=== PATIENT | female | born 1970 | race Caucasian/White ===

== ENCOUNTER → 2017-01-24 | Outpatient (CLI) | payer MEDICAID | LOC: WI 12:18 | PROVIDERS: ATTEND Nurse Practitioner Family | DX: N63 Unspecified lump in breast (principal) | CPT/HCPCS: 76641; G0204; 77066 ==

== ENCOUNTER 2017-02-14 11:25 | Emergency (ER) | payer MEDICAID ==
[2017-02-14 11:29] VITALS: BP 168/75
--- NOTE | 2017-02-14 11:32 | ER Document Report ---
ED Medical Screen (RME) - General Stated Complaint: WITHDRAWL Time seen by provider: 11:30 Mode of Arrival: Ambulatory Information source: Patient Notes: 46-year-old female presents to ED for possible withdrawal from Klonopin she states the last Klonopin she took was 4 days ago. She states she was taken 1 mg in the morning and 2 mg at night. Her doctor prescribed an them and she started to see a new doctor on Saturday. She starting on Saturday with [facility]. She states she has a history of anxiety and panic attacks. I have greeted and performed a rapid initial assessment of this patient. A comprehensive ED assessment and evaluation of the patient, analysis of test results and completion of medical decision making process will be conducted by an additional ED providers. TRAVEL OUTSIDE OF THE [place] IN LAST 30 DAYS: No - Related Data Allergies/Adverse Reactions: ketorolac tromethamine [From Toradol] Allergy (Verified 01/03/16 21:14) tramadol [Tramadol] Allergy (Verified 01/03/16 21:14) Past Medical History Pulmonary Medical History: Reports: Hx Asthma Endocrine Medical History: Reports: Hx Diabetes Mellitus Type 2 - Immunizations Immunizations up to date: No Hx Diphtheria, Pertussis, Tetanus Vaccination: Yes Physical Exam - Vital signs Vitals: Temp Pulse Resp BP Pulse Ox 98.4 F 97 18 168/75 H 98 02/14/17 11:28 02/14/17 11:28 02/14/17 11:28 02/14/17 11:28 02/14/17 11:28 Course - Vital Signs Vital signs: Temp Pulse Resp BP Pulse Ox 98.4 F 97 18 168/75 H 98 02/14/17 11:28 02/14/17 11:28 02/14/17 11:28 02/14/17 11:28 02/14/17 11:28
--- NOTE | 2017-02-14 12:29 | ER Document Report ---
ED General - General Mode of Arrival: Ambulatory Information source: Patient TRAVEL OUTSIDE OF THE [place] IN LAST 30 DAYS: No - HPI Onset: Other - see HPI note - General Chief Complaint: Medication Refill Stated Complaint: WITHDRAWL Notes: Patient is a 46-year-old female patient was department for medication refill. Patient states that she is supposedly having "withdrawal" from Klonopin. Patient states that her last dose of Klonopin was 4 days ago. Patient states that she takes 1 mg in the morning and 2 mg at night. Patient states that her doctor at [facility] prescribes them however, patient states she is changing to [facility]. Patient states he has an appointment with them on Saturday. Patient is concerned that she may have a possible seizure in the meantime. Patient states she takes this medicine for anxiety. Patient has a history of anxiety and panic attacks. (RANDA ABBOTT) - Related Data Allergies/Adverse Reactions: ketorolac tromethamine [From Toradol] Allergy (Verified 02/14/17 11:30) tramadol [Tramadol] Allergy (Verified 02/14/17 11:30) Past Medical History - General Information source: Patient - Social History Smoking Status: Current Every Day Smoker Chew tobacco use (# tins/day): No Frequency of alcohol use: None Drug Abuse: None Family History: None Patient has suicidal ideation: No Patient has homicidal ideation: No Pulmonary Medical History: Reports: Hx Asthma Endocrine Medical History: Reports: Hx Diabetes Mellitus Type 2 Psychiatric Medical History: Reports: Hx Anxiety - Immunizations Immunizations up to date: No Hx Diphtheria, Pertussis, Tetanus Vaccination: Yes Review of Systems - Review of Systems Constitutional: No symptoms reported EENT: No symptoms reported Cardiovascular: No symptoms reported Respiratory: No symptoms reported Gastrointestinal: No symptoms reported Genitourinary: No symptoms reported Female Genitourinary: No symptoms reported Musculoskeletal: No symptoms reported Skin: No symptoms reported Hematologic/Lymphatic: No symptoms reported Neurological/Psychological: No symptoms reported -: Yes All other systems reviewed and negative Physical Exam - Vital signs Interpretation: Normal - General General appearance: Appears well, Alert In distress: Mild - HEENT Head: Normocephalic, Atraumatic Eyes: Normal Pupils: PERRL Mucous membranes: Moist - Respiratory Respiratory status: No respiratory distress - Cardiovascular Rhythm: Regular - Abdominal Inspection: Normal - Back Back: Normal, Nontender - Extremities General upper extremity: Normal inspection, Normal ROM, Normal strength General lower extremity: Normal inspection, Normal ROM, Normal strength - Neurological Neuro grossly intact: Yes Cognition: Normal Orientation: AAOx4 Christian Coma Scale Eye Opening: Spontaneous Christian Coma Scale Verbal: Oriented Christian Coma Scale Motor: Obeys Commands [place] Coma Scale Total: 15 Speech: Normal - Psychological Associated symptoms: Normal affect, Normal mood - Skin Skin Temperature: Warm Skin Moisture: Dry Course - Re-evaluation Re-evalutation: 02/14/17 14:56 I personally performed the services described in the documentation, reviewed and edited the documentation which was dictated to my scribe in my presence, and it accurately records my words and actions. Patient is in the amounts per with her stating that she wants a refill on her Klonopin that she is withdrawing from that she ran out of. She said she was seeing cc and see but they wondered do therapy to stop prescribing her medications that she ran out of. She has an appointment on Saturday to get it refilled. She is not actively which are reports no history of seizures discussed with her E on chronic refill on medication she states she's got to go home and have a seizure so she can come back and get the medication. Explained to her that I have spoken with behavioral health and they do not feel it needs it treatment in the emergency department and given me paperwork to give to his outpatient resources. One of these outpatient resources appointment that she has on Saturday. Explain the policy and address any concerns as I'm not comfortable refilling her chronic addicting medication at this point also has a primary care physician*she spoke to them she said she thinks her out of town. Recommended she also talked with the primary care physician. (ESE SILVER) - Vital Signs Vital signs: Temp Pulse Resp BP Pulse Ox 98.4 F 97 18 168/75 H 98 02/14/17 11:28 02/14/17 11:28 02/14/17 11:28 02/14/17 11:28 02/14/17 11:28 Discharge - Discharge Clinical Impression: request for medication refill Condition: Stable Disposition: HOME, SELF-CARE Additional Instructions: You have requested a refill for Klonopin that you have run out of. You have an appointment for follow-up to get this medication refilled on Saturday. I spoke with by behavioral health team states that they are not going to manage in the emergency department emergently but that they gave you paperwork which I have given to you of outpatient resources. You state that you have a follow-up appointment on Saturday. The same people N outpatient referral. Right now your vital signs are stable there has been no seizure activity. You have mentioned uses for seizures. I would recommend that you also see the neurologist and consider additional seizure medication other than the Klonopin if you feel like your withdrawing from it. Chronic management of medication refills must be by primary care provider outpatient Resource. Return to the emergency department for increasing worsening or new symptoms Referrals: ABRAHAM STARR FNP [Primary Care Provider] - Follow up tomorrow Scribe Documentation - Scribe Written by Antonette:: Randa Abbott 02/14/17 15:55 acting as scribe for :: Skip
== END 2017-02-14 15:06 | disposition home or self-care (01) ==
LOC: ER 11:25
DX: Z76.0 Encounter for issue of repeat prescription (principal); F41.9 Anxiety disorder, unspecified; F17.200 Nicotine dependence, unspecified, uncomplicated; J45.909 Unspecified asthma, uncomplicated; E11.9 Type 2 diabetes mellitus without complications
CPT/HCPCS: 99281

== ENCOUNTER 2017-03-06 22:20 | Emergency (ER) | payer MEDICAID ==
[2017-03-07 01:00] LABS: ABSOLUTE BASOPHILS # (AUTO) 0.1 10^3/uL (0.0-0.2); ABSOLUTE EOSINOPHILS # (AUTO) 0.2 10^3/uL (0.0-0.6); ABSOLUTE LYMPHOCYTES (AUTO) 4.4 10^3/uL (0.5-4.7); ABSOLUTE MONOCYTES (AUTO) 1.2 10^3/uL (0.1-1.4); ABSOLUTE NEUT (AUTO) 9.9 10^3/uL (1.7-8.2); BASOPHILS % (AUTO) 0.8 % (0-2); EOSINOPHILS % (AUTO) 1.3 % (0-6); HEMATOCRIT 40.4 % (36.0-47.0); HEMOGLOBIN 13.8 g/dL (12.0-15.5); LYMPHOCYTES % (AUTO) 27.9 % (13-45); MEAN CORPUSCULAR HEMOGLOBIN 30.8 pg (27.0-33.4); MEAN CORPUSCULAR HGB CONC 34.2 g/dL (32.0-36.0); MEAN CORPUSCULAR VOLUME 90 fl (80-97); MONOCYTES % (AUTO) 7.4 % (3-13); RED BLOOD COUNT 4.49 10^6/uL (3.72-5.28); RED CELL DISTRIBUTION WIDTH 13.7 % (11.5-14.0); SEGMENTED NEUTROPHILS % (AUTO) 62.6 % (42-78); WHITE BLOOD COUNT 15.9 10^3/uL (4.0-10.5)
[2017-03-07 01:07] LABS: APPEARANCE,URINE SLIGHTLY-CLOUDY; BILIRUBIN,URINE NEGATIVE (NEGATIVE); GLUCOSE, URINE >=500 mg/dL (NEGATIVE); KETONES,URINE TRACE mg/dL (NEGATIVE); LEUKOCYTE ESTERASE,URINE TRACE (NEGATIVE); NITRITE,URINE NEGATIVE (NEGATIVE); PROTEIN,URINE NEGATIVE (NEGATIVE); URINE SPECIFIC GRAVITY 1.029; UROBILINOGEN,URINE NEGATIVE mg/dL (<2.0)
[2017-03-07 01:32] LABS: ALANINE AMINOTRANSFERASE 20 U/L (9-52); ALBUMIN 3.9 g/dL (3.5-5.0); ALKALINE PHOSPHATASE 101 U/L (38-126); ANION GAP 12 (5-19); ASPARTATE AMINO TRANSFERASE 11 U/L (14-36); BILIRUBIN,DIRECT 0.1 mg/dL (0.0-0.4); BILIRUBIN,TOTAL 0.4 mg/dL (0.2-1.3); BLOOD UREA NITROGEN 15 mg/dL (7-20); CALCIUM 9.7 mg/dL (8.4-10.2); CARBON DIOXIDE 24 mmol/L (22-30); CHLORIDE 96 mmol/L (98-107); CREATININE RESULT 0.44 mg/dL (0.52-1.25); GLUCOSE 282 mg/dL (75-110); LIPASE 48.7 U/L (23-300); POTASSIUM 4.3 mmol/L (3.6-5.0); SODIUM 132.1 mmol/L (137-145); TOTAL PROTEIN 6.6 g/dL (6.3-8.2)
[2017-03-07] MEDS ORDERED: HYDROMORPHONE HCL INJ/PF 2 MG/ML AMPULE IV ONE ×2 (05:05→06:39)
[2017-03-07] MEDS ORDERED: ONDANSETRON HCL INJ/PF 4 MG/2 ML SDV IV ONE (05:05)
[2017-03-07] MEDS ORDERED: NORMAL SALINE 1000 ML 1,000 ML IV ONE ×2 (05:05→06:47)
--- NOTE | 2017-03-07 06:51 | ER Document Report ---
ED General - General Chief Complaint: Abdominal Pain Stated Complaint: ABDOMINAL PAIN Time seen by provider: 04:45 Mode of Arrival: Ambulatory Information source: Patient TRAVEL OUTSIDE OF THE [place] IN LAST 30 DAYS: No - HPI Notes: Patient presents with report of abdominal pain progressing over the course of the last 3 days, largely consistent but occasional crampy worsening. The patient states pain is more so lower abdominal region left greater than right but also reports some upper abdominal pain. She denies any constipation or diarrhea. She has a history of diverticulitis, colitis. Last menstrual cycle was 2 months ago, but she states it she's undergoing menopause. No vaginal discharge. No significant back pain. She reports associated nausea but denies any vomiting. Patient denies any vaginal discharge or concern for STD. - Related Data Allergies/Adverse Reactions: ketorolac tromethamine [From Toradol] Allergy (Verified 03/06/17 23:19) tramadol [Tramadol] Allergy (Verified 03/06/17 23:19) Past Medical History - Social History Smoking Status: Current Every Day Smoker Frequency of alcohol use: None Drug Abuse: None Lives with: Family Family History: None Patient has suicidal ideation: No Patient has homicidal ideation: No - Past Medical History Cardiac Medical History: Reports: Hx Hypercholesterolemia, Hx Hypertension Pulmonary Medical History: Reports: Hx Asthma, Hx COPD Endocrine Medical History: Reports: Hx Diabetes Mellitus Type 2 Renal/ Medical History: Denies: Hx Peritoneal Dialysis Psychiatric Medical History: Reports: Hx Anxiety, Hx Depression Past Surgical History: Reports: Hx Appendectomy, Hx Cholecystectomy, Hx Gynecologic Surgery - x14 D&C - Immunizations Immunizations up to date: No Hx Diphtheria, Pertussis, Tetanus Vaccination: Yes Review of Systems - Review of Systems Notes: REVIEW OF SYSTEMS: CONSTITUTIONAL : Denies fever, chills, or sweats. Denies recent illness. EENT: Denies eye, ear, throat, or mouth pain or symptoms. Denies nasal or sinus congestion or discharge. Denies throat, tongue, or mouth swelling or difficulty swallowing. CARDIOVASCULAR: Denies chest pain. Denies palpitations or racing or irregular heart beat. Denies ankle edema. RESPIRATORY: Denies cough, cold, or chest congestion. Denies shortness of breath, difficulty breathing, or wheezing. GASTROINTESTINAL: Denies vomiting, or diarrhea. Denies blood in vomitus, stools, or per rectum. Denies black, tarry stools. Denies constipation. GENITOURINARY: Denies difficulty urinating, painful urination, burning, frequency, blood in urine, or discharge. FEMALE GENITOURINARY: Denies vaginal bleeding, heavy or abnormal periods, irregular periods. Denies vaginal discharge or odor. MUSCULOSKELETAL: Denies back or neck pain or stiffness. Denies joint pain or swelling. SKIN: Denies rash, lesions or sores. HEMATOLOGIC : Denies easy bruising or bleeding. LYMPHATIC: Denies swollen, enlarged glands. NEUROLOGICAL: Denies confusion or altered mental status. Denies passing out or loss of consciousness. Denies dizziness or lightheadedness. Denies headache. Denies weakness or paralysis or loss of use of either side. Denies problems with gait or speech. Denies sensory loss, numbness, or tingling. Denies seizures. PSYCHIATRIC: Denies anxiety or stress. Denies depression, suicidal ideation, or homicidal ideation. ALL OTHER SYSTEMS REVIEWED AND NEGATIVE. Dictation was performed using [employer] voice recognition software Physical Exam - Vital signs Vitals: Temp Pulse Resp BP Pulse Ox 98.3 F 93 14 133/68 H 98 03/06/17 23:20 03/06/17 23:20 03/06/17 23:20 03/06/17 23:20 03/06/17 23:20 - Notes Notes: PHYSICAL EXAMINATION: GENERAL: Well-appearing, well-nourished and in no acute distress. HEAD: Atraumatic, normocephalic. EYES: Pupils equal round and reactive to light, extraocular movements intact, conjunctiva are normal. ENT: Nares patent, oropharynx clear without exudates. Moist mucous membranes. NECK: Normal range of motion, supple without lymphadenopathy LUNGS: Breath sounds clear to auscultation bilaterally and equal. No wheezes rales or rhonchi. HEART: Regular rate and rhythm without murmurs ABDOMEN: Soft abdomen. No guarding, no rebound. No masses appreciated. Patient has pain through the lower greater than upper abdomen and left somewhat greater than right. Patient is obese. No obvious hepatosplenomegaly. Female : deferred Musculoskeletal: Normal range of motion, no pitting or edema. No cyanosis. NEUROLOGICAL: Cranial nerves grossly intact. Normal speech, normal gait. Normal sensory, motor exams PSYCH: Normal mood, normal affect. SKIN: Warm, Dry, normal turgor, no rashes or lesions noted. Course - Re-evaluation Re-evalutation: 03/07/17 06:51 After Zofran and Dilaudid, the patient had continued pain. CT scan showed a 5.1 cm complex mass. Possible ovarian cyst but ultrasound suggested. Patient with continued pain. Ultrasound ordered. Patient given additional medication for pain. Must rule out ovarian cancer, also must consider torsion given the size of the ovarian mass. No suggestion for diverticulitis or abdominal aortic aneurysm or kidney stone or urinary tract infection. There is mild hyperglycemia and mild dehydration without any acidosis or vomiting. Patient is given 2 L normal saline bolus. 03/07/17 06:54 03/07/17 06:54 - Vital Signs Vital signs: Temp Pulse Resp BP Pulse Ox 98.3 F 93 14 133/68 H 98 03/06/17 23:20 03/06/17 23:20 03/06/17 23:20 03/06/17 23:20 03/06/17 23:20 - Laboratory Result Diagrams: 03/07/17 00:35 03/07/17 00:35 Laboratory results interpreted by me: 03/07/17 03/07/17 03/07/17 00:35 00:35 00:35 WBC 15.9 H Absolute Neutrophils 9.9 H Sodium 132.1 L Chloride 96 L Creatinine 0.44 L Glucose 282 H AST 11 L Urine Glucose (UA) >=500 H Urine Ketones TRACE H Ur Leukocyte Esterase TRACE H Discharge - Discharge Clinical Impression: Hyperglycemia, Dehydration
[2017-03-07 09:47] VITALS: BP 117/69
== END 2017-03-07 09:15 | disposition home or self-care (01) ==
LOC: ER 22:20
DX: E86.0 Dehydration (principal); N83.202 Unspecified ovarian cyst, left side; E11.65 Type 2 diabetes mellitus with hyperglycemia; R10.9 Unspecified abdominal pain; F17.200 Nicotine dependence, unspecified, uncomplicated; E78.00 Pure hypercholesterolemia, unspecified; I10 Essential (primary) hypertension; J44.9 Chronic obstructive pulmonary disease, unspecified; Z88.6 Allergy status to analgesic agent; Z90.49 Acquired absence of other specified parts of digestive tract
CPT/HCPCS: 99284; 36415; 83690; 85025; 81025; 80053; 81001; 76830; 93976; 74177; J1170; J2405; J7030

== ENCOUNTER 2017-03-08 14:42 | Emergency (ER) | payer MEDICAID ==
--- NOTE | 2017-03-08 16:29 | ER Document Report ---
ED Medical Screen (RME) - General Chief Complaint: Abdominal Pain Stated Complaint: ABDOMINAL PAIN Notes: Patient is complaining of persistent, continuing pain in her abdomen. She says that this is been going on for about 4 days. She was here at this hospital 2 days ago and had a workup including a CT scan and ultrasound and she was found to have a 5 cm left ovarian cyst. She returned saying the hydrocodone that she was prescribed is not helping her pain. She says that she is unable to get in to see an AUTOMOTIVE TECHNICIAN until she is referred by her primary care provider, so she has nowhere else to go. No vomiting or diarrhea. No UTI symptoms. No fevers. PMH: Appendectomy, cholecystectomy, several laparoscopic examinations. History of hypertension, diabetes on both oral agent and insulin, anxiety and depression. Just recently stopped smoking. TRAVEL OUTSIDE OF THE [place] IN LAST 30 DAYS: No - Related Data Allergies/Adverse Reactions: ketorolac tromethamine [From Toradol] Allergy (Verified 03/08/17 14:45) tramadol [Tramadol] Allergy (Verified 03/08/17 14:45) Past Medical History - Past Medical History Cardiac Medical History: Reports: Hx Hypercholesterolemia, Hx Hypertension Pulmonary Medical History: Reports: Hx Asthma, Hx COPD Endocrine Medical History: Reports: Hx Diabetes Mellitus Type 2 Renal/ Medical History: Denies: Hx Peritoneal Dialysis Psychiatric Medical History: Reports: Hx Anxiety, Hx Depression Past Surgical History: Reports: Hx Appendectomy, Hx Cholecystectomy, Hx Gynecologic Surgery - x14 D&C - Immunizations Immunizations up to date: No Hx Diphtheria, Pertussis, Tetanus Vaccination: Yes Physical Exam - Vital signs Vitals: Temp Pulse Resp BP Pulse Ox 97.6 F 86 18 144/65 H 97 03/08/17 14:47 03/08/17 14:47 03/08/17 14:47 03/08/17 14:47 03/08/17 14:47 Course - Vital Signs Vital signs: Temp Pulse Resp BP Pulse Ox 97.6 F 86 18 144/65 H 97 03/08/17 14:47 03/08/17 14:47 03/08/17 14:47 03/08/17 14:47 03/08/17 14:47
[2017-03-08] MEDS ORDERED: HYDROMORPHONE HCL 2 MG TABLET PO ONE (16:32)
[2017-03-08] MEDS ORDERED: PROMETHAZINE HCL 25 MG TABLET PO ONE (16:33)
[2017-03-08 16:56] LABS: ABSOLUTE BASOPHILS # (AUTO) 0.1 10^3/uL (0.0-0.2); ABSOLUTE EOSINOPHILS # (AUTO) 0.2 10^3/uL (0.0-0.6); ABSOLUTE LYMPHOCYTES (AUTO) 3.7 10^3/uL (0.5-4.7); ABSOLUTE NEUT (AUTO) 8.7 10^3/uL (1.7-8.2); BASOPHILS % (AUTO) 1.1 % (0-2); EOSINOPHILS % (AUTO) 1.4 % (0-6); HEMATOCRIT 42.4 % (36.0-47.0); HEMOGLOBIN 13.9 g/dL (12.0-15.5); HGB HCT DIFFERENCE -0.7; LYMPHOCYTES % (AUTO) 26.9 % (13-45); MEAN CORPUSCULAR HEMOGLOBIN 30.4 pg (27.0-33.4); MEAN CORPUSCULAR HGB CONC 32.8 g/dL (32.0-36.0); MEAN CORPUSCULAR VOLUME 93 fl (80-97); RED BLOOD COUNT 4.57 10^6/uL (3.72-5.28); RED CELL DISTRIBUTION WIDTH 13.8 % (11.5-14.0); SEGMENTED NEUTROPHILS % (AUTO) 63.6 % (42-78); WHITE BLOOD COUNT 13.7 10^3/uL (4.0-10.5)
[2017-03-08 17:09] LABS: ALANINE AMINOTRANSFERASE 19 U/L (9-52); ALKALINE PHOSPHATASE 108 U/L (38-126); ANION GAP 12 (5-19); ASPARTATE AMINO TRANSFERASE 13 U/L (14-36); BILIRUBIN,DIRECT 0.2 mg/dL (0.0-0.4); BILIRUBIN,TOTAL 0.4 mg/dL (0.2-1.3); BLOOD UREA NITROGEN 9 mg/dL (7-20); CALCIUM 9.6 mg/dL (8.4-10.2); CARBON DIOXIDE 26 mmol/L (22-30); CHLORIDE 100 mmol/L (98-107); CREATININE RESULT 0.55 mg/dL (0.52-1.25); GLUCOSE 372 mg/dL (75-110); LIPASE 55.7 U/L (23-300); POTASSIUM 4.8 mmol/L (3.6-5.0); SODIUM 138.4 mmol/L (137-145); TOTAL PROTEIN 6.6 g/dL (6.3-8.2)
--- NOTE | 2017-03-08 17:35 | ER Document Report ---
ED GI/ - General Chief Complaint: Abdominal Pain Stated Complaint: ABDOMINAL PAIN Time seen by provider: 17:35 Mode of Arrival: Ambulatory Information source: Patient Notes: 46-year-old Type @ insulin-dependent diabetic female complaining of worsening left pelvic pain. She was diagnosed with a 5 x 3 left ovarian cyst that is septated yesterday by ultrasound. She also had a abdominal CT done there is no diverticulitis. The pain has doubled since she was evaluated in the emergency department and the hydrocodone did not help. There is no diarrhea or constipation. Her test was negative yesterday. No fever or chills. TRAVEL OUTSIDE OF THE [place] IN LAST 30 DAYS: No - Related Data Allergies/Adverse Reactions: ketorolac tromethamine [From Toradol] Allergy (Verified 03/08/17 14:45) tramadol [Tramadol] Allergy (Verified 03/08/17 14:45) Past Medical History - General Information source: Patient - Social History Smoking Status: Current Every Day Smoker Frequency of alcohol use: None Drug Abuse: None Lives with: Spouse/Significant other Family History: None Patient has suicidal ideation: No Patient has homicidal ideation: No - Past Medical History Cardiac Medical History: Reports: Hx Hypercholesterolemia, Hx Hypertension Pulmonary Medical History: Reports: Hx Asthma, Hx COPD Endocrine Medical History: Reports: Hx Diabetes Mellitus Type 2 Renal/ Medical History: Denies: Hx Peritoneal Dialysis Psychiatric Medical History: Reports: Hx Anxiety, Hx Depression Past Surgical History: Reports: Hx Appendectomy, Hx Cholecystectomy, Hx Gynecologic Surgery - x14 D&C - Immunizations Immunizations up to date: No Hx Diphtheria, Pertussis, Tetanus Vaccination: Yes Review of Systems - Review of Systems Constitutional: No symptoms reported EENT: No symptoms reported Cardiovascular: No symptoms reported Respiratory: No symptoms reported Gastrointestinal: No symptoms reported Genitourinary: No symptoms reported Female Genitourinary: See HPI Musculoskeletal: No symptoms reported Skin: No symptoms reported Hematologic/Lymphatic: No symptoms reported Neurological/Psychological: No symptoms reported Physical Exam - Vital signs Vitals: Temp Pulse Resp BP Pulse Ox 97.6 F 86 18 144/65 H 97 03/08/17 14:47 03/08/17 14:47 03/08/17 14:47 03/08/17 14:47 03/08/17 14:47 Interpretation: Normal - General General appearance: Appears well, Alert - HEENT Head: Normocephalic, Atraumatic Eyes: Normal Conjunctiva: Normal Pupils: PERRL Mucous membranes: Normal Pharynx: Normal Neck: Supple. No: Lymphadenopathy - Respiratory Respiratory status: No respiratory distress Chest status: Nontender Breath sounds: Normal Chest palpation: Normal - Cardiovascular Rhythm: Regular Heart sounds: Normal auscultation Murmur: No - Abdominal Inspection: Normal Distension: No distension Bowel sounds: Normal Tenderness: Tender - Left pelvic Organomegaly: No organomegaly - Back Back: Normal, Nontender. No: CVA tenderness - Extremities General upper extremity: Normal inspection, Nontender, Normal color, Normal ROM , Normal temperature General lower extremity: Normal inspection, Nontender, Normal color, Normal ROM , Normal temperature, Normal weight bearing. No: Luiz's sign - Neurological Neuro grossly intact: Yes Cognition: Normal Orientation: AAOx4 Christian Coma Scale Eye Opening: Spontaneous Christian Coma Scale Verbal: Oriented Roland Coma Scale Motor: Obeys Commands Christian Coma Scale Total: 15 Speech: Normal Motor strength normal: LUE, RUE, LLE, RLE Sensory: Normal - Psychological Associated symptoms: Normal affect, Normal mood - Skin Skin Temperature: Warm Skin Moisture: Dry Skin Color: Normal Skin irregularity: negative: Rash Course - Re-evaluation Re-evalutation: 03/08/17 19:14 No change in ovarian cyst, no torsion 03/08/17 19:25 urine 1.031, accucheck 309. dr panchal who approved the US says to give regular 6 units subcutaneously now, pt to f/u with her dr. next week 03/09/17 09:38 Called patient this morning to see how she was doing. Her glucose is down to 150 this morning and her boyfriend went to get her pain medication filled. She states she is doing better today. - Vital Signs Vital signs: Temp Pulse Resp BP Pulse Ox 97.6 F 70 18 138/62 H 98 03/08/17 14:47 03/08/17 19:55 03/08/17 19:55 03/08/17 19:55 03/08/17 19:55 - Laboratory Result Diagrams: 03/08/17 16:30 03/08/17 16:30 Laboratory results interpreted by me: 03/08/17 03/08/17 03/08/17 16:30 16:30 16:30 WBC 13.7 H Absolute Neutrophils 8.7 H Glucose 372 H POC Glucose AST 13 L Urine Glucose (UA) >=500 H 03/08/17 19:28 WBC Absolute Neutrophils Glucose POC Glucose 309 H AST Urine Glucose (UA) Discharge - Discharge Clinical Impression: Ovarian cyst, left, left pelvic pain Uncontrolled diabetes mellitus Qualifiers: Diabetes mellitus type: type 1 Diabetes mellitus complication status: without complication Qualified Code(s): E10.9 - Type 1 diabetes mellitus without complications Condition: Good Disposition: HOME, SELF-CARE Instructions: Ovarian Cyst ([facility]), Diabetes ([facility]) Additional Instructions: see your doctor on saturday for better glucose control to er if worse copy of labs, imaging given to you today call the obgyn for appt next week Please complete the patient satisfaction survey if you get one, and return it.. If you do not receive a survey, then you can go to the [facility] website, [email or web address] and place your comments about your very good care. Thank you very much. It was a pleasure being your medical provider today. Prescriptions: Oxycodone HCl/Acetaminophen [Percocet 10-325 Mg Tablet] 1 each PO Q4HP PRN #20 tablet PRN Reason: Referrals: ABRAHAM STARR FNP [Primary Care Provider] - 03/11/17
[2017-03-08] MEDS ORDERED: OXYCODONE-ACETAMINOPHEN 5-325 MG TABLET PO ONE (17:59)
[2017-03-08 19:21] LABS: APPEARANCE,URINE CLEAR; BILIRUBIN,URINE NEGATIVE (NEGATIVE); GLUCOSE, URINE >=500 mg/dL (NEGATIVE); KETONES,URINE NEGATIVE (NEGATIVE); LEUKOCYTE ESTERASE,URINE NEGATIVE (NEGATIVE); NITRITE,URINE NEGATIVE (NEGATIVE); PROTEIN,URINE NEGATIVE (NEGATIVE); URINE SPECIFIC GRAVITY 1.031; UROBILINOGEN,URINE NEGATIVE mg/dL (<2.0)
[2017-03-08] MEDS ORDERED: INSULIN REG, HUMAN 100 UNIT/ML 3 ML VIAL (PYX) SUBCUT ONE (19:29)
[2017-03-08 20:12] VITALS: BP 138/62
== END 2017-03-08 19:59 | disposition home or self-care (01) ==
LOC: ER 14:42
DX: N83.202 Unspecified ovarian cyst, left side (principal); R10.2 Pelvic and perineal pain; E10.9 Type 1 diabetes mellitus without complications; F17.200 Nicotine dependence, unspecified, uncomplicated; E78.00 Pure hypercholesterolemia, unspecified; I10 Essential (primary) hypertension; J44.9 Chronic obstructive pulmonary disease, unspecified; Z88.6 Allergy status to analgesic agent
CPT/HCPCS: 99284; 36415; 82962; 83690; 85025; 80053; 81001; 76830; 93976; J3490 ×2; J1815

== ENCOUNTER 2017-03-12 13:05 | Emergency (ER) | payer MEDICAID ==
[2017-03-12 13:12] VITALS: BP 127/60
[2017-03-12] MEDS ORDERED: ONDANSETRON 4 MG TAB.RAPDIS PO ONE (13:36)
[2017-03-12] MEDS ORDERED: OXYCODONE-ACETAMINOPHEN 5-325 MG TABLET PO ONE (13:36)
--- NOTE | 2017-03-12 13:36 | ER Document Report ---
ED Medical Screen (RME) - General Chief Complaint: Abdominal Pain Stated Complaint: ABDOMINAL PAIN Notes: This 46-year-old female patient comes emergency room complaining of severe pain in the lower abdomen. She was seen on 03/06/2017 and 03/08/2017 and diagnosed with a large complex left ovarian cyst. She was referred back to her primary care provider, who referred her to Dr. King. Apparently a referral was not working correctly, and he is not available to see her for at least 2 weeks. On the first visit, the case was actually discussed with Dr. Mims who recommended that she be followed up in the office. Patient reports that the pain is getting much worse and she came here at the direction of Dr. King's office since they could not see her. I have greeted and performed a rapid initial assessment of this patient. A comprehensive ED assessment and evaluation of the patient, analysis of test results and completion of the medical decision making process will be conducted by additional ED providers. TRAVEL OUTSIDE OF THE [place] IN LAST 30 DAYS: No - Related Data Allergies/Adverse Reactions: ketorolac tromethamine [From Toradol] Allergy (Verified 03/12/17 13:10) tramadol [Tramadol] Allergy (Verified 03/12/17 13:10) Past Medical History - Past Medical History Cardiac Medical History: Reports: Hx Hypercholesterolemia, Hx Hypertension Pulmonary Medical History: Reports: Hx Asthma, Hx COPD Endocrine Medical History: Reports: Hx Diabetes Mellitus Type 2 Renal/ Medical History: Denies: Hx Peritoneal Dialysis Psychiatric Medical History: Reports: Hx Anxiety, Hx Depression Past Surgical History: Reports: Hx Appendectomy, Hx Cholecystectomy, Hx Gynecologic Surgery - x14 D&C - Immunizations Immunizations up to date: No Hx Diphtheria, Pertussis, Tetanus Vaccination: Yes Physical Exam - Vital signs Vitals: Temp Pulse Resp BP Pulse Ox 98.4 F 110 H 16 127/60 H 97 03/12/17 13:11 03/12/17 13:11 03/12/17 13:11 03/12/17 13:11 03/12/17 13:11 Course - Vital Signs Vital signs: Temp Pulse Resp BP Pulse Ox 98.4 F 110 H 16 127/60 H 97 03/12/17 13:11 03/12/17 13:11 03/12/17 13:11 03/12/17 13:11 03/12/17 13:11
[2017-03-12] MEDS ORDERED: HYDROCODONE/ACETAMINOPHEN 5-325 MG TABLET PO ONE (14:08)
== END 2017-03-12 16:16 | disposition left against medical advice (07) ==
LOC: ER 13:05
DX: R10.9 Unspecified abdominal pain (principal); E78.00 Pure hypercholesterolemia, unspecified; I10 Essential (primary) hypertension; J44.9 Chronic obstructive pulmonary disease, unspecified; E11.9 Type 2 diabetes mellitus without complications; Z88.6 Allergy status to analgesic agent; Z90.49 Acquired absence of other specified parts of digestive tract
CPT/HCPCS: 99281; S0119

== ENCOUNTER 2017-06-13 10:52 | Emergency (ER) | payer MEDICAID ==
[2017-06-13] MEDS ORDERED: ONDANSETRON 4 MG TAB.RAPDIS PO ONE (11:02)
--- NOTE | 2017-06-13 11:05 | ER Document Report ---
ED Medical Screen (RME) - General Chief Complaint: Flank Pain Stated Complaint: STOMACH PAIN Time Seen by Provider: 06/13/17 11:02 Mode of Arrival: Ambulatory Information source: Patient Notes: 36-year-old female presents to ED for right flank pain for several days. She also complains of nausea vomiting and diarrhea with low-grade temp of 99.6. She does not have a history of kidney stones. She smokes a pack per day but does not drink or do drugs. She has a history of a high blood pressure cholesterol, diabetes, cholecystectomy, and an appendectomy. Lungs are clear respirations even and nonlabored. I have greeted and performed a rapid initial assessment of this patient. A comprehensive ED assessment and evaluation of the patient, analysis of test results and completion of medical decision making process will be conducted by an additional ED providers. TRAVEL OUTSIDE OF THE [place] IN LAST 30 DAYS: No - Related Data Allergies/Adverse Reactions: ketorolac tromethamine [From Toradol] Allergy (Verified 06/13/17 11:00) tramadol [Tramadol] Allergy (Verified 06/13/17 11:00) Past Medical History - Past Medical History Cardiac Medical History: Reports: Hx Hypercholesterolemia, Hx Hypertension Pulmonary Medical History: Reports: Hx Asthma, Hx COPD Endocrine Medical History: Reports: Hx Diabetes Mellitus Type 2 Renal/ Medical History: Denies: Hx Peritoneal Dialysis Psychiatric Medical History: Reports: Hx Anxiety, Hx Depression Past Surgical History: Reports: Hx Appendectomy, Hx Cholecystectomy, Hx Gynecologic Surgery - x14 D&C - Immunizations Immunizations up to date: No Hx Diphtheria, Pertussis, Tetanus Vaccination: Yes Physical Exam - Vital signs Vitals: Temp Pulse Resp BP Pulse Ox 98.1 F 100 16 135/69 H 96 06/13/17 11:00 06/13/17 11:00 06/13/17 11:00 06/13/17 11:00 06/13/17 11:00 Course - Vital Signs Vital signs: Temp Pulse Resp BP Pulse Ox 98.1 F 100 16 135/69 H 96 06/13/17 11:00 06/13/17 11:00 06/13/17 11:00 06/13/17 11:00 06/13/17 11:00
--- NOTE | 2017-06-13 11:21 | ER Document Report ---
ED General - General Chief Complaint: Flank Pain Stated Complaint: STOMACH PAIN Time Seen by Provider: 06/13/17 11:02 Mode of Arrival: Ambulatory Information source: Patient Notes: Patient presents to the emergency department with complaints of severe lower right-sided back pain and right lower abdominal pain. Patient reports symptoms for the past week. She reports the last couple days the pain from the back radiated to her RLQ and periumbilical pain. She has a history of Joanna and appendectomy. She also complains of a low-grade temperature of 99.6 with some nausea. Patient reports history of ovarian cyst and chronic back pain with nerve damage and right leg numbness. She reports last bowel movement this a.m. no pain with void. TRAVEL OUTSIDE OF THE [place] IN LAST 30 DAYS: No - HPI Onset: Last week Onset/Duration: Persistent Quality of pain: Achy Severity: Severe Pain Level: 5 Associated symptoms: Fever, Nausea Exacerbated by: Denies Relieved by: Denies Similar symptoms previously: No Recently seen / treated by doctor: No - Related Data Allergies/Adverse Reactions: ketorolac tromethamine [From Toradol] Allergy (Verified 06/13/17 11:00) tramadol [Tramadol] Allergy (Verified 06/13/17 11:00) Past Medical History - General Information source: Patient Last Menstrual Period: 2 months ago - Social History Smoking Status: Current Every Day Smoker Cigarette use (# per day): Yes Frequency of alcohol use: None Drug Abuse: None Lives with: Family Family History: None Patient has suicidal ideation: No Patient has homicidal ideation: No - Past Medical History Cardiac Medical History: Reports: Hx Hypercholesterolemia, Hx Hypertension Pulmonary Medical History: Reports: Hx Asthma, Hx COPD Endocrine Medical History: Reports: Hx Diabetes Mellitus Type 2 Renal/ Medical History: Denies: Hx Peritoneal Dialysis Psychiatric Medical History: Reports: Hx Anxiety, Hx Depression Past Surgical History: Reports: Hx Appendectomy, Hx Cholecystectomy, Hx Gynecologic Surgery - x14 D&C - Immunizations Immunizations up to date: No Hx Diphtheria, Pertussis, Tetanus Vaccination: Yes Review of Systems - Review of Systems Notes: Review HPI for review of systems., All other systems negative Physical Exam - Vital signs Vitals: Temp Pulse Resp BP Pulse Ox 98.1 F 100 16 135/69 H 96 06/13/17 11:00 06/13/17 11:00 06/13/17 11:00 06/13/17 11:00 06/13/17 11:00 - Notes Notes: PHYSICAL EXAMINATION: GENERAL: non toxic looking HEAD: Atraumatic, normocephalic. EYES: Pupils equal round and reactive to light, extraocular movements intact, sclera anicteric, conjunctiva are normal. ENT: nares patent, oropharynx clear without exudates. Moist mucous membranes. NECK: Normal range of motion, supple without lymphadenopathy LUNGS: CTAB and equal. No wheezes rales or rhonchi. HEART: Regular rate and rhythm without murmurs ABDOMEN: Soft, reports right side abdominal pain, worse periumbilical, No guarding, no rebound EXTREMITIES: Normal range of motion, no pitting edema. No cyanosis. NEUROLOGICAL: Cranial nerves grossly intact. Normal sensory/motor exams. PSYCH: Normal mood, normal affect. SKIN: Warm, Dry, normal turgor, no rashes or lesions noted Course - Re-evaluation Re-evalutation: 06/13/17 13:02 White count 19.5 no shift. Patient continues to complain of abdominal pain even after 1 mg of Dilaudid. Patient does not look in any distress. Review of previous records notes history of left ovarian cyst. [place] controlled substance reporting system reviewed. Will do a CT of the abdomen to further evaluate. 06/13/17 14:[address] Gilbert regarding patient. CT with fatty liver, pt reports she knows this, it is not knew. Patient will be discharged home medication with prescription for pain medications to fu with frederick marshall - Vital Signs Vital signs: Temp Pulse Resp BP Pulse Ox 97.8 F 73 16 108/58 L 93 06/13/17 14:19 06/13/17 14:19 06/13/17 11:00 06/13/17 14:19 06/13/17 14:19 - Laboratory Result Diagrams: 06/13/17 11:45 06/13/17 11:45 Laboratory results interpreted by me: 06/13/17 06/13/17 06/13/17 11:45 11:45 11:45 WBC 19.2 H RDW 14.4 H Absolute Neutrophils 13.2 H Glucose 170 H Urine Glucose (UA) 50 H - Diagnostic Test Radiology reviewed: Image reviewed, Reports reviewed - Diagnostic report text EXAM DESCRIPTION: CT ABD/PELVIS WITH IV ONLY COMPLETED DATE/ TIME: 06/13/2017 1:17 pm REASON FOR STUDY: abd pain COMPARISON: 03/07/2017 TECHNIQUE: CT scan of the abdomen and pelvis performed using helical scanning technique with dynamic intravenous contrast injection. No oral contrast. Images reviewed with lung, soft tissue, and bone windows. Reconstructed coronal and sagittal MPR images reviewed. Delayed images for evaluation of the urinary system also acquired. All images stored on PACS. All CT scanners at this facility use dose modulation, iterative reconstruction, and/or weight based dosing when appropriate to reduce radiation dose to as low as reasonably achievable (ALARA). [facility]: Dose Right [facility]: CareDose [facility]: Dose Right [facility]: Teradose 4D [facility]: WeMontage CONTRAST TYPE AND DOSE: contrast/ concentration: Isovue 370.00 mg/ml; Total Contrast Delivered: 88.0 ml; Total Saline Delivered: 69.0 ml RENAL FUNCTION: Creatinine 0.5 BUN 9 RADIATION DOSE: Up-to-date CT equipment and radiation dose reduction techniques were employed. CTDIvol: 9.5 - 13.4 mGy. DLP: 1267 mGy-cm.. LIMITATIONS: None. FINDINGS: LOWER CHEST: No significant findings. No nodules or infiltrates. LIVER: There is a 15 mm low-density lesion in the liver on image 29 series 3. This is not significantly enhance and is fairly well defined. The liver is mildly hypo attenuating generally. SPLEEN: Numerous granulomatous calcifications are present. PANCREAS: No masses. No significant calcifications. No adjacent inflammation or peripancreatic fluid collections. Pancreatic duct not dilated. GALLBLADDER: Surgically absent. ADRENAL GLANDS: No significant masses or asymmetry. RIGHT KIDNEY AND URETER: No solid masses. No significant calcifications. No hydronephrosis or hydroureter. LEFT KIDNEY AND URETER: No solid masses. No significant calcifications. No hydronephrosis or hydroureter. AORTA AND VESSELS: No aneurysm. No dissection. Renal arteries , SMA, celiac without stenosis. RETROPERITONEUM: No retroperitoneal adenopathy , hemorrhage or masses. BOWEL AND PERITONEAL CAVITY: No masses or inflammatory changes. No free fluid or peritoneal masses. APPENDIX: Not identified. PELVIS : The urinary bladder and uterus are normal. There is no adnexal mass or fluid collection. ABDOMINAL WALL: No masses. No hernias. BONES: No significant or acute findings. OTHER: No other significant finding. IMPRESSION: 1. Fatty infiltration of the liver. 2. There is a low-density lesion in the liver that does not enhance significantly and is well- defined. Etiology unknown. This is present on the earlier study. 3. No other significant abnormality is present. Discharge - Discharge Clinical Impression: low back pain Abdominal pain Qualifiers: Abdominal location: generalized Qualified Code(s): R10.84 - Generalized abdominal pain Condition: Stable Disposition: HOME, SELF-CARE Instructions: Abdominal Pain ([facility]), Pain Medication Injection ([facility]), Oral Narcotic Medication ([facility]) Additional Instructions: *You have been evaluated for abdominal pain, fatty liver elevated blood pressure reading *Take medication as prescribed *Follow up with a primary care provider within 3 days *Return to ED for worsening condition, changes, needs, increased abdominal pain , fever *Return to ED if not better in 24 hours Monitor your blood pressure. Your blood pressure was elevated today. This may be because you were anxious, in pain or because you need medication. It is important to follow up with your primary care provider for full evaluation. Prescriptions: Oxycodone HCl/Acetaminophen [Percocet 5-325 mg Tablet] 1 - 2 tab PO ASDIR PRN # 15 tablet PRN Reason: Forms: Smoking Cessation Education, Elevated Blood Pressure Referrals: FREDERICK STARR FNP [Primary Care Provider] - Follow up in 3-5 days
[2017-06-13] MEDS ORDERED: HYDROMORPHONE HCL INJ/PF 2 MG/ML AMPULE IV ONE (11:56)
[2017-06-13 11:58] LABS: ABSOLUTE BASOPHILS # (AUTO) 0.2 10^3/uL (0.0-0.2); ABSOLUTE EOSINOPHILS # (AUTO) 0.1 10^3/uL (0.0-0.6); ABSOLUTE LYMPHOCYTES (AUTO) 4.6 10^3/uL (0.5-4.7); ABSOLUTE MONOCYTES (AUTO) 1.1 10^3/uL (0.1-1.4); ABSOLUTE NEUT (AUTO) 13.2 10^3/uL (1.7-8.2); BASOPHILS % (AUTO) 0.8 % (0-2); EOSINOPHILS % (AUTO) 0.5 % (0-6); HEMATOCRIT 46.2 % (36.0-47.0); HEMOGLOBIN 15.4 g/dL (12.0-15.5); LYMPHOCYTES % (AUTO) 24.2 % (13-45); MEAN CORPUSCULAR HEMOGLOBIN 31.4 pg (27.0-33.4); MEAN CORPUSCULAR HGB CONC 33.3 g/dL (32.0-36.0); MEAN CORPUSCULAR VOLUME 94 fl (80-97); MONOCYTES % (AUTO) 5.9 % (3-13); RED BLOOD COUNT 4.91 10^6/uL (3.72-5.28); RED CELL DISTRIBUTION WIDTH 14.4 % (11.5-14.0); SEGMENTED NEUTROPHILS % (AUTO) 68.6 % (42-78); WHITE BLOOD COUNT 19.2 10^3/uL (4.0-10.5)
[2017-06-13 12:04] LABS: APPEARANCE,URINE SLIGHTLY-CLOUDY; BILIRUBIN,URINE NEGATIVE (NEGATIVE); GLUCOSE, URINE 50 mg/dL (NEGATIVE); KETONES,URINE NEGATIVE (NEGATIVE); LEUKOCYTE ESTERASE,URINE NEGATIVE (NEGATIVE); NITRITE,URINE NEGATIVE (NEGATIVE); PROTEIN,URINE NEGATIVE (NEGATIVE); URINE SPECIFIC GRAVITY 1.008; UROBILINOGEN,URINE NEGATIVE mg/dL (<2.0)
[2017-06-13 12:11] LABS: ALANINE AMINOTRANSFERASE 26 U/L (9-52); ALBUMIN 4.7 g/dL (3.5-5.0); ALKALINE PHOSPHATASE 84 U/L (38-126); ANION GAP 15 (5-19); ASPARTATE AMINO TRANSFERASE 14 U/L (14-36); BILIRUBIN,DIRECT 0.3 mg/dL (0.0-0.4); BILIRUBIN,TOTAL 0.7 mg/dL (0.2-1.3); BLOOD UREA NITROGEN 9 mg/dL (7-20); CALCIUM 9.8 mg/dL (8.4-10.2); CARBON DIOXIDE 24 mmol/L (22-30); CHLORIDE 98 mmol/L (98-107); CREATININE RESULT 0.52 mg/dL (0.52-1.25); GLUCOSE 170 mg/dL (75-110); LIPASE 57.1 U/L (23-300); POTASSIUM 4.4 mmol/L (3.6-5.0); TOTAL PROTEIN 7.9 g/dL (6.3-8.2)
--- NOTE | 2017-06-13 13:46 | RADIOLOGY REPORT (SQ) ---
EXAM DESCRIPTION: CT ABD/PELVIS WITH IV ONLY COMPLETED DATE/TIME: 06/13/2017 1:17 pm REASON FOR STUDY: abd pain COMPARISON: 03/07/2017 TECHNIQUE: CT scan of the abdomen and pelvis performed using helical scanning technique with dynamic intravenous contrast injection. No oral contrast. Images reviewed with lung, soft tissue, and bone windows. Reconstructed coronal and sagittal MPR images reviewed. Delayed images for evaluation of the urinary system also acquired. All images stored on PACS. All CT scanners at this facility use dose modulation, iterative reconstruction, and/or weight based d osing when appropriate to reduce radiation dose to as low as reasonably achievable (ALARA). [facility]: Dose Right [facility]: CareDose [facility]: Dose Right [facility]: Teradose 4D [facility]: CereScan CONTRAST TYPE AND DOSE: contrast/concentration: Isovue 370.00 mg/ml; Total Contrast Delivered: 88.0 ml; Total Saline Delivered: 69.0 ml RENAL FUNCTION: Creatinine 0.5 BUN 9 RADIATION DOSE: Up-to-date CT equipment and radiation dose reduction techniques were employed. CTDIv ol: 9.5 - 13.4 mGy. DLP: 1267 mGy-cm.. LIMITATIONS: None. FINDINGS: LOWER CHEST: No significant findings. No nodules or infiltrates. LIVER: There is a 15 mm low-density lesion in the liver on image 29 series 3. This is not significan tly enhance and is fairly well defined. The liver is mildly hypo attenuating generally. SPLEEN: Numerous granulomatous calcifications are present. PANCREAS: No masses. No significant calcifications. No adjacent inflammation or peripancreatic fluid collections. Pancreatic duct not dilated. GALLBLADDER: Surgically absent. ADRENAL GLANDS: No significant masses or asymmetry. RIGHT KIDNEY AND URETER: No solid masses. No significant calcifications. No hydronephrosis or hyd roureter. LEFT KIDNEY AND URETER: No solid masses. No significant calcifications. No hydronephrosis or hydr oureter. AORTA AND VESSELS: No aneurysm. No dissection. Renal arteries, SMA, celiac without stenosis. RETROPERITONEUM: No retroperitoneal adenopathy, hemorrhage or masses. BOWEL AND PERITONEAL CAVITY: No masses or inflammatory changes. No free fluid or peritoneal masses. APPENDIX: Not identified. PELVIS: The urinary bladder and uterus are normal. There is no adnexal mass or fluid collection. ABDOMINAL WALL: No masses. No hernias. BONES: No significant or acute findings. OTHER: No other significant finding. IMPRESSION: 1. Fatty infiltration of the liver. 2. There is a low-density lesion in the liver that does not enhance significantly and is well-define d. Etiology unknown. This is present on the earlier study. 3. No other significant abnormality is present. TECHNICAL DOCUMENTATION: JOB ID: [id number] Quality ID # [id number]: Final reports with documentation of one or more dose reduction techniques (e.g., Au tomated exposure control, adjustment of the mA and/or kV according to patient size, use of iterative reconstruction technique) 2010 [employer]- All Rights Reserved
[2017-06-13] MEDS ORDERED: OXYCODONE-ACETAMINOPHEN 5-325 MG TABLET PO ONE (14:04)
[2017-06-13 14:21] VITALS: BP 108/58
== END 2017-06-13 14:21 | disposition home or self-care (01) ==
LOC: ER 10:52
DX: M54.5 Low back pain (principal); R10.84 Generalized abdominal pain; M54.9 Dorsalgia, unspecified; R10.31 Right lower quadrant pain; R50.9 Fever, unspecified; F17.210 Nicotine dependence, cigarettes, uncomplicated
CPT/HCPCS: 99284; 96374; 36415; 83690; 84703; 85025; 80053; 81001; 74177; S0119; J1170

== ENCOUNTER 2017-07-25 12:48 | Emergency (ER) | payer MEDICAID ==
[2017-07-25] MEDS ORDERED: MORPHINE SULFATE 10 MG/ML INJ IV ONE ×2 (13:13→14:41)
[2017-07-25] MEDS ORDERED: ONDANSETRON HCL INJ/PF 4 MG/2 ML SDV IV ONE (13:13)
[2017-07-25] MEDS ORDERED: NORMAL SALINE 1000 ML 1,000 ML IV ONE (13:13)
--- NOTE | 2017-07-25 13:13 | ER Document Report ---
ED Medical Screen (RME) - General Chief Complaint: Abdominal Pain Stated Complaint: ABDOMINAL PAIN Time Seen by Provider: 07/25/17 13:05 Mode of Arrival: Ambulatory Information source: Patient Notes: 46-year-old female presents complaints of one-week duration of upper abdominal pain. Patient was seen by primary care physician noted to have a white count 19 sent in for evaluation patient has a history of cholecystectomy I have greeted and performed a rapid initial assessment of this patient. A comprehensive ED assessment and evaluation of the patient, analysis of test results and completion of the medical decision making process will be conducted by additional ED providers. PHYSICAL EXAMINATION: GENERAL: Well-appearing, well-nourished and in no acute distress. HEAD: Atraumatic, normocephalic. EYES: Pupils equal round extraocular movements intact, conjunctiva are normal. ENT: Nares patent NECK: Normal range of motion LUNGS: No respiratory distress Musculoskeletal: Normal range of motion NEUROLOGICAL: Normal speech, normal gait. PSYCH: Normal mood, normal affect. SKIN: Warm, Dry, normal turgor, no rashes or lesions noted. TRAVEL OUTSIDE OF THE [place] IN LAST 30 DAYS: No - Related Data Allergies/Adverse Reactions: ketorolac tromethamine [From Toradol] Allergy (Verified 07/25/17 12:56) tramadol [Tramadol] Allergy (Verified 07/25/17 12:56) Past Medical History - Social History Chew tobacco use (# tins/day): No Frequency of alcohol use: None Drug Abuse: None - Past Medical History Cardiac Medical History: Reports: Hx Hypercholesterolemia, Hx Hypertension Pulmonary Medical History: Reports: Hx Asthma, Hx COPD Endocrine Medical History: Reports: Hx Diabetes Mellitus Type 2 Renal/ Medical History: Denies: Hx Peritoneal Dialysis Psychiatric Medical History: Reports: Hx Anxiety, Hx Depression Past Surgical History: Reports: Hx Appendectomy, Hx Cholecystectomy, Hx Gynecologic Surgery - x14 D&C - Immunizations Immunizations up to date: No Hx Diphtheria, Pertussis, Tetanus Vaccination: Yes Physical Exam - Vital signs Vitals: Temp Pulse Resp BP Pulse Ox 98.5 F 100 16 152/61 H 97 07/25/17 12:53 07/25/17 12:53 07/25/17 12:53 07/25/17 12:53 07/25/17 12:53 Course - Vital Signs Vital signs: Temp Pulse Resp BP Pulse Ox 98.5 F 100 16 152/61 H 97 07/25/17 12:53 07/25/17 12:53 07/25/17 12:53 07/25/17 12:53 07/25/17 12:53
[2017-07-25 13:53] LABS: ABSOLUTE BASOPHILS # (AUTO) 0.1 10^3/uL (0.0-0.2); ABSOLUTE EOSINOPHILS # (AUTO) 0.1 10^3/uL (0.0-0.6); ABSOLUTE LYMPHOCYTES (AUTO) 4.5 10^3/uL (0.5-4.7); ABSOLUTE MONOCYTES (AUTO) 1.1 10^3/uL (0.1-1.4); ABSOLUTE NEUT (AUTO) 10.4 10^3/uL (1.7-8.2); BASOPHILS % (AUTO) 0.8 % (0-2); EOSINOPHILS % (AUTO) 0.8 % (0-6); HEMATOCRIT 42.5 % (36.0-47.0); HEMOGLOBIN 14.8 g/dL (12.0-15.5); HGB HCT DIFFERENCE 1.9; LYMPHOCYTES % (AUTO) 27.8 % (13-45); MEAN CORPUSCULAR HEMOGLOBIN 33.5 pg (27.0-33.4); MEAN CORPUSCULAR HGB CONC 34.7 g/dL (32.0-36.0); MEAN CORPUSCULAR VOLUME 97 fl (80-97); MONOCYTES % (AUTO) 6.7 % (3-13); RED BLOOD COUNT 4.41 10^6/uL (3.72-5.28); RED CELL DISTRIBUTION WIDTH 14.1 % (11.5-14.0); SEGMENTED NEUTROPHILS % (AUTO) 63.9 % (42-78); WHITE BLOOD COUNT 16.3 10^3/uL (4.0-10.5)
[2017-07-25 14:03] LABS: APPEARANCE,URINE CLEAR; BILIRUBIN,URINE NEGATIVE (NEGATIVE); GLUCOSE, URINE NEGATIVE (NEGATIVE); KETONES,URINE NEGATIVE (NEGATIVE); LEUKOCYTE ESTERASE,URINE NEGATIVE (NEGATIVE); NITRITE,URINE NEGATIVE (NEGATIVE); PROTEIN,URINE NEGATIVE (NEGATIVE); URINE SPECIFIC GRAVITY 1.003; UROBILINOGEN,URINE NEGATIVE mg/dL (<2.0)
[2017-07-25 14:08] LABS: ALANINE AMINOTRANSFERASE 24 U/L (9-52); ALBUMIN 4.4 g/dL (3.5-5.0); ALKALINE PHOSPHATASE 82 U/L (38-126); ANION GAP 12 (5-19); ASPARTATE AMINO TRANSFERASE 14 U/L (14-36); BILIRUBIN,DIRECT 0.3 mg/dL (0.0-0.4); BILIRUBIN,TOTAL 0.6 mg/dL (0.2-1.3); BLOOD UREA NITROGEN 5 mg/dL (7-20); CALCIUM 9.7 mg/dL (8.4-10.2); CARBON DIOXIDE 23 mmol/L (22-30); CHLORIDE 102 mmol/L (98-107); CREATININE RESULT 0.53 mg/dL (0.52-1.25); GLUCOSE 88 mg/dL (75-110); LIPASE 76.5 U/L (23-300); POTASSIUM 4.1 mmol/L (3.6-5.0); SODIUM 136.9 mmol/L (137-145); TOTAL PROTEIN 7.1 g/dL (6.3-8.2)
--- NOTE | 2017-07-25 14:25 | ER Document Report ---
ED General - General Chief Complaint: Abdominal Pain Stated Complaint: ABDOMINAL PAIN Time Seen by Provider: 07/25/17 13:05 Mode of Arrival: Ambulatory Information source: Patient Notes: This is a 46-year-old female with a history of diabetes, hypertension, COPD who presents to the emergency room with a 1-1/2 weeks of abdominal pain, diarrhea. Patient was recently seen by the primary care doctor noted to have an elevated white count. The patient does have a history of a white count elevation and reports that when she was in [place] (several years ago) she had seen a change control specialist who wanted to do a bone marrow biopsy at that time because of the elevated white count. Ultimately, that test was never done and the patient subsequently moved down here. The patient has been seen by her primary care physician for times (Lashonda Gaffney) but states that she had the first set of blood work just a few days ago. Patient surgical history includes an appendectomy, cholecystectomy, multiple D&Cs. TRAVEL OUTSIDE OF THE [place] IN LAST 30 DAYS: No - HPI Onset: Last week Onset/Duration: Gradual Quality of pain: Dull Severity: Moderate Pain Level: 3 Associated symptoms: Diarrhea, Nausea, Vomiting. denies: Chills, Fever Exacerbated by: Denies Relieved by: Denies Similar symptoms previously: Yes Recently seen / treated by doctor: Yes - Related Data Allergies/Adverse Reactions: ketorolac tromethamine [From Toradol] Allergy (Verified 07/25/17 12:56) tramadol [Tramadol] Allergy (Verified 07/25/17 12:56) Past Medical History - General Information source: Patient - Social History Smoking Status: Current Every Day Smoker Cigarette use (# per day): Yes - 1 pack per day Chew tobacco use (# tins/day): No Frequency of alcohol use: None Drug Abuse: None Lives with: Family Family History: None Patient has suicidal ideation: No Patient has homicidal ideation: No - Past Medical History Cardiac Medical History: Reports: Hx Hypercholesterolemia, Hx Hypertension Pulmonary Medical History: Reports: Hx Asthma, Hx COPD Endocrine Medical History: Reports: Hx Diabetes Mellitus Type 2 Renal/ Medical History: Denies: Hx Peritoneal Dialysis Psychiatric Medical History: Reports: Hx Anxiety, Hx Depression Past Surgical History: Reports: Hx Appendectomy, Hx Cholecystectomy, Hx Gynecologic Surgery - x14 D&C - Immunizations Immunizations up to date: No Hx Diphtheria, Pertussis, Tetanus Vaccination: Yes Review of Systems - Review of Systems Constitutional: denies: Chills, Fever EENT: No symptoms reported Cardiovascular: No symptoms reported Respiratory: No symptoms reported Gastrointestinal: See HPI Genitourinary: No symptoms reported Female Genitourinary: No symptoms reported Musculoskeletal: No symptoms reported Skin: No symptoms reported Hematologic/Lymphatic: No symptoms reported Neurological/Psychological: No symptoms reported Physical Exam - Vital signs Vitals: Temp Pulse Resp BP Pulse Ox 98.5 F 100 16 152/61 H 97 07/25/17 12:52 07/25/17 12:52 07/25/17 12:52 07/25/17 12:52 07/25/17 12:52 Notes: Physical exam: GENERAL: This is a 46-year-old female, alert and oriented 3, appears in mild distress. HEAD: Atraumatic, normocephalic. EYES: Pupils equal round and reactive to light, extraocular movements intact, sclera anicteric, conjunctiva are normal. ENT: TMs normal, nares patent, oropharynx clear without exudates. Moist mucous membranes. NECK: Normal range of motion, supple without lymphadenopathy or JVD. LUNGS: Breath sounds clear to auscultation bilaterally and equal. No wheezes rales or rhonchi. HEART: Regular rate and rhythm without murmurs, rubs or gallops. ABDOMEN: Soft, normoactive bowel sounds. The patient does have diffuse tenderness without rebound or guarding. No guarding, no rebound. There are no masses appreciated. Rectal: Brown stool, sent for study EXTREMITIES: Normal range of motion, no pitting or edema. No clubbing or cyanosis. NEUROLOGICAL: Cranial nerves II through XII grossly intact. Normal speech, moving all extremities. PSYCH: Normal mood, normal affect. SKIN: Warm, Dry, normal turgor, no rashes or lesions noted. Course - Re-evaluation Re-evalutation: 07/25/17 18:28 Is alert and oriented 3. She appears much better after the IV fluids and IV antibiotics. Repeat abdomen exam is soft with no significant tenderness. There is no evidence of peritoneal findings. - Vital Signs Vital signs: Temp Pulse Resp BP Pulse Ox 98.5 F 100 16 152/61 H 97 07/25/17 12:53 07/25/17 12:53 07/25/17 12:53 07/25/17 12:53 07/25/17 12:53 - Laboratory Result Diagrams: 07/25/17 13:35 07/25/17 13:35 Laboratory results interpreted by me: 07/25/17 07/25/17 13:35 13:35 WBC 16.3 H [facility] 33.5 H RDW 14.1 H Absolute Neutrophils 10.4 H Sodium 136.9 L BUN 5 L - Diagnostic Test Radiology reviewed: Image reviewed, Reports reviewed - CT of the abdomen shows no acute intra-abdominal process Discharge - Discharge Clinical Impression: Abdominal pain, Vomiting with nausea Condition: Stable Disposition: HOME, SELF-CARE Instructions: Abdominal Pain ([facility]), Nausea or Vomiting, Nonspecific ([facility]) Additional Instructions: Recommendations: Rest, drink plenty of fluids take the nausea medicine as prescribed. Take the pain medicine as needed. Follow-up with your primary care doctor: Bring a copy of today's CT report with you as well as lab results. Return to the emergency room for worsening pain, concerns or getting worse, fever, not tolerating fluid. The pain medicine you're taking prescribed as a narcotic. There are several important things you should know about this medicine: 1. Taking narcotics for too long can lead to physical and mental dependence. Take this medicine only if really needed and in the lowest quantity to achieve pain relief. 2. Do not drink alcohol while on this medicine. Alcohol interacts with narcotics and the combination can be dangerous. 3. Do not drive or operate machinery while on this medicine. 4. Narcotics do cause constipation, so drink plenty of fluids and daily stool softeners. Prescriptions: Oxycodone HCl 5 mg PO Q6HP PRN #14 tablet PRN Reason: Metoclopramide HCl [Reglan 10 mg Tablet] 1 - 2 tab PO ASDIR PRN #25 tablet PRN Reason: Referrals: LASHONDA STARR FNP [Primary Care Provider] - Follow up in 3-5 days
[2017-07-25] MEDS ORDERED: METOCLOPRAMIDE HCL INJ/PF 10 MG/2 ML SDV IV ONE (14:40)
[2017-07-25] MEDS ORDERED: DIPHENHYDRAMINE HCL 50 MG/ML VIAL IV ONE (14:41)
--- NOTE | 2017-07-25 17:53 | RADIOLOGY REPORT (SQ) ---
EXAM DESCRIPTION: CT ABD/PELVIS WITH IV ORAL COMPLETED DATE/TIME: 07/25/2017 5:23 pm REASON FOR STUDY: abdominal pain COMPARISON: 06/13/2017 TECHNIQUE: CT scan of the abdomen and pelvis performed using helical scanning technique with dynamic intravenous contrast injection. No oral contrast. Images reviewed with lung, soft tissue, and bone windows. Reconstructed coronal and sagittal MPR images reviewed. Delayed images for evaluation of the urinary system also acquired. All images stored on PACS. All CT scanners at this facility use dose modulation, iterative reconstruction, and/or weight based d osing when appropriate to reduce radiation dose to as low as reasonably achievable (ALARA). [facility]: Dose Right [facility]: CareDose [facility]: Dose Right [facility]: Teradose 4D [facility]: Miiix CONTRAST TYPE AND DOSE: contrast/concentration: Isovue 370.00 mg/ml; Total Contrast Delivered: 91.0 ml; Total Saline Delivered: 70.0 ml RENAL FUNCTION: Creatinine 0.53 RADIATION DOSE: Up-to-date CT equipment and radiation dose reduction techniques were employed. CTDIv ol: 13.2 - 17.4 mGy. DLP: 1633 mGy-cm.. LIMITATIONS: None. FINDINGS: LOWER CHEST: No significant findings. No nodules or infiltrates. LIVER: Single calcification in the liver likely related to previous granulomatous disease given the m ultiple calcifications in the spleen. Stable 1.9 cm low density lesion in the mid aspect of the live r. No new abnormalities. SPLEEN: Multiple calcifications in the spleen consistent with previous granulomatous disease. PANCREAS: No masses. No significant calcifications. No adjacent inflammation or peripancreatic fluid collections. Pancreatic duct not dilated. GALLBLADDER: Surgically absent. ADRENAL GLANDS: No significant masses or asymmetry. RIGHT KIDNEY AND URETER: No solid masses. No significant calcifications. No hydronephrosis or hyd roureter. LEFT KIDNEY AND URETER: No solid masses. No significant calcifications. No hydronephrosis or hydr oureter. AORTA AND VESSELS: No aneurysm. No dissection. Renal arteries, SMA, celiac without stenosis. RETROPERITONEUM: No retroperitoneal adenopathy, hemorrhage or masses. BOWEL AND PERITONEAL CAVITY: No masses or inflammatory changes. No free fluid or peritoneal masses. APPENDIX: Not visualized. PELVIS: No mass. No free fluid. Normal bladder. ABDOMINAL WALL: No masses. No hernias. BONES: No significant or acute findings. OTHER: No other significant finding. IMPRESSION: 1. No acute abnormality in the abdomen or pelvis. 2. Status post cholecystectomy. 3. Multiple calcifications in the spleen consistent with previous granulomatous disease. 4. Stable 1.9 cm low density lesion in the mid aspect of the liver. TECHNICAL DOCUMENTATION: JOB ID: [id number] Quality ID # [id number]: Final reports with documentation of one or more dose reduction techniques (e.g., Au tomated exposure control, adjustment of the mA and/or kV according to patient size, use of iterative reconstruction technique) 2010 [employer]- All Rights Reserved
[2017-07-25 18:50] VITALS: BP 121/57
== END 2017-07-25 19:00 | disposition home or self-care (01) ==
LOC: ER 12:48
DX: R10.9 Unspecified abdominal pain (principal); R11.2 Nausea with vomiting, unspecified; E11.9 Type 2 diabetes mellitus without complications; I10 Essential (primary) hypertension; J44.9 Chronic obstructive pulmonary disease, unspecified; R19.7 Diarrhea, unspecified; F17.210 Nicotine dependence, cigarettes, uncomplicated
CPT/HCPCS: 96376; 99284; 96374; 96375; 36415; 83690; 85025; 82272; 81025; 80053; 81001; 74177; J1200; J2765; J2270; J2405; J7030

== ENCOUNTER 2018-12-13 11:46 | Inpatient (IN) | payer MEDICAID ==
[2018-12-13] MEDS ORDERED: MAG HYDROX/AL HYDROX/SIMETH SUSP 30 ML UDCUP PO ONE (12:17)
[2018-12-13] MEDS ORDERED: LIDOCAINE 2% VISCOUS SOLN 20 ML UDCUP PO ONE (12:17)
--- NOTE | 2018-12-13 12:18 | ER Document Report ---
ED Medical Screen (RME) - General Chief Complaint: Abdominal Pain Stated Complaint: ABDOMINAL PAIN, NAUSEA Time Seen by Provider: 12/13/18 12:12 Notes: 48-year-old female patient complains of supraumbilical abdominal pain with nausea for the past 3 days. Made worse with eating or drinking. She does have a past history of ovarian cyst, cholecystectomy, appendectomy, diverticulitis. She is tender to palpate in the epigastric region. She will be given a GI cocktail in triage, and laboratory evaluation initiated. I have greeted and performed a rapid initial assessment of this patient. A comprehensive ED assessment and evaluation of the patient, analysis of test results and completion of the medical decision making process will be conducted by additional ED providers. TRAVEL OUTSIDE OF THE [place] IN LAST 30 DAYS: No - Related Data Allergies/Adverse Reactions: ketorolac tromethamine [From Toradol] Allergy (Verified 12/13/18 12:17) tramadol [Tramadol] Allergy (Verified 12/13/18 12:17) Past Medical History - Social History Chew tobacco use (# tins/day): No Frequency of alcohol use: None Drug Abuse: None - Past Medical History Cardiac Medical History: Reports: Hx Hypercholesterolemia, Hx Hypertension Pulmonary Medical History: Reports: Hx COPD Comment Only: Hx Asthma - pt denies Endocrine Medical History: Reports: Hx Diabetes Mellitus Type 2 Renal/ Medical History: Denies: Hx Peritoneal Dialysis Psychiatric Medical History: Reports: Hx Anxiety, Hx Depression Past Surgical History: Reports: Hx Appendectomy, Hx Cholecystectomy, Hx Gynecologic Surgery - x14 D&C - Immunizations Immunizations up to date: No Hx Diphtheria, Pertussis, Tetanus Vaccination: Yes Physical Exam - Vital signs Vitals: Temp Pulse Resp BP Pulse Ox 98.1 F 87 18 109/75 98 12/13/18 11:54 12/13/18 11:54 12/13/18 11:54 12/13/18 11:54 12/13/18 11:54 Course - Vital Signs Vital signs: Temp Pulse Resp BP Pulse Ox 98.1 F 87 18 109/75 98 12/13/18 11:54 12/13/18 11:54 12/13/18 11:54 12/13/18 11:54 12/13/18 11:54 Doctor's Discharge - Discharge Referrals: BRI STILES MD [Primary Care Provider] - Follow up as needed
[2018-12-13 12:54] LABS: ABSOLUTE BASOPHILS # (AUTO) 0.1 10^3/uL (0.0-0.2); ABSOLUTE EOSINOPHILS # (AUTO) 0.1 10^3/uL (0.0-0.6); ABSOLUTE MONOCYTES (AUTO) 1.2 10^3/uL (0.1-1.4); ABSOLUTE NEUT (AUTO) 7.8 10^3/uL (1.7-8.2); BASOPHILS % (AUTO) 0.9 % (0-2); EOSINOPHILS % (AUTO) 0.9 % (0-6); HEMATOCRIT 48.5 % (36.0-47.0); HEMOGLOBIN 15.9 g/dL (12.0-15.5); LYMPHOCYTES % (AUTO) 30.4 % (13-45); MEAN CORPUSCULAR HGB CONC 32.9 g/dL (32.0-36.0); MEAN CORPUSCULAR VOLUME 91 fl (80-97); MONOCYTES % (AUTO) 8.7 % (3-13); PLATELET COUNT 259 10^3/uL (150-450); RED BLOOD COUNT 5.31 10^6/uL (3.72-5.28); RED CELL DISTRIBUTION WIDTH 14.7 % (11.5-14.0); SEGMENTED NEUTROPHILS % (AUTO) 59.1 % (42-78); TOTAL CELLS COUNTED % (AUTO) 100 %; WHITE BLOOD COUNT 13.2 10^3/uL (4.0-10.5)
[2018-12-13 12:58] LABS: APPEARANCE,URINE CLOUDY; BILIRUBIN,URINE NEGATIVE (NEGATIVE); COLOR,URINE YELLOW; GLUCOSE, URINE >=500 mg/dL (NEGATIVE); KETONES,URINE NEGATIVE (NEGATIVE); LEUKOCYTE ESTERASE,URINE NEGATIVE (NEGATIVE); NITRITE,URINE NEGATIVE (NEGATIVE); PROTEIN,URINE NEGATIVE (NEGATIVE); URINE SPECIFIC GRAVITY 1.037
[2018-12-13 13:10] LABS: ALANINE AMINOTRANSFERASE 17 U/L (9-52); ALBUMIN 4.9 g/dL (3.5-5.0); ALKALINE PHOSPHATASE 102 U/L (38-126); ANION GAP 14 (5-19); ASPARTATE AMINO TRANSFERASE 14 U/L (14-36); BILIRUBIN,DIRECT 0.2 mg/dL (0.0-0.4); BILIRUBIN,TOTAL 0.4 mg/dL (0.2-1.3); BLOOD UREA NITROGEN 11 mg/dL (7-20); CARBON DIOXIDE 26 mmol/L (22-30); CHLORIDE 101 mmol/L (98-107); GLUCOSE 119 mg/dL (75-110); LIPASE 77.9 U/L (23-300); POTASSIUM 4.5 mmol/L (3.6-5.0); SODIUM 140.8 mmol/L (137-145); TOTAL PROTEIN 7.9 g/dL (6.3-8.2)
[2018-12-13] MEDS ORDERED: ONDANSETRON HCL INJ/PF 4 MG/2 ML SDV IV ONE (13:54)
[2018-12-13] MEDS ORDERED: FENTANYL CITRATE INJ/PF 100 MCG/2 ML AMPUL IV ONE (13:54)
--- NOTE | 2018-12-13 17:14 | RADIOLOGY REPORT (SQ) ---
EXAM DESCRIPTION: CT ABD/PELVIS WITH IV ORAL COMPLETED DATE/TIME: 12/13/2018 4:47 pm REASON FOR STUDY: Abdominal pain rule out diverticulitis COMPARISON: 07/25/2017 and earlier TECHNIQUE: CT scan of the abdomen and pelvis performed using helical scanning technique with dynamic intravenous contrast injection. Enteric contrast was administered. Images reviewed with lung, soft tissue, and bone windows. Reconstructed coronal and sagittal MPR images reviewed. Delayed images for evaluation of the urinary system also acquired. All images stored on PACS. All CT scanners at this facility use dose modulation, iterative reconstruction, and/or weight based d osing when appropriate to reduce radiation dose to as low as reasonably achievable (ALARA). [facility]: Dose Right [facility]: CareDose [facility]: Dose Right [facility]: Teradose 4D [facility]: SmartestK12 CONTRAST TYPE AND DOSE: contrast/concentration: Isovue 350.00 mg/ml; Total Contrast Delivered: 90.0 ml; Total Saline Delivered: 70.0 ml 90 mL IV of Omnipaque 350- low osmolar. RENAL FUNCTION: BUN 11 creatinine 0.55 RADIATION DOSE: CT Rad equipment meets quality standard of care and radiation dose reduction techniq ues were employed. CTDIvol: 9.4 - 13.0 mGy. DLP: 1300 mGy-cm.. LIMITATIONS: None. FINDINGS: LOWER CHEST: No significant findings. No nodules or infiltrates. LIVER: Normal size. No dilated ducts. Unchanged indeterminate mass bordering the right and left hep atic lobes measuring 2.0 x 1.9 cm. No additional solid or cystic hepatic mass. SPLEEN: Normal size. Multiple calcified granulomas. No solid or cystic splenic mass. PANCREAS: No masses. No significant calcifications. No adjacent inflammation or peripancreatic fluid collections. Pancreatic duct not dilated. GALLBLADDER: Surgically absent. ADRENAL GLANDS: No significant masses or asymmetry. RIGHT KIDNEY AND URETER: No solid masses. No significant calcifications. No hydronephrosis or hyd roureter. LEFT KIDNEY AND URETER: No solid masses. No significant calcifications. No hydronephrosis or hydr oureter. AORTA AND VESSELS: No aneurysm. No dissection. Moderate calcified and noncalcified plaque. RETROPERITONEUM: Larger retroperitoneal lymph node/mass at the level of the renal veins measuring 3.7 x 4.1 x 4.9 cm (AP by TR by CC ; series 3, image 35 ; series 601, image 38). This causes mass effec t on the adjacent left renal vein and IVC. Internal hypodensity of the left renal vein at the level of the mass which may be secondary to mixing of contrast, left likely invasion. No additional pathol ogically enlarged retroperitoneal lymph nodes. BOWEL AND PERITONEAL CAVITY: No dilated loops of bowel. No inflammatory changes. No intraperitoneal free fluid or free air. APPENDIX: Not visualized. PELVIS: No mass. No free fluid. Urinary bladder is collapsed. ABDOMINAL WALL: No masses. No hernias. BONES: No significant or acute findings. No sinister bone lesions. OTHER: No other significant finding. IMPRESSION: 1. No acute findings within the abdomen or pelvis. 2. New retroperitoneal mass/lymphadenopathy, as above, consistent with malignancy versus lymphoma. T his causes mass effect on the adjacent IVC and left renal vein vein. Internal hypodensity of the lef t renal vein, as above, which may be secondary to mixing of contrast, less likely invasion. 3. Unchanged indeterminate right hepatic lesion. TECHNICAL DOCUMENTATION: JOB ID: [id number] Quality ID # [id number]: Final reports with documentation of one or more dose reduction techniques (e.g., Au tomated exposure control, adjustment of the mA and/or kV according to patient size, use of iterative reconstruction technique) 2010 [employer]- All Rights Reserved Reading location - IP/workstation name: [email or web address]
--- NOTE | 2018-12-13 17:35 | ER Document Report ---
ED GI/ - General Chief Complaint: Abdominal Pain Stated Complaint: ABDOMINAL PAIN, NAUSEA Time Seen by Provider: 12/13/18 12:12 Mode of Arrival: Ambulatory Information source: Patient Notes: Chief complaint: abdominal pain: History of complain:( obtained from----patient) 48 years old female presents today with left-sided abdominal pain associated with nausea no vomiting no diarrhea. No fever chills or other constitutional symptoms. Denies any dysuria frequency urgency. Going on for the last few days Onset: Gradual Duration: Last few days Severity: Moderate Quality: Sharp Context: As above Exacerbating factor and relieving factors: None REVIEW OF SYSTEMS: CONSTITUTIONAL : Denies fever, chills, or sweats. Denies recent illness. EENT: Denies eye, ear, throat, or mouth pain or symptoms. Denies nasal or sinus congestion or discharge. Denies throat, tongue, or mouth swelling or difficulty swallowing. CARDIOVASCULAR: Denies chest pain. Denies palpitations or racing or irregular heart beat. Denies ankle edema. RESPIRATORY: Denies cough, cold, or chest congestion. Denies shortness of breath, difficulty breathing, or wheezing. GASTROINTESTINAL: Denies distention. Denies nausea, vomiting, or diarrhea. Denies blood in vomitus, stools, or per rectum. Denies black, tarry stools. Denies constipation. GENITOURINARY: Denies difficulty urinating, painful urination, burning, frequency, blood in urine, or discharge. FEMALE GENITOURINARY: Denies vaginal bleeding, heavy or abnormal periods, irregular periods. Denies vaginal discharge or odor. MUSCULOSKELETAL: Denies back or neck pain or stiffness. Denies joint pain or swelling. SKIN: Denies rash, lesions or sores. HEMATOLOGIC : Denies easy bruising or bleeding. LYMPHATIC: Denies swollen, enlarged glands. NEUROLOGICAL: Denies confusion or altered mental status. Denies passing out or loss of consciousness. Denies dizziness or lightheadedness. Denies headache. Denies weakness or paralysis or loss of use of either side. Denies problems with gait or speech. Denies sensory loss, numbness, or tingling. Denies seizures. PSYCHIATRIC: Denies anxiety or stress. Denies depression, suicidal ideation, or homicidal ideation. ALL OTHER SYSTEMS REVIEWED AND NEGATIVE. PHYSICAL EXAMINATION: GENERAL: Well-appearing, well-nourished and in no acute distress. HEAD: Atraumatic, normocephalic. EYES: Pupils equal round and reactive to light, extraocular movements intact, conjunctiva are normal. ENT: Nares patent, oropharynx clear without exudates. Moist mucous membranes. NECK: Normal range of motion, supple without lymphadenopathy LUNGS: Breath sounds clear to auscultation bilaterally and equal. No wheezes rales or rhonchi. HEART: Regular rate and rhythm without murmurs ABDOMEN: Soft, left-sided abdominal tenderness, nondistended abdomen. No guarding, no rebound. No masses appreciated. Female : deferred Musculoskeletal: Normal range of motion, no pitting or edema. No cyanosis. NEUROLOGICAL: Cranial nerves grossly intact. Normal speech, normal gait. Normal sensory, motor exams PSYCH: Normal mood, normal affect. SKIN: Warm, Dry, normal turgor, no rashes or lesions noted. Dictation was performed using [employer] voice recognition software TRAVEL OUTSIDE OF THE [place] IN LAST 30 DAYS: No - HPI Notes: 12/13/18 17:35 Dictated - Related Data Allergies/Adverse Reactions: ketorolac tromethamine [From Toradol] Allergy (Verified 12/13/18 12:17) tramadol [Tramadol] Allergy (Verified 12/13/18 12:17) Past Medical History - General Information source: Patient - Social History Smoking Status: Current Every Day Smoker Chew tobacco use (# tins/day): No Frequency of alcohol use: None Drug Abuse: None Family History: None, Reviewed & Not Pertinent Patient has suicidal ideation: No Patient has homicidal ideation: No - Past Medical History Cardiac Medical History: Reports: Hx Hypercholesterolemia, Hx Hypertension Pulmonary Medical History: Reports: Hx COPD Comment Only: Hx Asthma - pt denies Endocrine Medical History: Reports: Hx Diabetes Mellitus Type 2 Renal/ Medical History: Denies: Hx Peritoneal Dialysis Psychiatric Medical History: Reports: Hx Anxiety, Hx Depression Past Surgical History: Reports: Hx Appendectomy, Hx Cholecystectomy, Hx Gynecologic Surgery - x14 D&C - Immunizations Immunizations up to date: No Hx Diphtheria, Pertussis, Tetanus Vaccination: Yes Review of Systems - Review of Systems Notes: Dictated Physical Exam - Vital signs Vitals: Temp Pulse Resp BP Pulse Ox 98.1 F 87 18 109/75 98 12/13/18 11:54 12/13/18 11:54 12/13/18 11:54 12/13/18 11:54 12/13/18 11:54 - Notes Notes: Dictated Course - Re-evaluation Re-evalutation: 12/13/18 17:36 Case was discussed with Dr. Richter and currently being admitted - Vital Signs Vital signs: Temp Pulse Resp BP Pulse Ox 98.1 F 87 18 109/75 98 12/13/18 11:54 12/13/18 11:54 12/13/18 11:54 12/13/18 11:54 12/13/18 11:54 - Laboratory Result Diagrams: 12/13/18 12:24 12/13/18 12:24 Laboratory results interpreted by me: 12/13/18 12/13/18 12/13/18 12:24 12:24 12:24 WBC 13.2 H RBC 5.31 H Hgb 15.9 H Hct 48.5 H RDW 14.7 H Glucose 119 H Urine Glucose (UA) >=500 H Urine Blood SMALL H Urine Urobilinogen 2.0 H - Diagnostic Test Radiology reviewed: Reports reviewed - Retroperitoneal mass, compromising inferior vena cava and left renal vein Discharge - Discharge Clinical Impression: Retroperitoneal mass, Mass Compromising inferior vena cava, Abdominal mass compromising renal vein Condition: Fair Disposition: ADMITTED INPATIENT Admitting Provider: Rober Referrals: BRI STILES MD [Primary Care Provider] - Follow up as needed
[2018-12-13] MEDS: HYDROMORPHONE HCL INJ/PF 2 MG/ML AMPULE IV PRN (19:14)
[2018-12-13 19:21] LABS: PARTIAL THROMBOPLASTIN TIME 29.2 SEC (23.5-35.8); PROTHROMBIN TIME 12.6 SEC (11.4-15.4)
[2018-12-13 19:28] LABS: FREE T4 (FREE THYROXINE) 0.96 ng/dL (0.78-2.19)
[2018-12-13 19:42] LABS: THYROID STIMULATING HORMONE 2.5 uIU/mL (0.47-4.68)
[2018-12-14] MEDS: HYDROMORPHONE HCL INJ/PF 2 MG/ML AMPULE IV PRN ×5 (00:04→21:07)
[2018-12-14] MEDS ORDERED: HYDROMORPHONE HCL INJ/PF 2 MG/ML AMPULE IV PRN (09:25)
[2018-12-14] MEDS ORDERED: HYDROMORPHONE HCL INJ/PF 2 MG/ML AMPULE IV ONE (09:27)
[2018-12-14] MEDS ORDERED: ALBUTEROL SULFATE HFA (90 MCG/PUFF) 200 PUFF/8.5 GM MDI IH PRN (13:17)
[2018-12-14] MEDS ORDERED: INSULIN LISPRO 100 UNIT/ML 3 ML VIAL SUBCUT PRN (13:19)
[2018-12-14] MEDS ORDERED: DEXTROSE 40% GEL 15 GM TUBE PO PRN ×2 (13:19)
[2018-12-14] MEDS ORDERED: GLUCAGON,HUMAN RECOMB 1 MG INJ IM PRN (13:19)
[2018-12-14] MEDS ORDERED: DEXTROSE 50%-WATER 25 GM/50 ML DISP.SYRIN IV PRN ×2 (13:19)
--- NOTE | 2018-12-14 13:29 | PDOC H&P ---
History of Present Illness Admission Date/PCP: 12/13/18 17:51 BRI STILES History of Present Illness: ROBERT BROWNLEE is a 48 year old female she has a history of type 2 diabetes mellitus, tobacco use disorder, she came to the emergency room for evaluation of abdominal pain for the last few days, the pain is in the upper abdomen, in the emergency room a CT scan of the pelvis and abdomen was obtained, it demonstrated a large retroperitoneal mass at the level of the renal veins measuring 3.7 x 4.1 x 4.9 cm this mass causes mass-effect on the adjacent left renal vein and IVC. She said the pain intensity is severe, there is associated vomiting. This mass is suspicious for lymphoma, she would need a CT-guided needle biopsy of the mass most likely on Saturday morning to be done by interventional radiologist. Past Medical History Cardiac Medical History: Reports: Hyperlipidema, Hypertension Pulmonary Medical History: Reports: Chronic Obstructive Pulmonary Disease (COPD) Comment Only: Asthma - pt denies Endocrine Medical History: Reports: Diabetes Mellitus Type 2 Psychiatric Medical History: Reports: Depression Past Surgical History Past Surgical History: Reports: Appendectomy, Cholecystectomy Social History Smoking Status: Current Every Day Smoker Frequency of Alcohol Use: Occasional Drugs: Cocaine Hx Prescription Drug Abuse: No - Advance Directive Resuscitation Status: Full Code Family History Family History: None, Reviewed & Not Pertinent Parental Family History Reviewed: Yes Children Family History Reviewed: Yes Sibling(s) Family History Reviewed.: Yes Medication/Allergy Home Medications: Albuterol Sulfate [Proair HFA Inhalation Aerosol 8.5 gm MDI] 2 puff IH Q4HP PRN 12/14/18 Budesonide/Formoterol Fumarate [Symbicort HFA 160-4.5 mcg Inhaler 6 gm] 2 puff IH Q12 12/14/18 Clonazepam [Klonopin] 1 mg PO Q12 12/14/18 Gabapentin [Neurontin 300 mg Capsule] 300 mg PO Q12 12/14/18 Glipizide [Glucotrol] 10 mg PO QAM 12/14/18 Insulin Glargine,Hum.rec.anlog [Lantus Insulin 100 Unit/mL] 55 units SQ QHS 12/14/18 Lisinopril [Zestril] 10 mg PO QAM 12/14/18 Lurasidone HCl [Latuda] 20 mg PO PCSUPPER 12/14/18 Metformin HCl [Glucophage] 1,000 mg PO BID 12/14/18 Omeprazole 20 mg PO ACBRKFST 12/14/18 Paroxetine HCl [Paxil] 40 mg PO QAM 12/14/18 Simvastatin [Zocor 40 mg Tablet] 40 mg PO QPM 12/14/18 Trazodone HCl [Desyrel] 150 mg PO QHS 12/14/18 Allergies/Adverse Reactions: ketorolac tromethamine [From Toradol] Allergy (Verified 12/13/18 12:17) tramadol [Tramadol] Allergy (Verified 12/13/18 12:17) Review of Systems Constitutional: ABSENT: chills, fever(s), headache(s), weight gain, weight loss Eyes: ABSENT: visual disturbances Ears: ABSENT: hearing changes Cardiovascular: ABSENT: chest pain, dyspnea on exertion, edema, orthropnea, palpitations Respiratory: ABSENT: cough, hemoptysis Gastrointestinal: PRESENT: abdominal pain, vomiting. ABSENT: constipation, diarrhea, hematemesis, hematochezia, nausea Genitourinary: ABSENT: dysuria, hematuria Musculoskeletal: ABSENT: joint swelling Integumentary: ABSENT: rash, wounds Neurological: ABSENT: abnormal gait, abnormal speech, confusion, dizziness, focal weakness, syncope Psychiatric: ABSENT: anxiety, depression, homidical ideation, suicidal ideation Endocrine: ABSENT: cold intolerance, heat intolerance, menstrual abnormalities, polydipsia, polyuria Hematologic/Lymphatic: ABSENT: easy bleeding, easy bruising, lymphadenopathy Physical Exam Vital Signs: Temp Pulse Resp BP Pulse Ox 98.0 F 61 18 123/51 L 95 12/14/18 12:34 12/14/18 12:34 12/14/18 12:34 12/14/18 12:34 12/14/18 12:34 Intake & Output 12/13/18 12/14/18 12/15/18 06:59 06:59 06:59 Intake Total 120 236 Balance 120 236 Weight 79.7 kg 80.7 kg General appearance: PRESENT: no acute distress, well-developed, well-nourished Head exam: PRESENT: atraumatic, normocephalic Eye exam: PRESENT: conjunctiva pink, EOMI, PERRLA Ear exam: PRESENT: normal external ear exam Mouth exam: PRESENT: moist, tongue midline Neck exam: PRESENT: full ROM Respiratory exam: PRESENT: clear to auscultation james Cardiovascular exam: PRESENT: RRR, +S1, +S2 Vascular exam: PRESENT: normal capillary refill GI/Abdominal exam: PRESENT: normal bowel sounds, soft, tenderness Rectal exam: PRESENT: deferred Neurological exam: PRESENT: alert, awake, oriented to person, oriented to place, oriented to time, oriented to situation, CN II-XII grossly intact Psychiatric exam: PRESENT: appropriate affect, normal mood Skin exam: PRESENT: dry, intact, warm Results Laboratory Results: 12/13/18 12:24 12/13/18 12:24 12/13/18 12/13/18 12:24 12:24 Magnesium 2.1 TSH 2.50 Free T4 0.96 Impressions: Abdomen/Pelvis CT 12/13/18 00:00 IMPRESSION: 1. No acute findings within the abdomen or pelvis. 2. New retroperitoneal mass/lymphadenopathy, as above, consistent with malignancy versus lymphoma. This causes mass effect on the adjacent IVC and left renal vein vein. Internal hypodensity of the left renal vein, as above, which may be secondary to mixing of contrast, less likely invasion. 3. Unchanged indeterminate right hepatic lesion. Assessment & Plan - Diagnosis (1) Retroperitoneal mass Is this a current diagnosis for this admission?: Yes Plan: She has a retroperitoneal mass, she will need a tissue diagnosis, suspicious for lymphoma, CT-guided needle biopsy will be scheduled for Saturday to be done by interventional radiology. (2) Abdominal pain Qualifiers: Abdominal location: epigastric Qualified Code(s): R10.13 - Epigastric pain Is this a current diagnosis for this admission?: Yes Plan: She has a lot of pain, pain control to be achieved with Dilaudid (3) Diabetes mellitus type 2 in nonobese Is this a current diagnosis for this admission?: Yes
--- NOTE | 2018-12-14 13:32 | PDOC PROGRESS REPORT ---
Subjective Progress Note for:: 12/14/18 Subjective:: She was seen by the bedside, she complained of pain, presently on Dilaudid every 4 hours as needed. She was admitted yesterday when she presented with abdominal pain CT scan demonstrated a retroperitoneal mass Reason For Visit: RETROPERITONEAL MASS ? LYMPHOMA Physical Exam Vital Signs: Temp Pulse Resp BP Pulse Ox 98.0 F 61 18 123/51 L 95 12/14/18 12:34 12/14/18 12:34 12/14/18 12:34 12/14/18 12:34 12/14/18 12:34 Intake & Output 12/13/18 12/14/18 12/15/18 06:59 06:59 06:59 Intake Total 120 236 Balance 120 236 Weight 79.7 kg 80.7 kg General appearance: PRESENT: no acute distress, well-developed, well-nourished Head exam: PRESENT: atraumatic, normocephalic Eye exam: PRESENT: conjunctiva pink, EOMI, PERRLA Ear exam: PRESENT: normal external ear exam Mouth exam: PRESENT: moist, tongue midline Neck exam: PRESENT: full ROM Respiratory exam: PRESENT: clear to auscultation james Cardiovascular exam: PRESENT: RRR, +S1, +S2 Pulses: PRESENT: normal dorsalis pedis pul, +2 pedal pulses bilateral Vascular exam: PRESENT: normal capillary refill GI/Abdominal exam: PRESENT: normal bowel sounds, soft, tenderness Rectal exam: PRESENT: deferred Neurological exam: PRESENT: alert, awake, oriented to person, oriented to place, oriented to time, oriented to situation, CN II-XII grossly intact Psychiatric exam: PRESENT: appropriate affect, normal mood Skin exam: PRESENT: dry, intact, warm Results Laboratory Results: 12/13/18 12:24 12/13/18 12:24 12/13/18 12/13/18 12:24 12:24 Magnesium 2.1 TSH 2.50 Free T4 0.96 Impressions: Abdomen/Pelvis CT 12/13/18 00:00 IMPRESSION: 1. No acute findings within the abdomen or pelvis. 2. New retroperitoneal mass/lymphadenopathy, as above, consistent with malignancy versus lymphoma. This causes mass effect on the adjacent IVC and left renal vein vein. Internal hypodensity of the left renal vein, as above, w hich may be secondary to mixing of contrast, less likely invasion. 3. Unchanged indeterminate right hepatic lesion. Assessment & Plan - Diagnosis (1) Retroperitoneal mass Is this a current diagnosis for this admission?: Yes Plan: She has a retroperitoneal mass, she will need a tissue diagnosis, suspicious for lymphoma, CT-guided needle biopsy will be scheduled for Saturday to be done by interventional radiology. (2) Abdominal pain Qualifiers: Abdominal location: epigastric Qualified Code(s): R10.13 - Epigastric pain Is this a current diagnosis for this admission?: Yes Plan: Increase Dilaudid to every 3 hours as needed (3) Diabetes mellitus type 2 in nonobese Is this a current diagnosis for this admission?: Yes
[2018-12-14] MEDS: ONDANSETRON HCL INJ/PF 4 MG/2 ML SDV IV PRN (14:45)
[2018-12-14] MEDS: LISINOPRIL 10 MG TABLET PO SCH (14:45)
[2018-12-14] MEDS: GABAPENTIN 300 MG CAPSULE PO SCH ×2 (14:45→21:51)
[2018-12-14] MEDS: CLONAZEPAM 1 MG TABLET PO SCH ×2 (14:45→21:51)
[2018-12-14] MEDS: GLIPIZIDE 10 MG TABLET PO SCH (14:45)
[2018-12-14] MEDS: BUDESONIDE/FORMOTEROL 160-4.5 MCG 60 PUFF/6 GM MDI IH SCH ×2 (15:55→21:51)
[2018-12-14] MEDS ORDERED: LANSOPRAZOLE 15 MG TAB.RAP.DR PO ONE (16:00)
[2018-12-14] MEDS ORDERED: PAROXETINE HCL 20 MG TABLET PO ONE (16:00)
[2018-12-14] MEDS: METFORMIN HCL 500 MG TABLET PO SCH (17:25)
[2018-12-14] MEDS: LURASIDONE HCL 40 MG TABLET PO SCH (17:25)
[2018-12-14] MEDS: SIMVASTATIN 40 MG TABLET PO SCH (17:25)
[2018-12-14] MEDS ORDERED: (PENDING PHARMACY ID) (Lurasidone Hcl [Latuda] 20 MG) PO SCH (18:00)
[2018-12-14] MEDS: TRAZODONE HCL 50 MG TABLET PO SCH (21:51)
[2018-12-14] MEDS: INSULIN GLARGINE,HUM.REC.ANLOG 300 UNIT/3 ML INSULN.PEN SUBCUT SCH (21:51)
[2018-12-14] MEDS ORDERED: (PENDING PHARMACY ID) (Trazodone Hcl [Desyrel] 150 MG) PO SCH (22:00)
[2018-12-15] MEDS: HYDROMORPHONE HCL INJ/PF 2 MG/ML AMPULE IV PRN ×7 (00:15→23:57)
[2018-12-15 04:54] LABS: ABSOLUTE BASOPHILS # (AUTO) 0.1 10^3/uL (0.0-0.2); ABSOLUTE EOSINOPHILS # (AUTO) 0.1 10^3/uL (0.0-0.6); ABSOLUTE LYMPHOCYTES (AUTO) 3.1 10^3/uL (0.5-4.7); ABSOLUTE MONOCYTES (AUTO) 0.8 10^3/uL (0.1-1.4); ABSOLUTE NEUT (AUTO) 4.6 10^3/uL (1.7-8.2); BASOPHILS % (AUTO) 0.9 % (0-2); EOSINOPHILS % (AUTO) 1.4 % (0-6); HEMATOCRIT 41.2 % (36.0-47.0); LYMPHOCYTES % (AUTO) 35.8 % (13-45); MEAN CORPUSCULAR HEMOGLOBIN 30.6 pg (27.0-33.4); MEAN CORPUSCULAR HGB CONC 33.6 g/dL (32.0-36.0); MEAN CORPUSCULAR VOLUME 91 fl (80-97); MONOCYTES % (AUTO) 9.6 % (3-13); PLATELET COUNT 184 10^3/uL (150-450); RED BLOOD COUNT 4.52 10^6/uL (3.72-5.28); RED CELL DISTRIBUTION WIDTH 14.5 % (11.5-14.0); SEGMENTED NEUTROPHILS % (AUTO) 52.3 % (42-78); TOTAL CELLS COUNTED % (AUTO) 100 %; WHITE BLOOD COUNT 8.8 10^3/uL (4.0-10.5)
[2018-12-15 05:06] LABS: HEMOGLOBIN 13.8 g/dL (12.0-15.5)
[2018-12-15 05:32] LABS: ANION GAP 11 (5-19); BLOOD UREA NITROGEN 15 mg/dL (7-20); CALCIUM 9.1 mg/dL (8.4-10.2); CARBON DIOXIDE 24 mmol/L (22-30); CHLORIDE 102 mmol/L (98-107); GLUCOSE 179 mg/dL (75-110); POTASSIUM 4.4 mmol/L (3.6-5.0); SODIUM 137.1 mmol/L (137-145)
[2018-12-15] MEDS: LANSOPRAZOLE 15 MG TAB.RAP.DR PO SCH (06:29)
[2018-12-15] MEDS: GLIPIZIDE 10 MG TABLET PO SCH ×2 (07:47→08:20)
[2018-12-15] MEDS: PAROXETINE HCL 20 MG TABLET PO SCH (08:20)
[2018-12-15] MEDS: LISINOPRIL 10 MG TABLET PO SCH (08:21)
--- NOTE | 2018-12-15 09:47 | RADIOLOGY REPORT (SQ) ---
EXAM DESCRIPTION: CHEST 2 VIEWS COMPLETED DATE/TIME: 12/15/2018 9:33 am REASON FOR STUDY: possible mets? COMPARISON: None. EXAM PARAMETERS: NUMBER OF VIEWS: two views TECHNIQUE: Digital Frontal and Lateral radiographic views of the chest acquired. RADIATION DOSE: NA LIMITATIONS: none FINDINGS: LUNGS AND PLEURA: No opacities, masses or pneumothorax. No pleural effusion. MEDIASTINUM AND HILAR STRUCTURES: No masses or contour abnormalities. HEART AND VASCULAR STRUCTURES: Heart normal size. No evidence for failure. BONES: No acute findings. HARDWARE: Clips right upper quadrant post cholecystectomy OTHER: No other significant finding. IMPRESSION: NO ACUTE RADIOGRAPHIC FINDING IN THE CHEST. TECHNICAL DOCUMENTATION: JOB ID: [id number] [employer]- All Rights Reserved Reading location - IP/workstation name: [email or web address]
[2018-12-15] MEDS: BUDESONIDE/FORMOTEROL 160-4.5 MCG 60 PUFF/6 GM MDI IH SCH ×2 (10:43→23:56)
[2018-12-15] MEDS: METFORMIN HCL 500 MG TABLET PO SCH ×2 (10:43→17:28)
[2018-12-15] MEDS: CLONAZEPAM 1 MG TABLET PO SCH ×2 (10:43→23:56)
[2018-12-15] MEDS: GABAPENTIN 300 MG CAPSULE PO SCH ×2 (10:43→23:56)
[2018-12-15] MEDS ORDERED: MIDAZOLAM 2 MG/2 ML INJ ONE (11:36)
[2018-12-15] MEDS ORDERED: FENTANYL CITRATE INJ/PF 100 MCG/2 ML AMPUL ONE (11:36)
[2018-12-15] MEDS ORDERED: LIDOCAINE 1% INJ-PF (10 MG/ML) 30 ML SDV ONE (11:37)
--- NOTE | 2018-12-15 12:33 | RADIOLOGY REPORT (SQ) ---
EXAM DESCRIPTION: CT BIOPSY ABD/RETROPERIT MASS; CT NEEDLE PLACEMENT COMPLETED DATE/TIME: 12/15/2018 12:14 pm REASON FOR STUDY: retroperitoneal mass ; RETROPERITONEAL MASS for biopsy, remote prior history of ce rvical cancer COMPARISON: CT abdomen pelvis 07/25/2017, 12/13/2018 TECHNIQUE: CT guided biopsy of the right-sided retroperitoneal adenopathy performed with conscious s edation. CT Fluoroscopy Time: 10.[address] scanners at this facility use dose modulation, iterative reconstruction, and/or weight based d osing when appropriate to reduce radiation dose to as low as reasonably achievable (ALARA). [facility]: Dose Right [facility]: CareDose [facility]: Dose Right [facility]: Teradose 4D [facility]: Smart [employer] RADIATION DOSE: mGy. FINDINGS: After obtaining informed consent and explaining the risks and benefits of conscious sedati on,the patient agreed to the procedure. Prior to the procedure, a time out was performed to verify th e patient's identity and planned procedure. IV sedation was administered and physician direction by the registered nurse using 1 milligrams of Ve rsed and 50 micrograms of fentanyl, for conscious sedation. Physiologic monitoring was provided befor e, during, and after sedation. The total sedation time was 30 minutes. Documentation face to face time, the performing proceduralist, spent monitoring the patient: [address] scanning was performed to localize the percutaneous site for the biopsy approach. After sterile skin prep and local lidocaine for skin and deep tissue anesthesia, a coaxial biopsy nee dle was used to obtain multiple cores of tissue. 1 of the cores was submitted to the lab for flow suha lysis, clinical question of lymphoma versus metastatic cervical cancer. The biopsy tissue was submitt ed to the lab in formalin. There were no immediate complications. Pathology is pending at the time of dictation. IMPRESSION: CT GUIDED BIOPSY OF THE RIGHT RETROPERITONEAL ADENOPATHY PERFORMED WITHOUT IMMEDIATE COM PLICATION. PATHOLOGY PENDING. IV CONSCIOUS SEDATION COMMENT: Quality ID 145: Final reports for procedures using fluoroscopy that document radiation exp osure indices, or exposure time and number of fluorographic images (if radiation exposure indices are not available) Patient medication list reviewed: Yes- Quality ID# [id number]:Eligible professional attests to documenting i n the medical record they obtained, updated, or reviewed the patient's current medications.. TECHNICAL DOCUMENTATION: JOB ID: [id number] Quality ID# [id number]: Final reports with documentation of one or more dose reduction techniques (e.g., Aut omated exposure control, adjustment of the mA and/or kV according to patient size, use of iterative r econstruction technique) 2010 [employer]- All Rights Reserved Reading location - IP/workstation name: [facility]-[email or web address]
--- NOTE | 2018-12-15 12:33 | RADIOLOGY REPORT (SQ) ---
EXAM DESCRIPTION: CT BIOPSY ABD/RETROPERIT MASS; CT NEEDLE PLACEMENT COMPLETED DATE/TIME: 12/15/2018 12:14 pm REASON FOR STUDY: retroperitoneal mass ; RETROPERITONEAL MASS for biopsy, remote prior history of ce rvical cancer COMPARISON: CT abdomen pelvis 07/25/2017, 12/13/2018 TECHNIQUE: CT guided biopsy of the right-sided retroperitoneal adenopathy performed with conscious s edation. CT Fluoroscopy Time: 10.[address] scanners at this facility use dose modulation, iterative reconstruction, and/or weight based d osing when appropriate to reduce radiation dose to as low as reasonably achievable (ALARA). [facility]: Dose Right [facility]: CareDose [facility]: Dose Right [facility]: Teradose 4D [facility]: Smart [employer] RADIATION DOSE: mGy. FINDINGS: After obtaining informed consent and explaining the risks and benefits of conscious sedati on,the patient agreed to the procedure. Prior to the procedure, a time out was performed to verify th e patient's identity and planned procedure. IV sedation was administered and physician direction by the registered nurse using 1 milligrams of Ve rsed and 50 micrograms of fentanyl, for conscious sedation. Physiologic monitoring was provided befor e, during, and after sedation. The total sedation time was 30 minutes. Documentation face to face time, the performing proceduralist, spent monitoring the patient: [address] scanning was performed to localize the percutaneous site for the biopsy approach. After sterile skin prep and local lidocaine for skin and deep tissue anesthesia, a coaxial biopsy nee dle was used to obtain multiple cores of tissue. 1 of the cores was submitted to the lab for flow suha lysis, clinical question of lymphoma versus metastatic cervical cancer. The biopsy tissue was submitt ed to the lab in formalin. There were no immediate complications. Pathology is pending at the time of dictation. IMPRESSION: CT GUIDED BIOPSY OF THE RIGHT RETROPERITONEAL ADENOPATHY PERFORMED WITHOUT IMMEDIATE COM PLICATION. PATHOLOGY PENDING. IV CONSCIOUS SEDATION COMMENT: Quality ID 145: Final reports for procedures using fluoroscopy that document radiation exp osure indices, or exposure time and number of fluorographic images (if radiation exposure indices are not available) Patient medication list reviewed: Yes- Quality ID# [id number]:Eligible professional attests to documenting i n the medical record they obtained, updated, or reviewed the patient's current medications.. TECHNICAL DOCUMENTATION: JOB ID: [id number] Quality ID# 436: Final reports with documentation of one or more dose reduction techniques (e.g., Aut omated exposure control, adjustment of the mA and/or kV according to patient size, use of iterative r econstruction technique) 2010 [employer]- All Rights Reserved Reading location - IP/workstation name: [facility]-[email or web address]
[2018-12-15] MEDS: ONDANSETRON HCL INJ/PF 4 MG/2 ML SDV IV PRN (15:29)
[2018-12-15] MEDS: SIMVASTATIN 40 MG TABLET PO SCH (17:28)
[2018-12-15] MEDS: LURASIDONE HCL 40 MG TABLET PO SCH (17:28)
--- NOTE | 2018-12-15 20:02 | PDOC PROGRESS REPORT ---
Subjective Progress Note for:: 12/15/18 Subjective:: Patient admitted to recent weight loss and night sweats as well as episodes of nausea and vomiting prior to her presentation. She claimed that her right sided abdominal pain started suddenly a day prior to her presentation. She had CT guided biopsy of her retroperitoneal mass today. Awaiting pathology report. No chest pain or difficulty with breathing. Reason For Visit: RETROPERITONEAL MASS ? LYMPHOMA Physical Exam Vital Signs: Temp Pulse Resp BP Pulse Ox 98.5 F 63 14 117/61 95 12/15/18 16:16 12/15/18 16:16 12/15/18 16:16 12/15/18 16:16 12/15/18 16:16 Intake & Output 12/14/18 12/15/18 12/16/18 06:59 06:59 06:59 Intake Total 120 1430 100 Balance 120 1430 100 Weight 79.7 kg 80.6 kg General appearance: PRESENT: no acute distress, well-developed, well-nourished Head exam: PRESENT: atraumatic, normocephalic Eye exam: PRESENT: conjunctiva pink, EOMI, PERRLA. ABSENT: scleral icterus Ear exam: PRESENT: normal external ear exam Mouth exam: PRESENT: moist Respiratory exam: PRESENT: clear to auscultation james Cardiovascular exam: PRESENT: RRR. ABSENT: diastolic murmur, rubs, systolic murmur Vascular exam: PRESENT: normal capillary refill. ABSENT: pallor GI/Abdominal exam: PRESENT: normal bowel sounds, soft, tenderness - RUQ and RLQ tenderness to deep palpation.. ABSENT: distended, guarding, mass, organolmegaly, rebound Rectal exam: PRESENT: deferred Extremities exam: ABSENT: pedal edema Musculoskeletal exam: PRESENT: normal inspection Neurological exam: PRESENT: alert, awake, oriented to person, oriented to place, oriented to time, oriented to situation, CN II-XII grossly intact. ABSENT: motor sensory deficit Skin exam: PRESENT: dry, warm, other - biopsy jessica dressiong okay. Results Laboratory Results: 12/15/18 04:44 12/15/18 04:44 12/15/18 12/15/18 04:44 04:44 WBC 8.8 RBC 4.52 Hgb 13.8 D Hct 41.2 MCV 91 MCH 30.6 MCHC 33.6 RDW 14.5 H Plt Count 184 Seg Neutrophils % 52.3 Lymphocytes % 35.8 Monocytes % 9.6 Eosinophils % 1.4 Basophils % 0.9 Absolute Neutrophils 4.6 Absolute Lymphocytes 3.1 Absolute Monocytes 0.8 Absolute Eosinophils 0.1 Absolute Basophils 0.1 Sodium 137.1 Potassium 4.4 Chloride 102 Carbon Dioxide 24 Anion Gap 11 BUN 15 Creatinine 0.57 Est GFR ( Amer) > 60 Est GFR (Non-Af Amer) > 60 Glucose 179 H Calcium 9.1 Impressions: Abdomen/Pelvis CT 12/13/18 00:00 IMPRESSION: 1. No acute findings within the abdomen or pelvis. 2. New retroperitoneal mass/lymphadenopathy, as above, consistent with malignancy versus lymphoma. This causes mass effect on the adjacent IVC and left renal vein vein. Internal hypodensity of the left renal vein, as above, which may be secondary to mixing of contrast, less likely invasion. 3. Unchanged indeterminate right hepatic lesion. Chest X-Ray 12/15/18 00:00 IMPRESSION: NO ACUTE RADIOGRAPHIC FINDING IN THE CHEST. Guidance Needle Placement CT 12/15/18 00:00 IMPRESSION: CT GUIDED BIOPSY OF THE RIGHT RETROPERITONEAL ADENOPATHY PERFORMED WITHOUT IMMEDIATE COMPLICATION. PATHOLOGY PENDING. IV CONSCIOUS SEDATION Abdomen Biopsy CT 12/15/18 08:00 IMPRESSION: CT GUIDED BIOPSY OF THE RIGHT RETROPERITONEAL ADENOPATHY PERFORMED WITHOUT IMMEDIATE COMPLICATION. PATHOLOGY PENDING. IV CONSCIOUS SEDATION Assessment & Plan - Diagnosis (1) Abdominal pain Qualifiers: Abdominal location: right lower quadrant Qualified Code(s): R10.31 - Right lower quadrant pain Is this a current diagnosis for this admission?: Yes Plan: Continue pain management with Dilaudid. Follow up on retroperitoneal mass biopsy pathology report. (2) Retroperitoneal mass Is this a current diagnosis for this admission?: Yes Plan: Continue pain management with Dilaudid. Follow up on retroperitoneal mass biopsy pathology report. (3) Diabetes mellitus type 2 in nonobese Is this a current diagnosis for this admission?: Yes Plan: Continue current medication management. (4) HTN (hypertension) Qualifiers: Hypertension type: essential hypertension Qualified Code(s): I10 - Essential (primary) hypertension Is this a current diagnosis for this admission?: Yes Plan: Continue current medication management. (5) HLD (hyperlipidemia) Qualifiers: Hyperlipidemia type: unspecified Qualified Code(s): E78.5 - Hyperlipidemia, unspecified Is this a current diagnosis for this admission?: Yes Plan: Continue current medication management. (6) COPD (chronic obstructive pulmonary disease) Qualifiers: Emphysema type: unspecified Is this a current diagnosis for this admission?: Yes Plan: Continue current medication management. - Time Time Spent with patient: 25-34 minutes Medications reviewed and adjusted accordingly: Yes Anticipated discharge: Home with Homehealth Within: Other - Inpatient Certification Based on my medical assessment, after consideration of the patient's comorbidities, presenting symptoms, or acuity I expect that the services needed warrant INPATIENT care.: Yes I certify that my determination is in accordance with my understanding of Medicare's requirements for reasonable and necessary INPATIENT services [42 CFR 412.3e].: Yes Medical Necessity: Need Close Monitoring Due to Risk of Patient Decompensation, Need For Continuous Telemetry Monitoring, Need for Nebulizer Therapy and Monitoring of Response, Risk of Complication if Not Cared For in Hospital Post Hospital Care: D/C Facility Maintenance Manager Documentation - Plan Summary Plan Summary: Follow up on biopsy report. Obtain HgbA1c and fasting lipid panel in am.
[2018-12-15] MEDS: TRAZODONE HCL 50 MG TABLET PO SCH (23:56)
[2018-12-15] MEDS: INSULIN GLARGINE,HUM.REC.ANLOG 300 UNIT/3 ML INSULN.PEN SUBCUT SCH (23:57)
[2018-12-16] MEDS: LANSOPRAZOLE 15 MG TAB.RAP.DR PO SCH (05:33)
[2018-12-16] MEDS: HYDROMORPHONE HCL INJ/PF 2 MG/ML AMPULE IV PRN ×4 (05:37→15:11)
[2018-12-16 06:39] LABS: ABSOLUTE BASOPHILS # (AUTO) 0.1 10^3/uL (0.0-0.2); ABSOLUTE EOSINOPHILS # (AUTO) 0.1 10^3/uL (0.0-0.6); ABSOLUTE LYMPHOCYTES (AUTO) 2.9 10^3/uL (0.5-4.7); ABSOLUTE MONOCYTES (AUTO) 0.8 10^3/uL (0.1-1.4); ABSOLUTE NEUT (AUTO) 4.7 10^3/uL (1.7-8.2); EOSINOPHILS % (AUTO) 1.2 % (0-6); HEMATOCRIT 41.2 % (36.0-47.0); HEMOGLOBIN 13.7 g/dL (12.0-15.5); LYMPHOCYTES % (AUTO) 33.7 % (13-45); MEAN CORPUSCULAR HEMOGLOBIN 30.6 pg (27.0-33.4); MEAN CORPUSCULAR HGB CONC 33.3 g/dL (32.0-36.0); MEAN CORPUSCULAR VOLUME 92 fl (80-97); MONOCYTES % (AUTO) 9.1 % (3-13); PLATELET COUNT 191 10^3/uL (150-450); RED BLOOD COUNT 4.49 10^6/uL (3.72-5.28); RED CELL DISTRIBUTION WIDTH 14.6 % (11.5-14.0); TOTAL CELLS COUNTED % (AUTO) 100 %; WHITE BLOOD COUNT 8.6 10^3/uL (4.0-10.5)
[2018-12-16 06:55] LABS: ANION GAP 6 (5-19); BLOOD UREA NITROGEN 14 mg/dL (7-20); CALCIUM 9.2 mg/dL (8.4-10.2); CARBON DIOXIDE 28 mmol/L (22-30); CHLORIDE 104 mmol/L (98-107); CHOLESTEROL 174.51 mg/dL (0-200); GLUCOSE 117 mg/dL (75-110); POTASSIUM 4.6 mmol/L (3.6-5.0); SODIUM 137.5 mmol/L (137-145); TRIGLYCERIDES 164 mg/dL (<150)
[2018-12-16 07:06] LABS: DIRECT LDL 121 mg/dL (<100)
[2018-12-16 07:14] LABS: VLDL CHOLESTEROL 32.8 mg/dL (10-31)
[2018-12-16] MEDS: LISINOPRIL 10 MG TABLET PO SCH (08:21)
[2018-12-16] MEDS: ONDANSETRON HCL INJ/PF 4 MG/2 ML SDV IV PRN ×2 (08:21→15:12)
[2018-12-16] MEDS: PAROXETINE HCL 20 MG TABLET PO SCH (08:21)
[2018-12-16] MEDS: GLIPIZIDE 10 MG TABLET PO SCH (08:22)
[2018-12-16] MEDS: METFORMIN HCL 500 MG TABLET PO SCH ×2 (09:14→17:51)
[2018-12-16] MEDS: CLONAZEPAM 1 MG TABLET PO SCH ×2 (09:14→21:58)
[2018-12-16] MEDS: GABAPENTIN 300 MG CAPSULE PO SCH ×2 (09:14→21:58)
[2018-12-16] MEDS: DOCUSATE SODIUM 100 MG CAPSULE PO SCH ×2 (09:14→17:50)
[2018-12-16] MEDS: BUDESONIDE/FORMOTEROL 160-4.5 MCG 60 PUFF/6 GM MDI IH SCH ×2 (09:14→21:58)
--- NOTE | 2018-12-16 17:12 | PDOC PROGRESS REPORT ---
Subjective Progress Note for:: 12/16/18 Subjective:: Patient reported nausea but no vomiting. IV Zofran somewhat helpful. Pain controlled with IV Dilaudid. No chest pain or difficulty with breathing. No fever or chills. Reason For Visit: RETROPERITONEAL MASS ? LYMPHOMA Physical Exam Vital Signs: Temp Pulse Resp BP Pulse Ox 97.8 F 69 14 115/54 L 97 12/16/18 08:01 12/16/18 08:01 12/16/18 08:01 12/16/18 08:01 12/16/18 08:01 Intake & Output 12/15/18 12/16/18 12/17/18 06:59 06:59 06:59 Intake Total 1430 100 Balance 1430 100 Weight 80.6 kg 82.7 kg Physical Exam: General appearance: PRESENT: no acute distress, well-developed, well-nourished Head exam: PRESENT: atraumatic, normocephalic Eye exam: PRESENT: conjunctiva pink, EOMI, PERRLA. ABSENT: pallor, scleral icterus Ear exam: PRESENT: normal external ear exam Mouth exam: PRESENT: moist Respiratory exam: PRESENT: clear to auscultation james Cardiovascular exam: PRESENT: RRR. ABSENT: diastolic murmur, rubs, systolic murmur GI/Abdominal exam: PRESENT: normal bowel sounds, soft, tenderness - RUQ and RLQ tenderness to deep palpation.. ABSENT: distended, guarding, mass, organomegaly, rebound Rectal exam: PRESENT: deferred Extremities exam: ABSENT: pedal edema Musculoskeletal exam: PRESENT: normal inspection Neurological exam: PRESENT: alert, awake, oriented to person, oriented to place, oriented to time, oriented to situation, CN II-XII grossly intact. ABSENT: motor sensory deficit Skin exam: PRESENT: dry, warm, other - biopsy jessica dressiong okay. Results Laboratory Results: 12/16/18 05:26 12/16/18 05:26 12/16/18 12/16/18 05:26 05:26 WBC 8.6 RBC 4.49 Hgb 13.7 Hct 41.2 MCV 92 MCH 30.6 MCHC 33.3 RDW 14.6 H Plt Count 191 Seg Neutrophils % 55.0 Lymphocytes % 33.7 Monocytes % 9.1 Eosinophils % 1.2 Basophils % 1.0 Absolute Neutrophils 4.7 Absolute Lymphocytes 2.9 Absolute Monocytes 0.8 Absolute Eosinophils 0.1 Absolute Basophils 0.1 Sodium 137.5 Potassium 4.6 Chloride 104 Carbon Dioxide 28 Anion Gap 6 BUN 14 Creatinine 0.57 Est GFR ( Amer) > 60 Est GFR (Non-Af Amer) > 60 Glucose 117 H Calcium 9.2 Triglycerides 164 H Cholesterol 174.51 LDL Cholesterol Direct 121 H VLDL Cholesterol 32.8 H HDL Cholesterol 31 L Impressions: Abdomen/Pelvis CT 12/13/18 00:00 IMPRESSION: 1. No acute findings within the abdomen or pelvis. 2. New retroperitoneal mass/lymphadenopathy, as above, consistent with malignancy versus lymphoma. This causes mass effect on the adjacent IVC and left renal vein vein. Internal hypodensity of the left renal vein, as above, which may be secondary to mixing of contrast, less likely invasion. 3. Unchanged indeterminate right hepatic lesion. Chest X-Ray 12/15/18 00:00 IMPRESSION: NO ACUTE RADIOGRAPHIC FINDING IN THE CHEST. Guidance Needle Placement CT 12/15/18 00:00 IMPRESSION: CT GUIDED BIOPSY OF THE RIGHT RETROPERITONEAL ADENOPATHY PERFORMED WITHOUT IMMEDIATE COMPLICATION. PATHOLOGY PENDING. IV CONSCIOUS SEDATION Abdomen Biopsy CT 12/15/18 08:00 IMPRESSION: CT GUIDED BIOPSY OF THE RIGHT RETROPERITONEAL ADENOPATHY PERFORMED WITHOUT IMMEDIATE COMPLICATION. PATHOLOGY PENDING. IV CONSCIOUS SEDATION Assessment & Plan - Diagnosis (1) Abdominal pain Qualifiers: Abdominal location: right lower quadrant Qualified Code(s): R10.31 - Right lower quadrant pain Is this a current diagnosis for this admission?: Yes (2) Retroperitoneal mass Is this a current diagnosis for this admission?: Yes (3) Diabetes mellitus type 2 in nonobese Is this a current diagnosis for this admission?: Yes (4) HTN (hypertension) Qualifiers: Hypertension type: essential hypertension Qualified Code(s): I10 - Essential (primary) hypertension Is this a current diagnosis for this admission?: Yes (5) HLD (hyperlipidemia) Qualifiers: Hyperlipidemia type: unspecified Qualified Code(s): E78.5 - Hyperlipidemia, unspecified Is this a current diagnosis for this admission?: Yes (6) COPD (chronic obstructive pulmonary disease) Qualifiers: Emphysema type: unspecified Is this a current diagnosis for this admission?: Yes - Time Time Spent with patient: 25-34 minutes Medications reviewed and adjusted accordingly: Yes Anticipated discharge: Home Within: Other - Inpatient Certification Based on my medical assessment, after consideration of the patient's comorbidities, presenting symptoms, or acuity I expect that the services needed warrant INPATIENT care.: Yes I certify that my determination is in accordance with my understanding of Medicare's requirements for reasonable and necessary INPATIENT services [42 CFR 412.3e].: Yes Medical Necessity: Need Close Monitoring Due to Risk of Patient Decompensation, Need For IV Fluids, Need For Continuous Telemetry Monitoring, Need for Pain Control, Risk of Complication if Not Cared For in Hospital Post Hospital Care: D/C Track Service Person Documentation - Plan Summary Plan Summary: D/C IV Dilaudid. Start on Percocet 5/325 mg p.o q4 hours prn for pain management. Follow up on pathology findings.
[2018-12-16] MEDS: LURASIDONE HCL 40 MG TABLET PO SCH (17:50)
[2018-12-16] MEDS: SIMVASTATIN 40 MG TABLET PO SCH (17:50)
[2018-12-16] MEDS: OXYCODONE-ACETAMINOPHEN 5-325 MG TABLET PO PRN (20:18)
[2018-12-16] MEDS: INSULIN GLARGINE,HUM.REC.ANLOG 300 UNIT/3 ML INSULN.PEN SUBCUT SCH (21:57)
[2018-12-16] MEDS: TRAZODONE HCL 50 MG TABLET PO SCH (21:58)
[2018-12-17] MEDS: OXYCODONE-ACETAMINOPHEN 5-325 MG TABLET PO PRN ×6 (00:23→22:25)
[2018-12-17] MEDS: LANSOPRAZOLE 15 MG TAB.RAP.DR PO SCH (06:12)
[2018-12-17] MEDS: GLIPIZIDE 10 MG TABLET PO SCH (07:59)
[2018-12-17] MEDS: LISINOPRIL 10 MG TABLET PO SCH (07:59)
[2018-12-17] MEDS: PAROXETINE HCL 20 MG TABLET PO SCH (07:59)
[2018-12-17] MEDS: ONDANSETRON HCL INJ/PF 4 MG/2 ML SDV IV PRN ×2 (08:02→14:26)
[2018-12-17] MEDS: GABAPENTIN 300 MG CAPSULE PO SCH ×2 (09:39→22:32)
[2018-12-17] MEDS: CLONAZEPAM 1 MG TABLET PO SCH ×2 (09:39→22:25)
[2018-12-17] MEDS: DOCUSATE SODIUM 100 MG CAPSULE PO SCH ×2 (09:39→17:06)
[2018-12-17] MEDS: BUDESONIDE/FORMOTEROL 160-4.5 MCG 60 PUFF/6 GM MDI IH SCH ×2 (09:40→22:26)
[2018-12-17] MEDS: METFORMIN HCL 500 MG TABLET PO SCH ×2 (09:40→17:07)
[2018-12-17] MEDS: SIMVASTATIN 40 MG TABLET PO SCH (17:05)
[2018-12-17] MEDS: LURASIDONE HCL 40 MG TABLET PO SCH (17:06)
--- NOTE | 2018-12-17 18:03 | PDOC PROGRESS REPORT ---
Subjective Progress Note for:: 12/17/18 Subjective:: Pain and nausea are still concerning for the patient. Pathology report revealed B-Cell lymphoma but further external consultation is pending. No fever or chills. No chest pain or difficulty with breathing. Reason For Visit: RETROPERITONEAL MASS ? LYMPHOMA Physical Exam Vital Signs: Temp Pulse Resp BP Pulse Ox 97.5 F 64 10 L 115/49 L 99 12/17/18 08:09 12/17/18 08:09 12/17/18 08:09 12/17/18 08:09 12/17/18 08:09 Intake & Output 12/16/18 12/17/18 12/18/18 06:59 06:59 06:59 Intake Total 100 1842 Balance 100 1842 Weight 82.7 kg 83.2 kg Physical Exam: General appearance: PRESENT: no acute distress, well-developed, well-nourished Head exam: PRESENT: atraumatic, normocephalic Eye exam: PRESENT: conjunctiva pink, EOMI, PERRLA. ABSENT: pallor, scleral icterus Ear exam: PRESENT: normal external ear exam Mouth exam: PRESENT: moist, poor dentition. Respiratory exam: PRESENT: clear to auscultation james Cardiovascular exam: PRESENT: RRR. ABSENT: diastolic murmur, rubs, systolic murmur GI/Abdominal exam: PRESENT: normal bowel sounds, soft, tenderness - RUQ and RLQ tenderness to deep palpation. ABSENT: distended, guarding, mass, organomegaly, rebound Rectal exam: PRESENT: deferred Extremities exam: ABSENT: pedal edema Musculoskeletal exam: PRESENT: normal inspection Neurological exam: PRESENT: alert, awake, oriented to person, oriented to place, oriented to time, oriented to situation, CN II-XII grossly intact. ABSENT: motor sensory deficit Skin exam: PRESENT: dry, warm, other - biopsy site dressing okay. Results Laboratory Results: 12/16/18 05:26 12/16/18 05:26 Impressions: Abdomen/Pelvis CT 12/13/18 00:00 IMPRESSION: 1. No acute findings within the abdomen or pelvis. 2. New retroperitoneal mass/lymphadenopathy, as above, consistent with malignancy versus lymphoma. This causes mass effect on the adjacent IVC and left renal vein vein. Internal hypodensity of the left renal vein, as above, which may be secondary to mixing of contrast, less likely invasion. 3. Unchanged indeterminate right hepatic lesion. Chest X-Ray 12/15/18 00:00 IMPRESSION: NO ACUTE RADIOGRAPHIC FINDING IN THE CHEST. Guidance Needle Placement CT 12/15/18 00:00 IMPRESSION: CT GUIDED BIOPSY OF THE RIGHT RETROPERITONEAL ADENOPATHY PERFORMED WITHOUT IMMEDIATE COMPLICATION. PATHOLOGY PENDING. IV CONSCIOUS SEDATION Abdomen Biopsy CT 12/15/18 08:00 IMPRESSION: CT GUIDED BIOPSY OF THE RIGHT RETROPERITONEAL ADENOPATHY PERFORMED WITHOUT IMMEDIATE COMPLICATION. PATHOLOGY PENDING. 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 Acevedo, medical oncologist, she will be seen in the office on 12/22/18 at 2 pm. (2) Diabetes mellitus type 2 in nonobese Is this a current diagnosis for this admission?: Yes (3) HTN (hypertension) Qualifiers: Hypertension type: essential hypertension Qualified Code(s): I10 - Essential (primary) hypertension Is this a current diagnosis for this admission?: Yes (4) HLD (hyperlipidemia) Qualifiers: Hyperlipidemia type: unspecified Qualified Code(s): E78.5 - Hyperlipidemia, unspecified Is this a current diagnosis for this admission?: Yes (5) COPD (chronic obstructive pulmonary disease) Qualifiers: Emphysema type: unspecified Is this a current diagnosis for this admission?: Yes - Time Time Spent with patient: 25-34 minutes Medications reviewed and adjusted accordingly: Yes Anticipated discharge: Home Within: Other - Inpatient Certification Based on my medical assessment, after consideration of the patient's comorbi dities, presenting symptoms, or acuity I expect that the services needed warrant INPATIENT care.: Yes I certify that my determination is in accordance with my understanding of Medicare's requirements for reasonable and necessary INPATIENT services [42 CFR 412.3e].: Yes Medical Necessity: Need Close Monitoring Due to Risk of Patient Decompensation, Need For Continuous Telemetry Monitoring, Need for Pain Control, Risk of Complication if Not Cared For in Hospital Post Hospital Care: D/C Quality Management Nurse Documentation - Plan Summary Plan Summary: Increase Percocet to 7.5/325 mg 1 tablet po q4 hours prn for pain management. D/C IV Zofran for lack of effectiveness. Start on Phenergan 25 mg p.o q6 hours prn for nausea. Continue all other current medication management
[2018-12-17] MEDS: OXYCODONE HCL IR 5 MG TABLET PO PRN ×2 (18:17→22:26)
[2018-12-17] MEDS: PROMETHAZINE HCL 25 MG TABLET PO PRN (18:17)
[2018-12-17] MEDS: TRAZODONE HCL 50 MG TABLET PO SCH (22:24)
[2018-12-17] MEDS: INSULIN GLARGINE,HUM.REC.ANLOG 300 UNIT/3 ML INSULN.PEN SUBCUT SCH (22:26)
[2018-12-18] MEDS: OXYCODONE HCL IR 5 MG TABLET PO PRN ×2 (05:03→17:22)
[2018-12-18] MEDS: LANSOPRAZOLE 15 MG TAB.RAP.DR PO SCH (05:03)
[2018-12-18] MEDS: PROMETHAZINE HCL 25 MG TABLET PO PRN ×3 (05:04→22:51)
[2018-12-18] MEDS: OXYCODONE-ACETAMINOPHEN 5-325 MG TABLET PO PRN ×4 (05:04→22:52)
[2018-12-18] MEDS: DOCUSATE SODIUM 100 MG CAPSULE PO SCH ×2 (08:21→17:20)
[2018-12-18] MEDS: PAROXETINE HCL 20 MG TABLET PO SCH (08:21)
[2018-12-18] MEDS: LISINOPRIL 10 MG TABLET PO SCH (08:21)
[2018-12-18] MEDS: GLIPIZIDE 10 MG TABLET PO SCH (08:21)
[2018-12-18] MEDS: GABAPENTIN 300 MG CAPSULE PO SCH ×2 (08:22→22:51)
[2018-12-18] MEDS: METFORMIN HCL 500 MG TABLET PO SCH ×2 (08:22→17:20)
[2018-12-18] MEDS: BUDESONIDE/FORMOTEROL 160-4.5 MCG 60 PUFF/6 GM MDI IH SCH ×2 (08:22→22:51)
[2018-12-18] MEDS: CLONAZEPAM 1 MG TABLET PO SCH ×2 (08:22→22:51)
[2018-12-18] MEDS: SIMVASTATIN 40 MG TABLET PO SCH (17:22)
[2018-12-18] MEDS: LURASIDONE HCL 40 MG TABLET PO SCH (17:23)
--- NOTE | 2018-12-18 17:46 | PDOC PROGRESS REPORT ---
Subjective Progress Note for:: 12/18/18 Subjective:: Less nausea and abdominal pain so far today. Reported satisfactory bowel movement. No fever or chills. No chest pain or difficulty with breathing. Reason For Visit: RETROPERITONEAL MASS ? LYMPHOMA Physical Exam Vital Signs: Temp Pulse Resp BP Pulse Ox 98.0 F 53 L 15 97/48 L 94 12/18/18 00:27 12/18/18 07:00 12/18/18 00:27 12/18/18 00:27 12/18/18 00:27 Intake & Output 12/17/18 12/18/18 12/19/18 06:59 06:59 06:59 Intake Total 1842 1159 Balance 1842 1159 Weight 83.2 kg 82 kg Physical Exam: General appearance: PRESENT: no acute distress, well-developed, well-nourished Head exam: PRESENT: atraumatic, normocephalic Eye exam: PRESENT: conjunctiva pink, EOMI, PERRLA. ABSENT: pallor, scleral icterus Ear exam: PRESENT: normal external ear exam Mouth exam: PRESENT: moist, poor dentition. Respiratory exam: PRESENT: clear to auscultation james Cardiovascular exam: PRESENT: RRR. ABSENT: diastolic murmur, rubs, systolic murmur GI/Abdominal exam: PRESENT: normal bowel sounds, soft. ABSENT: tenderness, distended, guarding, mass, organomegaly, rebound Extremities exam: ABSENT: pedal edema Musculoskeletal exam: PRESENT: normal inspection Neurological exam: PRESENT: alert, awake, oriented to person, oriented to place, oriented to time, oriented to situation, CN II-XII grossly intact. ABSENT: motor sensory deficit Skin exam: PRESENT: dry, warm, other - biopsy site dressing okay. Results Laboratory Results: 12/16/18 05:26 12/16/18 05:26 Impressions: Abdomen/Pelvis CT 12/13/18 00:00 IMPRESSION: 1. No acute findings within the abdomen or pelvis. 2. New retroperitoneal mass/lymphadenopathy, as above, consistent with malignancy versus lymphoma. This causes mass effect on the adjacent IVC and left renal vein vein. Internal hypodensity of the left renal vein, as above, which may be secondary to mixing of contrast, less likely invasion. 3. Unchanged indeterminate right hepatic lesion. Chest X-Ray 12/15/18 00:00 IMPRESSION: NO ACUTE RADIOGRAPHIC FINDING IN THE CHEST. Guidance Needle Placement CT 12/15/18 00:00 IMPRESSION: CT GUIDED BIOPSY OF THE RIGHT RETROPERITONEAL ADENOPATHY PERFORMED WITHOUT IMMEDIATE COMPLICATION. PATHOLOGY PENDING. IV CONSCIOUS SEDATION Abdomen Biopsy CT 12/15/18 08:00 IMPRESSION: CT GUIDED BIOPSY OF THE RIGHT RETROPERITONEAL ADENOPATHY PERFORMED WITHOUT IMMEDIATE COMPLICATION. PATHOLOGY PENDING. IV CONSCIOUS SEDATION Assessment & Plan - Diagnosis (1) B-cell lymphoma of intra-abdominal lymph nodes Qualifiers: B-cell lymphoma type: unspecified B-cell Qualified Code(s): C85.13 - Unspecified B-cell lymphoma, intra-abdominal lymph nodes Is this a current diagnosis for this admission?: Yes (2) Diabetes mellitus type 2 in nonobese Is this a current diagnosis for this admission?: Yes (3) HTN (hypertension) Qualifiers: Hypertension type: essential hypertension Qualified Code(s): I10 - Essential (primary) hypertension Is this a current diagnosis for this admission?: Yes (4) HLD (hyperlipidemia) Qualifiers: Hyperlipidemia type: unspecified Qualified Code(s): E78.5 - Hyperlipidemia, unspecified Is this a current diagnosis for this admission?: Yes (5) COPD (chronic obstructive pulmonary disease) Qualifiers: Emphysema type: unspecified Is this a current diagnosis for this admission?: Yes - Time Time Spent with patient: 25-34 minutes Medications reviewed and adjusted accordingly: Yes Anticipated discharge: Home Within: within 24 hours - Inpatient Certification Based on my medical assessment, after consideration of the patient's comorbidities, presenting symptoms, or acuity I expect that the services needed warrant INPATIENT care.: Yes I certify that my determination is in accordance with my understanding of Medicare's requirements for reasonable and necessary INPATIENT services [42 CFR 412.3e].: Yes Medical Necessity: Significant Comorbidiites Make Outpatient Treatment Too Risky, Need Close Monitoring Due to Risk of Patient Decompensation, Need For Continuous Telemetry Monitoring, Need for Pain Control, Risk of Complication if Not Cared For in Hospital, Risk of Diagnosis Which Will Require Inpatient Eval/Care/Monitoring Post Hospital Care: D/C Lvn Documentation - Plan Summary Plan Summary: I discussed case with Dr. Acevedo, we will schedule for outpatient PET scan. Follow up on flow cytometry findings for more definitive B cell type lymphoma diagnosis.
[2018-12-18] MEDS: INSULIN GLARGINE,HUM.REC.ANLOG 300 UNIT/3 ML INSULN.PEN SUBCUT SCH (22:51)
[2018-12-18] MEDS: TRAZODONE HCL 50 MG TABLET PO SCH (22:51)
[2018-12-19] MEDS: OXYCODONE-ACETAMINOPHEN 5-325 MG TABLET PO PRN (05:43)
[2018-12-19] MEDS: LANSOPRAZOLE 15 MG TAB.RAP.DR PO SCH (05:44)
[2018-12-19] MEDS: PROMETHAZINE HCL 25 MG TABLET PO PRN (07:28)
[2018-12-19] MEDS: LISINOPRIL 10 MG TABLET PO SCH (07:30)
[2018-12-19] MEDS: GLIPIZIDE 10 MG TABLET PO SCH (07:30)
[2018-12-19] MEDS: PAROXETINE HCL 20 MG TABLET PO SCH (07:30)
[2018-12-19] MEDS: BUDESONIDE/FORMOTEROL 160-4.5 MCG 60 PUFF/6 GM MDI IH SCH (09:05)
[2018-12-19] MEDS: GABAPENTIN 300 MG CAPSULE PO SCH (09:06)
[2018-12-19] MEDS: DOCUSATE SODIUM 100 MG CAPSULE PO SCH (09:06)
[2018-12-19] MEDS: CLONAZEPAM 1 MG TABLET PO SCH (09:06)
[2018-12-19] MEDS: METFORMIN HCL 500 MG TABLET PO SCH (09:06)
[2018-12-19 09:17] VITALS: BP 123/51
--- NOTE | 2018-12-19 16:19 | PDOC DISCHARGE SUMMARY ---
General - Admit/Disc Date/PCP Admission Date/Primary Care Provider: 12/13/18 17:51 BRIHILARY STILES Discharge Date: 12/19/18 - Discharge Diagnosis (1) B-cell lymphoma of intra-abdominal lymph nodes Is this a current diagnosis for this admission?: Yes (2) Diabetes mellitus type 2 in nonobese Is this a current diagnosis for this admission?: Yes (3) HTN (hypertension) Is this a current diagnosis for this admission?: Yes (4) HLD (hyperlipidemia) Is this a current diagnosis for this admission?: Yes (5) COPD (chronic obstructive pulmonary disease) Is this a current diagnosis for this admission?: Yes - Additional Information Resuscitation Status: Full Code Discharge Diet: Cardiac, Diabetic Discharge Activity: Activity As Tolerated Prescriptions: Oxycodone HCl/Acetaminophen [Percocet 7.5-325 mg Tablet] 1 each PO Q4HP PRN #60 tablet PRN Reason: Promethazine HCl [Phenergan 25 mg Tablet] 25 mg PO Q6HP PRN #60 tablet PRN Reason: Home Medications: Albuterol Sulfate [Proair HFA Inhalation Aerosol 8.5 gm MDI] 2 puff IH Q4HP PRN 12/14/18 Budesonide/Formoterol Fumarate [Symbicort HFA 160-4.5 mcg Inhaler 6 gm] 2 puff IH Q12 12/14/18 Clonazepam [Klonopin] 1 mg PO Q12 12/14/18 Gabapentin [Neurontin 300 mg Capsule] 300 mg PO Q12 12/14/18 Glipizide [Glucotrol] 10 mg PO QAM 12/14/18 Insulin Glargine,Hum.rec.anlog [Lantus Insulin 100 Unit/mL] 55 units SQ QHS 12/14/18 Lisinopril [Zestril] 10 mg PO QAM 12/14/18 Lurasidone HCl [Latuda] 20 mg PO PCSUPPER 12/14/18 Metformin HCl [Glucophage] 1,000 mg PO BID 12/14/18 Omeprazole 20 mg PO ACBRKFST 12/14/18 Paroxetine HCl [Paxil] 40 mg PO QAM 12/14/18 Simvastatin [Zocor 40 mg Tablet] 40 mg PO QPM 12/14/18 Trazodone HCl [Desyrel] 150 mg PO QHS 12/14/18 Oxycodone HCl/Acetaminophen [Percocet 7.5-325 mg Tablet] 1 each PO Q4HP PRN #60 tablet 12/18/18 Promethazine HCl [Phenergan 25 mg Tablet] 25 mg PO Q6HP PRN #60 tablet 12/18/18 History of Present Illness Patient complains of: Abdominal pain History of Present Illness: ROBERT BROWNLEE is a 48 year old female she has a history of type 2 diabetes mellitus, tobacco use disorder, she came to the emergency room for evaluation of abdominal pain for the last few days, the pain is in the upper abdomen, in the emergency room a CT scan of the pelvis and abdomen was obtained, it demonstrated a large retroperitoneal mass at the level of the renal veins measuring 3.7 x 4.1 x 4.9 cm this mass causes mass-effect on the adjacent left renal vein and IVC. She said the pain intensity is severe, there is associated vomiting. This mass is suspicious for lymphoma, she would need a CT-guided needle biopsy of the mass most likely on Saturday morning to be done by interventional radiologist. Hospital Course Hospital Course: She was managed with IV Dilaudid for pain and she had left retroperitoneal mass biopsy on 12/15/18. Her biopsy was eventually reported by pathologist as B-cell lymphoma with need for further study to adequately differentiate type of B-cell pathology process. Her pain and nausea are currently adequately controlled on oral Percocet 7.5/325 mg po q4 hours and Phenergan 25 mg po q 6 hours. She will be discharged home on same dosing schedule. I discussed her case with Dr. Acevedo, medical oncologist, regarding interventional management. she will be schedule for PET scan evaluation on outpatient evaluation. Physical Exam Vital Signs: Temp Pulse Resp BP Pulse Ox 97.7 F 65 16 129/64 H 99 12/19/18 07:42 12/19/18 07:42 12/19/18 07:42 12/19/18 07:42 12/19/18 07:42 Intake & Output 12/18/18 12/19/18 12/20/18 06:59 06:59 06:59 Intake Total 1159 200 Balance 1159 200 Weight 82 kg Physical Exam: General appearance: PRESENT: no acute distress, well-developed, well-nourished Head exam: PRESENT: atraumatic, normocephalic Eye exam: PRESENT: conjunctiva pink, EOMI, PERRLA. ABSENT: pallor, scleral icterus Ear exam: PRESENT: normal external ear exam Mouth exam: PRESENT: moist, poor dentition. Respiratory exam: PRESENT: clear to auscultation james Cardiovascular exam: PRESENT: RRR. ABSENT: diastolic murmur, rubs, systolic murmur GI/Abdominal exam: PRESENT: normal bowel sounds, soft. ABSENT: tenderness, distended, guarding, mass, organomegaly, rebound Extremities exam: ABSENT: pedal edema Musculoskeletal exam: PRESENT: normal inspection Neurological exam: PRESENT: alert, awake, oriented to person, oriented to place, oriented to time, oriented to situation, CN II-XII grossly intact. ABSENT: motor sensory deficit Skin exam: PRESENT: dry, warm, other - biopsy site dressing okay. Results Laboratory Results: 12/16/18 05:26 12/16/18 05:26 Impressions: Abdomen/Pelvis CT 12/13/18 00:00 IMPRESSION: 1. No acute findings within the abdomen or pelvis. 2. New retroperitoneal mass/lymphadenopathy, as above, consistent with malignancy versus lymphoma. This causes mass effect on the adjacent IVC and left renal vein vein. Internal hypodensity of the left renal vein, as above, which may be secondary to mixing of contrast, less likely invasion. 3. Unchanged indeterminate right hepatic lesion. Chest X-Ray 12/15/18 00:00 IMPRESSION: NO ACUTE RADIOGRAPHIC FINDING IN THE CHEST. Guidance Needle Placement CT 12/15/18 00:00 IMPRESSION: CT GUIDED BIOPSY OF THE RIGHT RETROPERITONEAL ADENOPATHY PERFORMED WITHOUT IMMEDIATE COMPLICATION. PATHOLOGY PENDING. IV CONSCIOUS SEDATION Abdomen Biopsy CT 12/15/18 08:00 IMPRESSION: CT GUIDED BIOPSY OF THE RIGHT RETROPERITONEAL ADENOPATHY PERFORMED WITHOUT IMMEDIATE COMPLICATION. PATHOLOGY PENDING. IV CONSCIOUS SEDATION Qualifiers - * PATIENT BEING DISCHARGED WITH ANY OF THE FOLLOWING DIAGNOSIS: No Plan Discharge Plan: D/C home today. Follow up in the office as instructed upon discharge.
== END 2018-12-19 10:17 | disposition home or self-care (01) | DRG 842 ==
LOC: ER 11:46 → EH 17:51 → 3W 12-14 12:02
PROVIDERS: ADMIT Internal Medicine Geriatric Medicine; ATTEND Internal Medicine Geriatric Medicine
PROC: 0WBH3ZX Excision of Retroperitoneum, Percutaneous Approach, Diagnostic (ICD-10-PCS; principal; 2018-12-15)
DX: C85.13 Unspecified B-cell lymphoma, intra-abdominal lymph nodes (principal); E11.9 Type 2 diabetes mellitus without complications; E78.5 Hyperlipidemia, unspecified; I10 Essential (primary) hypertension; J44.9 Chronic obstructive pulmonary disease, unspecified; F32.9 Major depressive disorder, single episode, unspecified; R11.2 Nausea with vomiting, unspecified; F41.9 Anxiety disorder, unspecified; F17.200 Nicotine dependence, unspecified, uncomplicated; Z79.4 Long term (current) use of insulin; Z85.41 Personal history of malignant neoplasm of cervix uteri
CPT/HCPCS: 36415; 49180; 71046; 74177; 77012; 80048; 80053; 80061; 81001; 82962; 83036; 83690; 83735; 84439; 84443; 85025; 85610; 85730; 88184; 88185; 88233; 88262; 88305; 88341; 88342; 90686; 96374; 96375; 99285; J1170; J1815; J2250; J2405; J3010; J3490

== ENCOUNTER 2018-12-19 18:05 | Emergency (ER) | payer MEDICAID ==
[2018-12-19 19:44] LABS: APPEARANCE,URINE CLEAR; BILIRUBIN,URINE NEGATIVE (NEGATIVE); COLOR,URINE YELLOW; GLUCOSE, URINE >=500 mg/dL (NEGATIVE); KETONES,URINE NEGATIVE (NEGATIVE); LEUKOCYTE ESTERASE,URINE NEGATIVE (NEGATIVE); NITRITE,URINE NEGATIVE (NEGATIVE); PROTEIN,URINE NEGATIVE (NEGATIVE); URINE SPECIFIC GRAVITY 1.015; UROBILINOGEN,URINE NEGATIVE mg/dL (<2.0)
[2018-12-19] MEDS ORDERED: OXYCODONE-ACETAMINOPHEN 5-325 MG TABLET PO ONE (20:23)
[2018-12-19] MEDS ORDERED: ONDANSETRON 4 MG TAB.RAPDIS PO ONE (20:23)
--- NOTE | 2018-12-19 20:25 | ER Document Report ---
HPI - HPI Patient complains to provider of: abd pain Time Seen by Provider: 12/19/18 20:16 Pain Level: 5 Context: Patient is a 48-year-old female presents to the emergency department for generalized right lower and upper abdominal pain. Patient states she was discharged from this facility this morning after being diagnosed with "stomach cancer." In reviewing patient's past visits to the emergency room it is seen that she has B-cell lymphoma intra-abdominal lymph nodes. Patient was discharged this morning and instructed to follow-up with oncology Dr. Acevedo. Patient states when she was discharged from the hospital she was given Percocet and Phenergan. Patient states she brought those prescriptions to the pharmacy but the pharmacy was only to able to fill her Phenergan prescription. Patient states she had an issue with her insurance so they could not immediately fill her Percocet. Patient states the pharmacy told her to come back tomorrow and they would have her Percocet filled. Patient states she has lower abdominal pain which is why she presents to the emergency room. Patient states the pain has not changed, increased at all since her generalized admission to the hospital. Patient states she was able to get the Phenergan filled and did take 1 around 2:00 this afternoon which did help her nausea. States she currently feels nauseous but it is also time to retake her Phenergan. Patient states she does have an appointment with Dr. Acevedo on Saturday. Patient denies any episodes of vomiting, states only nausea. Patient states otherwise she has no complaints. Pt. stated, "I just need my pain medications filled." Past medical history: Diabetes, hypertension, hyperlipidemia, B-cell lymphoma intra-abdominal lymph nodes Medications: Simvastatin, metformin, glipizide, gabapentin, Paxil, trazodone, Symbicort, lisinopril, Percocet, Phenergan Allergies: Toradol, tramadol - REPRODUCTIVE Reproductive: DENIES: : Past Medical History - General Information source: Patient - Social History Smoking Status: Current Every Day Smoker Family History: None, Reviewed & Not Pertinent - Past Medical History Cardiac Medical History: Reports: Hx Hypercholesterolemia, Hx Hypertension Pulmonary Medical History: Reports: Hx COPD Comment Only: Hx Asthma - pt denies Endocrine Medical History: Reports: Hx Diabetes Mellitus Type 2 Renal/ Medical History: Denies: Hx Peritoneal Dialysis Psychiatric Medical History: Reports: Hx Anxiety, Hx Depression Past Surgical History: Reports: Hx Appendectomy, Hx Cholecystectomy, Hx Gynecologic Surgery - x14 D&C - Immunizations Immunizations up to date: No Hx Diphtheria, Pertussis, Tetanus Vaccination: Yes Vertical Provider Document - CONSTITUTIONAL Agree With Documented VS: Yes Notes: GENERAL: Alert, interacts well. No acute distress. HEAD: Normocephalic, atraumatic. EYES: Pupils equal, round, and reactive to light. Extraocular movements intact. ENT: Oral mucosa moist, tongue midline. NECK: Full range of motion. Supple. Trachea midline. LUNGS: Clear to auscultation bilaterally, no wheezes, rales, or rhonchi. No respiratory distress. HEART: Regular rate and rhythm. No murmur ABDOMEN: Soft, Non-distended. Bowel sounds present in all 4 quadrants. Very minor pain right upper and lower abdominal quadrants. EXTREMITIES: Moves all 4 extremities spontaneously. No edema, normal radial and dorsalis pedis pulses bilaterally. No cyanosis. BACK: no cervical, thoracic, lumbar midline tenderness. No saddle anesthesia, normal distal neurovascular exam. No CVA tenderness bilaterally NEUROLOGICAL: Alert and oriented x3. Normal speech. cranial nerves II through XII grossly intact. PSYCH: Normal affect, normal mood. SKIN: Warm, dry, normal turgor. No rashes or lesions noted. - INFECTION CONTROL TRAVEL OUTSIDE OF THE [place] IN LAST 30 DAYS: No Course - Re-evaluation Re-evalutation: 12/19/18 20:32 Discussed with patient at length her abdominal pain. Patient continues to state that this pain feels exactly like it did when she was in the hospital. States she does not want us to do repeat labs or imaging. States nothing has changed or increased. Patient states she was just unable to get her Percocet prescription filled which is why she is in the emergency room for pain med discussed Taking Zofran here in the emergency department and giving her a dose of her Percocet. Also discussed giving her a [place] to go pack to last her overnight. Discussed need to return to the pharmacy to get her other medications refilled and or following up with oncology on Saturday. Patient is agreeable with this plan. Patient is nontoxic, non-hypotensive, non-tachycardic at this time. Patient generally appeals well and is in agreement's with her discharge plan. Very close return precautions discussed. - Vital Signs Vital signs: Temp Pulse Resp BP Pulse Ox 98.4 F 115 H 16 139/76 H 100 12/19/18 18:39 12/19/18 18:39 12/19/18 18:39 12/19/18 18:39 12/19/18 18:39 - Laboratory Laboratory results interpreted by me: 12/19/18 19:23 Urine Glucose (UA) >=500 H Urine Blood MODERATE H Discharge - Discharge Clinical Impression: Abdominal pain Qualifiers: Abdominal location: generalized Qualified Code(s): R10.84 - Generalized abdominal pain B-cell lymphoma of intra-abdominal lymph nodes Qualifiers: B-cell lymphoma type: unspecified B-cell Qualified Code(s): C85.13 - Unspecified B-cell lymphoma, intra-abdominal lymph nodes Condition: Stable Disposition: HOME, SELF-CARE Instructions: Abdominal Pain ([facility]) Additional Instructions: As we discussed you have been seen and treated in the emergency department for your inevitable stomach cancer. Please make sure you are taking medications as prescribed by her doctor. Please also make sure you follow-up with oncology on Saturday. Please make sure you stay well-hydrated and please return to the emergency room should you have any other concerning symptoms. Referrals: BRI STILES MD [Primary Care Provider] - Follow up as needed
[2018-12-19] MEDS ORDERED: HYDROCODONE/ACETAMINOPHEN 5-325 MG (6 TAB/ER DISP) PO PRN (20:34)
[2018-12-19 20:42] VITALS: BP 113/59
== END 2018-12-19 20:41 | disposition home or self-care (01) ==
LOC: ER 18:05
DX: R10.84 Generalized abdominal pain (principal); C85.13 Unspecified B-cell lymphoma, intra-abdominal lymph nodes; F17.200 Nicotine dependence, unspecified, uncomplicated; E78.00 Pure hypercholesterolemia, unspecified; I10 Essential (primary) hypertension; E11.9 Type 2 diabetes mellitus without complications; Z90.49 Acquired absence of other specified parts of digestive tract; Z88.6 Allergy status to analgesic agent
CPT/HCPCS: 99283; 81001; S0119

== ENCOUNTER 2018-12-27 14:42 | Emergency (ER) | payer MEDICAID ==
--- NOTE | 2018-12-27 16:13 | ER Document Report ---
ED Medical Screen (RME) - General Chief Complaint: Abdominal Pain Stated Complaint: abdominal pain Time Seen by Provider: 12/27/18 16:07 Primary Care Provider: NADER SARAVIA MD [Primary Care Provider] - Follow up as needed Notes: 48-year-old female patient comes emergency room complaining of right upper quadrant abdominal pain made worse by eating. She was seen here on 12/13/2018 and diagnosed with a retroperitoneal mass in the upper abdomen region later found to be Hodgkin's lymphoma. She states the pain pills she was taking do not help now, but they have caused constipation. She is scheduled for a PET scan tomorrow and to start chemo in 3 days. I have greeted and performed a rapid initial assessment of this patient. A comprehensive ED assessment and evaluation of the patient, analysis of test re sults and completion of the medical decision making process will be conducted by additional ED providers. TRAVEL OUTSIDE OF THE [place] IN LAST 30 DAYS: No - Related Data Allergies/Adverse Reactions: ketorolac tromethamine [From Toradol] Allergy (Verified 12/19/18 18:20) tramadol [Tramadol] Allergy (Verified 12/19/18 18:20) Past Medical History - Social History Chew tobacco use (# tins/day): No Frequency of alcohol use: None Drug Abuse: None - Past Medical History Cardiac Medical History: Reports: Hx Hypercholesterolemia, Hx Hypertension Pulmonary Medical History: Reports: Hx COPD Comment Only: Hx Asthma - pt denies Endocrine Medical History: Reports: Hx Diabetes Mellitus Type 2 Renal/ Medical History: Denies: Hx Peritoneal Dialysis Psychiatric Medical History: Reports: Hx Anxiety, Hx Depression Past Surgical History: Reports: Hx Appendectomy, Hx Cholecystectomy, Hx Gynecologic Surgery - x14 D&C - Immunizations Immunizations up to date: No Hx Diphtheria, Pertussis, Tetanus Vaccination: Yes Physical Exam - Vital signs Vitals: Temp Pulse Resp BP Pulse Ox 98.1 F 106 H 20 131/70 H 97 12/27/18 14:48 12/27/18 14:48 12/27/18 14:48 12/27/18 14:48 12/27/18 14:48 Course - Vital Signs Vital signs: Temp Pulse Resp BP Pulse Ox 98.1 F 106 H 20 131/70 H 97 12/27/18 14:48 12/27/18 14:48 12/27/18 14:48 12/27/18 14:48 12/27/18 14:48 Doctor's Discharge - Discharge Referrals: NADER SARAVIA MD [Primary Care Provider] - Follow up as needed
[2018-12-27 16:47] LABS: ABSOLUTE BASOPHILS # (AUTO) 0.2 10^3/uL (0.0-0.2); ABSOLUTE EOSINOPHILS # (AUTO) 0.3 10^3/uL (0.0-0.6); ABSOLUTE LYMPHOCYTES (AUTO) 5.1 10^3/uL (0.5-4.7); ABSOLUTE NEUT (AUTO) 8.8 10^3/uL (1.7-8.2); BASOPHILS % (AUTO) 1.3 % (0-2); EOSINOPHILS % (AUTO) 1.8 % (0-6); HEMATOCRIT 48.3 % (36.0-47.0); HEMOGLOBIN 16.3 g/dL (12.0-15.5); LYMPHOCYTES % (AUTO) 33.2 % (13-45); MEAN CORPUSCULAR HEMOGLOBIN 30.9 pg (27.0-33.4); MEAN CORPUSCULAR HGB CONC 33.8 g/dL (32.0-36.0); MEAN CORPUSCULAR VOLUME 92 fl (80-97); MONOCYTES % (AUTO) 6.6 % (3-13); PLATELET COUNT 292 10^3/uL (150-450); RED BLOOD COUNT 5.27 10^6/uL (3.72-5.28); RED CELL DISTRIBUTION WIDTH 14.8 % (11.5-14.0); SEGMENTED NEUTROPHILS % (AUTO) 57.1 % (42-78); TOTAL CELLS COUNTED % (AUTO) 100 %; WHITE BLOOD COUNT 15.5 10^3/uL (4.0-10.5)
[2018-12-27 16:52] LABS: APPEARANCE,URINE CLOUDY; BILIRUBIN,URINE NEGATIVE (NEGATIVE); COLOR,URINE YELLOW; GLUCOSE, URINE >=500 mg/dL (NEGATIVE); KETONES,URINE NEGATIVE (NEGATIVE); LEUKOCYTE ESTERASE,URINE TRACE (NEGATIVE); NITRITE,URINE NEGATIVE (NEGATIVE); PROTEIN,URINE NEGATIVE (NEGATIVE); UROBILINOGEN,URINE NEGATIVE mg/dL (<2.0)
[2018-12-27 17:08] LABS: ALANINE AMINOTRANSFERASE 23 U/L (9-52); ALBUMIN 4.8 g/dL (3.5-5.0); ALKALINE PHOSPHATASE 110 U/L (38-126); ANION GAP 9 (5-19); ASPARTATE AMINO TRANSFERASE 14 U/L (14-36); BILIRUBIN,DIRECT 0.2 mg/dL (0.0-0.4); BILIRUBIN,TOTAL 0.3 mg/dL (0.2-1.3); BLOOD UREA NITROGEN 9 mg/dL (7-20); CALCIUM 9.7 mg/dL (8.4-10.2); CARBON DIOXIDE 28 mmol/L (22-30); CHLORIDE 101 mmol/L (98-107); GLUCOSE 77 mg/dL (75-110); LIPASE 60.4 U/L (23-300); POTASSIUM 4.6 mmol/L (3.6-5.0); SODIUM 138.4 mmol/L (137-145); TOTAL PROTEIN 7.7 g/dL (6.3-8.2)
--- NOTE | 2018-12-27 17:10 | RADIOLOGY REPORT (SQ) ---
EXAM DESCRIPTION: ACUTE ABDOMEN SERIES COMPLETED DATE/TIME: 12/27/2018 4:30 pm REASON FOR STUDY: RUQ abd pain, constipation, recent Hodgkin's dx COMPARISON: None. NUMBER OF VIEWS: Three views. TECHNIQUE: Frontal chest, supine abdomen and upright/decubitus abdomen radiographic images acquired. LIMITATIONS: None. FINDINGS: CHEST: Lungs clear of infiltrates. FREE AIR: None. No abnormal gas collections. BOWEL GAS PATTERN: Nonobstructive pattern. No dilated loops or air fluid levels. Constipation. CALCIFICATIONS: Splenic calcifications. HARDWARE: Right quadrant clips. SOFT TISSUES: No gross mass or suggestion of organomegaly. BONES: No acute fracture. No worrisome bone lesions. OTHER: No other significant finding. IMPRESSION: NO RADIOGRAPHIC EVIDENCE FOR ACUTE ABDOMINAL DISEASE. Constipation P TECHNICAL DOCUMENTATION: JOB ID: [id number] [employer]- All Rights Reserved Reading location - IP/workstation name: [email or web address]
[2018-12-27] MEDS ORDERED: MORPHINE SULFATE 10 MG/ML INJ IV ONE (17:41)
[2018-12-27] MEDS ORDERED: ONDANSETRON HCL INJ/PF 4 MG/2 ML SDV IV ONE (17:42)
[2018-12-27] MEDS ORDERED: METOCLOPRAMIDE HCL ORAL SOLN 10 MG/10 ML UDCUP PO ONE (18:55)
[2018-12-27] MEDS ORDERED: MAG HYDROX/AL HYDROX/SIMETH SUSP 30 ML UDCUP PO ONE (18:55)
[2018-12-27] MEDS ORDERED: LIDOCAINE 2% VISCOUS SOLN 20 ML UDCUP PO ONE (18:55)
--- NOTE | 2018-12-27 20:53 | ER Document Report ---
ED General - General Chief Complaint: Abdominal Pain Stated Complaint: abdominal pain Time Seen by Provider: 12/27/18 16:07 Primary Care Provider: NADER SARAVIA MD [Primary Care Provider] - Follow up as needed TRAVEL OUTSIDE OF THE [place] IN LAST 30 DAYS: No - HPI Patient complains to provider of: abdominal pain Onset: Other - This is a 48-year-old female with a recent diagnosis of Hodgkin's lymphoma with large nodes in her pelvis for which she is scheduled to undergo a PET scan in 1 day. She presented because she was having some nausea and pain hi gher in her abdomen today. Denies fevers or chills, constipation, diarrhea, lightheadedness or other symptoms. - Related Data Allergies/Adverse Reactions: ketorolac tromethamine [From Toradol] Allergy (Verified 12/19/18 18:20) tramadol [Tramadol] Allergy (Verified 12/19/18 18:20) Past Medical History - General Information source: Patient - Social History Smoking Status: Current Every Day Smoker Chew tobacco use (# tins/day): No Frequency of alcohol use: None Drug Abuse: None Family History: None, Reviewed & Not Pertinent Patient has suicidal ideation: No Patient has homicidal ideation: No - Past Medical History Cardiac Medical History: Reports: Hx Hypercholesterolemia, Hx Hypertension Pulmonary Medical History: Reports: Hx COPD Comment Only: Hx Asthma - pt denies Endocrine Medical History: Reports: Hx Diabetes Mellitus Type 2 Renal/ Medical History: Denies: Hx Peritoneal Dialysis Psychiatric Medical History: Reports: Hx Anxiety, Hx Depression Past Surgical History: Reports: Hx Appendectomy, Hx Cholecystectomy, Hx Gynecologic Surgery - x14 D&C - Immunizations Immunizations up to date: No Hx Diphtheria, Pertussis, Tetanus Vaccination: Yes Review of Systems - Review of Systems -: Yes All other systems reviewed and negative Physical Exam - Vital signs Vitals: Temp Pulse Resp BP Pulse Ox 98.1 F 106 H 20 131/70 H 97 12/27/18 14:48 12/27/18 14:48 12/27/18 14:48 12/27/18 14:48 12/27/18 14:48 Interpretation: Normal - General General appearance: Appears well, Alert - HEENT Head: Normocephalic, Atraumatic Eyes: Normal Pupils: PERRL - Respiratory Respiratory status: No respiratory distress Chest status: Nontender Breath sounds: Normal Chest palpation: Normal - Cardiovascular Rhythm: Regular Heart sounds: Normal auscultation Murmur: No - Abdominal Inspection: Normal Distension: No distension Bowel sounds: Normal Tenderness: Nontender Organomegaly: No organomegaly - Back Back: Normal, Nontender - Extremities General upper extremity: Normal inspection, Nontender, Normal color, Normal ROM, Normal temperature General lower extremity: Normal inspection, Nontender, Normal color, Normal ROM, Normal temperature, Normal weight bearing. No: Luiz's sign - Neurological Neuro grossly intact: Yes Cognition: Normal Orientation: AAOx4 [place] Coma Scale Eye Opening: Spontaneous [place] Coma Scale Verbal: Oriented Christian Coma Scale Motor: Obeys Commands [place] Coma Scale Total: 15 Speech: Normal Motor strength normal: LUE, RUE, LLE, RLE Sensory: Normal - Psychological Associated symptoms: Normal affect, Normal mood - Skin Skin Temperature: Warm Skin Moisture: Dry Skin Color: Normal Course - Re-evaluation Re-evalutation: 12/27/18 22:18 This 48-year-old female with Hodgkin's lymphoma is scheduled to undergo a PET scan for staging of her disease in the next couple of days. She was having some abdominal pain higher in her abdomen than previously. On examination her abdominal examination is benign overall, she is got slight tenderness without rebound or guarding. She had labs drawn through triage which are consistent with previous baseline do not demonstrate pancreatitis or elevated LFTs suggesting any other obvious und erlying pathology such as biliary disease or appendicitis. Will administer GI cocktail and reassess. Patient's GI cocktail only slightly improved her symptoms. She is to undergo a PET scan and since she has a benign abdominal examination do not believe she warrants CT imaging of the abdomen and pelvis as this likely would delay her CT PET scan. - Vital Signs Vital signs: Temp Pulse Resp BP Pulse Ox 98.1 F 106 H 9 L 111/63 100 12/27/18 14:48 12/27/18 14:48 12/27/18 19:01 12/27/18 19:01 12/27/18 19:01 - Laboratory Result Diagrams: 12/27/18 16:34 12/27/18 16:34 Laboratory results interpreted by me: 12/27/18 12/27/18 16:20 16:34 WBC 15.5 H Hgb 16.3 H Hct 48.3 H RDW 14.8 H Absolute Neutrophils 8.8 H Absolute Lymphocytes 5.1 H Urine Glucose (UA) >=500 H Ur Leukocyte Esterase TRACE H Discharge - Discharge Clinical Impression: Nausea Abdominal pain Qualifiers: Abdominal location: unspecified location Qualified Code(s): R10.9 - Unspecified abdominal pain Condition: Stable Disposition: HOME, SELF-CARE Instructions: Abdominal Pain ([facility]) Additional Instructions: You were seen today in the emergency department for your abdominal pain. You had evaluation including a physical exam, blood tests, and x-ray of your abdomen. I think that your pain in your abdomen is related to the tumor in your pelvis. You need to follow-up for your PET scan as scheduled already. You have been given a medication to use to help with your abdominal pain as needed. Return in case you begin to have vomiting and cannot keep anything down have fevers or chills or feel different. Prescriptions: Metoclopramide HCl [Metoclopramide HCl Odt] 10 mg PO BID #30 tab.rapdis Referrals: NADER SARAVIA MD [Primary Care Provider] - Follow up as needed
[2018-12-27 21:07] VITALS: BP 103/62
== END 2018-12-27 21:46 | disposition home or self-care (01) ==
LOC: ER 14:42
DX: R10.9 Unspecified abdominal pain (principal); R11.0 Nausea; C81.90 Hodgkin lymphoma, unspecified, unspecified site; F17.200 Nicotine dependence, unspecified, uncomplicated; I10 Essential (primary) hypertension; J44.9 Chronic obstructive pulmonary disease, unspecified; E11.9 Type 2 diabetes mellitus without complications; Z88.8 Allergy status to other drugs, medicaments and biological substances; Z88.5 Allergy status to narcotic agent; Z90.49 Acquired absence of other specified parts of digestive tract
CPT/HCPCS: 99284; 96374; 96375; 36415; 83690; 85025; 80053; 81001; 74022; J3490 ×3; J2270; J2405

== ENCOUNTER → 2018-12-28 | Outpatient (CLI) | payer MEDICAID ==
--- NOTE | 2018-12-29 07:46 | RADIOLOGY REPORT (SQ) ---
EXAM DESCRIPTION: PET CT SKULL/THIGH COMPLETED DATE/TIME: 12/28/2018 8:58 pm REASON FOR STUDY: LYMPHOMA C85.13 UNSPECIFIED B-CELL LYMPHOMA, INTRA-ABDOMINAL LYMPH NO COMPARISON: CT abdomen pelvis 03/17/2017, 07/25/2017, 12/13/2018 CT-guided retroperitoneal lymph node biopsy 12/15/2018 RADIONUCLIDE AND DOSE: 10.4 mCi F18 FDG The route of agent administration: Intravenous FASTING BLOOD SUGAR: 90 mg/dl CONTRAST TYPE AND DOSE: No CT contrast given. TECHNIQUE: Blood glucose level was verified. Above dose of FDG was injected intravenously. 2-D seg mented attenuation correction images were obtained from the base of the skull to the midthighs. Nonc ontrast CT images were obtained for attenuation correction and fusion with emission images. CT image s were performed without oral or intravenous contrast and are not sensitive for parenchymal lesions. A series of overlapping emission PET images were obtained. Images reviewed and manipulated at [facility] work station by the radiologist. Images stored on PACS. LIMITATIONS: None. FINDINGS: HEAD AND NECK: No areas of abnormal metabolic activity in the soft tissues of the head and neck. CHEST: No areas of abnormal metabolic activity in the chest. ABDOMEN AND PELVIS: 2.5 x 1 cm right retrocrural lymph node axial image 143, SUV of 4.5. Previously biopsied 4 x 3 cm right retroperitoneal lymph node mass at the level of the right renal ar jamie, SUV of 10. PROXIMAL LOWER EXTREMITIES: No areas of abnormal metabolic activity in the soft tissues of the lower extremities. BONES: No abnormal metabolic activity in the visualized skeleton. ADDITIONAL CT FINDINGS: Post cholecystectomy. 2 x 2 cm hypodensity in the liver at the barb hepatis is non metabolic, benign. This likely represents focal fat. Calcified right hilar lymph nodes with multiple splenic granulomas. Spotty coronary artery disease. OTHER: Liver background 1.9 SUV. Blood pool background 1.2 SUV IMPRESSION: Malignant right retroperitoneal adenopathy at the level of the right renal vessels, and along the right retrocrural region compatible with history of B-cell lymphoma TECHNICAL DOCUMENTATION: JOB ID: [id number] [employer]- All Rights Reserved Reading location - IP/workstation name: [facility]
== END ==
LOC: RAD 17:43
PROVIDERS: ATTEND Internal Medicine Medical Oncology
DX: C85.13 Unspecified B-cell lymphoma, intra-abdominal lymph nodes (principal)
CPT/HCPCS: 78815; A9552

== ENCOUNTER 2019-01-05 18:14 | Emergency (ER) | payer MEDICAID ==
[2019-01-05] MEDS ORDERED: ONDANSETRON 4 MG TAB.RAPDIS PO ONE (18:29)
--- NOTE | 2019-01-05 18:31 | ER Document Report ---
ED Medical Screen (RME) - General Chief Complaint: Abdominal Pain Stated Complaint: ABDOMINAL PAIN Time Seen by Provider: 01/05/19 18:29 Primary Care Provider: NADER SARAVIA MD [Primary Care Provider] - Follow up as needed Mode of Arrival: Ambulatory Information source: Patient Notes: 48-year-old female presented to ED for complaint of abdominal pain to the right upper lower abdomen with nausea no vomiting no fever. Patient is a non- Hodgkin's lymphoma patient of Dr. Saravia. She states she is on Zofran and oxycodone 7.5325. She states the pain is at the site of her Hodgkin's lymphoma. She is on chemotherapy. Patient is alert oriented respirations regular and unlabored, abdomen is tender to palpation. Patient states she had a oxycodone last at 4 PM and Zofran last this morning. I have greeted and performed a rapid initial assessment of this patient. A comprehensive ED assessment and evaluation of the patient, analysis of test results and completion of medical decision making process will be conducted by an additional ED providers. TRAVEL OUTSIDE OF THE [place] IN LAST 30 DAYS: No - Related Data Allergies/Adverse Reactions: ketorolac tromethamine [From Toradol] Allergy (Verified 12/19/18 18:20) tramadol [Tramadol] Allergy (Verified 12/19/18 18:20) Past Medical History - Past Medical History Cardiac Medical History: Reports: Hx Hypercholesterolemia, Hx Hypertension Pulmonary Medical History: Reports: Hx COPD Comment Only: Hx Asthma - pt denies Endocrine Medical History: Reports: Hx Diabetes Mellitus Type 2 Renal/ Medical History: Denies: Hx Peritoneal Dialysis Psychiatric Medical History: Reports: Hx Anxiety, Hx Depression Past Surgical History: Reports: Hx Appendectomy, Hx Cholecystectomy, Hx Gynecologic Surgery - x14 D&C - Immunizations Immunizations up to date: No Hx Diphtheria, Pertussis, Tetanus Vaccination: Yes Physical Exam - Vital signs Vitals: Temp Pulse Resp BP Pulse Ox 98.0 F 109 H 16 132/61 H 97 01/05/19 18:25 01/05/19 18:25 01/05/19 18:25 01/05/19 18:25 01/05/19 18:25 Course - Vital Signs Vital signs: Temp Pulse Resp BP Pulse Ox 98.0 F 109 H 16 132/61 H 97 01/05/19 18:25 01/05/19 18:25 01/05/19 18:25 01/05/19 18:25 01/05/19 18:25 Doctor's Discharge - Discharge Referrals: NADER SARAVIA MD [Primary Care Provider] - Follow up as needed
[2019-01-05 19:01] LABS: ABSOLUTE BASOPHILS # (AUTO) 0.2 10^3/uL (0.0-0.2); ABSOLUTE EOSINOPHILS # (AUTO) 0.2 10^3/uL (0.0-0.6); ABSOLUTE LYMPHOCYTES (AUTO) 2.1 10^3/uL (0.5-4.7); ABSOLUTE MONOCYTES (AUTO) 1.5 10^3/uL (0.1-1.4); ABSOLUTE NEUT (AUTO) 10.3 10^3/uL (1.7-8.2); BASOPHILS % (AUTO) 1.3 % (0-2); EOSINOPHILS % (AUTO) 1.4 % (0-6); HEMATOCRIT 45.6 % (36.0-47.0); HEMOGLOBIN 15.4 g/dL (12.0-15.5); MEAN CORPUSCULAR HEMOGLOBIN 30.6 pg (27.0-33.4); MEAN CORPUSCULAR HGB CONC 33.8 g/dL (32.0-36.0); MEAN CORPUSCULAR VOLUME 91 fl (80-97); MONOCYTES % (AUTO) 10.2 % (3-13); PLATELET COUNT 314 10^3/uL (150-450); RED BLOOD COUNT 5.04 10^6/uL (3.72-5.28); SEGMENTED NEUTROPHILS % (AUTO) 72.1 % (42-78); TOTAL CELLS COUNTED % (AUTO) 100 %; WHITE BLOOD COUNT 14.3 10^3/uL (4.0-10.5)
[2019-01-05 19:03] LABS: APPEARANCE,URINE SLIGHTLY-CLOUDY; BILIRUBIN,URINE NEGATIVE (NEGATIVE); COLOR,URINE STRAW; GLUCOSE, URINE >=500 mg/dL (NEGATIVE); KETONES,URINE NEGATIVE (NEGATIVE); LEUKOCYTE ESTERASE,URINE NEGATIVE (NEGATIVE); NITRITE,URINE NEGATIVE (NEGATIVE); PROTEIN,URINE NEGATIVE (NEGATIVE); URINE SPECIFIC GRAVITY 1.022; UROBILINOGEN,URINE NEGATIVE mg/dL (<2.0)
[2019-01-05] MEDS ORDERED: HYDROMORPHONE HCL INJ/PF 2 MG/ML AMPULE IV ONE ×3 (19:12→22:07)
[2019-01-05 19:15] LABS: ALANINE AMINOTRANSFERASE 6 U/L (9-52); ALBUMIN 4.8 g/dL (3.5-5.0); ALKALINE PHOSPHATASE 91 U/L (38-126); ANION GAP 16 (5-19); ASPARTATE AMINO TRANSFERASE 14 U/L (14-36); BILIRUBIN,DIRECT 0.3 mg/dL (0.0-0.4); BILIRUBIN,TOTAL 0.4 mg/dL (0.2-1.3); BLOOD UREA NITROGEN 15 mg/dL (7-20); CALCIUM 9.7 mg/dL (8.4-10.2); CARBON DIOXIDE 23 mmol/L (22-30); CHLORIDE 97 mmol/L (98-107); GLUCOSE 288 mg/dL (75-110); POTASSIUM 4.7 mmol/L (3.6-5.0); SODIUM 135.5 mmol/L (137-145); TOTAL PROTEIN 7.6 g/dL (6.3-8.2)
--- NOTE | 2019-01-05 19:15 | ER Document Report ---
ED General - General Chief Complaint: Abdominal Pain Stated Complaint: ABDOMINAL PAIN Time Seen by Provider: 01/05/19 18:29 Primary Care Provider: NADER SARAVIA MD [ACTIVE STAFF] - Follow up tomorrow Mode of Arrival: Ambulatory Notes: Patient is a 48-year-old female who presents to the emergency department with a chief complaint of abdominal pain. Her pain started this afternoon around 1600 and she took her oxycodone that she has been prescribed by her oncologist. She states that since taking the medication she has not had any relief of her pain. She had her first dose of chemotherapy on Saturday and Saturday last week. She states the pain is a sharp, stabbing pain which feels the same as when she was diagnosed with cancer about a month ago. She is seen by Dr. Saravia in the office. She denies any vomiting or fevers. She denies any hematochezia, but states that she has had diarrhea but she is currently on Bactrim. TRAVEL OUTSIDE OF THE [place] IN LAST 30 DAYS: No - Related Data Allergies/Adverse Reactions: ketorolac tromethamine [From Toradol] Allergy (Verified 12/19/18 18:20) tramadol [Tramadol] Allergy (Verified 12/19/18 18:20) Past Medical History - General Information source: Patient - Social History Smoking Status: Current Every Day Smoker Family History: None, Reviewed & Not Pertinent - Past Medical History Cardiac Medical History: Reports: Hx Hypercholesterolemia, Hx Hypertension Pulmonary Medical History: Reports: Hx COPD Comment Only: Hx Asthma - pt denies Endocrine Medical History: Reports: Hx Diabetes Mellitus Type 2 Renal/ Medical History: Denies: Hx Peritoneal Dialysis Psychiatric Medical History: Reports: Hx Anxiety, Hx Depression Past Surgical History: Reports: Hx Appendectomy, Hx Cholecystectomy, Hx Gynecologic Surgery - x14 D&C - Immunizations Immunizations up to date: No Hx Diphtheria, Pertussis, Tetanus Vaccination: Yes Review of Systems - Review of Systems Notes: REVIEW OF SYSTEMS: CONSTITUTIONAL : Denies recent illness. Denies recent unintentional weight loss. Denies fever, chills, or sweats. EENT: Denies eye, ear, throat, or mouth pain, discharge, or symptoms. Denies nasal or sinus congestion. CARDIOVASCULAR: Denies chest pain. RESPIRATORY: Denies shortness of breath, cough, congestion, difficulty breathing, or wheezing. GASTROINTESTINAL: See HPI GENITOURINARY: Denies difficulty urinating, burning, blood in urine, urgency or frequency. MUSCULOSKELETAL: Denies neck and back pain. Denies joint pain or swelling. SKIN: Denies rash, itchiness, or lesions HEMATOLOGIC : Denies easy bruising or bleeding. LYMPHATIC: Denies swollen, painful, enlarged glands. NEUROLOGICAL: Denies no numbness or tingling denies weakness. Denies headache. Denies altered mental status. Denies alteration in speech. PSYCHIATRIC: Denies stress, anxiety, alteration in sleep patterns, or depression. All other systems reviewed and negative. Physical Exam - Vital signs Vitals: Temp Pulse Resp BP Pulse Ox 98.0 F 109 H 16 132/61 H 97 01/05/19 18:25 01/05/19 18:25 01/05/19 18:25 01/05/19 18:25 01/05/19 18:25 - Notes Notes: PHYSICAL EXAMINATION: GENERAL: Appears well, healthy, well-nourished, no acute distress. HEAD: Normocephalic, atraumatic. EYES: PERRL, conjunctiva normal, all extraocular movements intact, sclera nonicteric ENT: Moist mucous membranes. NECK: Supple, no noticeable swelling, redness, rash. Normal range of motion. LUNGS: Equal breath sounds bilaterally and clear to auscultation. No wheezes rales or rhonchi. CARDIOVASCULAR: S1-S2, regular rate, regular rhythm. Radial pulses 2+, normal. ABDOMEN: Normoactive bowel sounds. Soft, tender right upper and lower quadrant at site of lymphomas, no guarding, no rebound tenderness. 2 palpable masses in the area of tenderness. EXTREMITIES: Normal strength and range of motion, no pitting or edema. No cy anosis. NEUROLOGICAL: Moves all extremities upon command. Strength 5/5 in all extremities. PSYCH: Normal mood, normal affect. SKIN: Warm, dry. No rash, lesions, ulcerations noted. Normal skin turgor. Course - Re-evaluation Re-evalutation: 01/05/19 20:56 I have spoke with Dr. Jurado in regards to this patient and she recommends the patient be sent for a CT of the abdomen. She will also be given another milligram of dilaudid. 01/05/19 21:[address] Saravia and notified her of the results of the patient's CAT scan. There is no acute change from her previous CAT scan on 20 December. She states that she would like to see her in the office tomorrow to have her reevaluated. I have discussed this with the patient and she will see Dr. Saravia tomorrow. Verbal discharge instructions were given to the patient. They verbalized understanding. They are stable for discharge. - Vital Signs Vital signs: Temp Pulse Resp BP Pulse Ox 97.9 F 84 16 110/65 98 01/05/19 22:43 01/05/19 22:43 01/05/19 22:43 01/05/19 22:43 01/05/19 22:43 - Laboratory Result Diagrams: 01/05/19 18:43 01/05/19 18:43 Laboratory results interpreted by me: 01/05/19 01/05/19 01/05/19 18:43 18:43 18:43 WBC 14.3 H RDW 15.0 H Absolute Neutrophils 10.3 H Absolute Monocytes 1.5 H Sodium 135.5 L Chloride 97 L Glucose 288 H ALT 6 L Urine Glucose (UA) >=500 H Discharge - Discharge Clinical Impression: Abdominal pain Condition: Stable Disposition: HOME, SELF-CARE Instructions: Abdominal Pain ([facility]), Antinausea Medication ([facility]) Additional Instructions: You were seen today in the emergency department for abdominal pain. Your CAT scan shows no changes from your previous CAT scan. Dr. Saravia would like to see you in the office tomorrow morning. Please continue to take the pain medication you are already prescribed. If you have worsening pain, or have any symptoms that are worrisome to you, please return to the emergency department. Referrals: NADER SARAVIA MD [ACTIVE STAFF] - Follow up tomorrow
[2019-01-05] MEDS ORDERED: IPRATROPIUM/ALBUTEROL 0.5-2.5 MG/3 ML AMPUL NEB ONE (19:18)
[2019-01-05] MEDS ORDERED: NORMAL SALINE 1000 ML 1,000 ML IV ONE (20:25)
--- NOTE | 2019-01-05 21:26 | RADIOLOGY REPORT (SQ) ---
EXAM DESCRIPTION: CT ABDOMEN WITH IV CONTRAST COMPLETED DATE/TME: 01/05/2019 20:27 CLINICAL HISTORY: 48 years, Female, abdominal pain COMPARISON: PET/CT 12/28/2018, CT 12/13/2018. TECHNIQUE: 465 Images stored on PACS. All CT scanners at this facility use dose modulation, iterative reconstruction, and/or weight based dosing when appropriate to reduce radiation dose to as low as reasonably achievable (ALARA). [facility]: Dose Right [facility]: CareDose [facility]: Dose Right [facility]: Teradose 4D [facility]: [employer] LIMITATIONS: None. FINDINGS: Limited evaluation of the lung bases is unremarkable. Osseous structures are grossly intact. Fatty infiltrative change to the liver. Multiple splenic granulomata. The adrenal glands, pancreas, kidneys are unremarkable. Status post cholecystectomy. There is an approximately 1.6 x 1.6 cm hypodensity within the liver, near the gallbladder fossa. This is unchanged from prior CT. Right retroperitoneal adenopathy, in the right periaortic region measuring approximately 3.75 x 3.09 cm. There is impression upon the right renal vein, similar to the prior exam. Areas of diminished attenuation associated with the right renal vein and IVC likely reflect admixture of contrast with invasion felt less likely. Moderate atheromatous changes. Nonenlarged central mesenteric lymph nodes with some minor haziness of the central mesentery, unchanged. No progressive adenopathy. No free air or free fluid. No gross evidence for bowel obstruction. Abundant stool in the colon. The appendix is not well seen. No pericecal inflammation. IMPRESSION: Little change from a prior CT of 12/13/2018. Stable right periaortic/retroperitoneal adenopathy. Stable nonenlarged mesenteric lymph nodes. Stable nonspecific hypodensity within the liver. TECHNICAL DOCUMENTATION: Quality ID # [id number]: Final reports with documentation of one or more dose reduction techniques (e.g., Automated exposure control, adjustment of the mA and/or kV according to patient size, use of iterative reconstruction technique) copyright 2011 [employer]- All Rights Reserved
[2019-01-05] MEDS ORDERED: ALBUTEROL SULFATE HFA (90 MCG/PUFF) 8 GM MDI (1 MDI/ER DISP) IH PRN (22:08)
[2019-01-05 22:44] VITALS: BP 110/65
== END 2019-01-05 22:50 | disposition home or self-care (01) ==
LOC: ER 18:14
DX: R10.9 Unspecified abdominal pain (principal); Z79.899 Other long term (current) drug therapy; F17.200 Nicotine dependence, unspecified, uncomplicated; I10 Essential (primary) hypertension; J44.9 Chronic obstructive pulmonary disease, unspecified; E11.9 Type 2 diabetes mellitus without complications
CPT/HCPCS: 96376; 94640; 99284; 96361; 96374; 36415; 85025; 80053; 81001; 74160; S0119; J1170; J7030; J3490; J7620

== ENCOUNTER 2019-01-15 00:08 | Emergency (ER) | payer MEDICAID ==
[2019-01-15] MEDS ORDERED: HYDROMORPHONE HCL INJ/PF 2 MG/ML AMPULE IV ONE ×2 (01:15→02:20)
[2019-01-15] MEDS ORDERED: ONDANSETRON HCL INJ/PF 4 MG/2 ML SDV IV ONE (01:15)
[2019-01-15 01:53] LABS: ABSOLUTE BASOPHILS # (AUTO) 0.2 10^3/uL (0.0-0.2); ABSOLUTE EOSINOPHILS # (AUTO) 0.2 10^3/uL (0.0-0.6); ABSOLUTE LYMPHOCYTES (AUTO) 2.2 10^3/uL (0.5-4.7); ABSOLUTE MONOCYTES (AUTO) 1.4 10^3/uL (0.1-1.4); ABSOLUTE NEUT (AUTO) 14.6 10^3/uL (1.7-8.2); BASOPHILS % (AUTO) 0.8 % (0-2); HEMATOCRIT 40.6 % (36.0-47.0); HEMOGLOBIN 13.9 g/dL (12.0-15.5); LYMPHOCYTES % (AUTO) 11.9 % (13-45); MEAN CORPUSCULAR HGB CONC 34.2 g/dL (32.0-36.0); MEAN CORPUSCULAR VOLUME 91 fl (80-97); MONOCYTES % (AUTO) 7.6 % (3-13); PLATELET COUNT 240 10^3/uL (150-450); RED BLOOD COUNT 4.47 10^6/uL (3.72-5.28); RED CELL DISTRIBUTION WIDTH 15.7 % (11.5-14.0); SEGMENTED NEUTROPHILS % (AUTO) 78.7 % (42-78); TOTAL CELLS COUNTED % (AUTO) 100 %; WHITE BLOOD COUNT 18.5 10^3/uL (4.0-10.5)
[2019-01-15] MEDS: NORMAL SALINE 1000 ML 1,000 ML IV PRN ×2 (02:03→04:03)
[2019-01-15 02:06] LABS: ALANINE AMINOTRANSFERASE 18 U/L (9-52); ALBUMIN 4.2 g/dL (3.5-5.0); ALKALINE PHOSPHATASE 93 U/L (38-126); ANION GAP 12 (5-19); ASPARTATE AMINO TRANSFERASE 14 U/L (14-36); BILIRUBIN,DIRECT 0.3 mg/dL (0.0-0.4); BILIRUBIN,TOTAL 0.4 mg/dL (0.2-1.3); BLOOD UREA NITROGEN 8 mg/dL (7-20); CALCIUM 9.2 mg/dL (8.4-10.2); CARBON DIOXIDE 21 mmol/L (22-30); CHLORIDE 104 mmol/L (98-107); GLUCOSE 176 mg/dL (75-110); LIPASE 30.7 U/L (23-300); POTASSIUM 4.3 mmol/L (3.6-5.0); TOTAL PROTEIN 6.7 g/dL (6.3-8.2)
[2019-01-15 02:23] LABS: APPEARANCE,URINE SLIGHTLY-CLOUDY; BILIRUBIN,URINE NEGATIVE (NEGATIVE); COLOR,URINE YELLOW; GLUCOSE, URINE >=500 mg/dL (NEGATIVE); KETONES,URINE NEGATIVE (NEGATIVE); LEUKOCYTE ESTERASE,URINE NEGATIVE (NEGATIVE); NITRITE,URINE NEGATIVE (NEGATIVE); PROTEIN,URINE NEGATIVE (NEGATIVE); URINE SPECIFIC GRAVITY 1.015; UROBILINOGEN,URINE NEGATIVE mg/dL (<2.0)
[2019-01-15] MEDS ORDERED: MORPHINE SULFATE 10 MG/ML INJ IV ONE (03:51)
--- NOTE | 2019-01-15 04:45 | ER Document Report ---
Entered by DIMAS CONTRERAS SCRIBE 01/15/19 0215 Acting as scribe for:DERRICK MCKEON DO ED General - General Chief Complaint: Abdominal Pain Stated Complaint: ABDOMINAL PAIN Time Seen by Provider: 01/15/19 01:01 Primary Care Provider: BRI STILES MD [Primary Care Provider] - Follow up as needed Notes: Patient is a 48-year-old female with type 2 diabetes, hypertension, hypercholesteremia presents emergency department complaining of right sided abdominal pain with associated symptoms of nausea and diarrhea onset today. Patient states she was diagnosed with Non-Hodgkin's lymphoma approximately 1 month ago and she has 2 masses in the right side of her abdomen. She states she has had similar pain since the diagnosis however her pain has significantly worsened today. Patient states she saw her oncologist, Dr. Acevedo, earlier today, received IV fluids and was instructed to come to the ED if her pain worsened. She denies any fevers or vomiting. She states she had a dose of Zofra n around 1300 today. Patient reports being prescribed 7.5mg of oxycodone but states this has not h elped her pain. She states Dilaudid normally helps her pain. Patient also reports having an elevated white blood count of approximately 16.3 earlier today. TRAVEL OUTSIDE OF THE [place] IN LAST 30 DAYS: No - Related Data Allergies/Adverse Reactions: ketorolac tromethamine [From Toradol] Allergy (Verified 01/15/19 00:20) tramadol [Tramadol] Allergy (Verified 01/15/19 00:20) Past Medical History - General Information source: Patient - Social History Smoking Status: Current Every Day Smoker Cigarette use (# per day): Yes Chew tobacco use (# tins/day): No Smoking Education Provided: No Frequency of alcohol use: None Family History: None, Reviewed & Not Pertinent - Past Medical History Cardiac Medical History: Reports: Hx Hypercholesterolemia, Hx Hypertension Pulmonary Medical History: Reports: Hx COPD Comment Only: Hx Asthma - pt denies Endocrine Medical History: Reports: Hx Diabetes Mellitus Type 2 Psychiatric Medical History: Reports: Hx Anxiety, Hx Depression Past Surgical History: Reports: Hx Appendectomy, Hx Cholecystectomy, Hx Gynecologic Surgery - x14 D&C - Immunizations Immunizations up to date: No Hx Diphtheria, Pertussis, Tetanus Vaccination: Yes Review of Systems - Review of Systems Constitutional: No symptoms reported EENT: No symptoms reported Cardiovascular: No symptoms reported Respiratory: No symptoms reported Gastrointestinal: See HPI, Abdominal pain, Diarrhea, Nausea Genitourinary: No symptoms reported Female Genitourinary: No symptoms reported Musculoskeletal: No symptoms reported Skin: No symptoms reported Hematologic/Lymphatic: No symptoms reported Neurological/Psychological: No symptoms reported -: Yes All other systems reviewed and negative Physical Exam - Vital signs Vitals: Temp Pulse Resp BP Pulse Ox 98.1 F 114 H 16 124/77 95 01/15/19 00:20 01/15/19 00:20 01/15/19 00:20 01/15/19 00:20 01/15/19 00:20 Interpretation: Tachycardic - Notes Notes: GENERAL: Alert, interacts well. No acute distress. Laying in bed easily discussing her case with me. HEAD: Normocephalic, atraumatic. EYES: Pupils equal, round, and reactive to light. Extraocular movements intact. ENT: Oral mucosa moist, tongue midline. NECK: Full range of motion. Supple. Trachea midline. LUNGS: Diffuse inspiratory squeaking, no expiratory wheezes. HEART: Regular rate and rhythm. No murmurs, gallops, or rubs. ABDOMEN: Soft, right side of abdomen is tender to palpation, lower abdomen worse than upper. Non-distended. Bowel sounds present in all 4 quadrants. No guarding, rigidity or rebounding. EXTREMITIES: Moves all 4 extremities spontaneously. NEUROLOGICAL: Alert and oriented x3. Normal speech. PSYCH: Normal affect, normal mood. SKIN: Warm, dry, normal turgor. No rashes or lesions noted. Course - Re-evaluation Re-evalutation: 01/15/19 03:50 CBC shows leukocytosis at 18.5 which is increased from 10 days ago, hemoglobin and platelets are normal, CMP shows slight low CO2 at 21 otherwise unremarkable, LFTs are normal, lipase is normal, urinalysis shows greater than 500 of glucose but no ketones or signs of infection. Abdomen is tender but not peritoneal. Given the fact that she just saw her oncologist today and she just had a nonacute CAT scan 10 days ago I did call and discuss her case with Dr. Acevedo her oncologist who stated that given the degree of pain the patient is complaining about we do need to repeat a CAT scan to make sure there is no signs of obstruction or perforation. If there is no obstruction or perforation she does feel that the patient's pain is being adequately treated and she is afraid that the patient may have some secondary gain by coming to the emergency de partment to try and get stronger narcotics. Dr. Acevedo states that she prescribed her oxycodone in the office today and the patient asked for something stronger. Dr. Acevedo would not like to have anything stronger written for her and would like her to be discharged to home if the CAT scan is normal. 01/15/19 05:19 CT scan of the abdomen pelvis shows mildly increased 4.6 x 4.3 x 2.5 cm ovoid ma ss soft tissue mass of the right periaortic retroperitoneum inferior to the right renal vein. Moderate streaky opacity of mesenteric fat of the mid abdomen. Discussed these findings with Dr. Stephenson who clarifies that this is not an indicator of infection or other mesenteric ischemia. At present no acute process to respond to or intervene on. Discussed with patient that there is no evidence of any need for antibiotics or surgery at this time, patient will be discharged home, patient states that she feels the Zofran works better than the Phenergan so I will write her prescription for Zofran, no change in her home pain medications will be made. - Vital Signs Vital signs: Temp Pulse Resp BP Pulse Ox 98.1 F 114 H 14 124/77 95 01/15/19 00:20 01/15/19 00:20 01/15/19 04:21 01/15/19 00:20 01/15/19 04:21 - Laboratory Result Diagrams: 01/15/19 01:36 01/15/19 01:36 Laboratory results interpreted by me: 01/15/19 01/15/19 01/15/19 01:36 01:36 01:58 WBC 18.5 H RDW 15.7 H Seg Neutrophils % 78.7 H Lymphocytes % 11.9 L Absolute Neutrophils 14.6 H Carbon Dioxide 21 L Glucose 176 H Urine Glucose (UA) >=500 H Discharge - Discharge Clinical Impression: Retroperitoneal mass, Nausea B-cell lymphoma of intra-abdominal lymph nodes Qualifiers: B-cell lymphoma type: unspecified B-cell Qualified Code(s): C85.13 - Unspecified B-cell lymphoma, intra-abdominal lymph nodes Abdominal pain Qualifiers: Abdominal location: right lower quadrant Qualified Code(s): R10.31 - Right lower quadrant pain Diarrhea Qualifiers: Diarrhea type: unspecified type Qualified Code(s): R19.7 - Diarrhea, unspecified Condition: Stable Disposition: HOME, SELF-CARE Additional Instructions: Your CAT scan did not show any signs of infection or blockage. There is no need for antibiotics tonight or surgery. I have discussed the case with Dr. Acevedo. We will not be changing your dosage of pain medication at this point. I have prescribed you Zofran, the same antinausea drugs that we used here and she used in her office. You may use these as directed on the bottle to help control your nausea. Prescriptions: Ondansetron [Zofran Odt 4 mg Tablet] 1 - 2 tab PO Q4H PRN #15 tab.rapdis PRN Reason: For Nausea/Vomiting Referrals: BRI STILES MD [Primary Care Provider] - Follow up as needed Scribe Attestation: 01/15/19 05:21 I personally performed the services described in the documentation, reviewed and edited the documentation which was dictated to the scribe in my presence, and it accurately records my words and actions. I personally performed the services described in the documentation, reviewed and edited the documentation which was dictated to the scribe in my presence, and it accurately records my words and actions.
--- NOTE | 2019-01-15 05:01 | RADIOLOGY REPORT (SQ) ---
EXAM DESCRIPTION: CT ABDOMEN PELVIS WITH IV CONTRAST COMPLETED DATE/TME: 01/15/2019 03:48 CLINICAL HISTORY: 48 years Female, RUQ RLQ pain in setting of Non-hog lymphoma CREAT 0.54 Comparison:01/05/2019, 12/28/18 Technique: IV contrast. Coronal and sagittal reformat. This exam was performed according to our departmental dose-optimization program, which includes automated exposure control, adjustment of the mA and/or kV according to patient size and/or use of iterative reconstruction technique. [facility]: Dose Right [facility]: CareDose [facility]: Dose Right [facility]: Teradose 4D [facility]: [employer] LIMITATIONS: None Findings: Mildly increased 4.6 x 4.3 x 2.5 cm ovoid soft tissue mass of the right periaortic retroperitoneum inferior to the right renal vein. Moderate streaky opacity of mesenteric fat of the mid abdomen. 1.6 cm right hepatic, barb hepatis low-attenuation lesion probably focal fat, stable. Bilateral perinephric fat stranding, nonspecific. Minimal pericardial fluid. Old granulomatous disease. No ascites. Cholecystectomy. No evidence of appendicitis. Appendix not definitively discerned. Inferior thorax, liver, pancreas, spleen, adrenals, renal system, gastrointestinal tract, pelvic organs, vasculature, and musculoskeleton appear otherwise unremarkable. IMPRESSION: Increased 4.6 cm retroperitoneal mass and moderate mesenteric fat inflammation.
[2019-01-15 05:31] VITALS: BP 113/75
== END 2019-01-15 05:31 | disposition home or self-care (01) ==
LOC: ER 00:08
DX: C85.13 Unspecified B-cell lymphoma, intra-abdominal lymph nodes (principal); R10.31 Right lower quadrant pain; R19.7 Diarrhea, unspecified; E11.9 Type 2 diabetes mellitus without complications; I10 Essential (primary) hypertension; R11.0 Nausea; F17.210 Nicotine dependence, cigarettes, uncomplicated; J44.9 Chronic obstructive pulmonary disease, unspecified; Z88.0 Allergy status to penicillin; Z88.5 Allergy status to narcotic agent; Z90.49 Acquired absence of other specified parts of digestive tract; D72.829 Elevated white blood cell count, unspecified
CPT/HCPCS: 96376; 99284; 96361; 96374; 96375; 36415; 83690; 85025; 80053; 81001; 74177; J2270; J1170; J2405; J7030

== ENCOUNTER 2019-02-07 17:13 | Emergency (ER) | payer MEDICAID ==
--- NOTE | 2019-02-07 17:47 | ER Document Report ---
ED Medical Screen (RME) - General Chief Complaint: Abdominal Pain Stated Complaint: STOMACH PAIN, WEAKNESS Time Seen by Provider: 02/07/19 17:42 Primary Care Provider: BRI STILES MD [Primary Care Provider] - Follow up as needed Mode of Arrival: Ambulatory Information source: Patient, [facility] Records Notes: 48-year-old female with non-Hodgkin's lymphoma presents with complaint of 2 days of lightheadedness and abdominal pain. Patient is currently undergoing chemotherapy with Dr. Acevedo. I have greeted and performed a rapid initial assessment of this patient. A comprehensive ED assessment and evaluation of the patient, analysis of test results and completion of medical decision making process we will be contacted by additional ED providers. PHYSICAL EXAMINATION: Vital signs reviewed GENERAL: Well-appearing, well-nourished and in no acute distress. LUNGS: No respiratory distress Musculoskeletal: Normal range of motion NEUROLOGICAL: Normal speech, normal gait. PSYCH: Normal mood, normal affect. SKIN: Warm, Dry, normal turgor, no rashes or lesions noted. TRAVEL OUTSIDE OF THE [place] IN LAST 30 DAYS: No - HPI Onset: Yesterday Onset/Duration: Sudden Quality of pain: Throbbing Severity: Moderate Associated Symptoms: Chills, Nausea Exacerbated by: Walking Relieved by: Denies Similar symptoms previously: Yes Recently seen / treated by doctor: Yes - Related Data Smoking: Cigarettes Frequency of alcohol use: None Drug Abuse: None Allergies/Adverse Reactions: ketorolac tromethamine [From Toradol] Allergy (Verified 01/15/19 00:20) tramadol [Tramadol] Allergy (Verified 01/15/19 00:20) Past Medical History - Social History Chew tobacco use (# tins/day): No Frequency of alcohol use: None Drug Abuse: None - Past Medical History Cardiac Medical History: Reports: Hx Hypercholesterolemia, Hx Hypertension Pulmonary Medical History: Reports: Hx COPD Comment Only: Hx Asthma - pt denies Endocrine Medical History: Reports: Hx Diabetes Mellitus Type 2 Renal/ Medical History: Denies: Hx Peritoneal Dialysis Psychiatric Medical History: Reports: Hx Anxiety, Hx Depression Past Surgical History: Reports: Hx Appendectomy, Hx Cholecystectomy, Hx Gynecologic Surgery - x14 D&C - Immunizations Immunizations up to date: No Hx Diphtheria, Pertussis, Tetanus Vaccination: Yes Physical Exam - Vital signs Vitals: Temp Pulse Resp BP Pulse Ox 97.9 F 118 H 16 142/85 H 98 02/07/19 17:22 02/07/19 17:22 02/07/19 17:22 02/07/19 17:22 02/07/19 17:22 Course - Vital Signs Vital signs: Temp Pulse Resp BP Pulse Ox 97.9 F 118 H 16 142/85 H 98 02/07/19 17:22 02/07/19 17:22 02/07/19 17:22 02/07/19 17:22 02/07/19 17:22 Doctor's Discharge - Discharge Referrals: BRI STILES MD [Primary Care Provider] - Follow up as needed
[2019-02-07 18:25] LABS: ABSOLUTE BASOPHILS # (AUTO) 0.1 10^3/uL (0.0-0.2); ABSOLUTE EOSINOPHILS # (AUTO) 0.1 10^3/uL (0.0-0.6); ABSOLUTE LYMPHOCYTES (AUTO) 2.1 10^3/uL (0.5-4.7); ABSOLUTE MONOCYTES (AUTO) 1.2 10^3/uL (0.1-1.4); ABSOLUTE NEUT (AUTO) 5.6 10^3/uL (1.7-8.2); BASOPHILS % (AUTO) 1.3 % (0-2); EOSINOPHILS % (AUTO) 0.6 % (0-6); HEMATOCRIT 40.8 % (36.0-47.0); HEMOGLOBIN 13.9 g/dL (12.0-15.5); LYMPHOCYTES % (AUTO) 23.5 % (13-45); MEAN CORPUSCULAR HGB CONC 34.1 g/dL (32.0-36.0); MEAN CORPUSCULAR VOLUME 91 fl (80-97); MONOCYTES % (AUTO) 13.2 % (3-13); PLATELET COUNT 247 10^3/uL (150-450); RED BLOOD COUNT 4.49 10^6/uL (3.72-5.28); SEGMENTED NEUTROPHILS % (AUTO) 61.4 % (42-78); TOTAL CELLS COUNTED % (AUTO) 100 %; WHITE BLOOD COUNT 9.1 10^3/uL (4.0-10.5)
[2019-02-07 18:31] LABS: APPEARANCE,URINE SLIGHTLY-CLOUDY; BILIRUBIN,URINE NEGATIVE (NEGATIVE); COLOR,URINE STRAW; GLUCOSE, URINE >=500 mg/dL (NEGATIVE); KETONES,URINE NEGATIVE (NEGATIVE); LEUKOCYTE ESTERASE,URINE NEGATIVE (NEGATIVE); NITRITE,URINE NEGATIVE (NEGATIVE); PROTEIN,URINE NEGATIVE (NEGATIVE); URINE SPECIFIC GRAVITY 1.005; UROBILINOGEN,URINE NEGATIVE mg/dL (<2.0)
[2019-02-07 18:45] LABS: ALANINE AMINOTRANSFERASE 22 U/L (9-52); ALBUMIN 4.3 g/dL (3.5-5.0); ALKALINE PHOSPHATASE 105 U/L (38-126); ANION GAP 13 (5-19); ASPARTATE AMINO TRANSFERASE 13 U/L (14-36); BILIRUBIN,DIRECT 0.2 mg/dL (0.0-0.4); BILIRUBIN,TOTAL 0.3 mg/dL (0.2-1.3); BLOOD UREA NITROGEN 9 mg/dL (7-20); CALCIUM 9.6 mg/dL (8.4-10.2); CARBON DIOXIDE 23 mmol/L (22-30); CHLORIDE 99 mmol/L (98-107); GLUCOSE 151 mg/dL (75-110); LIPASE 31.9 U/L (23-300); POTASSIUM 3.7 mmol/L (3.6-5.0); TOTAL PROTEIN 7.1 g/dL (6.3-8.2)
[2019-02-07] MEDS ORDERED: RINGERS SOLUTION,LACTATED 1,000 ML IV ONE (20:15)
[2019-02-07] MEDS ORDERED: PROMETHAZINE HCL INJ 25 MG/1 ML VIAL IV ONE (20:16)
[2019-02-07] MEDS ORDERED: MORPHINE SULFATE 10 MG/ML INJ IV PRN (20:16)
--- NOTE | 2019-02-07 20:19 | ER Document Report ---
ED General - General Chief Complaint: Abdominal Pain Stated Complaint: STOMACH PAIN, WEAKNESS Time Seen by Provider: 02/07/19 17:42 Primary Care Provider: BRI STILES MD [Primary Care Provider] - Follow up tomorrow Mode of Arrival: Ambulatory Notes: Patient is a 48-year-old female with a past medical history of B-cell lymphoma, actively receiving chemotherapy, follows with Dr. Acevedo, presents complaining of 2 days of right-sided as well as generalized abdominal pain as well as fee lings of lightheadedness. Patient states that she feels like she is dehydrated. Has been trying to drink Gatorade with some improvement of her symptoms but states that it has not been helping today. She did speak to Dr. Acevedo yesterday, decided to come to the hospital today due to failure her symptoms improved. Abdominal pain is described as a throbbing, aching, constant pain most localized to the right side of her abdomen where she states that she has known masses secondary to B-cell lymphoma. She has been nauseated but has not vomited. She denies fever. No constitutional symptoms. Pain is very similar to times that she has presented to the emergency department in the past. She h as been trying her home pain medications including oxycodone with minimal relief. Nothing worsens the pain. TRAVEL OUTSIDE OF THE [place] IN LAST 30 DAYS: No - Related Data Allergies/Adverse Reactions: ketorolac tromethamine [From Toradol] Allergy (Verified 02/07/19 20:38) tramadol [Tramadol] Allergy (Verified 02/07/19 20:38) Past Medical History - General Information source: Patient, [facility] Records - Social History Smoking Status: Current Every Day Smoker Chew tobacco use (# tins/day): No Frequency of alcohol use: None Drug Abuse: None Lives with: Spouse/Significant other Family History: Reviewed & Not Pertinent Patient has suicidal ideation: No Patient has homicidal ideation: No - Past Medical History Cardiac Medical History: Reports: Hx Hypercholesterolemia, Hx Hypertension Pulmonary Medical History: Reports: Hx COPD Comment Only: Hx Asthma - pt denies Endocrine Medical History: Reports: Hx Diabetes Mellitus Type 2 Renal/ Medical History: Denies: Hx Peritoneal Dialysis Psychiatric Medical History: Reports: Hx Anxiety, Hx Depression Past Surgical History: Reports: Hx Appendectomy, Hx Cholecystectomy, Hx Gynecologic Surgery - x14 D&C - Immunizations Immunizations up to date: No Hx Diphtheria, Pertussis, Tetanus Vaccination: Yes Review of Systems - Review of Systems Notes: Constitutional: Negative for fever. HENT: Negative for sore throat. Eyes: Negative for visual changes. Cardiovascular: Negative for chest pain. Positive for lightheadedness Respiratory: Negative for shortness of breath. Gastrointestinal: Positive for abdominal pain and nausea Genitourinary: Negative for dysuria. Musculoskeletal: Negative for back pain. Skin: Negative for rash. Neurological: Negative for headaches, weakness or numbness. 10 point ROS negative except as marked above and in HPI. Physical Exam - Vital signs Vitals: Temp Pulse Resp BP Pulse Ox 97.9 F 118 H 16 142/85 H 98 02/07/19 17:22 02/07/19 17:22 02/07/19 17:22 02/07/19 17:22 02/07/19 17:22 Interpretation: Tachycardic Notes: PHYSICAL EXAMINATION: GENERAL: Appears mildly unwell but in no acute distress HEAD: Atraumatic, normocephalic. EYES: Pupils equal round and reactive to light, extraocular movements intact, sclera anicteric, conjunctiva are normal. ENT: nares patent, oropharynx clear without exudates. Moderately dry mucous m embranes. NECK: Normal range of motion, supple without lymphadenopathy LUNGS: Breath sounds clear to auscultation bilaterally and equal. No wheezes rales or rhonchi. HEART: Regular rate and rhythm without murmurs ABDOMEN: Soft, nontender, normoactive bowel sounds. No guarding, no rebound. No masses appreciated. EXTREMITIES: Normal range of motion, no pitting or edema. No cyanosis. NEUROLOGICAL: No focal neurological deficits. Moves all extremities spontaneously and on command. PSYCH: Normal mood, normal affect. SKIN: Warm, Dry, normal turgor, no rashes or lesions noted. Course - Re-evaluation Re-evalutation: 02/07/19 20:18 Patient presents with complaints of generalized abdominal pain more focal to the right upper and lower quadrants that is been ongoing for the past 48 hours. Patient has recurrent presentations for the same secondary to B-cell lymphoma with intra-abdominal lymphadenopathy. Abdominal exam is benign without areas of focal tenderness, rebound or guarding. Labs overall unremarkable. Patient's also concerned about becoming dehydrated, states that she feels somewhat lightheaded. Blood pressures are within acceptable limits, has had some improvement of her symptoms after receiving 2 L of IV fluids. I have had a risks and benefits conversation with the patient regarding CT imaging of the abdomen and pelvis at this time. We discussed, based on today's exam and labs there is a possibility that they could have a diagnosis that could be better clarified by CT and that this could possibly liner roll changer. We discussed the risks of radiation to the abdomen and pelvis particular given that the patient has had 3 CT scans of her abdomen and pelvis in 2019 already. We discussed the alternative of close follow-up with their her oncologist and her primary physician within 24 hours as well as reasons to return to the emergency department. After this conversation, the patient has elected to avoid CT imaging of the abdomen and pelvis at this time. They have capacity. They have v erbalized the importance of close follow-up as well as reasons to return to the emergency department including worsening abdominal pain, fever, persistent vomiting, or any other symptoms that are worrisome to them. - Vital Signs Vital signs: Temp Pulse Resp BP Pulse Ox 97.7 F 89 16 111/64 95 02/07/19 22:01 02/07/19 18:25 02/07/19 18:25 02/07/19 22:07 02/07/19 22:07 - Laboratory Result Diagrams: 02/07/19 18:15 02/07/19 18:15 Laboratory results interpreted by me: 02/07/19 02/07/19 02/07/19 18:15 18:15 18:15 RDW 17.0 H Monocytes % 13.2 H Sodium 135.0 L Creatinine 0.51 L Glucose 151 H AST 13 L Urine Glucose (UA) >=500 H - EKG Interpretation by Me Additional EKG results interpreted by me: 02/07/19 22:39 Sinus rhythm, rate 89. No ST elevations or depressions. QTC is 463. Discharge - Discharge Clinical Impression: Lightheadedness B-cell lymphoma of intra-abdominal lymph nodes Qualifiers: B-cell lymphoma type: unspecified B-cell Qualified Code(s): C85.13 - Unspecified B-cell lymphoma, intra-abdominal lymph nodes Abdominal pain Qualifiers: Abdominal location: generalized Qualified Code(s): R10.84 - Generalized abdominal pain Condition: Good Disposition: HOME, SELF-CARE Additional Instructions: You have been seen in the Emergency Department (ED) for abdominal pain. Your evaluation did not identify a clear cause of your symptoms but was generally reassuring. Your white blood cell count is 9 today. Please follow-up with your oncologist regarding recurrent abdominal pain. Please return to the emergency department immediately if you have worsening of your pain, persistent vomiting, greater than 100.4 F temperature, become unable to keep fluids down, or have any other symptoms that are worrisome to you. Referrals: BRI STILES MD [Primary Care Provider] - Follow up tomorrow
[2019-02-07 22:09] VITALS: BP 111/64
--- NOTE | 2019-02-07 22:14 | EKG REPORT ---
SEVERITY:- NORMAL ECG - SINUS RHYTHM : Confirmed by: Roya Reid MD 07-Feb-2019 22:13:54
== END 2019-02-07 22:29 | disposition home or self-care (01) ==
LOC: ER 17:13
DX: C85.13 Unspecified B-cell lymphoma, intra-abdominal lymph nodes (principal); Z79.899 Other long term (current) drug therapy; R10.84 Generalized abdominal pain; R42 Dizziness and giddiness; R11.0 Nausea; F17.200 Nicotine dependence, unspecified, uncomplicated; I10 Essential (primary) hypertension; J44.9 Chronic obstructive pulmonary disease, unspecified; E11.9 Type 2 diabetes mellitus without complications; Z88.8 Allergy status to other drugs, medicaments and biological substances; Z88.5 Allergy status to narcotic agent
CPT/HCPCS: 93005; 36591; 99284; 96361; 96374; 96375; 36415; 83690; 85025; 80053; 81001; 93010; J2270; J2550; J7120

== ENCOUNTER 2019-02-11 19:09 | Emergency (ER) | payer MEDICAID ==
[2019-02-11] MEDS ORDERED: NORMAL SALINE 1000 ML 1,000 ML IV ONE (20:27)
[2019-02-11] MEDS ORDERED: ONDANSETRON HCL INJ/PF 4 MG/2 ML SDV IV ONE (20:29)
--- NOTE | 2019-02-11 20:29 | ER Document Report ---
ED Medical Screen (RME) - General Chief Complaint: Abdominal Pain Stated Complaint: UPPER STOMACH PAIN,DIZZINESS Time Seen by Provider: 02/11/19 20:28 Primary Care Provider: BRI STILES MD [Primary Care Provider] - Follow up as needed TRAVEL OUTSIDE OF THE [place] IN LAST 30 DAYS: No - HPI Notes: 02/11/19 20:28 Patient presented to the emergency room complaining of abdominal pain. Patient has history of non-Hodgkin's lymphoma. She is nauseous but denies vomiting or diarrhea. Abdomen is tender to palpation otherwise the exam is unremarkable. - Related Data Allergies/Adverse Reactions: ketorolac tromethamine [From Toradol] Allergy (Verified 02/07/19 20:38) tramadol [Tramadol] Allergy (Verified 02/07/19 20:38) Past Medical History - Social History Frequency of alcohol use: None Drug Abuse: None - Past Medical History Cardiac Medical History: Reports: Hx Hypercholesterolemia, Hx Hypertension Pulmonary Medical History: Reports: Hx COPD Comment Only: Hx Asthma - pt denies Endocrine Medical History: Reports: Hx Diabetes Mellitus Type 2 Renal/ Medical History: Denies: Hx Peritoneal Dialysis Psychiatric Medical History: Reports: Hx Anxiety, Hx Depression Past Surgical History: Reports: Hx Appendectomy, Hx Cholecystectomy, Hx Gynecologic Surgery - x14 D&C - Immunizations Immunizations up to date: No Hx Diphtheria, Pertussis, Tetanus Vaccination: Yes Physical Exam - Vital signs Vitals: Temp Pulse Resp BP Pulse Ox 98.3 F 120 H 20 111/72 96 02/11/19 19:37 02/11/19 19:37 02/11/19 19:37 02/11/19 19:37 02/11/19 19:37 Course - Vital Signs Vital signs: Temp Pulse Resp BP Pulse Ox 98.3 F 120 H 20 111/72 96 02/11/19 19:37 02/11/19 19:37 02/11/19 19:37 02/11/19 19:37 02/11/19 19:37 Doctor's Discharge - Discharge Referrals: BRI STILES MD [Primary Care Provider] - Follow up as needed
[2019-02-11 21:50] LABS: HEMATOCRIT 41.1 % (36.0-47.0); MEAN CORPUSCULAR HEMOGLOBIN 31.5 pg (27.0-33.4); MEAN CORPUSCULAR HGB CONC 34.1 g/dL (32.0-36.0); MEAN CORPUSCULAR VOLUME 92 fl (80-97); PLATELET COUNT 269 10^3/uL (150-450); RED BLOOD COUNT 4.45 10^6/uL (3.72-5.28); RED CELL DISTRIBUTION WIDTH 17.8 % (11.5-14.0); WHITE BLOOD COUNT 14.6 10^3/uL (4.0-10.5)
[2019-02-11 21:59] LABS: INTERNATIONAL RATION (INR) 0.89; PROTHROMBIN TIME 12.5 SEC (11.4-15.4)
[2019-02-11 22:00] LABS: PARTIAL THROMBOPLASTIN TIME 29.8 SEC (23.5-35.8)
[2019-02-11 22:09] LABS: ABSOLUTE LYMPHOCYTES# (MANUAL) 0.7 10^3/uL (0.5-4.7); ABSOLUTE MONOCYTES # (MANUAL) 0.4 10^3/uL (0.1-1.4); ABSOLUTE NEUTROPHILS# (MANUAL) 13.4 10^3/uL (1.7-8.2); ANISOCYTOSIS 1+; BASOPHILS % (MANUAL) 0 % (0-2); EOSINOPHILS % (MANUAL) 0 % (0-6); LYMPHOCYTES % (MANUAL) 5 % (13-45); MONOCYTES % (MANUAL) 3 % (3-13); PLATELET COMMENT ADEQUATE; POIKILOCYTOSIS SLIGHT; SEGMENTED NEUTROPHILS % (MAN) 92 % (42-78); TOTAL CELLS COUNTED 100; TOXIC GRANULATION SLIGHT
[2019-02-11 22:12] LABS: ALANINE AMINOTRANSFERASE 19 U/L (9-52); ALBUMIN 4.7 g/dL (3.5-5.0); ALKALINE PHOSPHATASE 110 U/L (38-126); ANION GAP 15 (5-19); ASPARTATE AMINO TRANSFERASE 19 U/L (14-36); BILIRUBIN,DIRECT 0.2 mg/dL (0.0-0.4); BILIRUBIN,TOTAL 0.3 mg/dL (0.2-1.3); BLOOD UREA NITROGEN 17 mg/dL (7-20); CALCIUM 9.8 mg/dL (8.4-10.2); CARBON DIOXIDE 20 mmol/L (22-30); CHLORIDE 98 mmol/L (98-107); GLUCOSE 307 mg/dL (75-110); LIPASE 47.4 U/L (23-300); POTASSIUM 4.5 mmol/L (3.6-5.0); SODIUM 132.6 mmol/L (137-145); TOTAL PROTEIN 7.5 g/dL (6.3-8.2)
[2019-02-11] MEDS ORDERED: MORPHINE SULFATE 10 MG/ML INJ IV ONE (22:40)
--- NOTE | 2019-02-12 00:10 | RADIOLOGY REPORT (SQ) ---
CT ABDOMEN PELVIS WITH IV CONTRAST HISTORY: Abdominal pain. COMPARISON: 01/15/2019 TECHNIQUE: CT scan of the abdomen and pelvis with IV contrast. This exam was performed according to our departmental dose-optimization program, which includes automated exposure control, adjustment of the mA and/or kV according to patient size and/or use of iterative reconstruction technique. FINDINGS: The lung bases are clear. No pleural or pericardial effusions. There is no hiatal hernia. Multiple punctate calcified splenic granulomas are seen along with a hepatic dome calcified granuloma. There has been a prior cholecystectomy. There is a 1.8 cm hypodense lesion in the liver which may represent a splenic hemangioma. The pancreas, adrenal glands, and kidneys are unremarkable without hydronephrosis. The pelvic organs are unremarkable. The appendix is not visualized. No small bowel obstruction. The colon is filled with stool without evidence of acute diverticulitis. No intraperitoneal free fluid or free air is seen. Interval decrease in size of previously seen 4.6 cm soft tissue mass abutting the right renal vein, with a few scattered 1.5 cm soft tissue nodules in this region. The aorta is normal caliber and contains atherosclerotic calcifications. No acute osseous findings are seen. No body wall hernia. IMPRESSION: 1. No acute abdominopelvic pathology. 2. Interval decrease in size of soft tissue mass abutting the right renal vein. This is nonspecific but may represent resolving adenopathy in the absence of interval intervention.
[2019-02-12] MEDS ORDERED: ACETAMINOPHEN 325 MG TABLET PO ONE (00:13)
[2019-02-12 01:00] LABS: APPEARANCE,URINE CLEAR; BILIRUBIN,URINE NEGATIVE (NEGATIVE); COLOR,URINE YELLOW; GLUCOSE, URINE >=500 mg/dL (NEGATIVE); KETONES,URINE TRACE mg/dL (NEGATIVE); LEUKOCYTE ESTERASE,URINE NEGATIVE (NEGATIVE); NITRITE,URINE NEGATIVE (NEGATIVE); PROTEIN,URINE NEGATIVE (NEGATIVE); URINE SPECIFIC GRAVITY 1.031; UROBILINOGEN,URINE NEGATIVE mg/dL (<2.0)
[2019-02-12] MEDS ORDERED: MORPHINE SULFATE 10 MG/ML INJ IV ONE (03:50)
[2019-02-12] MEDS ORDERED: ONDANSETRON HCL INJ/PF 4 MG/2 ML SDV IV ONE (03:51)
--- NOTE | 2019-02-12 03:55 | ER Document Report ---
Addendum entered and electronically signed by CAROLROBERTA KathleenJESSENIA 02/12/19 04:03: Course - Re-evaluation Re-evalutation: 02/12/19 04:01 There is no significant change in the patient's CT of the abdomen compared to her previous visit. She states she does feel better after receiving fluids, but feels she is still nauseated and has some pain. She will be given another dose of morphine and Zofran before she goes home. She does have a mild leukocytosis, but not very remarkable. I discussed with her that she needs to see pain management follow-up with her oncologist. Verbal discharge instructions were given to the patient. They verbalized understanding. They are stable for discharge. - Vital Signs Vital signs: Temp Pulse Resp BP Pulse Ox 98.3 F 120 H 20 111/72 96 02/11/19 19:37 02/11/19 19:37 02/11/19 19:37 02/11/19 19:37 02/11/19 19:37 - Laboratory Result Diagrams: 02/11/19 21:32 02/11/19 21:32 Laboratory results interpreted by me: 02/11/19 02/11/19 02/11/19 21:18 21:32 21:32 WBC 14.6 H RDW 17.8 H Seg Neuts % (Manual) 92 H Lymphocytes % (Manual) 5 L Abs Neuts (Manual) 13.4 H Sodium 132.6 L Carbon Dioxide 20 L Glucose 307 H Urine Glucose (UA) >=500 H Urine Ketones TRACE H Original Note: ED General - General Chief Complaint: Abdominal Pain Stated Complaint: UPPER STOMACH PAIN,DIZZINESS Time Seen by Provider: 02/11/19 20:28 Primary Care Provider: NADER SARAVIA MD [ACTIVE STAFF] - Follow up tomorrow BRI STILES MD [Primary Care Provider] - Follow up as needed Notes: Patient is a 48-year-old female who presents to the emergency department with a chief complaint of bilateral upper abdominal pain and dizziness. Admits to some nausea, but does not have any diarrhea or vomiting. She has had her symptoms on and off since December. She states that her symptoms of the same every time she comes here to the emergency department. She has been diagnosed with non- Hodgkin's lymphoma and is currently on chemotherapy. She does take oxycodone and Zofran at home. She also has a referral out to pain management. TRAVEL OUTSIDE OF THE [place] IN LAST 30 DAYS: No - Related Data Allergies/Adverse Reactions: ketorolac tromethamine [From Toradol] Allergy (Verified 02/07/19 20:38) tramadol [Tramadol] Allergy (Verified 02/07/19 20:38) Past Medical History - Social History Smoking Status: Current Every Day Smoker Frequency of alcohol use: None Drug Abuse: None Family History: Reviewed & Not Pertinent Patient has suicidal ideation: No Patient has homicidal ideation: No - Past Medical History Cardiac Medical History: Reports: Hx Hypercholesterolemia, Hx Hypertension Pulmonary Medical History: Reports: Hx COPD Comment Only: Hx Asthma - pt denies Endocrine Medical History: Reports: Hx Diabetes Mellitus Type 2 Renal/ Medical History: Denies: Hx Peritoneal Dialysis Psychiatric Medical History: Reports: Hx Anxiety, Hx Depression Past Surgical History: Reports: Hx Appendectomy, Hx Cholecystectomy, Hx Gynecologic Surgery - x14 D&C - Immunizations Immunizations up to date: No Hx Diphtheria, Pertussis, Tetanus Vaccination: Yes Physical Exam - Vital signs Vitals: Temp Pulse Resp BP Pulse Ox 98.3 F 120 H 20 111/72 96 02/11/19 19:37 02/11/19 19:37 02/11/19 19:37 02/11/19 19:37 02/11/19 19:37 - Notes Notes: PHYSICAL EXAMINATION: GENERAL: Appears well, healthy, well-nourished, no acute distress. HEAD: Normocephalic, atraumatic. EYES: PERRL, conjunctiva normal, all extraocular movements intact, sclera nonicteric ENT: Moist mucous membranes. NECK: Supple, no noticeable swelling, redness, rash. Normal range of motion. LUNGS: Equal breath sounds bilaterally and clear to auscultation. No wheezes rales or rhonchi. CARDIOVASCULAR: S1-S2, regular rate, regular rhythm. Radial pulses 2+, normal. ABDOMEN: Normoactive bowel sounds. Soft, nontender, no guarding, no rebound tenderness, and no masses palpated. EXTREMITIES: Normal strength and range of motion, no pitting or edema. No cyanosis. NEUROLOGICAL: Moves all extremities upon command. Strength 5/5 in all extremities. PSYCH: Normal mood, normal affect. SKIN: Warm, dry. No rash, lesions, ulcerations noted. Normal skin turgor. Port noted to left upper arm. Course - Vital Signs Vital signs: Temp Pulse Resp BP Pulse Ox 98.3 F 120 H 20 111/72 96 02/11/19 19:37 02/11/19 19:37 02/11/19 19:37 02/11/19 19:37 02/11/19 19:37 - Laboratory Result Diagrams: 02/11/19 21:32 02/11/19 21:32 Laboratory results interpreted by me: 02/11/19 02/11/19 02/11/19 21:18 21:32 21:32 WBC 14.6 H RDW 17.8 H Seg Neuts % (Manual) 92 H Lymphocytes % (Manual) 5 L Abs Neuts (Manual) 13.4 H Sodium 132.6 L Carbon Dioxide 20 L Glucose 307 H Urine Glucose (UA) >=500 H Urine Ketones TRACE H Discharge - Discharge Clinical Impression: Abdominal pain Qualifiers: Abdominal location: unspecified location Qualified Code(s): R10.9 - Unspecified abdominal pain Condition: Stable Disposition: HOME, SELF-CARE Additional Instructions: You were seen today in the emergency department for abdominal pain. There is no change in your CAT scan today. Please follow-up with your oncologist, primary care provider, and pain management in regards to this visit. If you develop worsening symptoms, shortness of breath, or unable to keep food or drink down, or have any symptoms that are worrisome to you, please return to the emergency department. Referrals: BRI STILES MD [Primary Care Provider] - Follow up as needed NADER SARAVIA MD [ACTIVE STAFF] - Follow up tomorrow
[2019-02-12 04:33] VITALS: BP 118/61
== END 2019-02-12 04:33 | disposition home or self-care (01) ==
LOC: ER 19:09
DX: R10.11 Right upper quadrant pain (principal); R10.12 Left upper quadrant pain; R42 Dizziness and giddiness; R11.0 Nausea; D72.829 Elevated white blood cell count, unspecified; C81.90 Hodgkin lymphoma, unspecified, unspecified site; Z79.899 Other long term (current) drug therapy; Z79.891 Long term (current) use of opiate analgesic; I10 Essential (primary) hypertension; J44.9 Chronic obstructive pulmonary disease, unspecified; E11.9 Type 2 diabetes mellitus without complications; Z90.49 Acquired absence of other specified parts of digestive tract; Z88.8 Allergy status to other drugs, medicaments and biological substances; Z88.5 Allergy status to narcotic agent
CPT/HCPCS: 96376; 99284; 96361; 96374; 96375; 36415; 83690; 85025; 85610; 85730; 80053; 81001; 74177; J3490; J2270 ×2; J2405 ×2; J7030

== ENCOUNTER 2019-03-15 14:34 | Emergency (ER) | payer MEDICAID ==
[2019-03-15] MEDS ORDERED: MORPHINE SULFATE 10 MG/ML INJ IV ONE ×2 (15:09→17:54)
[2019-03-15] MEDS ORDERED: ONDANSETRON HCL INJ/PF 4 MG/2 ML SDV IV ONE (15:09)
[2019-03-15] MEDS ORDERED: NORMAL SALINE 1000 ML 1,000 ML IV ONE (15:09)
--- NOTE | 2019-03-15 15:15 | ER Document Report ---
ED Medical Screen (RME) - General Chief Complaint: Chest Pain Stated Complaint: CHEST PAIN Time Seen by Provider: 03/15/19 15:03 Primary Care Provider: BRI STILES MD [Primary Care Provider] - Follow up as needed Mode of Arrival: Ambulatory Information source: Patient Notes: Patient is a 48-year-old female with non-Hodgkin's lymphoma currently undergoing chemotherapy treatments who presents to the emergency department with left-sided chest pain and right lower quadrant abdominal pain. Patient reports symptoms have been going on for a few days. Worse reports associated nausea but denies vomiting. Patient has had multiple episodes of diarrhea. Patient states her last chemotherapy was 2 weeks ago. She does have a port in her left upper arm. Patient is concerned that her cancer may be spreading. Patient tachycardic on arrival, states that she has been trying to keep up with oral intake however she states that she has not had a whole lot. Exam: Mild abdominal discomfort with palpation to right lower quadrant. Patient alert, oriented, answering all questions appropriately. I have greeted and performed a rapid initial assessment of this patient. A comprehensive ED assessment and evaluation of the patient, analysis of test results and completion of the medical decision making process will be conducted by additional ED providers. Dictation of this chart was performed using voice recognition software; therefore, there may be some unintended grammatical errors. TRAVEL OUTSIDE OF THE [place] IN LAST 30 DAYS: No - Related Data Allergies/Adverse Reactions: ketorolac tromethamine [From Toradol] Allergy (Verified 02/07/19 20:38) tramadol [Tramadol] Allergy (Verified 02/07/19 20:38) Past Medical History - Past Medical History Cardiac Medical History: Reports: Hx Hypercholesterolemia, Hx Hypertension Pulmonary Medical History: Reports: Hx COPD Comment Only: Hx Asthma - pt denies Endocrine Medical History: Reports: Hx Diabetes Mellitus Type 2 Renal/ Medical History: Denies: Hx Peritoneal Dialysis Psychiatric Medical History: Reports: Hx Anxiety, Hx Depression Past Surgical History: Reports: Hx Appendectomy, Hx Cholecystectomy, Hx Gynecologic Surgery - x14 D&C - Immunizations Immunizations up to date: No Hx Diphtheria, Pertussis, Tetanus Vaccination: Yes Physical Exam - Vital signs Vitals: Temp Pulse Resp BP Pulse Ox 99.3 F 127 H 18 126/71 H 96 03/15/19 14:45 03/15/19 14:45 03/15/19 14:45 03/15/19 14:45 03/15/19 14:45 Course - Vital Signs Vital signs: Temp Pulse Resp BP Pulse Ox 99.3 F 112 H 18 126/71 H 96 03/15/19 14:45 03/15/19 15:07 03/15/19 14:45 03/15/19 14:45 03/15/19 14:45 Doctor's Discharge - Discharge Referrals: BRI STILES MD [Primary Care Provider] - Follow up as needed
[2019-03-15 16:56] LABS: HEMATOCRIT 37.8 % (36.0-47.0); MEAN CORPUSCULAR HEMOGLOBIN 32.3 pg (27.0-33.4); MEAN CORPUSCULAR HGB CONC 34.3 g/dL (32.0-36.0); MEAN CORPUSCULAR VOLUME 94 fl (80-97); PLATELET COUNT 123 10^3/uL (150-450); RED BLOOD COUNT 4.02 10^6/uL (3.72-5.28); RED CELL DISTRIBUTION WIDTH 20.9 % (11.5-14.0); WHITE BLOOD COUNT 2.6 10^3/uL (4.0-10.5)
[2019-03-15 17:09] LABS: ALANINE AMINOTRANSFERASE 21 U/L (9-52); ALBUMIN 3.9 g/dL (3.5-5.0); ALKALINE PHOSPHATASE 87 U/L (38-126); ANION GAP 11 (5-19); ASPARTATE AMINO TRANSFERASE 13 U/L (14-36); BILIRUBIN,DIRECT 0.3 mg/dL (0.0-0.4); BILIRUBIN,TOTAL 0.3 mg/dL (0.2-1.3); BLOOD UREA NITROGEN 7 mg/dL (7-20); CALCIUM 9.6 mg/dL (8.4-10.2); CARBON DIOXIDE 24 mmol/L (22-30); CHLORIDE 100 mmol/L (98-107); GLUCOSE 212 mg/dL (75-110); LIPASE 27.5 U/L (23-300); POTASSIUM 3.7 mmol/L (3.6-5.0); TOTAL PROTEIN 6.8 g/dL (6.3-8.2)
[2019-03-15 17:15] LABS: ABSOLUTE LYMPHOCYTES# (MANUAL) 1.6 10^3/uL (0.5-4.7); ABSOLUTE MONOCYTES # (MANUAL) 0.5 10^3/uL (0.1-1.4); ABSOLUTE NEUTROPHILS# (MANUAL) 0.4 10^3/uL (1.7-8.2); BASOPHILS % (MANUAL) 3 % (0-2); EOSINOPHILS % (MANUAL) 4 % (0-6); LYMPHOCYTES % (MANUAL) 60 % (13-45); MONOCYTES % (MANUAL) 19 % (3-13); SEGMENTED NEUTROPHILS % (MAN) 14 % (42-78); TOTAL CELLS COUNTED 100
[2019-03-15 17:17] LABS: ANISOCYTOSIS 2+; PLATELET CLUMPS PRESENT; PLATELET COMMENT DECREASED; PLATELET LARGE PRESENT; POLYCHROMASIA SLIGHT
[2019-03-15 17:27] LABS: APPEARANCE,URINE SLIGHTLY-CLOUDY; BILIRUBIN,URINE NEGATIVE (NEGATIVE); COLOR,URINE YELLOW; GLUCOSE, URINE >=500 mg/dL (NEGATIVE); KETONES,URINE NEGATIVE (NEGATIVE); LEUKOCYTE ESTERASE,URINE NEGATIVE (NEGATIVE); NITRITE,URINE NEGATIVE (NEGATIVE); PROTEIN,URINE NEGATIVE (NEGATIVE); URINE SPECIFIC GRAVITY 1.006; UROBILINOGEN,URINE NEGATIVE mg/dL (<2.0)
[2019-03-15] MEDS ORDERED: MAG HYDROX/AL HYDROX/SIMETH SUSP 30 ML UDCUP PO ONE (18:07)
[2019-03-15] MEDS ORDERED: LIDOCAINE 2% VISCOUS SOLN 20 ML UDCUP PO ONE (18:07)
--- NOTE | 2019-03-15 18:37 | RADIOLOGY REPORT (SQ) ---
EXAM DESCRIPTION: CTA CHEST COMPLETED DATE/TIME: 03/15/2019 6:12 pm REASON FOR STUDY: Left-sided chest pain, eval for PE . Shortness of breath. Chest pain. History o f diabetes type 2 and high blood pressure. History of lymphoma. COMPARISON: CT abdomen and pelvis 02/11/2019, PET/ CT 12/28/2018 TECHNIQUE: CT scan of the chest performed using helical scanning technique with dynamic intravenous contrast injection. Images reviewed with lung, soft tissue and bone windows. Reconstructed coronal and sagittal MPR images reviewed. Additional 3 dimensional post-processing performed to develop Maximal Intensity Projection images (NH P). All images stored on PACS. All CT scanners at this facility use dose modulation, iterative reconstruction, and/or weight based d osing when appropriate to reduce radiation dose to as low as reasonably achievable (ALARA). [facility]: Dose Right [facility]: CareDose [facility]: Dose Right [facility]: Teradose 4D [facility]: gripNote CONTRAST TYPE AND DOSE: contrast/concentration: Isovue 350.00 mg/ml; Total Contrast Delivered: 72.0 ml; Total Saline Delivered: 80.0 ml Contrast bolus optimized for the pulmonary arteries. Not diagnostic for the aorta. RENAL FUNCTION: Creatinine 0.58 RADIATION DOSE: CT Rad equipment meets quality standard of care and radiation dose reduction techniq ues were employed. CTDIvol: 15.3 - 24.8 mGy. DLP: 638 mGy-cm. . LIMITATIONS: None. FINDINGS: LUNGS AND PLEURA: There is ground-glass opacity at the medial aspect of the right upper lo be. No pleural effusion or pneumothorax. There are mild bilateral emphysematous changes. AORTA AND GREAT VESSELS: No thoracic aortic aneurysm. Contrast bolus not optimized for the aorta. HEART: Trace free pericardial effusion. Coronary artery calcifications are noted. PULMONARY ARTERIES: No emboli visualized in the main pulmonary arteries or the segmental branches. HILAR AND MEDIASTINAL STRUCTURES: No identified masses or abnormal nodes. Calcified lymph nodes at t he right hilum. HARDWARE: Left-sided central line with the tip at the SVC. UPPER ABDOMEN: There is a 2.2 cm ill-defined hypodense lesion at the junction of the right and left h epatic lobes. Small calcifications at the liver may represent granulomas. Interval decrease in the retrocrural adenopathy measuring 10 x 10 mm. Interval decrease in the retroperitoneal adenopathy, an aortocaval lymph node is measuring 16 x 24 mm. The patient is status post cholecystectomy. Multipl e small calcifications at the spleen may represent granulomas. BONES: Multilevel degenerative changes at the spine. 3D MIPS: Confirm above findings. IMPRESSION: 1. No pulmonary emboli. Ground-glass opacity at the medial aspect of the right upper lo be, may be secondary to pneumonia or lymphoma. Mild emphysema. 2. Coronary arteries calcifications. Trace pericardial effusion. 3. Remote granulomatous disease. 4. Interval decrease in the retrocrural and retroperitoneal adenopathy. 5. 2.2 cm ill-defined hypodense liver lesion. Nonemergent contrast enhanced MRI can be obtained for further evaluation. COMMENT: Quality ID # [id number]: Final reports with documentation of one or more dose reduction techniques (e.g., Automated exposure control, adjustment of the mA and/or kV according to patient size, use of iterative reconstruction technique) TECHNICAL DOCUMENTATION: JOB ID: [id number] [employer]- All Rights Reserved Reading location - IP/workstation name: [email or web address]
[2019-03-15] MEDS ORDERED: CYCLOBENZAPRINE HCL 10 MG TABLET PO ONE (18:46)
--- NOTE | 2019-03-15 18:59 | ER Document Report ---
ED General - General Chief Complaint: Chest Pain Stated Complaint: CHEST PAIN Time Seen by Provider: 03/15/19 15:03 Primary Care Provider: BRI STILES MD [Primary Care Provider] - Follow up as needed Mode of Arrival: Ambulatory TRAVEL OUTSIDE OF THE [place] IN LAST 30 DAYS: No - HPI Notes: Patient is a 48-year-old female with known non-Hodgkin's lymphoma who presents to the emergency department for evaluation of left-sided chest pain. She states is been going on since this morning. She denies any associated shortness of breath. She states she just feels weak. Pain is in the left arm and radiates up into the shoulder area. Nothing seems to make it better or worse. She also states she has had significant diarrhea and right lower quadrant pain. She states that she had been getting diarrhea for the week after her chemotherapy treatments, but this lasted somewhat longer. She does note, however, that she has not had any diarrhea in the last 24 hours. She denies any fevers. No cough. - Related Data Allergies/Adverse Reactions: ketorolac tromethamine [From Toradol] Allergy (Verified 02/07/19 20:38) tramadol [Tramadol] Allergy (Verified 02/07/19 20:38) Past Medical History - General Information source: Patient - Social History Smoking Status: Current Every Day Smoker Family History: Reviewed & Not Pertinent Patient has suicidal ideation: No Patient has homicidal ideation: No - Past Medical History Cardiac Medical History: Reports: Hx Hypercholesterolemia, Hx Hypertension Pulmonary Medical History: Reports: Hx COPD Comment Only: Hx Asthma - pt denies Endocrine Medical History: Reports: Hx Diabetes Mellitus Type 2 Renal/ Medical History: Denies: Hx Peritoneal Dialysis Malignancy Medical History: Reports: Hx Lymphoma - Non-Hodgkin's Psychiatric Medical History: Reports: Hx Anxiety, Hx Depression Past Surgical History: Reports: Hx Appendectomy, Hx Cholecystectomy, Hx Gynecologic Surgery - x14 D&C - Immunizations Immunizations up to date: No Hx Diphtheria, Pertussis, Tetanus Vaccination: Yes Review of Systems - Review of Systems Constitutional: Malaise, Weakness EENT: No symptoms reported Cardiovascular: See HPI Respiratory: No symptoms reported Gastrointestinal: See HPI Genitourinary: No symptoms reported Musculoskeletal: No symptoms reported Skin: No symptoms reported Neurological/Psychological: No symptoms reported Physical Exam - Vital signs Vitals: Temp Pulse Resp BP Pulse Ox 99.3 F 127 H 18 126/71 H 96 03/15/19 14:45 03/15/19 14:45 03/15/19 14:45 03/15/19 14:45 03/15/19 14:45 - Notes Notes: Vital signs reviewed, please refer to chart. 48-year-old female, appears older than her stated age, no acute distress. Patient is normocephalic, atraumatic. Pupils equal round, reactive to light. Neck is supple without meningismus. Heart is regular rate and rhythm. Lungs are clear to auscultation bilaterally. Patient is tender to palpation over the pectoralis muscle on the left. No skin changes. Abdomen is soft, nontender, normoactive bowel sounds throughout. Extremities without cyanosis, clubbing, edema. Peripheral pulses are equal. Skin is warm and dry. Patient is awake, alert, neurological exam is nonfocal. Course - Re-evaluation Re-evalutation: 03/15/19 18:56 Patient presents to the emergency department for evaluation. She had initial laboratory investigations, pain medication, fluids, as ordered through triage. She had little response to the morphine, but this was given again. Given her current medical issues, decision was made to proceed with CT angiogram of the chest. This failed to reveal any signs of pulmonary embolus. Her overall lymphadenopathy is improving. She did have some groundglass opacity on the right, but she has no signs of pneumonia. Her pain is not on that side. She has not been coughing. Her white blood cell count is slightly low, but she is not neutropenic. My strong suspicion is that this is musculoskeletal in nature. I explained this to the patient. I treated her here with Flexeril as well. We will send her home with a prescription for the same. She is to follow-up with Dr. Acevedo, return to the emergency department with worsening or new concerning symptoms of any sort. - Vital Signs Vital signs: Temp Pulse Resp BP Pulse Ox 99.3 F 112 H 9 L 116/69 95 03/15/19 14:45 03/15/19 15:07 03/15/19 17:01 03/15/19 17:01 03/15/19 17:01 - Laboratory Result Diagrams: 03/15/19 16:37 03/15/19 16:37 Laboratory results interpreted by me: 03/15/19 03/15/19 03/15/19 15:18 16:37 16:37 WBC 2.6 L RDW 20.9 H Plt Count 123 L Seg Neuts % (Manual) 14 L Lymphocytes % (Manual) 60 H Monocytes % (Manual) 19 H Basophils % (Manual) 3 H Abs Neuts (Manual) 0.4 L Sodium 135.0 L Glucose 212 H AST 13 L Urine Glucose (UA) >=500 H Discharge - Discharge Clinical Impression: Chest wall pain Condition: Stable Disposition: HOME, SELF-CARE Instructions: Chest Wall Pain ([facility]) Additional Instructions: Take Flexeril as prescribed. Please watch for drowsiness and dizziness with this medication. Follow-up with your primary care physician and your oncologist this week. Return to the emergency department with worsening or new concerning symptoms of any sort. Referrals: BRI STILES MD [Primary Care Provider] - Follow up as needed
[2019-03-15 19:18] VITALS: BP 111/68
--- NOTE | 2019-03-15 23:38 | EKG REPORT ---
SEVERITY:- OTHERWISE NORMAL ECG - SINUS TACHYCARDIA : Confirmed by: Dwayne Pedersen 15-Mar-2019 23:37:21
== END 2019-03-15 19:18 | disposition home or self-care (01) ==
LOC: ER 14:34
DX: R07.89 Other chest pain (principal); R19.7 Diarrhea, unspecified; R10.31 Right lower quadrant pain; F17.200 Nicotine dependence, unspecified, uncomplicated; I10 Essential (primary) hypertension; J44.9 Chronic obstructive pulmonary disease, unspecified; E11.9 Type 2 diabetes mellitus without complications
CPT/HCPCS: 93005; 96376; 99284; 96361; 96374; 96375; 36415; 87086; 83690; 85025; 80053; 81001; 84484; 71275; 93010; J3490 ×3; J2270; J2405; J7030

== ENCOUNTER 2019-04-03 13:09 | Emergency (ER) | payer MEDICAID ==
[2019-04-03] MEDS ORDERED: MORPHINE SULFATE 10 MG/ML INJ IV ONE ×2 (14:11→16:41)
[2019-04-03 14:12] LABS: ABSOLUTE BASOPHILS # (AUTO) 0.1 10^3/uL (0.0-0.2); ABSOLUTE LYMPHOCYTES (AUTO) 1.2 10^3/uL (0.5-4.7); ABSOLUTE MONOCYTES (AUTO) 0.1 10^3/uL (0.1-1.4); ABSOLUTE NEUT (AUTO) 2.7 10^3/uL (1.7-8.2); BASOPHILS % (AUTO) 1.4 % (0-2); EOSINOPHILS % (AUTO) 1.1 % (0-6); HEMATOCRIT 37.3 % (36.0-47.0); HEMOGLOBIN 12.8 g/dL (12.0-15.5); LYMPHOCYTES % (AUTO) 29.7 % (13-45); MEAN CORPUSCULAR HEMOGLOBIN 33.2 pg (27.0-33.4); MEAN CORPUSCULAR HGB CONC 34.2 g/dL (32.0-36.0); MEAN CORPUSCULAR VOLUME 97 fl (80-97); MONOCYTES % (AUTO) 2.7 % (3-13); PLATELET COUNT 102 10^3/uL (150-450); RED BLOOD COUNT 3.84 10^6/uL (3.72-5.28); RED CELL DISTRIBUTION WIDTH 21.5 % (11.5-14.0); SEGMENTED NEUTROPHILS % (AUTO) 65.1 % (42-78); TOTAL CELLS COUNTED % (AUTO) 100 %; WHITE BLOOD COUNT 4.1 10^3/uL (4.0-10.5)
[2019-04-03 14:16] LABS: VENOUS BLOOD BASE EXCESS 0.9 mmol/L; VENOUS BLOOD HCO3 24.4 mmol/L (20-32); VENOUS BLOOD PCO2 35.4 mmHg (35-63); VENOUS BLOOD PH 7.46 (7.30-7.42)
[2019-04-03] MEDS ORDERED: ONDANSETRON HCL INJ/PF 4 MG/2 ML SDV IV ONE ×2 (14:19→16:41)
[2019-04-03 14:23] LABS: INTERNATIONAL RATION (INR) 0.87; PROTHROMBIN TIME 12.2 SEC (11.4-15.4)
[2019-04-03 14:30] LABS: ALANINE AMINOTRANSFERASE 23 U/L (9-52); ALBUMIN 4.1 g/dL (3.5-5.0); ALKALINE PHOSPHATASE 91 U/L (38-126); ANION GAP 13 (5-19); ASPARTATE AMINO TRANSFERASE 17 U/L (14-36); BILIRUBIN,DIRECT 0.3 mg/dL (0.0-0.4); BILIRUBIN,TOTAL 0.3 mg/dL (0.2-1.3); BLOOD UREA NITROGEN 10 mg/dL (7-20); CALCIUM 9.6 mg/dL (8.4-10.2); CARBON DIOXIDE 24 mmol/L (22-30); CHLORIDE 97 mmol/L (98-107); GLUCOSE 336 mg/dL (75-110); POTASSIUM 4.1 mmol/L (3.6-5.0); SODIUM 133.9 mmol/L (137-145); TOTAL PROTEIN 6.9 g/dL (6.3-8.2)
--- NOTE | 2019-04-03 14:32 | RADIOLOGY REPORT (SQ) ---
EXAM DESCRIPTION: CHEST SINGLE VIEW COMPLETED DATE/TIME: 04/03/2019 2:21 pm REASON FOR STUDY: sepsis alert COMPARISON: 12/15/2018 NUMBER OF VIEWS: One view. TECHNIQUE: Single frontal radiographic image of the chest acquired. LIMITATIONS: None. FINDINGS: LUNGS AND PLEURA: Stable appearance. MEDIASTINUM AND HILAR STRUCTURES: Stable heart size and mediastinal structures. HEART AND VASCULAR STRUCTURES: Stable appearance. SUPPORT DEVICES: Appropriate location without change. BONES: No acute findings. OTHER: No other significant finding. IMPRESSION: STABLE APPEARANCE OF THE CHEST. SUPPORT DEVICES UNCHANGED. TECHNICAL DOCUMENTATION: JOB ID: [id number] [employer]- All Rights Reserved Reading location - IP/workstation name: [email or web address]
[2019-04-03 14:33] LABS: APPEARANCE,URINE SLIGHTLY-CLOUDY; BILIRUBIN,URINE NEGATIVE (NEGATIVE); COLOR,URINE YELLOW; GLUCOSE, URINE >=500 mg/dL (NEGATIVE); KETONES,URINE NEGATIVE (NEGATIVE); LEUKOCYTE ESTERASE,URINE NEGATIVE (NEGATIVE); NITRITE,URINE NEGATIVE (NEGATIVE); PROTEIN,URINE NEGATIVE (NEGATIVE); URINE SPECIFIC GRAVITY 1.007; UROBILINOGEN,URINE NEGATIVE mg/dL (<2.0)
[2019-04-03] MEDS ORDERED: HYDROMORPHONE HCL INJ/PF 2 MG/ML AMPULE IV ONE (14:33)
[2019-04-03] MEDS ORDERED: NORMAL SALINE 1000 ML 1,000 ML IV ONE (14:33)
[2019-04-03] MEDS: ONDANSETRON HCL INJ/PF 4 MG/2 ML SDV IV ONE ×2 (14:36→14:44)
[2019-04-03] MEDS ORDERED: ONDANSETRON HCL INJ/PF 4 MG/2 ML SDV ONE (18:18)
[2019-04-03 18:41] VITALS: BP 105/66
--- NOTE | 2019-04-03 18:43 | EKG REPORT ---
SEVERITY:- OTHERWISE NORMAL ECG - SINUS TACHYCARDIA : Confirmed by: Dwayne Pedersen 03-Apr-2019 18:42:42
--- NOTE | 2019-04-03 21:55 | ER Document Report ---
Entered by DIMAS CONTRERAS SCRIBE 04/03/19 1441 Acting as scribe for:HELLEN IGNACIO MD ED General - General Chief Complaint: Abdominal Pain Stated Complaint: HEART RACING,DIZZY,NAUSEA Time Seen by Provider: 04/03/19 14:21 Primary Care Provider: BRI STILES MD [Primary Care Provider] - Follow up as needed Mode of Arrival: Ambulatory Information source: Patient Notes: Patient is a 48-year-old female with Non-Hodgkin's Lymphoma (on chemo) presents to the emergency department complaining of multiple symptoms including chronic right lower quadrant abdominal pain, nausea, dizziness and heart palpitations. Patient states the symptoms were onset this morning after she smoked a cigarette further stating she does not normally have symptoms after smoking. She states her abdominal pain is more severe than normal. She also complains of subjective fevers onset today. She denies any vomiting. Patient's PCP is Dr. Stiles. Her oncologist is Dr. Acevedo. She states she is no longer on any pain medication. She last received chemo approximately 9 days ago. TRAVEL OUTSIDE OF THE [place] IN LAST 30 DAYS: No - Related Data Allergies/Adverse Reactions: ketorolac tromethamine [From Toradol] Allergy (Verified 04/03/19 13:15) tramadol [Tramadol] Allergy (Verified 04/03/19 13:15) Past Medical History - General Information source: Patient - Social History Smoking Status: Current Every Day Smoker Cigarette use (# per day): Yes Chew tobacco use (# tins/day): No Smoking Education Provided: No Frequency of alcohol use: None Family History: Reviewed & Not Pertinent - Past Medical History Cardiac Medical History: Reports: Hx Hypercholesterolemia, Hx Hypertension Pulmonary Medical History: Reports: Hx COPD Comment Only: Hx Asthma - pt denies Endocrine Medical History: Reports: Hx Diabetes Mellitus Type 2 Malignancy Medical History: Reports: Hx Lymphoma - Non-Hodgkin's Psychiatric Medical History: Reports: Hx Anxiety, Hx Depression Past Surgical History: Reports: Hx Appendectomy, Hx Cholecystectomy, Hx Gynecologic Surgery - x14 D&C - Immunizations Immunizations up to date: No Hx Diphtheria, Pertussis, Tetanus Vaccination: Yes Review of Systems - Review of Systems Constitutional: See HPI, Fever - Subjective EENT: No symptoms reported Cardiovascular: See HPI, Palpitations, Dizziness Respiratory: No symptoms reported Gastrointestinal: See HPI, Abdominal pain, Nausea Genitourinary: No symptoms reported Female Genitourinary: No symptoms reported Musculoskeletal: No symptoms reported Skin: No symptoms reported Hematologic/Lymphatic: No symptoms reported Neurological/Psychological: No symptoms reported -: Yes All other systems reviewed and negative Physical Exam - Vital signs Vitals: Temp Pulse Resp BP Pulse Ox 98.7 F 134 H 16 133/75 H 96 04/03/19 13:24 04/03/19 13:24 04/03/19 13:24 04/03/19 13:24 04/03/19 13:24 - Notes Notes: GENERAL: Alert, interacts well. No acute distress. HEAD: Normocephalic, atraumatic. EYES: Pupils equal, round, and reactive to light. Extraocular movements intact. ENT: Oral mucosa moist, tongue midline. NECK: Full range of motion. Supple. Trachea midline. LUNGS: Faint wheezes, minimal rhonchi. No respiratory distress. 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 No murmurs, gallops, or rubs. ABDOMEN: Soft, RLQ tender to palpation. Non-distended. Bowel sounds present in all 4 quadrants. No guarding, rigidity, or rebound. EXTREMITIES: Moves all 4 extremities spontaneously. No edema. NEUROLOGICAL: Alert and oriented x3. Normal speech. PSYCH: Normal affect, normal mood. SKIN: Warm to touch, dry, normal turgor. No rashes or lesions noted. Course - Re-evaluation Re-evalutation: 04/03/19 16:40 The nurse reported to me that the patient informed her that morphine works better for her pain. On a previous visit here I saw documentation that she told the doctor that the Dilaudid worked better for her pain. 04/03/19 17:55 The patient feels well at this time and wants to go home. She takes gabapentin for her discomfort but no other pain medication. She does not have pain medication on hand to treat these painful flareups. She was referred to her primary care to discuss this problem but her appointment is on 04/21/2019. I did review the patient's medication history in the [place] database and do feel comfortable providing her with a small quantity of [place] to take on a as needed basis. We did discuss the reasonableness of taking the pain medication occasionally for her abdominal pain, but if it becomes a frequent occurrence, then she should be reevaluated and possibly seen by pain management. - Vital Signs Vital signs: Temp Pulse Resp BP Pulse Ox 98.7 F 134 H 12 91/65 L 97 04/03/19 13:24 04/03/19 13:24 04/03/19 17:01 04/03/19 17:01 04/03/19 17:01 - Laboratory Result Diagrams: 04/03/19 13:53 04/03/19 13:53 Laboratory results interpreted by me: 04/03/19 04/03/19 04/03/19 13:47 13:53 13:53 RDW 21.5 H Plt Count 102 L Monocytes % 2.7 L VBG pH Sodium 133.9 L Chloride 97 L Creatinine 0.43 L Glucose 336 H POC Glucose Lactic Acid Urine Glucose (UA) >=500 H 04/03/19 04/03/19 04/03/19 13:53 14:00 14:01 RDW Plt Count Monocytes % VBG pH 7.46 H Sodium Chloride Creatinine Glucose POC Glucose 360 H Lactic Acid 4.1 H Urine Glucose (UA) - Diagnostic Test Radiology reviewed: Image reviewed, Reports reviewed - Chest x-ray does not show any acute process. - EKG Interpretation by Me EKG shows normal: Sinus rhythm, [place], Intervals, QRS Complexes, ST-T Waves Rate: Tachycardia - 126 Discharge - Discharge Clinical Impression: Abdominal pain Qualifiers: Abdominal location: right lower quadrant Qualified Code(s): R10.31 - Right lower quadrant pain B-cell lymphoma of intra-abdominal lymph nodes Qualifiers: B-cell lymphoma type: unspecified B-cell Qualified Code(s): C85.13 - Unspecified B-cell lymphoma, intra-abdominal lymph nodes Condition: Stable Disposition: HOME, SELF-CARE Additional Instructions: Take the pain medication as prescribed for your abdominal pain if Tylenol does not suffice. Follow-up with Dr. Stiles for further evaluation if you find that you need to take the pain medication for more than 1 to 2 days at a time. Be sure to drink plenty of fluids and take a bulk stool softener so you do not develop constipation. RETURN TO THE EMERGENCY ROOM IF ANY NEW OR WORSENING SYMPTOMS. Prescriptions: Hydrocodone/Acetaminophen [[place] 5-325 mg Tablet] 1 tab PO Q4 PRN #15 tablet PRN Reason: Referrals: BRI STILES MD [Primary Care Provider] - Follow up as needed Scribe Attestation: 04/03/19 17:53 I personally performed the services described in the documentation, reviewed and edited the documentation which was dictated to the scribe in my presence, and it accurately records my words and actions. I personally performed the services described in the documentation, reviewed and edited the documentation which was dictated to the scribe in my presence, and it accurately records my words and actions.
== END 2019-04-03 18:41 | disposition home or self-care (01) ==
LOC: ER 13:09
DX: R10.31 Right lower quadrant pain (principal); C85.13 Unspecified B-cell lymphoma, intra-abdominal lymph nodes; R42 Dizziness and giddiness; R11.0 Nausea; F17.210 Nicotine dependence, cigarettes, uncomplicated; E78.00 Pure hypercholesterolemia, unspecified; I10 Essential (primary) hypertension; E11.9 Type 2 diabetes mellitus without complications; Z88.6 Allergy status to analgesic agent; Z90.49 Acquired absence of other specified parts of digestive tract
CPT/HCPCS: 93005; 96376; 99284; 96361; 96374; 96375; 36415; 87040; 87086; 82962; 85025; 85610; 80053; 81001; 82803; 83605; 71045; 93010; J2270; J1170; J2405; J7030

== ENCOUNTER 2019-04-09 13:27 | Emergency (ER) | payer MEDICAID ==
[2019-04-09] MEDS ORDERED: MORPHINE SULFATE 10 MG/ML INJ IV ONE ×3 (14:20→18:29)
[2019-04-09] MEDS ORDERED: ONDANSETRON HCL INJ/PF 4 MG/2 ML SDV IV ONE (14:20)
--- NOTE | 2019-04-09 14:26 | RADIOLOGY REPORT (SQ) ---
EXAM DESCRIPTION: CHEST SINGLE VIEW COMPLETED DATE/TIME: 04/09/2019 1:56 pm REASON FOR STUDY: Chest COMPARISON: 04/03/2019 EXAM PARAMETERS: NUMBER OF VIEWS: One view. TECHNIQUE: Single frontal radiographic view of the chest acquired. RADIATION DOSE: NA LIMITATIONS: None. FINDINGS: LUNGS AND PLEURA: No opacities, masses or pneumothorax. No pleural effusion. MEDIASTINUM AND HILAR STRUCTURES: No masses. Contour normal. HEART AND VASCULAR STRUCTURES: Heart normal in size. Normal vasculature. BONES: No acute findings. HARDWARE: None in the chest. OTHER: There is a left upper extremity PICC in place with the tip projecting just above the cavoatria l junction, unchanged from prior exam. IMPRESSION: NO ACUTE RADIOGRAPHIC FINDING IN THE CHEST. TECHNICAL DOCUMENTATION: JOB ID: [id number] [employer]- All Rights Reserved Reading location - IP/workstation name: [email or web address]
--- NOTE | 2019-04-09 14:27 | ER Document Report ---
ED Medical Screen (RME) - General Chief Complaint: Chest Pain Stated Complaint: NAUSEA Time Seen by Provider: 04/09/19 14:13 Primary Care Provider: BRI STILES MD [Primary Care Provider] - Follow up as needed Mode of Arrival: Ambulatory Information source: Patient TRAVEL OUTSIDE OF THE [place] IN LAST 30 DAYS: No - HPI Patient complains to provider of: abdo pain, tachycardia, cp Notes: 04/09/19 14:22 Patient here with multiple complaints. The patient has lymphoma and receives chemotherapy. She states that she has tumors in the right side of her abdomen. She states that over the last few days been having increasing right-sided abdominal pain. Is also been feeling her heart has been racing over the last several days and has had some intermittent chest pain. Patient denies any leg pain or leg swelling. No shortness of breath. Exam No distress, nontoxic-appearing. Expiratory wheezes noted throughout. Tachycardia. Right-sided abdominal tenderness on exam. No leg swelling. Plan CBC, CMP, troponin, CPK, CK-MB. Urinalysis. Due to patient's history of cancer and receiving chemotherapy with tachycardia, I have ordered blood cultures and a lactic acid. CTA of the chest as well as CT of the abdomen and pelvis with IV contrast due to her tenderness with history of cancer. EKG. An initial examination was made on the patient as part of the triage process, and it was determined a more comprehensive evaluation was necessary. Initial labs were ordered and patient was transferred to another provider in the ED who assumed care and finished evaluation and plan. - Related Data Allergies/Adverse Reactions: ketorolac tromethamine [From Toradol] Allergy (Verified 04/09/19 13:28) tramadol [Tramadol] Allergy (Verified 04/09/19 13:28) Past Medical History - Past Medical History Cardiac Medical History: Reports: Hx Hypercholesterolemia, Hx Hypertension Pulmonary Medical History: Reports: Hx COPD Comment Only: Hx Asthma - pt denies Endocrine Medical History: Reports: Hx Diabetes Mellitus Type 2 Renal/ Medical History: Denies: Hx Peritoneal Dialysis Malignancy Medical History: Reports: Hx Lymphoma - Non-Hodgkin's Psychiatric Medical History: Reports: Hx Anxiety, Hx Depression Past Surgical History: Reports: Hx Appendectomy, Hx Cholecystectomy, Hx Gynecologic Surgery - x14 D&C - Immunizations Immunizations up to date: No Hx Diphtheria, Pertussis, Tetanus Vaccination: Yes Physical Exam - Vital signs Vitals: Temp Pulse Resp BP Pulse Ox 99.0 F 125 H 12 117/70 97 04/09/19 13:41 04/09/19 13:41 04/09/19 13:41 04/09/19 13:41 04/09/19 13:41 Course - Vital Signs Vital signs: Temp Pulse Resp BP Pulse Ox 99.0 F 125 H 12 117/70 97 04/09/19 13:41 04/09/19 13:41 04/09/19 13:41 04/09/19 13:41 04/09/19 13:41 Doctor's Discharge - Discharge Referrals: BRI STILES MD [Primary Care Provider] - Follow up as needed
[2019-04-09] MEDS ORDERED: IPRATROPIUM/ALBUTEROL 0.5-2.5 MG/3 ML AMPUL NEB ONE (14:28)
[2019-04-09 15:07] LABS: HEMATOCRIT 38.7 % (36.0-47.0); HEMOGLOBIN 13.1 g/dL (12.0-15.5); MEAN CORPUSCULAR HEMOGLOBIN 33.7 pg (27.0-33.4); MEAN CORPUSCULAR VOLUME 99 fl (80-97); PLATELET COUNT 192 10^3/uL (150-450); RED CELL DISTRIBUTION WIDTH 22.7 % (11.5-14.0); WHITE BLOOD COUNT 9.5 10^3/uL (4.0-10.5)
[2019-04-09 15:12] LABS: INTERNATIONAL RATION (INR) 0.92; PROTHROMBIN TIME 12.8 SEC (11.4-15.4)
[2019-04-09 15:18] LABS: ALANINE AMINOTRANSFERASE 24 U/L (9-52); ALBUMIN 4.2 g/dL (3.5-5.0); ALKALINE PHOSPHATASE 97 U/L (38-126); ANION GAP 11 (5-19); ASPARTATE AMINO TRANSFERASE 13 U/L (14-36); BILIRUBIN,DIRECT 0.3 mg/dL (0.0-0.4); BILIRUBIN,TOTAL 0.3 mg/dL (0.2-1.3); BLOOD UREA NITROGEN 4 mg/dL (7-20); CALCIUM 9.9 mg/dL (8.4-10.2); CARBON DIOXIDE 25 mmol/L (22-30); CHLORIDE 102 mmol/L (98-107); CREATINE KINASE 27 U/L (30-135); GLUCOSE 173 mg/dL (75-110); POTASSIUM 4.1 mmol/L (3.6-5.0); SODIUM 138.2 mmol/L (137-145); TOTAL PROTEIN 6.9 g/dL (6.3-8.2)
[2019-04-09 15:23] LABS: APPEARANCE,URINE SLIGHTLY-CLOUDY; BILIRUBIN,URINE NEGATIVE (NEGATIVE); COLOR,URINE YELLOW; GLUCOSE, URINE NEGATIVE (NEGATIVE); KETONES,URINE NEGATIVE (NEGATIVE); LEUKOCYTE ESTERASE,URINE TRACE (NEGATIVE); NITRITE,URINE NEGATIVE (NEGATIVE); PROTEIN,URINE NEGATIVE (NEGATIVE); URINE SPECIFIC GRAVITY 1.006; UROBILINOGEN,URINE NEGATIVE mg/dL (<2.0)
[2019-04-09 15:30] LABS: CREATINE KINASE MB 0.74 ng/mL (<4.55)
[2019-04-09 15:32] LABS: TROPONIN I < 0.012 ng/mL
[2019-04-09] MEDS ORDERED: NORMAL SALINE 1000 ML 1,000 ML IV ONE (15:38)
[2019-04-09 16:06] LABS: ABSOLUTE MONOCYTES # (MANUAL) 1.1 10^3/uL (0.1-1.4); ABSOLUTE NEUTROPHILS# (MANUAL) 6.2 10^3/uL (1.7-8.2); ANISOCYTOSIS 3+; BASOPHILS % (MANUAL) 2 % (0-2); EOSINOPHILS % (MANUAL) 0 % (0-6); LYMPHOCYTES % (MANUAL) 21 % (13-45); MONOCYTES % (MANUAL) 12 % (3-13); SEGMENTED NEUTROPHILS % (MAN) 53 % (42-78); TOTAL CELLS COUNTED 100
[2019-04-09 16:07] LABS: PLATELET COMMENT ADEQUATE; POLYCHROMASIA SLIGHT; TOXIC GRANULATION 1+
[2019-04-09 16:08] LABS: BAND NEUTROPHILS % (MANUAL) 12 % (3-5)
--- NOTE | 2019-04-09 16:43 | RADIOLOGY REPORT (SQ) ---
EXAM DESCRIPTION: CTA CHEST COMPLETED DATE/TIME: 04/09/2019 4:18 pm REASON FOR STUDY: cp, tachycardia, has lymphoma COMPARISON: 03/15/2019 TECHNIQUE: CT scan of the chest performed using helical scanning technique with dynamic intravenous contrast injection. Images reviewed with lung, soft tissue and bone windows. Reconstructed coronal and sagittal MPR images reviewed. Additional 3 dimensional post-processing performed to develop Maximal Intensity Projection images (CO P). All images stored on PACS. All CT scanners at this facility use dose modulation, iterative reconstruction, and/or weight based d osing when appropriate to reduce radiation dose to as low as reasonably achievable (ALARA). [facility]: Dose Right [facility]: CareDose [facility]: Dose Right [facility]: Teradose 4D [facility]: [employer] CONTRAST TYPE AND DOSE: contrast/concentration: Isovue 350.00 mg/ml; Total Contrast Delivered: 90.0 ml; Total Saline Delivered: 73.0 ml Contrast bolus adequate for pulmonary arteries and aorta. RENAL FUNCTION: GFR > 60. RADIATION DOSE: CT Rad equipment meets quality standard of care and radiation dose reduction techniq ues were employed. CTDIvol: 14.9 - 24.8 mGy. DLP: 2227 mGy-cm. . LIMITATIONS: None. FINDINGS: LUNGS AND PLEURA: No masses, infiltrates, or pneumothorax. No pleural effusions or pleura l calcifications. Stable surgical changes AORTA AND GREAT VESSELS: No aneurysm. No dissection. HEART: No pericardial effusion. Moderate to marked coronary artery calcifications. PULMONARY ARTERIES: No emboli visualized in the main pulmonary arteries or the segmental branches. HILAR AND MEDIASTINAL STRUCTURES: No identified masses or abnormal nodes. HARDWARE: None in the chest. UPPER ABDOMEN: See separate report of the CT of the abdomen. THYROID AND OTHER SOFT TISSUES: No masses. No adenopathy. BONES: No acute or significant finding. 3D MIPS: Confirm above findings. OTHER: No other significant finding. IMPRESSION: 1. No evidence of pulmonary embolus 2. Coronary artery disease 3. Stable chronic findings. COMMENT: Quality ID # [id number]: Final reports with documentation of one or more dose reduction techniques (e.g., Automated exposure control, adjustment of the mA and/or kV according to patient size, use of iterative reconstruction technique) TECHNICAL DOCUMENTATION: JOB ID: [id number]- All Rights Reserved Reading location - IP/workstation name: [email or web address]
--- NOTE | 2019-04-09 16:47 | RADIOLOGY REPORT (SQ) ---
EXAM DESCRIPTION: CT ABD/PELVIS WITH IV ONLY COMPLETED DATE/TIME: 04/09/2019 4:18 pm REASON FOR STUDY: lymphoma, right abdo pain COMPARISON: 01/15/2019 TECHNIQUE: CT scan of the abdomen and pelvis performed using helical scanning technique with dynamic intravenous contrast injection. No oral contrast. Images reviewed with lung, soft tissue, and bone windows. Reconstructed coronal and sagittal MPR images reviewed. Delayed images for evaluation of the urinary system also acquired. All images stored on PACS. All CT scanners at this facility use dose modulation, iterative reconstruction, and/or weight based d osing when appropriate to reduce radiation dose to as low as reasonably achievable (ALARA). [facility]: Dose Right [facility]: CareDose [facility]: Dose Right [facility]: Teradose 4D [facility]: [employer] CONTRAST TYPE AND DOSE: 105 mL Omnipaque 350- low osmolar. RENAL FUNCTION: GFR > 60. RADIATION DOSE: . LIMITATIONS: None. FINDINGS: LOWER CHEST: See separate report of the CT of the chest. LIVER: Normal size. No dilated ducts. Stable hypodense lesion in the central liver. SPLEEN: Normal size. Stable calcifications noted throughout. PANCREAS: No masses. No significant calcifications. No adjacent inflammation or peripancreatic fluid collections. Pancreatic duct not dilated. GALLBLADDER: Surgically absent. ADRENAL GLANDS: No significant masses or asymmetry. RIGHT KIDNEY AND URETER: No solid masses. No significant calcifications. No hydronephrosis or hyd roureter. LEFT KIDNEY AND URETER: No solid masses. No significant calcifications. No hydronephrosis or hydr oureter. AORTA AND VESSELS: No aneurysm. No dissection. Diffuse mural calcification noted throughout. No st enosis of the renal arteries or celiac axis, or superior mesenteric artery appreciated. RETROPERITONEUM: No retroperitoneal adenopathy, hemorrhage or masses. BOWEL AND PERITONEAL CAVITY: No masses or inflammatory changes. No free fluid or peritoneal masses. APPENDIX: Not visualized. PELVIS: No mass. No free fluid. Normal bladder. ABDOMINAL WALL: No masses. No hernias. BONES: No significant or acute findings. OTHER: No other significant finding. IMPRESSION: Stable chronic findings. No CT findings of an acute intra-abdominal process. TECHNICAL DOCUMENTATION: JOB ID: [id number] Quality ID # [id number]: Final reports with documentation of one or more dose reduction techniques (e.g., Au tomated exposure control, adjustment of the mA and/or kV according to patient size, use of iterative reconstruction technique) 2010 [employer]- All Rights Reserved Reading location - IP/workstation name: [email or web address]
[2019-04-09 19:16] VITALS: BP 113/72
--- NOTE | 2019-04-09 19:38 | EKG REPORT ---
SEVERITY:- BORDERLINE ECG - SINUS TACHYCARDIA PROBABLE LEFT ATRIAL ABNORMALITY : Confirmed by: Roya Reid MD 09-Apr-2019 19:38:10
--- NOTE | 2019-04-09 21:25 | ER Document Report ---
Entered by MALLIKA DIXON SCRIBE 04/09/19 1842 Acting as scribe for:HELLEN IGNACIO MD ED General - General Chief Complaint: Chest Pain Stated Complaint: NAUSEA Time Seen by Provider: 04/09/19 14:13 Primary Care Provider: BRI STILES MD [Primary Care Provider] - Follow up as needed Mode of Arrival: Ambulatory Notes: 48-year-old female that presents to the emergency department today with complaints of increasing abdominal pain. Patient has known non-Hodgkin's lymphoma and was seen here x6 days ago for pain. Patient was discharged home on [place] which she states did nothing for the pain so she stopped taking it. Patient is only here for pain control. TRAVEL OUTSIDE OF THE [place] IN LAST 30 DAYS: No - Related Data Allergies/Adverse Reactions: ketorolac tromethamine [From Toradol] Allergy (Verified 04/09/19 13:28) tramadol [Tramadol] Allergy (Verified 04/09/19 13:28) Past Medical History - General Information source: Patient - Social History Smoking Status: Current Every Day Smoker Cigarette use (# per day): Yes Frequency of alcohol use: None Drug Abuse: None Lives with: Family Family History: Reviewed & Not Pertinent Patient has suicidal ideation: No Patient has homicidal ideation: No - Past Medical History Cardiac Medical History: Reports: Hx Hypercholesterolemia, Hx Hypertension Pulmonary Medical History: Reports: Hx COPD Comment Only: Hx Asthma - pt denies Endocrine Medical History: Reports: Hx Diabetes Mellitus Type 2 Malignancy Medical History: Reports: Hx Lymphoma - Non-Hodgkin's Psychiatric Medical History: Reports: Hx Anxiety, Hx Depression Past Surgical History: Reports: Hx Appendectomy, Hx Cholecystectomy, Hx Gynecologic Surgery - x14 D&C - Immunizations Immunizations up to date: No Hx Diphtheria, Pertussis, Tetanus Vaccination: Yes Review of Systems - Review of Systems Constitutional: No symptoms reported EENT: No symptoms reported Cardiovascular: No symptoms reported Respiratory: No symptoms reported Gastrointestinal: See HPI, Abdominal pain Genitourinary: No symptoms reported Female Genitourinary: No symptoms reported Musculoskeletal: No symptoms reported Skin: No symptoms reported Hematologic/Lymphatic: No symptoms reported Neurological/Psychological: No symptoms reported -: Yes All other systems reviewed and negative Physical Exam - Vital signs Vitals: Temp Pulse Resp BP Pulse Ox 99.0 F 125 H 12 117/70 97 04/09/19 13:41 04/09/19 13:41 04/09/19 13:41 04/09/19 13:41 04/09/19 13:41 - Notes Notes: Physical Exam: General: Alert, appears chronically ill. HEENT: Normocephalic. Atraumatic. PERRL. Extraocular movements intact. Oropharynx clear. Neck: Supple. Non-tender. Respiratory: No respiratory distress. Rhonchi and wheezing with forced cough bilaterally. First Cardiovascular: Regular rate and rhythm. Abdominal: Right sided abdominal tenderness with palpation, worsened in the right upper quadrant. No distension. Normal Bowel Sounds. Back: Non-tender. No deformity or step off. Extremities: Moves all four extremities. Upper extremities: Normal inspection. Normal ROM. Lower extremities: Normal inspection. No edema. Normal ROM. Neurological: Normal cognition. AAOx4. Normal speech. Psychological: Normal affect. Normal Mood. Skin: Warm. Dry. Normal color. Course - Vital Signs Vital signs: Temp Pulse Resp BP Pulse Ox 99.0 F 125 H 11 L 120/67 96 04/09/19 13:41 04/09/19 13:41 04/09/19 18:01 04/09/19 18:01 04/09/19 18:01 - Laboratory Result Diagrams: 04/09/19 14:30 04/09/19 14:30 Laboratory results interpreted by me: 04/09/19 04/09/19 04/09/19 14:30 14:30 14:30 MCV 99 H MCH 33.7 H RDW 22.7 H Band Neutrophils % 12 H BUN 4 L Glucose 173 H Lactic Acid 2.6 H Magnesium 1.4 L AST 13 L Creatine Kinase 27 L Ur Leukocyte Esterase 04/09/19 14:55 MCV MCH RDW Band Neutrophils % BUN Glucose Lactic Acid Magnesium AST Creatine Kinase Ur Leukocyte Esterase TRACE H - Diagnostic Test Radiology reviewed: Image reviewed, Reports reviewed - CT scan of the chest shows moderate to marked calcifications of the coronary arteries. Abdomen pelvis does not show acute changes to explain the patient's pain, the mass a djacent to the right renal vein is considerably smaller than it was in the past. - Consults Dr. Stiles Time consulted: 18:19 Consulted provider: follow-up in office - See in the office tomorrow morning as a walk-in. Discharge - Discharge Clinical Impression: Abdominal pain Qualifiers: Abdominal location: upper abdomen, unspecified Qualified Code(s): R10.10 - Upper abdominal pain, unspecified B-cell lymphoma of intra-abdominal lymph nodes Qualifiers: B-cell lymphoma type: unspecified B-cell Qualified Code(s): C85.13 - Unspecified B-cell lymphoma, intra-abdominal lymph nodes Condition: Stable Disposition: HOME, SELF-CARE Additional Instructions: CT scan of your chest today did show heavy calcifications in your coronary arteries. This does increase your risk for heart attack. CT scan of your abdomen and pelvis shows the mass adjacent to the right renal vein, but it is considerably smaller than it had been in the past. There is no clear explanation found to explain your recently worsening abdominal pain. Take the pain medication you have at home, take 2 tablets at a time if necessary. With Dr. Stiles tomorrow morning in the office as a walk-in. Please show up before 11 AM. Referrals: BRI STILES MD [Primary Care Provider] - Follow up as needed Scribe Attestation: 04/09/19 18:43 I personally performed the services described in the documentation, reviewed and edited the documentation which was dictated to the scribe in my presence, and it accurately records my words and actions. I personally performed the services described in the documentation, reviewed and edited the documentation which was dictated to the scribe in my presence, and it accurately records my words and actions.
== END 2019-04-09 19:16 | disposition home or self-care (01) ==
LOC: ER 13:27
DX: C85.13 Unspecified B-cell lymphoma, intra-abdominal lymph nodes (principal); R10.10 Upper abdominal pain, unspecified; R10.811 Right upper quadrant abdominal tenderness; C85.90 Non-Hodgkin lymphoma, unspecified, unspecified site; F17.210 Nicotine dependence, cigarettes, uncomplicated; I25.10 Atherosclerotic heart disease of native coronary artery without angina pectoris; I10 Essential (primary) hypertension; J44.9 Chronic obstructive pulmonary disease, unspecified; E11.9 Type 2 diabetes mellitus without complications; Z90.49 Acquired absence of other specified parts of digestive tract; Z88.8 Allergy status to other drugs, medicaments and biological substances; Z88.5 Allergy status to narcotic agent
CPT/HCPCS: 93005; 94640; 99284; 96361; 96374; 96375; 36415; 87040; 87086; 82553; 82550; 83735; 84443; 85025; 85610; 80053; 81001; 84484; 83605; 71045; 71275; 74177; 93010; J2270; J2405; J7030; J7620

== ENCOUNTER 2019-04-11 15:28 | Emergency (ER) | payer MEDICAID ==
[2019-04-11] MEDS ORDERED: ONDANSETRON HCL INJ/PF 4 MG/2 ML SDV IV ONE (15:39)
--- NOTE | 2019-04-11 15:41 | ER Document Report ---
ED Medical Screen (RME) - General Chief Complaint: Nausea/Vomiting Stated Complaint: DIZZINESS Time Seen by Provider: 04/11/19 15:36 Primary Care Provider: BRI STILES MD [Primary Care Provider] - Follow up as needed Mode of Arrival: Ambulatory Information source: Patient Notes: Patient is a 48-year-old female presenting to the emergency department with complaints of feeling like her heart is racing, dizziness, nausea and vomiting. Patient reports that she is currently undergoing chemotherapy. She has a port in her left upper arm, she would like us to start an IV and not use the port. She reports she has been having the symptoms for approximately 3 weeks. States she was seen here recently for the same symptoms. Exam: Patient alert, oriented and answering all questions appropriately. Manual heart rate is 120. I have greeted and performed a rapid initial assessment of this patient. A comprehensive ED assessment and evaluation of the patient, analysis of test results and completion of the medical decision making process will be conducted by additional ED providers. Dictation of this chart was performed using voice recognition software; therefore, there may be some unintended grammatical errors. TRAVEL OUTSIDE OF THE [place] IN LAST 30 DAYS: No - Related Data Allergies/Adverse Reactions: ketorolac tromethamine [From Toradol] Allergy (Verified 04/11/19 15:30) tramadol [Tramadol] Allergy (Verified 04/11/19 15:30) Past Medical History - Past Medical History Cardiac Medical History: Reports: Hx Hypercholesterolemia, Hx Hypertension Pulmonary Medical History: Reports: Hx COPD Comment Only: Hx Asthma - pt denies Endocrine Medical History: Reports: Hx Diabetes Mellitus Type 2 Renal/ Medical History: Denies: Hx Peritoneal Dialysis Malignancy Medical History: Reports: Hx Lymphoma - Non-Hodgkin's Psychiatric Medical History: Reports: Hx Anxiety, Hx Depression Past Surgical History: Reports: Hx Appendectomy, Hx Cholecystectomy, Hx Gynecologic Surgery - x14 D&C - Immunizations Immunizations up to date: No Hx Diphtheria, Pertussis, Tetanus Vaccination: Yes Physical Exam - Vital signs Vitals: Temp Pulse Resp BP Pulse Ox 99.1 F 121 H 16 128/77 H 97 04/11/19 15:33 04/11/19 15:33 04/11/19 15:33 04/11/19 15:33 04/11/19 15:33 Course - Vital Signs Vital signs: Temp Pulse Resp BP Pulse Ox 99.1 F 121 H 16 128/77 H 97 04/11/19 15:33 04/11/19 15:33 04/11/19 15:33 04/11/19 15:33 04/11/19 15:33 Doctor's Discharge - Discharge Referrals: BRI STILES MD [Primary Care Provider] - Follow up as needed
[2019-04-11] MEDS ORDERED: NORMAL SALINE 1000 ML 1,000 ML IV ONE (15:47)
[2019-04-11] MEDS ORDERED: HYDROMORPHONE HCL INJ/PF 2 MG/ML AMPULE IV ONE (15:54)
[2019-04-11] MEDS ORDERED: RINGERS SOLUTION,LACTATED 1,000 ML IV ONE (15:55)
--- NOTE | 2019-04-11 15:59 | ER Document Report ---
ED General - General Chief Complaint: Nausea/Vomiting Stated Complaint: DIZZINESS Time Seen by Provider: 04/11/19 15:36 Primary Care Provider: BRI STILES MD [Primary Care Provider] - Follow up in 3-5 days Mode of Arrival: Ambulatory Notes: Patient is a 48-year-old female that presents to the emergency department for chief complaint of racing heart, and abdominal pain. Patient states that she is been having palpitations and feeling that her heart is racing fast, over the past week or so, and she was seen in the emergency department a few days ago for the same, she is been noticing it more in the morning, and she has not really had this before. She states she is been having some lower abdominal pain as well on the right side, which she states that is where her lymphoma is in its apparently shrinking based on recent CT imaging. She was evaluated for pulmonary embolism as well for the tachycardia, and her CTA was negative on , 2 days ago, she denies having any shortness of breath or chest pain. She really rates her abdominal pain as a 6 out of 10 describes as an aching and occasionally sharp sensation, she is had associated nausea but no vomiting. She states she has been able to drink at home, and has been urinating well. Past Medical History: Non-Hodgkin's lymphoma, diabetes mellitus, hypertension, hyperlipidemia, anxiety, depression Past Surgical History: Appendectomy, cholecystectomy Social History: Admits to smoking cigarettes daily, denies alcohol or drug use. Family History: Reviewed and noncontributory for presenting illness Allergies: Reviewed, see documented allergy list. REVIEW OF SYSTEMS: Other than noted above, the 12 point review of systems was reviewed with the patient and were negative, all pertinent findings are included in the HPI. PHYSICAL EXAMINATION: Vital signs reviewed, nursing noted reviewed. GENERAL: Patient appears somewhat uncomfortable, but in no acute distress HEAD: Atraumatic, normocephalic. EYES: Eyes appear normal, extraocular movements intact, sclera anicteric, conjunctiva are normal. ENT: nares patent, oropharynx clear without exudates. Moist mucous membranes. NECK: Normal range of motion, supple without lymphadenopathy LUNGS: Breath sounds clear to auscultation bilaterally and equal. No wheezes rales or rhonchi. HEART: Heart rate tachycardic, regular rhythm ABDOMEN: Soft, mild right lower quadrant tenderness to palpation, normoactive bowel sounds. No rebound, guarding, or rigidity. No masses appreciated. EXTREMITIES: Nontender, good range of motion, no pitting or edema. NEUROLOGICAL: No focal neurological deficits. Moves all extremities spontaneously Motor and sensory grossly intact on exam. PSYCH: Normal mood, normal affect. SKIN: Warm, Dry, normal turgor, no rashes or lesions noted on exposed skin TRAVEL OUTSIDE OF THE [place] IN LAST 30 DAYS: No - Related Data Allergies/Adverse Reactions: ketorolac tromethamine [From Toradol] Allergy (Verified 04/11/19 15:30) tramadol [Tramadol] Allergy (Verified 04/11/19 15:30) Past Medical History - General Information source: Patient - Social History Smoking Status: Current Every Day Smoker Family History: Reviewed & Not Pertinent Patient has suicidal ideation: No Patient has homicidal ideation: No - Past Medical History Cardiac Medical History: Reports: Hx Hypercholesterolemia, Hx Hypertension Pulmonary Medical History: Reports: Hx COPD Comment Only: Hx Asthma - pt denies Endocrine Medical History: Reports: Hx Diabetes Mellitus Type 2 Renal/ Medical History: Denies: Hx Peritoneal Dialysis Malignancy Medical History: Reports: Hx Lymphoma - Non-Hodgkin's Psychiatric Medical History: Reports: Hx Anxiety, Hx Depression Past Surgical History: Reports: Hx Appendectomy, Hx Cholecystectomy, Hx Gynecologic Surgery - x14 D&C - Immunizations Immunizations up to date: No Hx Diphtheria, Pertussis, Tetanus Vaccination: Yes Physical Exam - Vital signs Vitals: Temp Pulse Resp BP Pulse Ox 99.1 F 121 H 16 128/77 H 97 04/11/19 15:33 04/11/19 15:33 04/11/19 15:33 04/11/19 15:33 04/11/19 15:33 Course - Re-evaluation Re-evalutation: Patient seen and examined vital signs reviewed. Laboratory data and/or imaging were ordered as appropriate for the patient's presenting symptoms and complaint, with consideration of any critical or life threatening conditions that may be associated with their obtained history and exam as noted above. Patient was treated with IV fluids, Zofran, and Dilaudid Results were reviewed when available and demonstrated hypomagnesemia, with a magnesium of 1.5, is 1.4 and a recent visit as well, this may be part of the cause of the patient's tachycardia, that she is been experiencing, she does not appear significantly dehydrated, she was given IV fluids, and her heart rate did improve, from the 120s, down to the mid 80s. Patient was reevaluated, and her abdominal pain was still present, she requested morphine as she states it does typically improve her pain more than the Dilaudid. The patient was re-evaluated and was improved, she was given magnesium replacement with 3 g of IV magnesium Evaluation was most consistent with tachycardia, hypomagnesemia, abdominal pain, patient will follow up with her oncologist, advised having repeat blood work done to see if she needs daily magnesium supplementation, I do not recommend this at this time, advised her to have repeat blood work done sometime later this week. Results were discussed with the patient at this point, after careful consideration I feel that that patient can be discharged from the emergency department, the patient was educated treatments and reasons to return to the emergency department based on their presumed diagnosis as noted above, they were advised to followup with a primary care physician in 2-3 days. Patient was agreeable to plan of care. *Note is created using voice recognition software and may contain spelling, syntax or grammatical errors. Laboratory 04/11/19 04/11/19 04/11/19 16:27 16:27 16:27 WBC 7.6 RBC 3.73 Hgb 12.4 Hct 36.7 MCV 98 H MCH 33.3 MCHC 33.9 RDW 22.3 H Plt Count 233 Total Counted 100 Seg Neutrophils % Not Reportable Seg Neuts % (Manual) 55 Lymphocytes % Not Reportable Lymphocytes % (Manual) 32 Monocytes % Not Reportable Monocytes % (Manual) 12 Eosinophils % Not Reportable Eosinophils % (Manual) 0 Basophils % Not Reportable Basophils % (Manual) 0 Metamyelocytes % 1 H Absolute Neutrophils Not Reportable Abs Neuts (Manual) 4.3 Absolute Lymphocytes Not Reportable Abs Lymphs (Manual) 2.4 Absolute Monocytes Not Reportable Abs Monocytes (Manual) 0.9 Absolute Eosinophils Not Reportable Absolute Eos (Manual) 0.0 Absolute Basophils Not Reportable Abs Basophils (Manual) 0.0 Nucleated RBCs 1 Toxic Granulation 2+ Platelet Comment ADEQUATE Anisocytosis 3+ Sodium 137.9 Potassium 3.9 Chloride 102 Carbon Dioxide 26 Anion Gap 10 BUN 3 L Creatinine 0.40 L Est GFR ( Amer) > 60 Est GFR (Non-Af Amer) > 60 Glucose 191 H Calcium 9.5 Magnesium 1.5 L Total Bilirubin 0.3 Direct Bilirubin 0.3 Neonat Total Bilirubin Not Reportable Neonat Direct Bilirubin Not Reportable Neonat Indirect Bili Not Reportable AST 28 ALT 28 Alkaline Phosphatase 94 Troponin I < 0.012 Total Protein 7.0 Albumin 4.1 Lipase 57.7 TSH Free T4 Urine Color Urine Appearance Urine pH Ur Specific [place] Urine Protein Urine Glucose (UA) Urine Ketones Urine Blood Urine Nitrite Urine Bilirubin Urine Urobilinogen Ur Leukocyte Esterase Squamous Epi Cells Auto Urine Mucus (Auto) Urine Ascorbic Acid 04/11/19 04/11/19 16:27 16:27 WBC RBC Hgb Hct MCV MCH MCHC RDW Plt Count Total Counted Seg Neutrophils % Seg Neuts % (Manual) Lymphocytes % Lymphocytes % (Manual) Monocytes % Monocytes % (Manual) Eosinophils % Eosinophils % (Manual) Basophils % Basophils % (Manual) Metamyelocytes % Absolute Neutrophils Abs Neuts (Manual) Absolute Lymphocytes Abs Lymphs (Manual) Absolute Monocytes Abs Monocytes (Manual) Absolute Eosinophils Absolute Eos (Manual) Absolute Basophils Abs Basophils (Manual) Nucleated RBCs Toxic Granulation Platelet Comment Anisocytosis Sodium Potassium Chloride Carbon Dioxide Anion Gap BUN Creatinine Est GFR ( Amer) Est GFR (Non-Af Amer) Glucose Calcium Magnesium Total Bilirubin Direct Bilirubin Neonat Total Bilirubin Neonat Direct Bilirubin Neonat Indirect Bili AST ALT Alkaline Phosphatase Troponin I Total Protein Albumin Lipase TSH 2.44 Free T4 1.12 Urine Color STRAW Urine Appearance CLEAR Urine pH 7.0 Ur Specific [place] 1.001 Urine Protein NEGATIVE Urine Glucose (UA) NEGATIVE Urine Ketones NEGATIVE Urine Blood NEGATIVE Urine Nitrite NEGATIVE Urine Bilirubin NEGATIVE Urine Urobilinogen NEGATIVE Ur Leukocyte Esterase NEGATIVE Squamous Epi Cells Auto <1 Urine Mucus (Auto) RARE Urine Ascorbic Acid NEGATIVE - Vital Signs Vital signs: Temp Pulse Resp BP Pulse Ox 99.1 F 121 H 13 122/68 95 04/11/19 15:33 04/11/19 15:33 04/11/19 16:25 04/11/19 16:25 04/11/19 16:25 - Laboratory Result Diagrams: 04/11/19 16:27 04/11/19 16:27 Laboratory results interpreted by me: 04/11/19 04/11/19 16:27 16:27 MCV 98 H RDW 22.3 H Metamyelocytes % 1 H BUN 3 L Creatinine 0.40 L Glucose 191 H Magnesium 1.5 L - EKG Interpretation by Me Additional EKG results interpreted by me: EKG demonstrates sinus tachycardia with a ventricular rate of 104 bpm, normal axis, normal intervals, no evidence of acute ischemia this EKG, compared with prior EKG from 04/09/2019, without significant change. Discharge - Discharge Clinical Impression: Tachycardia, Hypomagnesemia Abdominal pain Qualifiers: Abdominal location: unspecified location Qualified Code(s): R10.9 - Unspecified abdominal pain Condition: Stable Disposition: HOME, SELF-CARE Instructions: Abdominal Pain ([facility]) Additional Instructions: Please follow-up with your primary care physician, or your oncologist, to have repeat blood work done specifically for your magnesium to be checked, as you may need daily supplementation of magnesium. If you have worsening of your symptoms, do not hesitate to return to the emergency department to be reevaluated. Referrals: BRI STILES MD [Primary Care Provider] - Follow up in 3-5 days
[2019-04-11 16:46] LABS: HEMATOCRIT 36.7 % (36.0-47.0); HEMOGLOBIN 12.4 g/dL (12.0-15.5); MEAN CORPUSCULAR HEMOGLOBIN 33.3 pg (27.0-33.4); MEAN CORPUSCULAR HGB CONC 33.9 g/dL (32.0-36.0); MEAN CORPUSCULAR VOLUME 98 fl (80-97); PLATELET COUNT 233 10^3/uL (150-450); RED BLOOD COUNT 3.73 10^6/uL (3.72-5.28); RED CELL DISTRIBUTION WIDTH 22.3 % (11.5-14.0); WHITE BLOOD COUNT 7.6 10^3/uL (4.0-10.5)
[2019-04-11 16:50] LABS: APPEARANCE,URINE CLEAR; BILIRUBIN,URINE NEGATIVE (NEGATIVE); COLOR,URINE STRAW; GLUCOSE, URINE NEGATIVE (NEGATIVE); KETONES,URINE NEGATIVE (NEGATIVE); LEUKOCYTE ESTERASE,URINE NEGATIVE (NEGATIVE); NITRITE,URINE NEGATIVE (NEGATIVE); PROTEIN,URINE NEGATIVE (NEGATIVE); URINE SPECIFIC GRAVITY 1.001; UROBILINOGEN,URINE NEGATIVE mg/dL (<2.0)
[2019-04-11 16:58] LABS: ALANINE AMINOTRANSFERASE 28 U/L (9-52); ALBUMIN 4.1 g/dL (3.5-5.0); ALKALINE PHOSPHATASE 94 U/L (38-126); ANION GAP 10 (5-19); ASPARTATE AMINO TRANSFERASE 28 U/L (14-36); BILIRUBIN,DIRECT 0.3 mg/dL (0.0-0.4); BILIRUBIN,TOTAL 0.3 mg/dL (0.2-1.3); BLOOD UREA NITROGEN 3 mg/dL (7-20); CALCIUM 9.5 mg/dL (8.4-10.2); CARBON DIOXIDE 26 mmol/L (22-30); CHLORIDE 102 mmol/L (98-107); GLUCOSE 191 mg/dL (75-110); LIPASE 57.7 U/L (23-300); POTASSIUM 3.9 mmol/L (3.6-5.0); SODIUM 137.9 mmol/L (137-145)
[2019-04-11] MEDS ORDERED: MORPHINE SULFATE 10 MG/ML INJ IV ONE ×2 (17:09→19:21)
[2019-04-11 17:14] LABS: FREE T4 (FREE THYROXINE) 1.12 ng/dL (0.78-2.19)
[2019-04-11] MEDS: MAGNESIUM SULFATE/D5W 1 GM/100 ML RTUPB IV SCH ×3 (17:16→18:47)
[2019-04-11 17:28] LABS: THYROID STIMULATING HORMONE 2.44 uIU/mL (0.47-4.68)
[2019-04-11 17:31] LABS: ABSOLUTE LYMPHOCYTES# (MANUAL) 2.4 10^3/uL (0.5-4.7); ABSOLUTE MONOCYTES # (MANUAL) 0.9 10^3/uL (0.1-1.4); ABSOLUTE NEUTROPHILS# (MANUAL) 4.3 10^3/uL (1.7-8.2); ANISOCYTOSIS 3+; BASOPHILS % (MANUAL) 0 % (0-2); EOSINOPHILS % (MANUAL) 0 % (0-6); LYMPHOCYTES % (MANUAL) 32 % (13-45); METAMYELOCYTES % (MANUAL) 1 % (0); MONOCYTES % (MANUAL) 12 % (3-13); NUCLEATED RED BLOOD CELLS 1 /100 WBC (0); PLATELET COMMENT ADEQUATE; SEGMENTED NEUTROPHILS % (MAN) 55 % (42-78); TOTAL CELLS COUNTED 100; TOXIC GRANULATION 2+
[2019-04-11 19:34] VITALS: BP 118/87
--- NOTE | 2019-04-11 23:23 | EKG REPORT ---
SEVERITY:- OTHERWISE NORMAL ECG - SINUS TACHYCARDIA : Confirmed by: Roya Reid MD 11-Apr-2019 23:23:05
== END 2019-04-11 19:39 | disposition home or self-care (01) ==
LOC: ER 15:28
DX: R10.9 Unspecified abdominal pain (principal); R00.0 Tachycardia, unspecified; E83.42 Hypomagnesemia; R11.2 Nausea with vomiting, unspecified; R42 Dizziness and giddiness; R00.2 Palpitations; E11.9 Type 2 diabetes mellitus without complications; I10 Essential (primary) hypertension; F17.210 Nicotine dependence, cigarettes, uncomplicated
CPT/HCPCS: 93005; 96376; 99285; 96361; 96374; 96375; 36415; 87086; 84439; 83690; 83735; 84443; 85025; 80053; 81001; 84484; 93010; J2270; J1170; J3475; J2405; J7030; J7120

== ENCOUNTER 2019-04-15 12:45 | Emergency (ER) | payer MEDICAID ==
--- NOTE | 2019-04-15 13:19 | ER Document Report ---
ED Medical Screen (RME) - General Chief Complaint: Palpitations Stated Complaint: RAPID HEART RATE Time Seen by Provider: 04/15/19 13:09 Primary Care Provider: BRI STILES MD [Primary Care Provider] - Follow up as needed Mode of Arrival: Wheelchair Information source: Patient Notes: Patient presents emergency department with complaints of palpitations chest pain on and off for the past 2 weeks. Reports history of non-Hodgkin's lymphoma. Reports last chemotherapy was weeks ago with reduxin this past Saturday. Reports she has been waking up for the past 2 weeks with her heart racing. Reports chest pain does not radiate anywhere with some shortness of breath for the past week also. Reports she was evaluated here on Saturday for same symptoms. Reports she went to see her oncologist Dr. Acevedo and was told she was probably dehydrated. She is receiving a referral to cardiology. EKG shows sinus tach I have greeted and performed a rapid initial assessment of this patient. A comprehensive ED assessment and evaluation of the patient, analysis of test results and completion of the medical decision making process will be conducted by additional ED providers. Dictation of this chart was performed using voice recognition software; therefore, there may be some unintended grammatical errors. TRAVEL OUTSIDE OF THE [place] IN LAST 30 DAYS: No - Related Data Allergies/Adverse Reactions: ketorolac tromethamine [From Toradol] Allergy (Verified 04/15/19 12:49) tramadol [Tramadol] Allergy (Verified 04/15/19 12:49) Past Medical History - Past Medical History Cardiac Medical History: Reports: Hx Hypercholesterolemia, Hx Hypertension Pulmonary Medical History: Reports: Hx COPD Comment Only: Hx Asthma - pt denies Endocrine Medical History: Reports: Hx Diabetes Mellitus Type 2 Renal/ Medical History: Denies: Hx Peritoneal Dialysis Malignancy Medical History: Reports: Hx Lymphoma - Non-Hodgkin's Psychiatric Medical History: Reports: Hx Anxiety, Hx Depression Past Surgical History: Reports: Hx Appendectomy, Hx Cholecystectomy, Hx Gynecologic Surgery - x14 D&C - Immunizations Immunizations up to date: No Hx Diphtheria, Pertussis, Tetanus Vaccination: Yes Physical Exam - Vital signs Vitals: Temp Pulse Resp BP Pulse Ox 98.7 F 118 H 16 127/81 H 98 04/15/19 12:59 04/15/19 12:59 04/15/19 12:59 04/15/19 12:59 04/15/19 12:59 Course - Vital Signs Vital signs: Temp Pulse Resp BP Pulse Ox 98.7 F 118 H 16 127/81 H 98 04/15/19 12:59 04/15/19 12:59 04/15/19 12:59 04/15/19 12:59 04/15/19 12:59 Doctor's Discharge - Discharge Referrals: BRI STILES MD [Primary Care Provider] - Follow up as needed
--- NOTE | 2019-04-15 13:43 | RADIOLOGY REPORT (SQ) ---
EXAM DESCRIPTION: CHEST 2 VIEWS COMPLETED DATE/TIME: 04/15/2019 1:28 pm REASON FOR STUDY: palpitations, cp COMPARISON: 04/09/2019 EXAM PARAMETERS: NUMBER OF VIEWS: two views TECHNIQUE: Digital Frontal and Lateral radiographic views of the chest acquired. RADIATION DOSE: NA LIMITATIONS: none FINDINGS: LUNGS AND PLEURA: No opacities, masses or pneumothorax. No pleural effusion. MEDIASTINUM AND HILAR STRUCTURES: No masses or contour abnormalities. HEART AND VASCULAR STRUCTURES: Heart normal size. No evidence for failure. BONES: No acute findings. HARDWARE: Venous access catheter unchanged. OTHER: No other significant finding. IMPRESSION: NO ACUTE RADIOGRAPHIC FINDING IN THE CHEST. TECHNICAL DOCUMENTATION: JOB ID: [id number] [employer]- All Rights Reserved Reading location - IP/workstation name: [email or web address]
[2019-04-15] MEDS ORDERED: NORMAL SALINE 1000 ML 1,000 ML IV ONE (13:55)
[2019-04-15] MEDS ORDERED: ONDANSETRON HCL INJ/PF 4 MG/2 ML SDV IV ONE (14:03)
--- NOTE | 2019-04-15 14:03 | ER Document Report ---
ED General - General Chief Complaint: Palpitations Stated Complaint: RAPID HEART RATE Time Seen by Provider: 04/15/19 13:09 Primary Care Provider: BRI STILES MD [Primary Care Provider] - Follow up as needed Mode of Arrival: Wheelchair Notes: Patient says her heart rate was increased and her heart was beating very fast at home. She did not count to the beats to determine actual rate. She says she can just feel her heart going fast. This has been happening off and on for the past couple of weeks. She has been seen here 3 previous visits this month for similar symptoms. She has been told in the past she was dehydrated, her magnesium was low, and her blood sugars were high. Patient is an insulin- dependent diabetic on Lantus plus metformin and glipizide orally.. She has not had much of an appetite and has not been drinking a lot of fluids but did drink a couple of bottles of water this morning and some yesterday afternoon. She is making a normal amount of urine for her. She is nauseated but not vomiting. Has had a couple of episodes of diarrhea this morning. Denies any chest pains. Gets short of breath with walking and exertion. Denies any UTI symptoms. No fe vers. Patient was diagnosed with a lymphoma in December. She has been under the care of Dr. Acevedo. She had a CT scan done last and was told on Saturday that she is now in remission and cancer free. Her last chemotherapy was 3 weeks ago. Patient has a history of appendectomy and cholecystectomy. IDDM, hypertension, anxiety, depression. Cigarette smoker about a pack a day. TRAVEL OUTSIDE OF THE [place] IN LAST 30 DAYS: No - Related Data Allergies/Adverse Reactions: ketorolac tromethamine [From Toradol] Allergy (Verified 04/15/19 12:49) tramadol [Tramadol] Allergy (Verified 04/15/19 12:49) Past Medical History - General Information source: Patient - Social History Smoking Status: Smoker,Current Status Unk Family History: Reviewed & Not Pertinent Patient has suicidal ideation: No Patient has homicidal ideation: No - Past Medical History Cardiac Medical History: Reports: Hx Hypercholesterolemia, Hx Hypertension Pulmonary Medical History: Reports: Hx COPD Comment Only: Hx Asthma - pt denies Endocrine Medical History: Reports: Hx Diabetes Mellitus Type 1, Hx Diabetes Mellitus Type 2 Malignancy Medical History: Reports: Hx Lymphoma - Non-Hodgkin's Psychiatric Medical History: Reports: Hx Anxiety, Hx Depression Past Surgical History: Reports: Hx Appendectomy, Hx Cholecystectomy, Hx Gynecologic Surgery - x14 D&C - Immunizations Immunizations up to date: No Hx Diphtheria, Pertussis, Tetanus Vaccination: Yes Review of Systems - Review of Systems Notes: REVIEW OF SYSTEMS: Feeling weak and tired and no appetite. CONSTITUTIONAL : Denies fever. EENT: Denies eye, ear, nose or mouth or throat pain or other symptoms. CARDIOVASCULAR: See HPI regarding rapid heartbeat. Denies chest pain. RESPIRATORY: Denies cough, chest congestion, or shortness of breath. GASTROINTESTINAL: Denies abdominal pain or vomiting or diarrhea. GENITOURINARY: Denies difficulty or painful urinating, urinary frequency, blood in urine. MUSCULOSKELETAL: Denies back or neck pain. Denies joint pain or swelling. SKIN: Denies rash or skin lesions. NEUROLOGICAL: Denies LOC or altered mental status. Denies sensory loss or motor deficits. ALL OTHER SYSTEMS REVIEWED AND NEGATIVE. Physical Exam - Vital signs Vitals: Temp Pulse Resp BP Pulse Ox 98.7 F 118 H 16 127/81 H 98 04/15/19 12:59 04/15/19 12:59 04/15/19 12:59 04/15/19 12:59 04/15/19 12:59 Interpretation: Tachycardic - Mild Notes: PHYSICAL EXAMINATION: Heart rate on monitor at bedside is 90. All other vital signs are normal, as well. GENERAL: Well-appearing, in no acute distress. HEAD: Atraumatic, normocephalic. EYES: Pupils equal round and reactive to light, extraocular movements intact. ENT: oropharynx clear without exudates. Moist mucous membranes. NECK: Normal range of motion, supple. LUNGS: Breath sounds clear and equal bilaterally. HEART: Regular rate and rhythm without murmurs. ABDOMEN: Soft, nontender. No guarding or rebound. No masses. BACK: No tenderness throughout entire back. EXTREMITIES: Normal range of motion without pain. NEUROLOGICAL: Normal speech, normal gait. Normal sensory, motor, and reflex exams. Awake, alert, and oriented x3. Cranial nerves normal. PSYCH: Patient asked me if anxiety could be playing a role in her symptoms and I said they certainly believe that is playing a significant role in her symptoms. SKIN: Warm, dry, no rashes. Course - Re-evaluation Re-evalutation: 04/15/19 17:41 Patient looks much better. She is sitting up on the stretcher drinking liquids. Says she feels better. Her monitor shows her heart rate to be around 80. She has felt as if her heart was beating fast several times, but says each time her heart rate on the monitor is only been in the 80s. Patient asked me if anxiety could be playing a role here. I told her of course it could. Anxiety can affect many things. Patient ran out of her [employer] 3 days ago. She normally takes 1-1/2 of a pill 1 mg about 3 times a day. She has an appointment to see her doctor to get that medication refilled Saturday. I am going to give her a bridge prescription for 5 days. - Vital Signs Vital signs: Temp Pulse Resp BP Pulse Ox 98.7 F 118 H 9 L 121/78 97 04/15/19 18:01 04/15/19 12:59 04/15/19 18:01 04/15/19 18:01 04/15/19 18:01 - Laboratory Result Diagrams: 04/15/19 14:03 04/15/19 14:03 Laboratory results interpreted by me: 04/15/19 04/15/19 14:03 14:03 MCV 99 H MCH 33.8 H RDW 22.2 H Sodium 136.9 L Creatinine 0.51 L Glucose 230 H Magnesium 1.3 L AST 12 L Creatine Kinase 24 L Discharge - Discharge Clinical Impression: Palpitations, Anxiety, Nausea Condition: Stable Disposition: HOME, SELF-CARE Additional Instructions: Palpitations (Irregular/Rapid Heartrate) Irregular or rapid heartbeat is called "palpitation." To diagnose the cause of palpitation, we have to "catch it in the act" with an EKG. Sinus Tachycardia: This is a rapid (but NORMAL) rhythm that can be due to fever, pain, anxiety, lack of sleep, over-exertion, or drugs. Cold medications, caffeine, and diet pills are particularly likely to cause tachycardia. Usually, all that's required is rest, reassurance, and avoiding caffeine, alcohol, nicotine, and unnecessary medicines. Paroxysmal Atrial Tachycardia (PAT): This abnormally rapid heartbeat is caused by a "short circuit" in the electrical system of the heart. It is not dangerous, unless other heart disease is present. These attacks of PAT may occur occasionally for years. Medication is available for treatment. Paroxysmal Atrial Fibrillation or Atrial Flutter: This is irregular electrical activity in the upper heart chamber. These abnormal rhythms often occur with valve disease or in hearts damaged by hardening of the arteries. These rhythms usually require further testing, for example a cardiac echo. Premature Beats: Extra beats occur more commonly after caffeine, nicotine, alcohol, cold pills, diet pills. Emotional stress or fatigue also provoke them. Extra beats are only dangerous when heart disease is present. They usually need no treatment. If they're frequent, or if evidence of heart disease develops, medication can be given to suppress them. If we were unable to "catch" the palpitations on EKG, you should try to get an EKG immediately if the symptoms begin again. Contact the physician at once if you develop persistent lightheadedness, shortness of breath, chest pain, or swelling of the ankles. Anxiety The physician feels that some of your health problems are being caused by anxiety. Anxiety affects your health in many ways. Anxiety alone can cause palpitations, sweats, chest pains, abdominal pains, shortness of breath, and headaches. It contributes to ulcer disease, high blood pressure, irritable bowel syndrome, and has been shown to cause flare-ups of many other diseases. Anxiety is not a simple disorder to treat. If the anxiety is due to recent life stresses, you may simply need time to "work through" the changes. If the anxiety is due to an underlying unhappiness with yourself or due to psychiatric disturbance, professional help will be needed. Your physician can refer you for further help if needed. Anti-anxiety medication is occasionally given if the stress is acute or if you are having trouble sleeping. Chronic or frequent use of these medications is not a good idea because the body becomes reliant on it, preventing you from dealing with life's normal stresses. VOMITING: Vomiting (or nausea without vomiting) can be caused by many other different problems. It can mean that something's wrong with the stomach, such as ulcers or inflammation or the intestinal tract, such as appendicitis. But it can also be a symptom of a problem that has nothing to do with the stomach or intestines. Vomiting is common with severe headaches, earaches, tonsillitis, and kidney infections, etc. We see it with pneumonia or heart attacks. Drugs can cause nausea and vomiting. Many abdominal problems cause vomiting; for example, gallstones, kidney stones, pancreatitis, and intestinal obstruction (blocked bowels). In most cases, curing the vomiting depends on fixing the problem that caused it. For temporary relief, we may use an anti-nausea medicine. For home use, we can prescribe suppositories, chewable pills, pills that dissolve in the mouth, or liquid anti-nausea drugs. If the vomiting seems to be caused by a problem in the stomach, acid-suppressing drugs may be prescribed as well. It's important to avoid dehydration. Sip small amounts of clear liquids (soft drinks, tea, broth, etc) . Try to take fluids frequently even if you are vomiting to prevent dehydration. Take increasing amounts of fluid and when liquids are being consumed successfully, advance to small amounts of bland food (toast, soups, mashed potatoes, etc.) until you are able to resume a regular diet. Avoid aspirin, tobacco, and alcohol. If the vomiting worsens, if the problem that's making you vomit worsens, or if there's evidence of bleeding in the stomach (such as black, tarry stool, or bloody or black vomit), you should return immediately. Also, return if abdominal pain worsens or becomes localized to one area or you develop high fever. Call your doctor if you aren't improved in 24 hours. INTRAVENOUS (I V) FLUIDS: As part of your care today, you received intravenous (IV) fluids. IV fluids are administered to patients who are dehydrated or to those who have certain chemical (electrolyte) abnormalities that need correcting. ANT[place]AUSEA MEDICATION: You have been given a medication to suppress nausea and vomiting. This type of medication can be given as a shot, pill, or suppository. It will usually last for many hours. Pills and shots usually last six to eight hours. For the typical illness, only one or two doses of the medication may be necessary. Mild lightheadedness may occur. This type of medicine can cause drowsiness. Do not drive or operate dangerous machinery while under its influence. Do not mix with alcohol. See your doctor at once if you have muscle spasms or tightness, or uncontrollable motions (particularly of the neck, mouth, or jaw). Persistent vomiting or severe lightheadedness should also be evaluated by the physician. Benzodiazepines You have been given a benzodiazepine medication. Examples of this type of medicine include Valium, Xanax, Librium, Ativan, and Halcion. Benzodiazepines have many uses. Medications of this type are used for insomnia, anxiety, muscle spasms, seizures, and drug and alcohol withdrawal. You may become very drowsy when you first take the medication. You should not drive or operate machinery while under its effects. Do not combine the medication with alcohol, or with any other medication without talking to your doctor. Do not take if without specific instruction from your rubber cutting machine tender. Some benzodiazepines may have harmful interactions with oral antifungal medicines such as ketoconazole, itraconazole, and nefazodone. If you are taking an antifungal medicine, discuss this with your doctor before taking benzodiazepines. FOLLOW-UP CARE: If you have been referred to a physician for follow-up care, call the physicians office for an appointment as you were instructed or within the next two days. If you experience worsening or a significant change in your symptoms, notify the physician immediately or return to the Emergency Department at any time for re-evaluation. Prescriptions: Clonazepam [Klonopin 1 mg Tablet] 1.5 mg PO TID #20 tablet Ondansetron [Zofran Odt 4 mg Tablet] 1 - 2 tab PO Q4H PRN #15 tab.rapdis PRN Reason: For Nausea/Vomiting Referrals: BRI STILES MD [Primary Care Provider] - Follow up as needed
[2019-04-15 14:24] LABS: HEMATOCRIT 36.7 % (36.0-47.0); HEMOGLOBIN 12.6 g/dL (12.0-15.5); MEAN CORPUSCULAR HEMOGLOBIN 33.8 pg (27.0-33.4); MEAN CORPUSCULAR HGB CONC 34.3 g/dL (32.0-36.0); MEAN CORPUSCULAR VOLUME 99 fl (80-97); RED BLOOD COUNT 3.72 10^6/uL (3.72-5.28); RED CELL DISTRIBUTION WIDTH 22.2 % (11.5-14.0); WHITE BLOOD COUNT 9.5 10^3/uL (4.0-10.5)
[2019-04-15 14:42] LABS: ALANINE AMINOTRANSFERASE 26 U/L (9-52); ALBUMIN 3.9 g/dL (3.5-5.0); ALKALINE PHOSPHATASE 89 U/L (38-126); ANION GAP 12 (5-19); ASPARTATE AMINO TRANSFERASE 12 U/L (14-36); BILIRUBIN,DIRECT 0.3 mg/dL (0.0-0.4); BILIRUBIN,TOTAL 0.3 mg/dL (0.2-1.3); BLOOD UREA NITROGEN 8 mg/dL (7-20); CALCIUM 9.8 mg/dL (8.4-10.2); CARBON DIOXIDE 25 mmol/L (22-30); CHLORIDE 100 mmol/L (98-107); CREATINE KINASE 24 U/L (30-135); GLUCOSE 230 mg/dL (75-110); POTASSIUM 3.9 mmol/L (3.6-5.0); SODIUM 136.9 mmol/L (137-145); TOTAL PROTEIN 6.6 g/dL (6.3-8.2)
[2019-04-15 14:43] LABS: ABSOLUTE LYMPHOCYTES# (MANUAL) 1.4 10^3/uL (0.5-4.7); ABSOLUTE MONOCYTES # (MANUAL) 0.8 10^3/uL (0.1-1.4); ABSOLUTE NEUTROPHILS# (MANUAL) 7.1 10^3/uL (1.7-8.2); BASOPHILS % (MANUAL) 2 % (0-2); EOSINOPHILS % (MANUAL) 0 % (0-6); LYMPHOCYTES % (MANUAL) 13 % (13-45); MONOCYTES % (MANUAL) 8 % (3-13); SEGMENTED NEUTROPHILS % (MAN) 75 % (42-78); TOTAL CELLS COUNTED 100
[2019-04-15 14:46] LABS: ANISOCYTOSIS 3+; PLATELET CLUMPS PRESENT; PLATELET COUNT 232 10^3/uL (150-450); POIKILOCYTOSIS SLIGHT; SCHISTOCYTES SLIGHT; TEAR DROP CELLS SLIGHT; TOXIC GRANULATION SLIGHT
[2019-04-15 14:47] LABS: PLATELET COMMENT ADEQUATE
[2019-04-15] MEDS: MAGNESIUM SULFATE/D5W 1 GM/100 ML RTUPB IV SCH ×2 (15:27→16:19)
[2019-04-15 18:09] VITALS: BP 121/78
--- NOTE | 2019-04-16 22:54 | EKG REPORT ---
SEVERITY:- OTHERWISE NORMAL ECG - SINUS TACHYCARDIA : Confirmed by: Jian Agee MD 16-Apr-2019 22:53:51
== END 2019-04-15 18:12 | disposition home or self-care (01) ==
LOC: ER 12:45
DX: R00.2 Palpitations (principal); F41.9 Anxiety disorder, unspecified; R11.0 Nausea; R06.02 Shortness of breath; E11.9 Type 2 diabetes mellitus without complications; Z79.4 Long term (current) use of insulin; I10 Essential (primary) hypertension; F17.200 Nicotine dependence, unspecified, uncomplicated
CPT/HCPCS: 93005; 36591; 99285; 96361; 96375; 96365; 96366; 36415; 82962; 82550; 83690; 83735; 85025; 80053; 84484; 71046; 93010; J3475; J2405; J7030; J1642

== ENCOUNTER 2019-05-13 13:08 | Emergency (ER) | payer MEDICAID ==
[2019-05-13] MEDS ORDERED: NORMAL SALINE 1000 ML 1,000 ML IV ONE (13:28)
[2019-05-13] MEDS ORDERED: ONDANSETRON HCL INJ/PF 4 MG/2 ML SDV IV ONE (13:29)
[2019-05-13] MEDS ORDERED: MORPHINE SULFATE 10 MG/ML INJ IV ONE ×2 (13:29→16:04)
--- NOTE | 2019-05-13 13:31 | ER Document Report ---
ED Medical Screen (RME) - General Chief Complaint: Abdominal Pain Stated Complaint: ABDOMINAL PAIN Time Seen by Provider: 05/13/19 13:27 Primary Care Provider: BRI STILES MD [Primary Care Provider] - Follow up as needed Mode of Arrival: Wheelchair Information source: Patient Notes: 48-year-old female presents to ED for complaint of right upper and lower abdom inal pain. She states she is also having nausea vomiting and dizziness. She states the pain is the same as she first found that she had lymphoma. She states that she was told a month ago that she was in remission she is still having pain. She states the last time she was here she had the same pain and they gave her morphine and Zofran which helped. I have greeted and performed a rapid initial assessment of this patient. A comprehensive ED assessment and evaluation of the patient, analysis of test results and completion of medical decision making process will be conducted by an additional ED providers. Dictation of this chart was performed using voice recognition software; therefore, there may be some unintended grammatical errors. TRAVEL OUTSIDE OF THE [place] IN LAST 30 DAYS: No - Related Data Allergies/Adverse Reactions: ketorolac tromethamine [From Toradol] Allergy (Verified 04/15/19 12:49) tramadol [Tramadol] Allergy (Verified 04/15/19 12:49) Past Medical History - Past Medical History Cardiac Medical History: Reports: Hx Hypercholesterolemia, Hx Hypertension Pulmonary Medical History: Reports: Hx COPD Comment Only: Hx Asthma - pt denies Endocrine Medical History: Reports: Hx Diabetes Mellitus Type 1, Hx Diabetes Mellitus Type 2 Renal/ Medical History: Denies: Hx Peritoneal Dialysis Malignancy Medical History: Reports: Hx Lymphoma - Non-Hodgkin's Psychiatric Medical History: Reports: Hx Anxiety, Hx Depression Past Surgical History: Reports: Hx Appendectomy, Hx Cholecystectomy, Hx Gynecologic Surgery - x14 D&C - Immunizations Immunizations up to date: No Hx Diphtheria, Pertussis, Tetanus Vaccination: Yes Physical Exam - Vital signs Vitals: Temp Pulse Resp BP Pulse Ox 98.3 F 96 14 128/71 H 98 05/13/19 13:20 05/13/19 13:20 05/13/19 13:20 05/13/19 13:20 05/13/19 13:20 Course - Vital Signs Vital signs: Temp Pulse Resp BP Pulse Ox 98.3 F 96 14 128/71 H 98 05/13/19 13:20 05/13/19 13:20 05/13/19 13:20 05/13/19 13:20 05/13/19 13:20 Doctor's Discharge - Discharge Referrals: BRI STILES MD [Primary Care Provider] - Follow up as needed
[2019-05-13 14:19] LABS: ABSOLUTE EOSINOPHILS # (AUTO) 0.1 10^3/uL (0.0-0.6); ABSOLUTE LYMPHOCYTES (AUTO) 2.1 10^3/uL (0.5-4.7); ABSOLUTE MONOCYTES (AUTO) 0.9 10^3/uL (0.1-1.4); ABSOLUTE NEUT (AUTO) 9.2 10^3/uL (1.7-8.2); BASOPHILS % (AUTO) 0.2 % (0-2); HEMATOCRIT 37.1 % (36.0-47.0); HEMOGLOBIN 12.5 g/dL (12.0-15.5); LYMPHOCYTES % (AUTO) 16.7 % (13-45); MEAN CORPUSCULAR HEMOGLOBIN 34.2 pg (27.0-33.4); MEAN CORPUSCULAR HGB CONC 33.7 g/dL (32.0-36.0); MEAN CORPUSCULAR VOLUME 102 fl (80-97); MONOCYTES % (AUTO) 7.4 % (3-13); PLATELET COUNT 225 10^3/uL (150-450); RED BLOOD COUNT 3.65 10^6/uL (3.72-5.28); RED CELL DISTRIBUTION WIDTH 17.5 % (11.5-14.0); SEGMENTED NEUTROPHILS % (AUTO) 74.7 % (42-78); TOTAL CELLS COUNTED % (AUTO) 100 %; WHITE BLOOD COUNT 12.3 10^3/uL (4.0-10.5)
[2019-05-13 14:29] LABS: ALANINE AMINOTRANSFERASE 17 U/L (9-52); ALBUMIN 3.9 g/dL (3.5-5.0); ALKALINE PHOSPHATASE 88 U/L (38-126); ANION GAP 9 (5-19); ASPARTATE AMINO TRANSFERASE 16 U/L (14-36); BILIRUBIN,DIRECT 0.3 mg/dL (0.0-0.4); BILIRUBIN,TOTAL 0.4 mg/dL (0.2-1.3); BLOOD UREA NITROGEN 8 mg/dL (7-20); CALCIUM 9.3 mg/dL (8.4-10.2); CARBON DIOXIDE 26 mmol/L (22-30); CHLORIDE 102 mmol/L (98-107); GLUCOSE 71 mg/dL (75-110); SODIUM 137.1 mmol/L (137-145); TOTAL PROTEIN 6.5 g/dL (6.3-8.2)
[2019-05-13] MEDS ORDERED: RINGERS SOLUTION,LACTATED 1,000 ML IV ONE (14:38)
[2019-05-13] MEDS ORDERED: HYDROMORPHONE HCL INJ/PF 2 MG/ML AMPULE IV ONE (14:38)
--- NOTE | 2019-05-13 14:51 | ER Document Report ---
ED General - General Chief Complaint: Abdominal Pain Stated Complaint: ABDOMINAL PAIN Time Seen by Provider: 05/13/19 13:27 Primary Care Provider: BRI STILES MD [Primary Care Provider] - Follow up tomorrow Mode of Arrival: Wheelchair Information source: Patient, Relative, Dr. Office, [facility] Records Notes: 48-year-old female with a history of non-Hodgkin's lymphoma (in remission since March 2019), type 2 diabetes (insulin-dependent), hypertension, hyperlipidemia presents from her oncologist office Dr. Acevedo with complaint of right lower and right upper quadrant abdominal pain that started this morning. Patient describes the pain as constant, stabbing and without radiation. She denies any aggravating or alleviating factors. Patient denies fever, chills, chest pain, shortness of breath, nausea, vomiting, diarrhea, dysuria. Patient's last chemo treatment was in March 2019. She states that the plan currently is for Retoxan been every 2 months. TRAVEL OUTSIDE OF THE [place] IN LAST 30 DAYS: No - HPI Onset: This morning Onset/Duration: Gradual Quality of pain: Stabbing Severity: Moderate Associated symptoms: denies: Chest pain, Diarrhea, Fever, Headache, Hurts to breath, Nausea, Vomiting, Shortness of breath, Weakness Exacerbated by: Denies Relieved by: Denies Similar symptoms previously: Yes Recently seen / treated by doctor: Yes - Dr. Acevedo this morning - Related Data Allergies/Adverse Reactions: ketorolac tromethamine [From Toradol] Allergy (Verified 04/15/19 12:49) tramadol [Tramadol] Allergy (Verified 04/15/19 12:49) Past Medical History - General Information source: Patient - Social History Smoking Status: Current Every Day Smoker Cigarette use (# per day): Yes - 10 Chew tobacco use (# tins/day): No Smoking Education Provided: Yes - Smoking cessation counseling was provided for 4 minutes at the bedside Frequency of alcohol use: None Drug Abuse: None Lives with: Family, Spouse/Significant other Family History: Reviewed & Not Pertinent Patient has suicidal ideation: No Patient has homicidal ideation: No - Past Medical History Cardiac Medical History: Reports: Hx Hypercholesterolemia, Hx Hypertension Pulmonary Medical History: Reports: Hx COPD Comment Only: Hx Asthma - pt denies Endocrine Medical History: Reports: Hx Diabetes Mellitus Type 1, Hx Diabetes Mellitus Type 2 Renal/ Medical History: Denies: Hx Peritoneal Dialysis Malignancy Medical History: Reports: Hx Lymphoma - Non-Hodgkin's Psychiatric Medical History: Reports: Hx Anxiety, Hx Depression Past Surgical History: Reports: Hx Appendectomy, Hx Cholecystectomy, Hx Gynecologic Surgery - x14 D&C - Immunizations Immunizations up to date: No Hx Diphtheria, Pertussis, Tetanus Vaccination: Yes Review of Systems - Review of Systems Notes: REVIEW OF SYSTEMS: CONSTITUTIONAL : Denies fever, chills, or sweats. Denies recent illness. Denies weight loss, recent hospitalizations. EENT: Denies visual changes, eye pain. Denies sore throat, oral lesions, difficulty swallowing. CARDIOVASCULAR: Denies chest pain. Denies palpitations. Denies lower extremity edema. RESPIRATORY: Denies cough. Denies shortness of breath, wheezing. GASTROINTESTINAL: Denies abdominal distention. Denies nausea, vomiting, or diarrhea. Denies blood in vomitus, stools, or per rectum. Denies black, tarry stools. Denies constipation. GENITOURINARY: Denies difficulty urinating, painful urination, frequency, blood in urine, or vaginal discharge. MUSCULOSKELETAL: Denies back or neck pain or stiffness. Denies joint pain or swelling. SKIN: Denies rash, lesions or sores. HEMATOLOGIC : Denies easy bruising or bleeding. LYMPHATIC: Denies swollen glands. NEUROLOGICAL: Denies confusion or altered mental status. Denies loss of consciousness. Denies dizziness or lightheadedness. Denies headache. Denies weakness or paralysis. Denies problems difficulty with ambulation, slurred speech. Denies sensory loss, numbness, or tingling. Denies seizures. PSYCHIATRIC: Denies anxiety or stress. Denies depression, suicidal ideation, or homicidal ideation. Denies visual or auditory hallucinations. Physical Exam - Vital signs Vitals: Temp Pulse Resp BP Pulse Ox 98.3 F 96 14 128/71 H 98 05/13/19 13:20 05/13/19 13:20 05/13/19 13:20 05/13/19 13:20 05/13/19 13:20 - Notes Notes: PHYSICAL EXAMINATION: GENERAL: Well-appearing, well-nourished and in no acute distress. HEAD: Atraumatic, normocephalic. Alopecia EYES: Pupils equal round and reactive to light, extraocular movements intact, conjunctiva are normal. ENT: Nares patent, oropharynx clear without exudates. Dry mucous membranes. Poor dentition NECK: Normal range of motion, supple without lymphadenopathy LUNGS: Breath sounds clear to auscultation bilaterally and equal. No wheezes rales or rhonchi. HEART: Regular rate and rhythm without murmurs ABDOMEN: Tenderness with palpation to the right middle quadrant. No guarding, no rebound. No masses appreciated. Female : deferred Musculoskeletal: Normal range of motion, no pitting or edema. No cyanosis. NEUROLOGICAL: Cranial nerves grossly intact. Normal speech, normal gait. Normal sensory, motor exams PSYCH: Normal mood, normal affect. SKIN: Warm, Dry, normal turgor, no rashes or lesions noted. Course - Re-evaluation Re-evalutation: Laboratory 05/13/19 05/13/19 05/13/19 14:00 14:00 15:14 WBC 12.3 H RBC 3.65 L Hgb 12.5 Hct 37.1 MCV 102 H MCH 34.2 H MCHC 33.7 RDW 17.5 H Plt Count 225 Seg Neutrophils % 74.7 Lymphocytes % 16.7 Monocytes % 7.4 Eosinophils % 1.0 Basophils % 0.2 Absolute Neutrophils 9.2 H Absolute Lymphocytes 2.1 Absolute Monocytes 0.9 Absolute Eosinophils 0.1 Absolute Basophils 0.0 Sodium 137.1 Potassium 4.0 Chloride 102 Carbon Dioxide 26 Anion Gap 9 BUN 8 Creatinine 0.42 L Est GFR ( Amer) > 60 Est GFR (Non-Af Amer) > 60 Glucose 71 L Calcium 9.3 Total Bilirubin 0.4 Direct Bilirubin 0.3 Neonat Total Bilirubin Not Reportable Neonat Direct Bilirubin Not Reportable Neonat Indirect Bili Not Reportable AST 16 ALT 17 Alkaline Phosphatase 88 Total Protein 6.5 Albumin 3.9 Lipase 52.0 Urine Color YELLOW Urine Appearance CLEAR Urine pH 6.0 Ur Specific [place] 1.014 Urine Protein NEGATIVE Urine Glucose (UA) NEGATIVE Urine Ketones NEGATIVE Urine Blood NEGATIVE Urine Nitrite NEGATIVE Urine Bilirubin NEGATIVE Urine Urobilinogen NEGATIVE Ur Leukocyte Esterase NEGATIVE Urine WBC (Auto) 2 Urine RBC (Auto) 0 Squamous Epi Cells Auto 1 Urine Ascorbic Acid NEGATIVE Temp Pulse Resp BP Pulse Ox 98.3 F 96 8 L 134/68 H 95 05/13/19 13:20 05/13/19 13:20 05/13/19 15:19 05/13/19 15:19 05/13/19 14:[address] 05/13/19 14:39 IMPRESSION: No evidence of recurrent lymphoma. No acute findings. Abdomen/Pelvis CT 05/13/19 14:46 IMPRESSION: No evidence of recurrent lymphoma. Stable, chronic changes. 05/13/19 14:50 48-year-old female with history of non-Hodgkin's lymphoma in remission presents with complaint of right lower and right upper quadrant abdominal pain that started today. Patient states that she was seen at her oncologist Dr. Acevedo's office this morning and was told to come to the emergency department for pain management. Patient does have an upcoming CAT scan of her chest and abdomen scheduled for Saturday but we will perform this here. Patient did receive morphine, Zofran and IV fluids. 05/13/19 16:03 CT reviewed and showed no evidence of recurrent lymphoma. Patient now stating that she feels dizzy but this is been ongoing for several months since she has seen her primary care physician for this. She describes the dizziness as the room spinning. It is worse with standing, quick head movements. 05/13/19 21:56 On reevaluation patient reports improvement of her pain. She is tolerating food, fluids. Recommend follow-up with oncologist, primary care physician. Patient was evaluated and treated as appropriate for the patient's presenting symptoms and complaint, with consideration of any critical or life threatening conditions that may be associated with their obtained history and exam as noted above. All results were discussed with patient and who is at the bedside. Patient provided the opportunity to ask questions, and express concerns. Patient was educated on treatments based on their presumed diagnosis as noted above. At this time we will discharge the patient with return precautions and follow-up recommendations. Verbal discharge instructions given a the bedside. Medication warnings reviewed. Patient is in agreement with this plan and has verbalized understanding of return precautions. After careful consideration I feel that that patient can be safely discharged from the emergency department, they were advised to followup with a primary care physician in 2-3 days. Dictation on this chart was performed using voice recognition software and may result in unintended grammatical, spelling, syntax or errors. - Vital Signs Vital signs: Temp Pulse Resp BP Pulse Ox 98.4 F 96 18 130/71 H 98 05/13/19 18:01 05/13/19 13:20 05/13/19 17:45 05/13/19 17:45 05/13/19 17:45 - Laboratory Result Diagrams: 05/13/19 14:00 05/13/19 14:00 Laboratory results interpreted by me: 05/13/19 05/13/19 14:00 14:00 WBC 12.3 H RBC 3.65 L MCV 102 H MCH 34.2 H RDW 17.5 H Absolute Neutrophils 9.2 H Creatinine 0.42 L Glucose 71 L - Diagnostic Test Radiology reviewed: Image reviewed, Reports reviewed Discharge - Discharge Clinical Impression: Dehydration, Dizziness Abdominal pain Qualifiers: Abdominal location: unspecified location Qualified Code(s): R10.9 - Unspecified abdominal pain Condition: Good Disposition: HOME, SELF-CARE Instructions: Abdominal Pain ([facility]), Dehydration ([facility]), Vertigo ([facility]) Additional Instructions: Follow up with your [id number] hours for further care or return to the ED IMMEDIATELY if symptoms worsen or you have any concerns. If you cannot afford to follow up with your primary care physician a list of low cost clinics have been provided at the end of your discharge papers as well. Most prescribed medications have multiple side effects. The safest thing to do is when filling your prescription speak to your pharmacist regarding possible interactions with your normal home medications and over the counter medications such as Ibuprofen, Tylenol, Benadryl. If you experience any symptoms that cause you discomfort or concern you should discontinue the medication immediately and return to the emergency room or call your primary care physician. Prescriptions: Hydrocodone/Acetaminophen [[place] 5-325 mg Tablet] 1 tab PO Q6H #12 tablet Meclizine HCl 25 mg PO Q8H #10 tab.chew Ondansetron [Zofran Odt 4 mg Tablet] 1 - 2 tab PO Q4H PRN #15 tab.rapdis PRN Reason: For Nausea/Vomiting Forms: Elevated Blood Pressure Referrals: BRI STILES MD [Primary Care Provider] - Follow up tomorrow
[2019-05-13 15:26] LABS: APPEARANCE,URINE CLEAR; BILIRUBIN,URINE NEGATIVE (NEGATIVE); COLOR,URINE YELLOW; GLUCOSE, URINE NEGATIVE (NEGATIVE); KETONES,URINE NEGATIVE (NEGATIVE); LEUKOCYTE ESTERASE,URINE NEGATIVE (NEGATIVE); NITRITE,URINE NEGATIVE (NEGATIVE); PROTEIN,URINE NEGATIVE (NEGATIVE); URINE SPECIFIC GRAVITY 1.014; UROBILINOGEN,URINE NEGATIVE mg/dL (<2.0)
--- NOTE | 2019-05-13 15:29 | RADIOLOGY REPORT (SQ) ---
EXAM DESCRIPTION: CT CHEST WITH COMPLETED DATE/TIME: 05/13/2019 3:20 pm REASON FOR STUDY: abd pain h/o lymphoma COMPARISON: 04/09/2019 TECHNIQUE: CT scan of the chest performed using helical scanning technique with dynamic intravenous contrast injection. Images reviewed with lung, soft tissue and bone windows. Reconstructed coronal and sagittal MPR and MIP images reviewed. All images stored on PACS. All CT scanners at this facility use dose modulation, iterative reconstruction, and/or weight based d osing when appropriate to reduce radiation dose to as low as reasonably achievable (ALARA). [facility]: Dose Right [facility]: CareDose [facility]: Dose Right [facility]: Teradose 4D [facility]: Hiveoo CONTRAST TYPE AND DOSE: contrast/concentration: Isovue 350.00 mg/ml; Total Contrast Delivered: 86.0 ml; Total Saline Delivered: 30.9 ml RENAL FUNCTION: GFR > 60. RADIATION DOSE: CT Rad equipment meets quality standard of care and radiation dose reduction techniq ues were employed. CTDIvol: 9.4 - 12.1 mGy. DLP: 1395 mGy-cm. . LIMITATIONS: None. FINDINGS: LUNGS AND PLEURA: No opacities, nodules, masses. No pneumothorax. No effusions. HILAR AND MEDIASTINAL STRUCTURES: No identified masses or abnormal nodes. HEART AND VASCULAR STRUCTURES: No aneurysm or dissection. No central pulmonary emboli. No pericardi al effusion. HARDWARE: None in the chest. UPPER ABDOMEN: See separate report of the CT of the abdomen. THYROID AND OTHER SOFT TISSUES: No masses. No adenopathy. BONES: No significant finding. OTHER: Left-sided port tip in the SVC. IMPRESSION: No evidence of recurrent lymphoma. No acute findings. TECHNICAL DOCUMENTATION: JOB ID: [id number] Quality ID # [id number]: Final reports with documentation of one or more dose reduction techniques (e.g., Au tomated exposure control, adjustment of the mA and/or kV according to patient size, use of iterative reconstruction technique) 2010 [employer]- All Rights Reserved Reading location - IP/workstation name: [email or web address]
--- NOTE | 2019-05-13 15:34 | RADIOLOGY REPORT (SQ) ---
EXAM DESCRIPTION: CT ABD/PELVIS WITH IV ONLY COMPLETED DATE/TIME: 05/13/2019 3:20 pm REASON FOR STUDY: abd pain h/o ;[id number] COMPARISON: 04/09/2019 TECHNIQUE: CT scan of the abdomen and pelvis performed using helical scanning technique with dynamic intravenous contrast injection. No oral contrast. Images reviewed with lung, soft tissue, and bone windows. Reconstructed coronal and sagittal MPR images reviewed. Delayed images for evaluation of the urinary system also acquired. All images stored on PACS. All CT scanners at this facility use dose modulation, iterative reconstruction, and/or weight based d osing when appropriate to reduce radiation dose to as low as reasonably achievable (ALARA). [facility]: Dose Right [facility]: CareDose [facility]: Dose Right [facility]: Teradose 4D [facility]: Gewara CONTRAST TYPE AND DOSE: See separate report of the same date. RENAL FUNCTION: See separate report of the same date. RADIATION DOSE: . LIMITATIONS: None. FINDINGS: LOWER CHEST: See separate report of the CT of the chest. LIVER: Low-density lesion in the central liver measuring just under 2 cm has been stable since June 02. No new lesions. SPLEEN: Old granulomatous disease. PANCREAS: No masses. No significant calcifications. No adjacent inflammation or peripancreatic fluid collections. Pancreatic duct not dilated. GALLBLADDER: Surgically absent. ADRENAL GLANDS: No significant masses or asymmetry. RIGHT KIDNEY AND URETER: No solid masses. No significant calcifications. No hydronephrosis or hyd roureter. LEFT KIDNEY AND URETER: No solid masses. No significant calcifications. No hydronephrosis or hydr oureter. AORTA AND VESSELS: No aneurysm. Diffuse atherosclerotic calcifications. RETROPERITONEUM: No retroperitoneal adenopathy, hemorrhage or masses. BOWEL AND PERITONEAL CAVITY: No masses or inflammatory changes. No free fluid or peritoneal masses. APPENDIX: Surgically absent. PELVIS: No mass. No free fluid. Normal bladder. ABDOMINAL WALL: No masses. No hernias. BONES: No significant or acute findings. OTHER: No other significant finding. IMPRESSION: No evidence of recurrent lymphoma. Stable, chronic changes. TECHNICAL DOCUMENTATION: JOB ID: [id number] Quality ID # [id number]: Final reports with documentation of one or more dose reduction techniques (e.g., Au tomated exposure control, adjustment of the mA and/or kV according to patient size, use of iterative reconstruction technique) 2010 [employer]- All Rights Reserved Reading location - IP/workstation name: [email or web address]
[2019-05-13] MEDS ORDERED: MECLIZINE HCL 25 MG TABLET PO ONE (16:04)
[2019-05-13 17:58] VITALS: BP 130/71
== END 2019-05-13 18:04 | disposition home or self-care (01) ==
LOC: ER 13:08
DX: R10.11 Right upper quadrant pain (principal); R10.31 Right lower quadrant pain; R10.819 Abdominal tenderness, unspecified site; E86.0 Dehydration; R42 Dizziness and giddiness; I10 Essential (primary) hypertension; J44.9 Chronic obstructive pulmonary disease, unspecified; E11.9 Type 2 diabetes mellitus without complications; F17.210 Nicotine dependence, cigarettes, uncomplicated; Z71.6 Tobacco abuse counseling; Z85.72 Personal history of non-Hodgkin lymphomas; Z92.21 Personal history of antineoplastic chemotherapy; Z88.8 Allergy status to other drugs, medicaments and biological substances; Z88.6 Allergy status to analgesic agent; Z90.49 Acquired absence of other specified parts of digestive tract
CPT/HCPCS: 36591; 96376; 99406; 99284; 96361; 96374; 96375; 36415; 83690; 85025; 80053; 81001; 71260; 74177; J2270; J1170; J2405; J7030; J7120; J1642

== ENCOUNTER 2019-05-16 12:22 | Emergency (ER) | payer MEDICAID ==
[2019-05-16] MEDS ORDERED: ONDANSETRON 4 MG TAB.RAPDIS PO ONE (12:37)
--- NOTE | 2019-05-16 12:39 | ER Document Report ---
ED Medical Screen (RME) - General Chief Complaint: Abdominal Pain Stated Complaint: DIZZINESS Time Seen by Provider: 05/16/19 12:33 Primary Care Provider: BRI STILES MD [Primary Care Provider] - Follow up as needed Mode of Arrival: Medic Information source: Patient Notes: Patient presents emergency department via EMS for chronic dizziness and chronic abdominal pain nausea.. Patient has history of cancer non-Hodgkin's. She reports she felt wobbly when she do went to the bathroom this morning called her provider Dr. Richter and he told her to go to the emergency department. She reports last bowel movement was yesterday and it was normal. Patient usually takes oxycodone for her pain but has not taken any today. Reports she is usually given morphine here. I have greeted and performed a rapid initial assessment of this patient. A comprehensive ED assessment and evaluation of the patient, analysis of test results and completion of the medical decision making process will be conducted by additional ED providers. Dictation of this chart was performed using voice recognition software; therefore, there may be some unintended grammatical errors. TRAVEL OUTSIDE OF THE [place] IN LAST 30 DAYS: No - Related Data Allergies/Adverse Reactions: ketorolac tromethamine [From Toradol] Allergy (Verified 05/16/19 12:23) tramadol [Tramadol] Allergy (Verified 05/16/19 12:23) Past Medical History - Social History Chew tobacco use (# tins/day): No Frequency of alcohol use: None Drug Abuse: None - Past Medical History Cardiac Medical History: Reports: Hx Hypercholesterolemia, Hx Hypertension Pulmonary Medical History: Reports: Hx COPD Comment Only: Hx Asthma - pt denies Endocrine Medical History: Reports: Hx Diabetes Mellitus Type 1, Hx Diabetes Mellitus Type 2 Renal/ Medical History: Denies: Hx Peritoneal Dialysis Malignancy Medical History: Reports: Hx Lymphoma - Non-Hodgkin's Psychiatric Medical History: Reports: Hx Anxiety, Hx Depression Past Surgical History: Reports: Hx Appendectomy, Hx Cholecystectomy, Hx Gynecologic Surgery - x14 D&C - Immunizations Immunizations up to date: No Hx Diphtheria, Pertussis, Tetanus Vaccination: Yes Physical Exam - Vital signs Vitals: Temp Pulse Resp BP Pulse Ox 98.2 F 113 H 16 116/67 97 05/16/19 12:23 05/16/19 12:23 05/16/19 12:23 05/16/19 12:23 05/16/19 12:23 Course - Vital Signs Vital signs: Temp Pulse Resp BP Pulse Ox 98.2 F 113 H 16 116/67 97 05/16/19 12:23 05/16/19 12:23 05/16/19 12:23 05/16/19 12:23 05/16/19 12:23 Doctor's Discharge - Discharge Referrals: BRI STILES MD [Primary Care Provider] - Follow up as needed
[2019-05-16] MEDS ORDERED: HYDROCODONE/ACETAMINOPHEN 5-325 MG TABLET PO ONE (12:55)
[2019-05-16 13:05] LABS: ABSOLUTE BASOPHILS # (AUTO) 0.1 10^3/uL (0.0-0.2); ABSOLUTE EOSINOPHILS # (AUTO) 0.1 10^3/uL (0.0-0.6); ABSOLUTE LYMPHOCYTES (AUTO) 1.8 10^3/uL (0.5-4.7); ABSOLUTE MONOCYTES (AUTO) 0.8 10^3/uL (0.1-1.4); ABSOLUTE NEUT (AUTO) 8.9 10^3/uL (1.7-8.2); BASOPHILS % (AUTO) 0.7 % (0-2); EOSINOPHILS % (AUTO) 1.2 % (0-6); HEMOGLOBIN 13.5 g/dL (12.0-15.5); LYMPHOCYTES % (AUTO) 15.3 % (13-45); MEAN CORPUSCULAR HEMOGLOBIN 34.6 pg (27.0-33.4); MEAN CORPUSCULAR HGB CONC 33.7 g/dL (32.0-36.0); MEAN CORPUSCULAR VOLUME 103 fl (80-97); MONOCYTES % (AUTO) 6.6 % (3-13); PLATELET COUNT 249 10^3/uL (150-450); RED BLOOD COUNT 3.89 10^6/uL (3.72-5.28); RED CELL DISTRIBUTION WIDTH 16.9 % (11.5-14.0); SEGMENTED NEUTROPHILS % (AUTO) 76.2 % (42-78); TOTAL CELLS COUNTED % (AUTO) 100 %; WHITE BLOOD COUNT 11.7 10^3/uL (4.0-10.5)
[2019-05-16 13:22] LABS: ALANINE AMINOTRANSFERASE 18 U/L (9-52); ALBUMIN 4.5 g/dL (3.5-5.0); ALKALINE PHOSPHATASE 98 U/L (38-126); AMYLASE 60 U/L (30-110); ANION GAP 14 (5-19); ASPARTATE AMINO TRANSFERASE 15 U/L (14-36); BILIRUBIN,DIRECT 0.3 mg/dL (0.0-0.4); BILIRUBIN,TOTAL 0.4 mg/dL (0.2-1.3); BLOOD UREA NITROGEN 12 mg/dL (7-20); CALCIUM 9.5 mg/dL (8.4-10.2); CARBON DIOXIDE 24 mmol/L (22-30); CHLORIDE 94 mmol/L (98-107); GLUCOSE 266 mg/dL (75-110); LIPASE 41.8 U/L (23-300); POTASSIUM 4.4 mmol/L (3.6-5.0); SODIUM 131.9 mmol/L (137-145); TOTAL PROTEIN 7.3 g/dL (6.3-8.2)
[2019-05-16] MEDS ORDERED: MORPHINE SULFATE 10 MG/ML INJ IV ONE ×2 (15:51→16:16)
--- NOTE | 2019-05-16 16:05 | ER Document Report ---
ED GI/ - General Chief Complaint: Abdominal Pain Stated Complaint: DIZZINESS Time Seen by Provider: 05/16/19 12:33 Primary Care Provider: BRI STILES MD [Primary Care Provider] - Follow up as needed Mode of Arrival: Ambulatory Information source: Patient Notes: 48-year-old female presented to ED for complaint of chronic dizziness and chronic abdominal pain and nausea. She states she has a history of non- Hodgkin's lymphoma but is in remission as of April of this year. She is on Rituxan every 2 months for the non-Hodgkin's lymphoma. She states she does see Dr. Acevedo for her treatment. Patient states she is frequently dizzy she does have a history of diabetes and does not maintain her diet is she is supposed to. She states she did have a pop tart this morning before coming to the emergency room. She states that Dr. Richter is her primary care doctor and when she had pain he told her to come to the emergency room. She states she had a bowel movement yesterday and it was normal and she is not having any constipation. She states she does take oxycodone for pain but she needs something more than that today. Patient is alert oriented respirations regular and unlabored speaking in full sentences walks with a even steady gait. TRAVEL OUTSIDE OF THE [place] IN LAST 30 DAYS: No - HPI Patient complains to provider of: Abdominal pain, Other - Dizziness chronic nausea chronic Onset: Other - Chronic Timing/Duration: Intermittent Quality of pain: Sharp Severity at maximum: Severe Severity in ED: Severe Pain Level: 5 Location: Other - Right side upper and lower Vaginal bleeding (Compared to normal period): None Associated symptoms: Dizzy - Chronic chronic, Nausea Exacerbated by: Denies Relieved by: Denies Similar symptoms previously: Yes Recently seen / treated by doctor: Yes - Related Data Allergies/Adverse Reactions: ketorolac tromethamine [From Toradol] Allergy (Verified 05/16/19 12:23) tramadol [Tramadol] Allergy (Verified 05/16/19 12:23) Past Medical History - General Information source: Patient - Social History Smoking Status: Current Every Day Smoker Cigarette use (# per day): Yes Chew tobacco use (# tins/day): No Smoking Education Provided: Yes - 4 minutes Frequency of alcohol use: None Drug Abuse: None Lives with: Family Family History: Reviewed & Not Pertinent Patient has suicidal ideation: No Patient has homicidal ideation: No - Past Medical History Cardiac Medical History: Reports: Hx Hypercholesterolemia, Hx Hypertension Pulmonary Medical History: Reports: Hx COPD Comment Only: Hx Asthma - pt denies EENT Medical History: Reports: None Neurological Medical History: Reports: None Endocrine Medical History: Reports: Hx Diabetes Mellitus Type 2 Renal/ Medical History: Reports: None Malignancy Medical History: Reports: Hx Lymphoma - Non-Hodgkin's GI Medical History: Reports: Other - Chronic pain Musculoskeletal Medical History: Reports Hx Arthritis, Reports Hx Musculoskeletal Trauma Skin Medical History: Reports None Psychiatric Medical History: Reports: Hx Anxiety, Hx Depression Traumatic Medical History: Reports: None Infectious Medical History: Reports: None Past Surgical History: Reports: Hx Appendectomy, Hx Cholecystectomy, Hx Gynecologic Surgery - x14 D&C - Immunizations Immunizations up to date: No Hx Diphtheria, Pertussis, Tetanus Vaccination: Yes Review of Systems - Review of Systems Constitutional: No symptoms reported EENT: No symptoms reported Cardiovascular: Dizziness - Chronic Respiratory: No symptoms reported Gastrointestinal: Abdominal pain - Entire right side, Nausea. denies: Diarrhea, Vomiting Genitourinary: No symptoms reported Female Genitourinary: No symptoms reported Musculoskeletal: No symptoms reported Skin: No symptoms reported Hematologic/Lymphatic: No symptoms reported Neurological/Psychological: No symptoms reported -: Yes All other systems reviewed and negative Physical Exam - Vital signs Vitals: Temp Pulse Resp BP Pulse Ox 98.2 F 113 H 16 116/67 97 05/16/19 12:23 05/16/19 12:23 05/16/19 12:23 05/16/19 12:23 05/16/19 12:23 Interpretation: Normal - General General appearance: Appears well, Alert - HEENT Head: Normocephalic, Atraumatic Eyes: Normal Pupils: PERRL - Respiratory Respiratory status: No respiratory distress Chest status: Nontender Breath sounds: Normal Chest palpation: Normal - Cardiovascular Rhythm: Regular Heart sounds: Normal auscultation Murmur: No - Abdominal Inspection: Normal Distension: No distension Bowel sounds: Normal Tenderness: Tender - Right side not new Organomegaly: No organomegaly - Back Back: Normal, Nontender - Extremities General upper extremity: Normal inspection, Nontender, Normal color, Normal ROM, Normal temperature General lower extremity: Normal inspection, Nontender, Normal color, Normal ROM, Normal temperature, Normal weight bearing. 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 Patient will be discharged home. She has been given instructions on diet control for her diabetes. She was medicated for her discomfort in her abdomen. She verbalized understanding agreement with treatment plan. - Vital Signs Vital signs: Temp Pulse Resp BP Pulse Ox 98.0 F 81 18 108/64 97 05/16/19 17:04 05/16/19 17:04 05/16/19 17:04 05/16/19 17:04 05/16/19 17:04 - Laboratory Result Diagrams: 05/16/19 12:54 05/16/19 12:54 Laboratory results interpreted by me: 05/16/19 05/16/19 05/16/19 12:54 12:54 16:03 WBC 11.7 H MCV 103 H MCH 34.6 H RDW 16.9 H Absolute Neutrophils 8.9 H Sodium 131.9 L Chloride 94 L Creatinine 0.48 L Glucose 266 H Urine Glucose (UA) 150 H Urine Ketones TRACE H Ur Leukocyte Esterase TRACE H Discharge - Discharge Clinical Impression: Dizziness Abdominal pain Qualifiers: Abdominal location: generalized Qualified Code(s): R10.84 - Generalized abdominal pain Condition: Stable Disposition: HOME, SELF-CARE Additional Instructions: DIZZINESS: Under normal circumstances, your sense of balance is controlled by a number of signals that your brain receives from several locations: Eyes. No matter what your position, visual signals help you determine where your body is in space and how it's moving. Sensory nerves. These are in your skin, muscles and joints. Sensory nerves send messages to your brain about body movements and positions. Inner ear. The organ of balance in your inner ear is the vestibular labyrinth. It includes loop-shaped structures (semicircular canals) that contain fluid and fine, hair-like sensors that monitor the rotation of your head. Near the semicircular canals are the utricle and saccule, which contain tiny particles called otoconia ([id number]). These particles are attached to sensors that help detect gravity and [id number]-wmo-nopaf motion. Good balance depends on at least two of these three sensory systems working well. For instance, closing your eyes while washing your hair in the shower doesn't mean you'll lose your balance. Signals from your inner ear and sensory nerves help keep you upright. However, if your central nervous system can't process signals from all of these locations, if the messages are contradictory, or if the sensory systems aren't functioning properly, you may experience loss of balance. Dizziness may have a number of potential causes. These may include: Vertigo Vertigo - the false sense of motion or spinning - is the most common symptom of dizziness. Sitting up or moving around may make it worse. Sometimes vertigo is severe enough to cause nausea and vomiting. Vertigo usually results from a problem with the nerves and the structures of the balance mechanism in your inner ear (vestibular system), which sense movement and changes in your head position. Abnormal rhythmic eye movements (nystagmus) almost always accompany vertigo. Causes of vertigo may include: Benign paroxysmal positional vertigo (BPPV). BPPV involves intense, brief episodes of vertigo associated with a change in the position of your head, often when you turn over in bed or sit up in the morning. It occurs when normal calcium carbonate crystals (otoconia) break loose and fall into the wrong part of the canals in your inner ear. When these particles shift, they stimulate sensors in your ear, producing an episode of vertigo. Doctors don't know what causes BPPV, but it may be a natural result of aging. Trauma to your head also may lead to BPPV. Inflammation in the inner ear. Signs and symptoms of inflammation of the inner ear (acute vestibular neuronitis or labyrinthitis) include sudden, intense vertigo that may persist for several days, with nausea and vomiting. It can be incapacitating, requiring bed rest to minimize the signs and symptoms. Fortunately, vestibular neuronitis generally subsides and clears up on its own. Recovery time may be shorter with vestibular rehabilitation exercises. Although the cause of this condition is unknown, it may be a viral infection. Meniere's disease. This disease involves the excessive buildup of fluid in your inner ear. It may affect adults at any age and is characterized by sudden episodes of vertigo lasting 30 minutes to an hour or longer. Other signs and symptoms include the feeling of fullness in your ear, buzzing or ringing in your ear (tinnitus), and fluctuating hearing loss. The cause of Meniere's disease is unknown. Vestibular migraine. People who experience a vestibular migraine are very sensitive to motion. Dizziness and vertigo caused by a vestibular migraine may be triggered by turning your head quickly, being in a crowded or confusing place, driving or riding in a vehicle, or even watching movement on TV. A vestibular migraine may cause feelings of imbalance or unsteadiness, hearing loss, "muffled" hearing, or ringing in your ears (tinnitus). For most people with a vestibular migraine, vertigo doesn't necessarily happen at the same time as the headache. Instead, typical migraine triggers may lead to vertigo without an actual migraine. Attacks of migrainous vertigo can last from a few minutes to several days. Acoustic neuroma. An acoustic neuroma (schwannoma) is a noncancerous (benign) growth on the acoustic nerve, which connects the inner ear to your brain. Signs and symptoms of an acoustic neuroma may include dizziness, loss of balance, hearing loss and tinnitus. Rapid changes in motion. Riding on roller coasters or in boats, cars or even airplanes may on occasion make you dizzy. Other causes. Rarely, vertigo can be a symptom of a more serious neurological problem such as a stroke, brain hemorrhage or multiple sclerosis. Feeling of faintness (presyncope) "Presyncope" is the medical term for feeling faint and lightheaded without losing consciousness. Sometimes nausea, pale skin and a sense of dizziness accompany a feeling of faintness. Causes of presyncope include: Drop in blood pressure (orthostatic hypotension). A dramatic drop in your systolic blood pressure - the higher number in your blood pressure reading - may result in lightheadedness or a feeling of faintness. It can occur after sitting up or standing too quickly. Inadequate output of blood from the heart. Conditions such as partially blocked arteries (atherosclerosis), disease of the heart muscle (cardiomyopathy), abnormal heart rhythm (arrhythmia) or a decrease in blood vo lume may cause inadequate blood flow from your heart. Loss of balance (disequilibrium) Disequilibrium is the loss of balance or the feeling of unsteadiness when you walk. Causes may include: Inner ear (vestibular) problems. Abnormalities with your inner ear can cause you to feel like you are floating, have a heavy head or are unsteady in the dark. Sensory disorders. Failing vision and nerve damage in your legs (peripheral neuropathy) are common in older adultsand may result in difficulty maintaining your balance. Joint and muscle problems. Muscle weakness and osteoarthritis - the type of arthritis that involves wear and tear of your joints - can contribute to loss of balance when it involves your weight-bearing joints. Medications. Loss of balance can be a side effect of certain medications, such as anti-seizure drugs, sedatives and tranquilizers. Lightheadedness and other kinds of dizziness Feeling lightheaded is the feeling of being "spaced out" or having the sensation of spinning inside your head. It can also give you the sensation that if your lightheadedness worsens, you might lose consciousness. Causes may include: Inner ear disorders. These abnormalities of your inner ear can lead to illusions of motion and make you feel like you're floating. Anxiety disorders. Certain anxiety disorders, such as panic attacks and a fear of leaving home or being in large, open spaces (agoraphobia), may cause lightheadedness. Hyperventilation. Abnormally rapid breathing that often accompanies anxiety disorders may make you feel lightheaded. ABDOMINAL PAIN: There are many causes of abdominal pain. Pain can mean a serious problem requiring surgery (such as appendicitis). It can also be an innocent problem that goes away on its own (such as a viral infection). Often, time must pass to determine the cause of pain. The physician does not feel that hospitalization is necessary, at present. Things may change within the next 24 hours. Call the doctor or come back for re- examination if any problems occur, such as: (1) Pain that becomes more severe, steady, or becomes concentrated in one specific area. Also, pain that is more severe with movement or coughing. (2) Vomiting that persists or becomes more frequent. (3) Blood in the vomitus, urine, or bowel movements. Blood in the stool may have a tarry or black appearance. (4) Shaking chills or fever greater than 100 degrees F. (5) The abdomen becomes more distended or swollen. (6) Bowel movements cease. (7) Failure to improve as expected. PAIN MEDICATION INJECTION: You have received an injection of a pain medication. You should experience significant pain relief within 45 minutes. This drug is a narcotic -- it will impair your judgement, slow your reaction time and make you sleepy (as well as relieve your pain). Narcotics also can cause nausea. You should not drive, work with machinery, or perform any task requiring mental alertness until all effects of the medication are gone -- six to eight hours. Do not take any alcohol, or sedatives, and do not take any other medication without checking with your physician. FOLLOW-UP CARE: If you have been referred to a physician for follow-up care, call the physicians office for an appointment as you were instructed or within the next two days. If you experience worsening or a significant change in your symptoms, notify the physician immediately or return to the Emergency Department at any time for re-evaluation. Discussed your lab results with you and given you a written report of your lab results please take these with you to your primary doctor appointment this week and discuss your sugar levels and your sodium and chloride levels with your primary care doctor. Please add a little salt to your food and do not eat or drink any free water for the next couple days. Please decrease your sugar intake to includes pop tarts. Referrals: BRI STILES MD [Primary Care Provider] - Follow up as needed
[2019-05-16 16:28] LABS: APPEARANCE,URINE SLIGHTLY-CLOUDY; BILIRUBIN,URINE NEGATIVE (NEGATIVE); COLOR,URINE YELLOW; GLUCOSE, URINE 150 mg/dL (NEGATIVE); KETONES,URINE TRACE mg/dL (NEGATIVE); LEUKOCYTE ESTERASE,URINE TRACE (NEGATIVE); NITRITE,URINE NEGATIVE (NEGATIVE); PROTEIN,URINE NEGATIVE (NEGATIVE); URINE SPECIFIC GRAVITY 1.021; UROBILINOGEN,URINE NEGATIVE mg/dL (<2.0)
[2019-05-16 17:05] VITALS: BP 108/64
== END 2019-05-16 17:08 | disposition home or self-care (01) ==
LOC: ER 12:22
DX: R10.84 Generalized abdominal pain (principal); R42 Dizziness and giddiness; R11.0 Nausea; F17.200 Nicotine dependence, unspecified, uncomplicated; I10 Essential (primary) hypertension; J44.9 Chronic obstructive pulmonary disease, unspecified; E11.9 Type 2 diabetes mellitus without complications
CPT/HCPCS: 99406; 99284; 96374; 36415; 82150; 83690; 85025; 80053; 81001; S0119; J2270

== ENCOUNTER 2019-05-19 12:11 | Emergency (ER) | payer MEDICAID ==
[2019-05-19] MEDS ORDERED: MECLIZINE HCL 25 MG TABLET PO ONE (12:30)
[2019-05-19] MEDS ORDERED: NORMAL SALINE 1000 ML 1,000 ML IV ONE ×2 (12:30→14:12)
[2019-05-19] MEDS ORDERED: METOCLOPRAMIDE HCL INJ/PF 10 MG/2 ML SDV IV ONE (12:30)
--- NOTE | 2019-05-19 12:30 | ER Document Report ---
ED Medical Screen (RME) - General Chief Complaint: Vomiting Stated Complaint: VOMITING Time Seen by Provider: 05/19/19 12:27 Primary Care Provider: BRI STILES MD [Primary Care Provider] - Follow up as needed TRAVEL OUTSIDE OF THE [place] IN LAST 30 DAYS: No - HPI Notes: 05/19/19 12:27 Patient is a 48-year-old female with a history of non-Hodgkin's lymphoma (in remission since March 2019), type 2 diabetes (insulin-dependent), hypertension, hyperlipidemia who presents complaining of ongoing/chronic dizziness and right mid abdominal pain but now has some nausea and vomiting associated. She has been seen a couple other times recently for the same complaints minus the vomiting. She has had CT imaging a few days ago as well. Denies ESCOBAR, fever, neck pain, URI, CP, SOB, dysuria, back pain, or rash. I have treated and performed a rapid initial assessment of this patient. A comprehensive ED assessment and evaluation of the patient, analysis of test results and completion of medical decision making process will be conducted by additional ED providers. PHYSICAL EXAMINATION: GENERAL: Well-appearing, well-nourished and in no acute distress. A&Ox4. Answers questions appropriately. LUNGS: scant wheeze RLL. HEART: Regular rate and rhythm without murmurs, rubs, gallops. Extremities: No cyanosis, clubbing, or edema b/l. NEUROLOGICAL: Normal speech. Cranial nerves grossly intact. PSYCH: Normal mood, normal affect. - Related Data Allergies/Adverse Reactions: ketorolac tromethamine [From Toradol] Allergy (Verified 05/16/19 12:23) tramadol [Tramadol] Allergy (Verified 05/16/19 12:23) Past Medical History - Past Medical History Cardiac Medical History: Reports: Hx Hypercholesterolemia, Hx Hypertension Pulmonary Medical History: Reports: Hx COPD Comment Only: Hx Asthma - pt denies Endocrine Medical History: Reports: Hx Diabetes Mellitus Type 1, Hx Diabetes Mellitus Type 2 Renal/ Medical History: Denies: Hx Peritoneal Dialysis Malignancy Medical History: Reports: Hx Lymphoma - Non-Hodgkin's Musculoskeltal Medical History: Reports Hx Arthritis, Reports Hx Musculoskeletal Trauma Psychiatric Medical History: Reports: Hx Anxiety, Hx Depression Past Surgical History: Reports: Hx Appendectomy, Hx Cholecystectomy, Hx Gynecologic Surgery - x14 D&C - Immunizations Immunizations up to date: No Hx Diphtheria, Pertussis, Tetanus Vaccination: Yes Physical Exam - Vital signs Vitals: Temp Pulse Resp BP Pulse Ox 98.0 F 106 H 15 112/68 96 05/19/19 12:16 05/19/19 12:16 05/19/19 12:16 05/19/19 12:16 05/19/19 12:16 Course - Vital Signs Vital signs: Temp Pulse Resp BP Pulse Ox 98.0 F 106 H 15 112/68 96 05/19/19 12:16 05/19/19 12:16 05/19/19 12:16 05/19/19 12:16 05/19/19 12:16 Doctor's Discharge - Discharge Referrals: BRI STILES MD [Primary Care Provider] - Follow up as needed
[2019-05-19 12:53] LABS: ABSOLUTE BASOPHILS # (AUTO) 0.1 10^3/uL (0.0-0.2); ABSOLUTE EOSINOPHILS # (AUTO) 0.1 10^3/uL (0.0-0.6); ABSOLUTE LYMPHOCYTES (AUTO) 1.6 10^3/uL (0.5-4.7); ABSOLUTE MONOCYTES (AUTO) 0.9 10^3/uL (0.1-1.4); ABSOLUTE NEUT (AUTO) 9.5 10^3/uL (1.7-8.2); BASOPHILS % (AUTO) 0.9 % (0-2); EOSINOPHILS % (AUTO) 0.5 % (0-6); HEMATOCRIT 38.4 % (36.0-47.0); HEMOGLOBIN 13.1 g/dL (12.0-15.5); LYMPHOCYTES % (AUTO) 13.3 % (13-45); MEAN CORPUSCULAR HEMOGLOBIN 34.7 pg (27.0-33.4); MEAN CORPUSCULAR HGB CONC 34.1 g/dL (32.0-36.0); MEAN CORPUSCULAR VOLUME 102 fl (80-97); MONOCYTES % (AUTO) 7.7 % (3-13); PLATELET COUNT 249 10^3/uL (150-450); RED BLOOD COUNT 3.77 10^6/uL (3.72-5.28); RED CELL DISTRIBUTION WIDTH 16.6 % (11.5-14.0); SEGMENTED NEUTROPHILS % (AUTO) 77.6 % (42-78); TOTAL CELLS COUNTED % (AUTO) 100 %; WHITE BLOOD COUNT 12.2 10^3/uL (4.0-10.5)
[2019-05-19 12:59] LABS: APPEARANCE,URINE CLEAR; BILIRUBIN,URINE NEGATIVE (NEGATIVE); COLOR,URINE YELLOW; GLUCOSE, URINE NEGATIVE (NEGATIVE); KETONES,URINE NEGATIVE (NEGATIVE); LEUKOCYTE ESTERASE,URINE NEGATIVE (NEGATIVE); NITRITE,URINE NEGATIVE (NEGATIVE); PROTEIN,URINE NEGATIVE (NEGATIVE); URINE SPECIFIC GRAVITY 1.004; UROBILINOGEN,URINE NEGATIVE mg/dL (<2.0)
[2019-05-19 13:20] LABS: ALANINE AMINOTRANSFERASE 16 U/L (9-52); ALBUMIN 4.2 g/dL (3.5-5.0); ALKALINE PHOSPHATASE 90 U/L (38-126); ANION GAP 10 (5-19); ASPARTATE AMINO TRANSFERASE 15 U/L (14-36); BILIRUBIN,DIRECT 0.3 mg/dL (0.0-0.4); BILIRUBIN,TOTAL 0.3 mg/dL (0.2-1.3); BLOOD UREA NITROGEN 9 mg/dL (7-20); CALCIUM 9.8 mg/dL (8.4-10.2); CARBON DIOXIDE 27 mmol/L (22-30); CHLORIDE 97 mmol/L (98-107); GLUCOSE 167 mg/dL (75-110); LIPASE 24.6 U/L (23-300); POTASSIUM 4.6 mmol/L (3.6-5.0); SODIUM 133.8 mmol/L (137-145); TOTAL PROTEIN 7.1 g/dL (6.3-8.2)
[2019-05-19] MEDS ORDERED: MORPHINE SULFATE 10 MG/ML INJ IV ONE ×2 (14:06→16:10)
[2019-05-19] MEDS ORDERED: ONDANSETRON HCL INJ/PF 4 MG/2 ML SDV IV ONE (14:11)
--- NOTE | 2019-05-19 16:16 | ER Document Report ---
ED General - General Chief Complaint: Vomiting Stated Complaint: VOMITING Time Seen by Provider: 05/19/19 12:27 Primary Care Provider: BRI STILES MD [Primary Care Provider] - Follow up as needed TRAVEL OUTSIDE OF THE [place] IN LAST 30 DAYS: No - HPI Notes: 48-year-old female with history of non-Hodgkin's lymphoma in remission to the emergency department with complaints of chronic dizziness since she has finished chemo, chronic mid abdominal pain that has been ongoing since March with new onset nausea and vomiting today. Patient states that she was here last week for the same pain and had a CT scan which showed that her lymphoma was still in remission. She states that she has chronic pain and chronic dizziness since being in chemo but is not currently in pain management. Her primary care physician had been giving her 10 mg Percocet but that has not been working. She denies any fevers, chills, diarrhea, headache, numbness, tingling, focal neurological deficit, chest pain, shortness of breath. - Related Data Allergies/Adverse Reactions: ketorolac tromethamine [From Toradol] Allergy (Verified 05/16/19 12:23) tramadol [Tramadol] Allergy (Verified 05/16/19 12:23) Past Medical History - General Information source: Patient - Social History Smoking Status: Current Every Day Smoker Chew tobacco use (# tins/day): No Frequency of alcohol use: None Drug Abuse: None Family History: Reviewed & Not Pertinent Patient has suicidal ideation: No Patient has homicidal ideation: No - Past Medical History Cardiac Medical History: Reports: Hx Hypercholesterolemia, Hx Hypertension Pulmonary Medical History: Reports: Hx COPD Comment Only: Hx Asthma - pt denies Endocrine Medical History: Reports: Hx Diabetes Mellitus Type 1, Hx Diabetes Mellitus Type 2 Renal/ Medical History: Denies: Hx Peritoneal Dialysis Malignancy Medical History: Reports: Hx Lymphoma - Non-Hodgkin's Musculoskeletal Medical History: Reports Hx Arthritis, Reports Hx Musculoskeletal Trauma Psychiatric Medical History: Reports: Hx Anxiety, Hx Depression Past Surgical History: Reports: Hx Appendectomy, Hx Cholecystectomy, Hx Gynecologic Surgery - x14 D&C - Immunizations Immunizations up to date: No Hx Diphtheria, Pertussis, Tetanus Vaccination: Yes Review of Systems - Review of Systems Constitutional: Malaise. denies: Chills, Fever EENT: No symptoms reported Cardiovascular: Dizziness. denies: Chest pain, Palpitations, Syncope, Lightheaded Respiratory: denies: Cough, Short of breath Gastrointestinal: Abdominal pain, Nausea, Vomiting. denies: Diarrhea Genitourinary: denies: Frequency, Flank pain, Hematuria Skin: No symptoms reported Neurological/Psychological: denies: Weakness, Numbness -: Yes All other systems reviewed and negative Physical Exam - Vital signs Vitals: Temp Pulse Resp BP Pulse Ox 98.0 F 106 H 15 112/68 96 05/19/19 12:16 05/19/19 12:16 05/19/19 12:16 05/19/19 12:16 05/19/19 12:16 Interpretation: Tachycardic - General General appearance: Other - Chronically ill-appearing In distress: None - HEENT Head: Normocephalic, Atraumatic Eyes: Normal Pupils: PERRL - Respiratory Respiratory status: No respiratory distress Chest status: Nontender Breath sounds: Normal Chest palpation: Normal - Cardiovascular Rhythm: Regular Heart sounds: Normal auscultation Murmur: No - Abdominal Inspection: Normal Distension: No distension Bowel sounds: Normal Tenderness: Tender - Tenderness to palpation over the mid right abdomen, no flank pain. Guarding, no rebound, reports history of appendectomy and cholecystectomy. No: McBurney's point, Ornelas's sign - Back Back: Normal - Extremities General upper extremity: Normal inspection, Nontender, Normal color, Normal ROM, Normal temperature General lower extremity: Normal inspection, Nontender, Normal color, Normal ROM, Normal temperature, Normal weight bearing. No: Luiz's sign - Neurological Neuro grossly intact: Yes Cognition: Normal Orientation: AAOx4 Christian Coma Scale Eye Opening: Spontaneous [place] Coma Scale Verbal: Oriented [place] Coma Scale Motor: Obeys Commands Christian Coma Scale Total: 15 Speech: Normal Motor strength normal: LUE, RUE, LLE, RLE Sensory: Normal - Psychological Associated symptoms: Normal affect, Flat affect - Skin Skin Temperature: Warm Skin Moisture: Dry Skin Color: Normal Course - Vital Signs Vital signs: Temp Pulse Resp BP Pulse Ox 98.0 F 106 H 15 112/68 96 05/19/19 12:16 05/19/19 12:16 05/19/19 12:16 05/19/19 12:16 05/19/19 12:16 - Laboratory Result Diagrams: 05/19/19 12:39 05/19/19 12:39 Laboratory results interpreted by me: 05/19/19 05/19/19 05/19/19 12:22 12:39 12:39 WBC 12.2 H MCV 102 H MCH 34.7 H RDW 16.6 H Absolute Neutrophils 9.5 H Sodium 133.8 L Chloride 97 L Creatinine 0.41 L Glucose 167 H POC Glucose 185 H - Transfer of Care Notes: 05/19/19 17:21 Progress:rounded on patient. She is feeling better, she is drinking liborio idalmis, noted KUB with constipation. Plan to send her home on senna. We will have her follow with her primary care physician and oncologist. Trended labs today and they are reassuring. Do not think she needs repeat CT. Will discharge home. Patient agrees with the plan. Discharge - Discharge Clinical Impression: Chronic abdominal pain, Nausea & vomiting, Constipation, Dizziness Condition: Good Disposition: HOME, SELF-CARE Instructions: Abdominal Pain ([facility]), Vomiting ([facility]), Constipation ([facility]) Additional Instructions: FOLLOW UP WITH YOUR PRIMARY CARE WITHOUT FAIL. TAKE MEDICINES PRESCRIBED. FOLLOW UP WITH YOUR ONCOLOGIST. RETURN IF WORSE. Prescriptions: Sennosides [Senna] 8.6 mg PO DAILY #10 tablet Referrals: BRI STILES MD [Primary Care Provider] - Follow up in 3-5 days
--- NOTE | 2019-05-19 16:53 | RADIOLOGY REPORT (SQ) ---
EXAM DESCRIPTION: ABDOMEN 2 VIEWS COMPLETED DATE/TIME: 05/19/2019 4:40 pm REASON FOR STUDY: abd pain COMPARISON: 12/27/2018. NUMBER OF VIEWS: Two views. TECHNIQUE: Supine and erect/decubitus radiographic images of the abdomen acquired. LIMITATIONS: None. FINDINGS: FREE AIR: None. No abnormal gas collections. LUNG BASES: Clear. BOWEL GAS PATTERN: Moderate amount of fecal material throughout the colon consistent constipation. CALCIFICATIONS: Splenic granulomata. SOFT TISSUES: No gross mass or suggestion of organomegaly. HARDWARE: Surgical clips right upper quadrant from cholecystectomy. BONES: No acute fracture. No worrisome bone lesions. OTHER: No other significant finding. IMPRESSION: Constipation. . TECHNICAL DOCUMENTATION: JOB ID: [id number] [employer]- All Rights Reserved Reading location - IP/workstation name: [email or web address]
[2019-05-19 17:41] VITALS: BP 99/55
--- NOTE | 2019-05-20 07:47 | EKG REPORT ---
SEVERITY:- NORMAL ECG - SINUS RHYTHM : Confirmed by: Roya Reid MD 20-May-2019 07:47:03
== END 2019-05-19 17:41 | disposition home or self-care (01) ==
LOC: ER 12:11
DX: G89.29 Other chronic pain (principal); R10.9 Unspecified abdominal pain; R11.2 Nausea with vomiting, unspecified; K59.00 Constipation, unspecified; R42 Dizziness and giddiness; F17.200 Nicotine dependence, unspecified, uncomplicated; E78.00 Pure hypercholesterolemia, unspecified; I10 Essential (primary) hypertension; E11.9 Type 2 diabetes mellitus without complications; Z85.72 Personal history of non-Hodgkin lymphomas; Z90.49 Acquired absence of other specified parts of digestive tract; Z88.6 Allergy status to analgesic agent
CPT/HCPCS: 93005; 96376; 99284; 96361; 96374; 96375; 36415; 82962; 83690; 83735; 85025; 80053; 81001; 74019; 93010; J2765; J2270; J2405; J7030

== ENCOUNTER 2019-05-22 16:03 | Emergency (ER) | payer MEDICAID ==
[2019-05-22] MEDS ORDERED: NORMAL SALINE 1000 ML 1,000 ML IV ONE ×2 (16:32→18:56)
[2019-05-22] MEDS ORDERED: ONDANSETRON HCL INJ/PF 4 MG/2 ML SDV IV ONE (16:32)
[2019-05-22] MEDS ORDERED: OXYCODONE-ACETAMINOPHEN 5-325 MG TABLET PO ONE (16:32)
--- NOTE | 2019-05-22 16:33 | ER Document Report ---
ED Medical Screen (RME) - General Chief Complaint: Nausea/Vomiting Stated Complaint: VOMITING Time Seen by Provider: 05/22/19 16:25 Primary Care Provider: BRI STILES MD [Primary Care Provider] - Follow up as needed Information source: Patient Notes: Patient presents complaining of nausea and vomiting for the past week. Patient states she is vomited 3 times today. Patient reports chronic dizziness and fast heart rate for the past 4 months. Patient reports chronic abdominal pain from her non-Hodgkin's lymphoma. Patient states she has had her blood sugar elevated today in the 300s. Patient states she is tired of the dizziness and the vomiting which has prompted her visit here today. Patient states her primary doctor wanted to be consulted after she was evaluated. I have greeted and performed a rapid initial assessment of this patient. A comprehensive ED assessment and evaluation of the patient, analysis of test results and completion of the medical decision making process will be conducted by additional ED providers. TRAVEL OUTSIDE OF THE [place] IN LAST 30 DAYS: No - Related Data Allergies/Adverse Reactions: ketorolac tromethamine [From Toradol] Allergy (Verified 05/16/19 12:23) tramadol [Tramadol] Allergy (Verified 05/16/19 12:23) Past Medical History - Past Medical History Cardiac Medical History: Reports: Hx Hypercholesterolemia, Hx Hypertension Pulmonary Medical History: Reports: Hx COPD Comment Only: Hx Asthma - pt denies Endocrine Medical History: Reports: Hx Diabetes Mellitus Type 1, Hx Diabetes Mellitus Type 2 Renal/ Medical History: Denies: Hx Peritoneal Dialysis Malignancy Medical History: Reports: Hx Lymphoma - Non-Hodgkin's Musculoskeltal Medical History: Reports Hx Arthritis, Reports Hx Musculoskeletal Trauma Psychiatric Medical History: Reports: Hx Anxiety, Hx Depression Past Surgical History: Reports: Hx Appendectomy, Hx Cholecystectomy, Hx Gynecologic Surgery - x14 D&C - Immunizations Immunizations up to date: No Hx Diphtheria, Pertussis, Tetanus Vaccination: Yes Physical Exam - Vital signs Vitals: Temp Pulse Resp BP Pulse Ox 98.5 F 122 H 18 129/68 H 97 05/22/19 16:14 05/22/19 16:14 05/22/19 16:14 05/22/19 16:14 05/22/19 16:14 - Cardiovascular Rhythm: Tachycardia Heart sounds: S1 appreciated, S2 appreciated Course - Vital Signs Vital signs: Temp Pulse Resp BP Pulse Ox 98.5 F 122 H 18 129/68 H 97 05/22/19 16:14 05/22/19 16:14 05/22/19 16:14 05/22/19 16:14 05/22/19 16:14 Doctor's Discharge - Discharge Referrals: BRI STILES MD [Primary Care Provider] - Follow up as needed
[2019-05-22 18:05] LABS: VENOUS BLOOD HCO3 22.2 mmol/L (20-32); VENOUS BLOOD PCO2 32.5 mmHg (35-63); VENOUS BLOOD PH 7.45 (7.30-7.42)
[2019-05-22 18:06] LABS: HEMATOCRIT 39.9 % (36.0-47.0); HEMOGLOBIN 13.6 g/dL (12.0-15.5); MEAN CORPUSCULAR HEMOGLOBIN 34.9 pg (27.0-33.4); MEAN CORPUSCULAR HGB CONC 34.1 g/dL (32.0-36.0); MEAN CORPUSCULAR VOLUME 102 fl (80-97); PLATELET COUNT 254 10^3/uL (150-450); RED BLOOD COUNT 3.91 10^6/uL (3.72-5.28); RED CELL DISTRIBUTION WIDTH 15.8 % (11.5-14.0); WHITE BLOOD COUNT 21.2 10^3/uL (4.0-10.5)
[2019-05-22 18:09] LABS: APPEARANCE,URINE CLEAR; BILIRUBIN,URINE NEGATIVE (NEGATIVE); COLOR,URINE STRAW; GLUCOSE, URINE NEGATIVE (NEGATIVE); KETONES,URINE NEGATIVE (NEGATIVE); LEUKOCYTE ESTERASE,URINE NEGATIVE (NEGATIVE); NITRITE,URINE NEGATIVE (NEGATIVE); PROTEIN,URINE NEGATIVE (NEGATIVE); URINE SPECIFIC GRAVITY 1.004; UROBILINOGEN,URINE NEGATIVE mg/dL (<2.0)
[2019-05-22 18:23] LABS: ABSOLUTE LYMPHOCYTES# (MANUAL) 2.3 10^3/uL (0.5-4.7); ABSOLUTE MONOCYTES # (MANUAL) 1.7 10^3/uL (0.1-1.4); BASOPHILS % (MANUAL) 0 % (0-2); EOSINOPHILS % (MANUAL) 1 % (0-6); LYMPHOCYTES % (MANUAL) 11 % (13-45); MONOCYTES % (MANUAL) 8 % (3-13); PLATELET COMMENT ADEQUATE; SEGMENTED NEUTROPHILS % (MAN) 80 % (42-78); TOTAL CELLS COUNTED 100
[2019-05-22 18:25] LABS: ANISOCYTOSIS 1+; HYPOCHROMASIA SLIGHT; POIKILOCYTOSIS SLIGHT
--- NOTE | 2019-05-22 18:40 | RADIOLOGY REPORT (SQ) ---
EXAM DESCRIPTION: ACUTE ABDOMEN SERIES COMPLETED DATE/TIME: 05/22/2019 6:28 pm REASON FOR STUDY: abd pain, n/v COMPARISON: 05/19/2019 NUMBER OF VIEWS: Three views. TECHNIQUE: Frontal chest, supine abdomen and upright/decubitus abdomen radiographic images acquired. LIMITATIONS: None. FINDINGS: CHEST: Lungs clear of infiltrates. FREE AIR: None. No abnormal gas collections. BOWEL GAS PATTERN: Nonobstructive pattern. No dilated loops or air fluid levels. CALCIFICATIONS: Calcified granulomata in the spleen HARDWARE: Right upper quadrant clips. SOFT TISSUES: No gross mass or suggestion of organomegaly. BONES: No acute fracture. No worrisome bone lesions. OTHER: No other significant finding. IMPRESSION: NO RADIOGRAPHIC EVIDENCE FOR ACUTE ABDOMINAL DISEASE. TECHNICAL DOCUMENTATION: JOB ID: [id number] [employer]- All Rights Reserved Reading location - IP/workstation name: [email or web address]
[2019-05-22] MEDS ORDERED: MORPHINE SULFATE 10 MG/ML INJ IV ONE (18:43)
[2019-05-22] MEDS ORDERED: NORMAL SALINE 1000 ML 1,000 ML IV PRN (18:55)
--- NOTE | 2019-05-22 19:15 | EKG REPORT ---
SEVERITY:- NORMAL ECG - SINUS RHYTHM : Confirmed by: Roya Reid MD 22-May-2019 19:14:11
[2019-05-22 21:02] LABS: ALANINE AMINOTRANSFERASE 20 U/L (9-52); ALBUMIN 3.9 g/dL (3.5-5.0); ALKALINE PHOSPHATASE 85 U/L (38-126); ANION GAP 10 (5-19); ASPARTATE AMINO TRANSFERASE 13 U/L (14-36); BILIRUBIN,DIRECT 0.3 mg/dL (0.0-0.4); BILIRUBIN,TOTAL 0.4 mg/dL (0.2-1.3); BLOOD UREA NITROGEN 9 mg/dL (7-20); CALCIUM 9.1 mg/dL (8.4-10.2); CARBON DIOXIDE 23 mmol/L (22-30); CHLORIDE 104 mmol/L (98-107); GLUCOSE 149 mg/dL (75-110); LIPASE 44.9 U/L (23-300); POTASSIUM 4.5 mmol/L (3.6-5.0); TOTAL PROTEIN 6.6 g/dL (6.3-8.2)
--- NOTE | 2019-05-22 21:26 | ER Document Report ---
ED General - General Chief Complaint: Nausea/Vomiting Stated Complaint: VOMITING Time Seen by Provider: 05/22/19 16:25 Primary Care Provider: BRI STILES MD [Primary Care Provider] - Follow up as needed Notes: Patient is a 48-year-old female presenting with generalized abdominal pain, nausea, vomiting and dizziness. Patient states that her symptoms are chronic in nature, been ongoing for the past 3 to 4 months but have been worse in the past several days. She describes the pain in her abdomen as being mostly located to the right side of her abdomen is a throbbing, aching, constant discomfort. Nothing seems to improve or worsen her symptoms. Denies fever. Has not seen her primary doctor regarding today's concerns. Has a prior surgical history of an appendectomy and cholecystectomy. History of B-cell lymphoma currently off chemotherapy and steroids. TRAVEL OUTSIDE OF THE [place] IN LAST 30 DAYS: No - Related Data Allergies/Adverse Reactions: ketorolac tromethamine [From Toradol] Allergy (Verified 05/16/19 12:23) tramadol [Tramadol] Allergy (Verified 05/16/19 12:23) Past Medical History - General Information source: Patient - Social History Smoking Status: Current Every Day Smoker Frequency of alcohol use: None Drug Abuse: None Lives with: Spouse/Significant other Family History: Reviewed & Not Pertinent Patient has suicidal ideation: No Patient has homicidal ideation: No - Past Medical History Cardiac Medical History: Reports: Hx Hypercholesterolemia, Hx Hypertension Pulmonary Medical History: Reports: Hx COPD Comment Only: Hx Asthma - pt denies Endocrine Medical History: Reports: Hx Diabetes Mellitus Type 1, Hx Diabetes Mellitus Type 2 Renal/ Medical History: Denies: Hx Peritoneal Dialysis Malignancy Medical History: Reports: Hx Lymphoma - Non-Hodgkin's Musculoskeletal Medical History: Reports Hx Arthritis, Reports Hx Musculoskeletal Trauma Psychiatric Medical History: Reports: Hx Anxiety, Hx Depression Past Surgical History: Reports: Hx Appendectomy, Hx Cholecystectomy, Hx Gynecologic Surgery - x14 D&C - Immunizations Immunizations up to date: No Hx Diphtheria, Pertussis, Tetanus Vaccination: Yes Review of Systems - Review of Systems Notes: Constitutional: Negative for fever. HENT: Negative for sore throat. Eyes: Negative for visual changes. Cardiovascular: Negative for chest pain. Respiratory: Negative for shortness of breath. Gastrointestinal: Positive for abdominal pain, nausea and vomiting Genitourinary: Negative for dysuria. Musculoskeletal: Negative for back pain. Skin: Negative for rash. Neurological: Negative for headaches, weakness or numbness. 10 point ROS negative except as marked above and in HPI. Physical Exam - Vital signs Vitals: Temp Pulse Resp BP Pulse Ox 98.5 F 122 H 18 129/68 H 97 05/22/19 16:14 05/22/19 16:14 05/22/19 16:14 05/22/19 16:14 05/22/19 16:14 Interpretation: Tachycardic - Resolved at the time my assessment the heart rate is 78 Notes: PHYSICAL EXAMINATION: GENERAL: Somewhat chronically ill in appearance but in no acute distress HEAD: Atraumatic, normocephalic. EYES: Pupils equal round and reactive to light, extraocular movements intact, sclera anicteric, conjunctiva are normal. ENT: nares patent, oropharynx clear without exudates. Moderately dry mucous membranes. NECK: Normal range of motion, supple without lymphadenopathy LUNGS: Breath sounds clear to auscultation bilaterally and equal. No wheezes rales or rhonchi. HEART: Regular rate and rhythm without murmurs ABDOMEN: Soft, nontender, normoactive bowel sounds. No guarding, no rebound. No masses appreciated. EXTREMITIES: Normal range of motion, no pitting or edema. No cyanosis. NEUROLOGICAL: No focal neurological deficits. Moves all extremities spontaneously and on command. PSYCH: Normal mood, normal affect. SKIN: Warm, Dry, normal turgor, no rashes or lesions noted. Course - Re-evaluation Re-evalutation: 05/22/19 21:26 Patient presents with chronic abdominal pain, nausea, vomiting and vertigo. Initially the patient had tachycardia at time of presentation although this is completely resolved at the time of my evaluation. Labs are notable for a leukocytosis which is nonspecific. Her abdominal exam is very benign without areas of focal tenderness, rebound or guarding. She is also status post cholecystectomy and appendectomy. The patient has had [address] CT scans here at [facility] since 03/01/2019. Patient also tells me that she had a CT scan of her abdomen and pelvis just 6 days ago at another facility. Particularly given patient's noted leukocytosis, I have had a risks and benefits conversation with the patient regarding CT imaging of the abdomen and pelvis at this time. We discussed, based on today's exam and labs there is a possibility that they could have a diagnosis that could be better clarified by CT and that this could possibly change management consultant. Specifically, we discussed the possibility of colitis, abdominal abscess, much less likely perforation given normal 3 view abdomen, or possible lymphoma related pathology. We discussed the risks of radiation to the abdomen and pelvis particular given her cancer history and the extensive number of CT scans that she has had for this concern over the past several months. We discussed the alternative of close follow-up with their primary care physician for a recheck of the abdomen within 24 hours as well as reasons to return to the emergency department. After this conversation, the patient has elected to avoid CT imaging of the abdomen and pelvis at this time. She has capacity. Conversation was witnessed by her fianc who is in agreement with avoiding CT imaging at this time. They have verbalized the importance of close follow-up as well as reasons to return to the emergency department including worsening abdominal pain, fever, persistent vomiting, or any other symptoms that are worrisome to them. - Vital Signs Vital signs: Temp Pulse Resp BP Pulse Ox 98.5 F 122 H 13 129/68 H 97 05/22/19 16:14 05/22/19 16:14 05/22/19 20:19 05/22/19 16:14 05/22/19 20:19 - Laboratory Result Diagrams: 05/22/19 17:48 05/22/19 20:25 Laboratory results interpreted by me: 05/22/19 05/22/19 05/22/19 17:48 17:48 20:25 WBC 21.2 H MCV 102 H MCH 34.9 H RDW 15.8 H Seg Neuts % (Manual) 80 H Lymphocytes % (Manual) 11 L Abs Neuts (Manual) 17.0 H Abs Monocytes (Manual) 1.7 H VBG pH 7.45 H VBG pCO2 32.5 L Creatinine 0.45 L Glucose 149 H AST 13 L - Diagnostic Test Radiology reviewed: Image reviewed, Reports reviewed Radiology results interpreted by me: 05/22/19 21:28 3 view abdomen: No evidence of perforation or obstruction Discharge - Discharge Clinical Impression: Chronic abdominal pain Leukocytosis Qualifiers: Leukocytosis type: unspecified Qualified Code(s): D72.829 - Elevated white blood cell count, unspecified Nausea & vomiting Qualifiers: Vomiting type: unspecified Vomiting Intractability: non-intractable Qualified Code(s): R11.2 - Nausea with vomiting, unspecified Condition: Stable Disposition: HOME, SELF-CARE Additional Instructions: As we discussed today, your white blood cell count is high and you continue to have abdominal pain and vomiting. After our conversation you have elected to avoid a CT scan of the abdomen and pelvis today given the risks of continued ionizing radiation exposure from CT imaging. Other than your white blood cell c ount being high, your labs in the x-ray of your abdomen are otherwise normal. Given that we have not imaged her abdomen and pelvis today, I cannot definitively tell you that there is not a dangerous cause of your symptoms today. Please follow-up with your primary doctor within 24 hours for a recheck of your abdomen and pelvis as well as possible recheck of your labs. If you develop a fever, have worsening pain, your vomiting continues, you need to return to the emergency department immediately for reassessment. Referrals: BRI STILES MD [Primary Care Provider] - Follow up tomorrow
[2019-05-22] MEDS ORDERED: FENTANYL CITRATE INJ/PF 100 MCG/2 ML AMPUL IV PRN (21:31)
[2019-05-22 21:43] VITALS: BP 103/59
== END 2019-05-22 21:43 | disposition home or self-care (01) ==
LOC: ER 16:03
DX: R11.2 Nausea with vomiting, unspecified (principal); R10.84 Generalized abdominal pain; G89.29 Other chronic pain; D72.829 Elevated white blood cell count, unspecified; R42 Dizziness and giddiness; R00.0 Tachycardia, unspecified; F17.200 Nicotine dependence, unspecified, uncomplicated; I10 Essential (primary) hypertension; J44.9 Chronic obstructive pulmonary disease, unspecified; E11.9 Type 2 diabetes mellitus without complications; Z85.72 Personal history of non-Hodgkin lymphomas; Z90.49 Acquired absence of other specified parts of digestive tract; Z88.8 Allergy status to other drugs, medicaments and biological substances; Z88.5 Allergy status to narcotic agent
CPT/HCPCS: 93005; 99284; 96361; 96374; 96375; 36415; 83690; 84443; 85025; 80053; 81001; 84484; 82803; 74022; 93010; J3010; J2270; J2405; J7030

== ENCOUNTER 2019-05-25 17:12 | Observation (INO) | payer MEDICAID ==
[2019-05-25] MEDS ORDERED: ONDANSETRON HCL INJ/PF 4 MG/2 ML SDV IV ONE (19:00)
[2019-05-25] MEDS: LEVOFLOXACIN 500 MG/D5W RTU 500 MG/100 ML RTUPB IV SCH (19:03)
[2019-05-25 19:26] LABS: ABSOLUTE BASOPHILS # (AUTO) 0.1 10^3/uL (0.0-0.2); ABSOLUTE EOSINOPHILS # (AUTO) 0.2 10^3/uL (0.0-0.6); ABSOLUTE LYMPHOCYTES (AUTO) 2.3 10^3/uL (0.5-4.7); ABSOLUTE MONOCYTES (AUTO) 0.9 10^3/uL (0.1-1.4); ABSOLUTE NEUT (AUTO) 7.8 10^3/uL (1.7-8.2); EOSINOPHILS % (AUTO) 1.5 % (0-6); HEMATOCRIT 39.1 % (36.0-47.0); HEMOGLOBIN 13.2 g/dL (12.0-15.5); MEAN CORPUSCULAR HEMOGLOBIN 34.8 pg (27.0-33.4); MEAN CORPUSCULAR HGB CONC 33.7 g/dL (32.0-36.0); MEAN CORPUSCULAR VOLUME 103 fl (80-97); MONOCYTES % (AUTO) 8.4 % (3-13); PLATELET COUNT 257 10^3/uL (150-450); RED BLOOD COUNT 3.79 10^6/uL (3.72-5.28); RED CELL DISTRIBUTION WIDTH 15.9 % (11.5-14.0); SEGMENTED NEUTROPHILS % (AUTO) 69.1 % (42-78); TOTAL CELLS COUNTED % (AUTO) 100 %; WHITE BLOOD COUNT 11.3 10^3/uL (4.0-10.5)
[2019-05-25] MEDS: ENOXAPARIN SODIUM INJ 40 MG/0.4 ML DISP.SYRIN SUBCUT SCH (19:35)
[2019-05-25 19:43] LABS: ALANINE AMINOTRANSFERASE 17 U/L (9-52); ALBUMIN 4.2 g/dL (3.5-5.0); ALKALINE PHOSPHATASE 103 U/L (38-126); ANION GAP 9 (5-19); ASPARTATE AMINO TRANSFERASE 13 U/L (14-36); BILIRUBIN,DIRECT 0.2 mg/dL (0.0-0.4); BILIRUBIN,TOTAL 0.4 mg/dL (0.2-1.3); BLOOD UREA NITROGEN 7 mg/dL (7-20); CALCIUM 9.6 mg/dL (8.4-10.2); CARBON DIOXIDE 26 mmol/L (22-30); CHLORIDE 100 mmol/L (98-107); GLUCOSE 122 mg/dL (75-110); POTASSIUM 4.1 mmol/L (3.6-5.0); SODIUM 134.8 mmol/L (137-145); TOTAL PROTEIN 7.1 g/dL (6.3-8.2)
--- NOTE | 2019-05-25 21:07 | PDOC H&P ---
History of Present Illness Admission Date/PCP: 05/25/19 17:12 [facility] Patient complains of: Nausea, vomiting, abdominal pain History of Present Illness: ROBERT BROWNLEE is a 48 year old female known to my practice who presented to the office with complain of persistent episodes of nausea, vomiting and abdominal pain since her last office visit and further evaluation at [facility] ED for same symptoms few days ago. Patient reported feeling dehydrated due to her inability to retain fluid with associated weakness due to poor oral intake. She denied diarrhea or constipation. She denied fever but claimed episodes of chills and breaking out in sweats. She denied dysuria, hematuria, or flank pain. Her initial evaluation in the office did revealed leukocytosis with wbc above 16,000. Her morbidities include Non Hodgkin's lymphoma, HTN, HLD, DM type 2, COPD, GERD, and Depression. She was advised hospitalization of observation status for further evaluation and management. Past Medical History Cardiac Medical History: Reports: Hyperlipidema, Hypertension Pulmonary Medical History: Reports: Chronic Obstructive Pulmonary Disease (COPD) Comment Only: Asthma - pt denies Endocrine Medical History: Reports: Diabetes Mellitus Type 2 Malignancy Medical History: Reports: Lymphoma - Non-Hodgkin's GI Medical History: Reports: Gastroesophageal Reflux Disease Musculoskeltal Medical History: Reports: Arthritis Psychiatric Medical History: Reports: Depression Past Surgical History Past Surgical History: Reports: Appendectomy, Cholecystectomy Social History Smoking Status: Current Every Day Smoker Frequency of Alcohol Use: Occasional Drugs: None Hx Prescription Drug Abuse: No - Advance Directive Resuscitation Status: Full Code Family History Family History: Reviewed & Not Pertinent Parental Family History Reviewed: Yes Children Family History Reviewed: Yes Sibling(s) Family History Reviewed.: Yes Medication/Allergy Home Medications: Clonazepam [Klonopin] 0.5 mg PO Q8HP PRN 12/14/18 Gabapentin [Neurontin 300 mg Capsule] 300 mg PO Q12 12/14/18 Glipizide [Glucotrol] 10 mg PO QAM 12/14/18 Lisinopril [Zestril] 10 mg PO DAILY 12/14/18 Lurasidone HCl [Latuda] 40 mg PO QPM 12/14/18 Metformin HCl [Glucophage] 1,000 mg PO BID 12/14/18 Omeprazole 20 mg PO ACBRKFST 12/14/18 Paroxetine HCl [Paxil] 40 mg PO QAM 12/14/18 Simvastatin [Zocor 40 mg Tablet] 40 mg PO QPM 12/14/18 Trazodone HCl [Desyrel] 150 mg PO QHS 12/14/18 Icosapent Ethyl [Vascepa] 2 gm PO Q12 05/13/19 Acyclovir [Zovirax 200 mg Capsule] 400 mg PO BID 05/19/19 Insulin Lispro [Humalog Kwikpen] 0 unit SQ .ACHS SLIDING SCALE 05/22/19 Polyethylene Glycol 3350 17 gm PO DAILY 05/22/19 Allopurinol [Zyloprim 300 mg Tablet] 300 mg PO DAILY 05/25/19 Insulin Glargine,Hum.rec.anlog [Lantus Insulin 100 Unit/1 ml 10 ml] 55 unit SUBCUT QHS 05/25/19 Sulfamethoxazole/Trimethoprim [Bactrim Ds Tablet] 1 each PO BID 05/25/19 Allergies/Adverse Reactions: liborio Allergy (Severe, Verified 05/25/19 18:06) green pepper Allergy (Severe, Verified 05/25/19 18:06) ketorolac tromethamine [From Toradol] Allergy (Verified 05/16/19 12:23) tramadol [Tramadol] Allergy (Verified 05/16/19 12:23) Review of Systems Constitutional: PRESENT: chills, night sweats, weakness Eyes: ABSENT: visual disturbances Ears: ABSENT: hearing changes Nose, Mouth, and Throat: ABSENT: as per HPI, headache(s), mouth pain, sore throat, vertigo, other Cardiovascular: ABSENT: chest pain, dyspnea on exertion, edema, orthropnea, palpitations Respiratory: ABSENT: cough, hemoptysis Gastrointestinal: PRESENT: abdominal pain, nausea, vomiting. ABSENT: as per HPI, bloating, coffee ground emesis, constipation, diarrhea, dysphagia, heartburn, hematemesis, hematochezia, melena, other Genitourinary: ABSENT: dysuria, hematuria Musculoskeletal: PRESENT: back pain, muscle weakness. ABSENT: joint swelling Integumentary: ABSENT: rash, wounds Neurological: ABSENT: abnormal gait, abnormal speech, confusion, dizziness, focal weakness, syncope Psychiatric: PRESENT: depression. ABSENT: as per HPI, anxiety, hallucinations, homidical ideation, suicidal ideation, other Endocrine: ABSENT: cold intolerance, heat intolerance, menstrual abnormalities, polydipsia, polyuria Hematologic/Lymphatic: ABSENT: easy bleeding, easy bruising, lymphadenopathy Allergic/Immunologic: ABSENT: seasonal rhinorrhea Physical Exam Vital Signs: Intake & Output 05/24/19 05/25/19 05/26/19 06:59 06:59 06:59 Weight 76.5 kg General appearance: PRESENT: no acute distress, well-developed, well-nourished Head exam: PRESENT: atraumatic, normocephalic Eye exam: PRESENT: conjunctiva pink, EOMI, PERRLA. ABSENT: scleral icterus Ear exam: PRESENT: normal external ear exam Mouth exam: PRESENT: moist Teeth exam: PRESENT: poor dentation Throat exam: ABSENT: post pharyngeal erythema, tonsillar erythema, tonsillar exudate, tonsillogmegaly, other Neck exam: ABSENT: lymphadenopathy, thyromegaly Respiratory exam: PRESENT: clear to auscultation james Cardiovascular exam: PRESENT: RRR. ABSENT: diastolic murmur, rubs, systolic murmur Vascular exam: ABSENT: pallor GI/Abdominal exam: PRESENT: guarding, Ornelas's sign, normal bowel sounds, soft, tenderness. ABSENT: ascites, distended, mass, organolmegaly Rectal exam: PRESENT: deferred Extremities exam: ABSENT: pedal edema Musculoskeletal exam: PRESENT: deformity - multiple joints involvement with arthritis. ABSENT: tenderness Neurological exam: PRESENT: alert, awake, oriented to person, oriented to place, oriented to time, oriented to situation, CN II-XII grossly intact. ABSENT: motor sensory deficit Psychiatric exam: PRESENT: appropriate affect, normal mood. ABSENT: homicidal ideation, suicidal ideation Skin exam: PRESENT: dry, warm Results Laboratory Results: 05/25/19 18:56 05/25/19 18:56 05/25/19 05/25/19 18:56 18:56 WBC 11.3 H RBC 3.79 Hgb 13.2 Hct 39.1 MCV 103 H MCH 34.8 H MCHC 33.7 RDW 15.9 H Plt Count 257 Seg Neutrophils % 69.1 Lymphocytes % 20.0 Monocytes % 8.4 Eosinophils % 1.5 Basophils % 1.0 Absolute Neutrophils 7.8 Absolute Lymphocytes 2.3 Absolute Monocytes 0.9 Absolute Eosinophils 0.2 Absolute Basophils 0.1 Sodium 134.8 L Potassium 4.1 Chloride 100 Carbon Dioxide 26 Anion Gap 9 BUN 7 Creatinine 0.45 L Est GFR ( Amer) > 60 Est GFR (Non-Af Amer) > 60 Glucose 122 H Calcium 9.6 Total Bilirubin 0.4 AST 13 L ALT 17 Alkaline Phosphatase 103 Total Protein 7.1 Albumin 4.2 Assessment & Plan - Diagnosis (1) Nausea & vomiting Qualifiers: Vomiting type: unspecified Vomiting Intractability: non-intractable Qualified Code(s): R11.2 - Nausea with vomiting, unspecified Is this a current diagnosis for this admission?: Yes Plan: See admitting attending physician orders for care plan details. (2) Abdominal pain Qualifiers: Abdominal location: generalized Qualified Code(s): R10.84 - Generalized abdominal pain Is this a current diagnosis for this admission?: Yes Plan: See admitting attending physician orders for care plan details. (3) Diabetes mellitus type 2 in nonobese Is this a current diagnosis for this admission?: Yes Plan: See admitting attending physician orders for care plan details. (4) HTN (hypertension) Qualifiers: Hypertension type: essential hypertension Qualified Code(s): I10 - Essential (primary) hypertension Is this a current diagnosis for this admission?: Yes Plan: See admitting attending physician orders for care plan details. (5) COPD (chronic obstructive pulmonary disease) Qualifiers: Emphysema type: unspecified Is this a current diagnosis for this admission?: Yes Plan: See admitting attending physician orders for care plan details. (6) HLD (hyperlipidemia) Qualifiers: Hyperlipidemia type: unspecified Qualified Code(s): E78.5 - Hyperlipidemia, unspecified Is this a current diagnosis for this admission?: Yes Plan: See admitting attending physician orders for care plan details. 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 - Time Time Spent: 50 to 70 Minutes Medications reviewed and adjusted accordingly: Yes Anticipated discharge: Home Within: within 48 hours - Inpatient Certification Based on my medical assessment, after consideration of the patient's comorbidities, presenting symptoms, or acuity I expect that the services needed warrant INPATIENT care.: Yes I certify that my determination is in accordance with my understanding of Medicare's requirements for reasonable and necessary INPATIENT services [42 CFR 412.3e].: Yes Medical Necessity: Significant Comorbidiites Make Outpatient Treatment Too Risky, Need Close Monitoring Due to Risk of Patient Decompensation, Need For IV Fluids, Need For Continuous Telemetry Monitoring, Need for IV Antibiotics, Risk of Complication if Not Cared For in Hospital, Risk of Diagnosis Which Will Require Inpatient Eval/Care/Monitoring Post Hospital Care: D/C Education Faculty Member Documentation - Plan Summary Plan Summary: See admitting attending physician orders for care plan details.
[2019-05-25 21:23] LABS: APPEARANCE,URINE CLEAR; BILIRUBIN,URINE NEGATIVE (NEGATIVE); COLOR,URINE YELLOW; GLUCOSE, URINE NEGATIVE (NEGATIVE); KETONES,URINE NEGATIVE (NEGATIVE); LEUKOCYTE ESTERASE,URINE NEGATIVE (NEGATIVE); NITRITE,URINE NEGATIVE (NEGATIVE); PROTEIN,URINE NEGATIVE (NEGATIVE); URINE SPECIFIC GRAVITY 1.011; UROBILINOGEN,URINE NEGATIVE mg/dL (<2.0)
[2019-05-25] MEDS: FAMOTIDINE 20 MG TABLET PO SCH (21:35)
[2019-05-25] MEDS: METRONIDAZOLE 500 MG/NS RTU 500 MG/100 ML RTUPB IV SCH (21:37)
[2019-05-25] MEDS ORDERED: CLONAZEPAM 1 MG TABLET PO PRN (21:43)
[2019-05-25] MEDS ORDERED: GLUCAGON,HUMAN RECOMB 1 MG INJ IM PRN (21:45)
[2019-05-25] MEDS ORDERED: DEXTROSE 50%-WATER 25 GM/50 ML DISP.SYRIN IV PRN ×2 (21:45)
[2019-05-25] MEDS ORDERED: DEXTROSE 40% GEL 15 GM TUBE PO PRN ×2 (21:45)
[2019-05-25] MEDS ORDERED: TRAZODONE HCL 50 MG TABLET PO SCH (22:00)
[2019-05-25] MEDS ORDERED: (PENDING PHARMACY ID) (Trazodone Hcl [Desyrel] 150 MG) PO SCH (22:00)
[2019-05-25] MEDS ORDERED: (PENDING PHARMACY ID) (Icosapent Ethyl [Vascepa] 2 GM) PO SCH (22:00)
[2019-05-25] MEDS ORDERED: INSULIN GLARGINE,HUM.REC.ANLOG 1,000 UNIT/10 ML VIAL (PYX) SUBCUT ONE (22:15)
[2019-05-25] MEDS: GABAPENTIN 300 MG CAPSULE PO SCH (22:16)
[2019-05-25] MEDS: INSULIN LISPRO 100 UNIT/ML 3 ML VIAL SUBCUT SCH (22:16)
[2019-05-26] MEDS: METRONIDAZOLE 500 MG/NS RTU 500 MG/100 ML RTUPB IV SCH ×2 (05:31→13:41)
--- NOTE | 2019-05-26 05:37 | RADIOLOGY REPORT (SQ) ---
EXAM DESCRIPTION: [facility]: XR CHEST 2 VIEWS Views: 2 CLINICAL HISTORY: 48 years Female, Admission/Nausea/Vomiting/Leukocytosis/BCell Lymph COMPARISON: 04/15/2019 FINDINGS: The lungs are clear. No pneumothorax or significant pleural effusion. Left PICC line remains in place, tip in the SVC. Cardiomediastinal silhouette is within normal limits. Bony structures are unremarkable for age. Right upper quadrant surgical clips are noted. IMPRESSION: 1. No acute cardiothoracic abnormality. 2. Unchanged left PICC line
[2019-05-26] MEDS: NORMAL SALINE 1000 ML 1,000 ML IV PRN ×2 (06:52→17:41)
[2019-05-26 06:54] LABS: ABSOLUTE BASOPHILS # (AUTO) 0.1 10^3/uL (0.0-0.2); ABSOLUTE EOSINOPHILS # (AUTO) 0.1 10^3/uL (0.0-0.6); ABSOLUTE LYMPHOCYTES (AUTO) 1.7 10^3/uL (0.5-4.7); ABSOLUTE MONOCYTES (AUTO) 0.6 10^3/uL (0.1-1.4); ABSOLUTE NEUT (AUTO) 3.2 10^3/uL (1.7-8.2); BASOPHILS % (AUTO) 1.5 % (0-2); EOSINOPHILS % (AUTO) 2.6 % (0-6); HEMOGLOBIN 12.5 g/dL (12.0-15.5); LYMPHOCYTES % (AUTO) 29.8 % (13-45); MEAN CORPUSCULAR HEMOGLOBIN 34.8 pg (27.0-33.4); MEAN CORPUSCULAR HGB CONC 33.8 g/dL (32.0-36.0); MEAN CORPUSCULAR VOLUME 103 fl (80-97); MONOCYTES % (AUTO) 11.1 % (3-13); PLATELET COUNT 249 10^3/uL (150-450); RED BLOOD COUNT 3.59 10^6/uL (3.72-5.28); RED CELL DISTRIBUTION WIDTH 15.7 % (11.5-14.0); TOTAL CELLS COUNTED % (AUTO) 100 %; WHITE BLOOD COUNT 5.7 10^3/uL (4.0-10.5)
[2019-05-26 07:03] LABS: ALANINE AMINOTRANSFERASE 11 U/L (9-52); ALBUMIN 3.7 g/dL (3.5-5.0); ALKALINE PHOSPHATASE 79 U/L (38-126); ANION GAP 9 (5-19); ASPARTATE AMINO TRANSFERASE 12 U/L (14-36); BILIRUBIN,DIRECT 0.3 mg/dL (0.0-0.4); BILIRUBIN,TOTAL 0.4 mg/dL (0.2-1.3); BLOOD UREA NITROGEN 9 mg/dL (7-20); CALCIUM 9.2 mg/dL (8.4-10.2); CARBON DIOXIDE 24 mmol/L (22-30); CHLORIDE 106 mmol/L (98-107); GLUCOSE 122 mg/dL (75-110); POTASSIUM 4.3 mmol/L (3.6-5.0); SODIUM 138.9 mmol/L (137-145); TOTAL PROTEIN 6.4 g/dL (6.3-8.2)
[2019-05-26] MEDS: INSULIN LISPRO 100 UNIT/ML 3 ML VIAL SUBCUT SCH ×3 (07:56→16:52)
[2019-05-26] MEDS ORDERED: PAROXETINE HCL 20 MG TABLET PO SCH (08:00)
[2019-05-26] MEDS ORDERED: GLIPIZIDE 10 MG TABLET PO SCH (08:00)
[2019-05-26] MEDS: METFORMIN HCL 500 MG TABLET PO SCH ×2 (08:01→17:03)
[2019-05-26] MEDS: ONDANSETRON HCL INJ/PF 4 MG/2 ML SDV IV PRN ×3 (08:05→17:39)
--- NOTE | 2019-05-26 08:57 | RADIOLOGY REPORT (SQ) ---
EXAM DESCRIPTION: ABDOMEN 2 VIEWS COMPLETED DATE/TIME: 05/25/2019 6:43 pm REASON FOR STUDY: Admission/Nausea/Vomitting/Leukocytosis/BCell Lymp COMPARISON: CT abdomen pelvis 05/13/2019 Abdominal films 05/19/2019, 05/22/2019 NUMBER OF VIEWS: Two views. TECHNIQUE: Supine and upright radiographic images of the abdomen acquired. LIMITATIONS: None. FINDINGS: FREE AIR: None. No abnormal gas collections. LUNG BASES: Clear. BOWEL GAS PATTERN: Nonobstructive pattern. No dilated loops or air fluid levels. Moderate stool thro ughout the colon CALCIFICATIONS: No suspicious calcifications. Old calcified granulomas in the spleen. Calcified pel venancio phleboliths. SOFT TISSUES: No gross mass or suggestion of organomegaly. HARDWARE: Clips right upper quadrant post cholecystectomy BONES: No acute fracture. No worrisome bone lesions. OTHER: No other significant finding. IMPRESSION: NO RADIOGRAPHIC EVIDENCE FOR ACUTE ABDOMINAL DISEASE. TECHNICAL DOCUMENTATION: JOB ID: [id number] [employer]- All Rights Reserved Reading location - IP/workstation name: [email or web address]
[2019-05-26] MEDS ORDERED: BISACODYL 10 MG SUPP.RECT PR ONE (09:30)
[2019-05-26] MEDS: ACYCLOVIR 200 MG CAPSULE PO SCH ×2 (09:33→17:03)
[2019-05-26] MEDS: FAMOTIDINE 20 MG TABLET PO SCH (09:33)
[2019-05-26] MEDS: SULFAMETHOXAZOLE/TRIMETHOPRIM 800-160 MG TABLET PO SCH ×2 (09:34→17:03)
[2019-05-26] MEDS: GABAPENTIN 300 MG CAPSULE PO SCH (09:34)
[2019-05-26] MEDS ORDERED: POLYETHYLENE GLYCOL 3350 POWDER 17 GM/1 PACKET PO SCH (10:00)
[2019-05-26] MEDS ORDERED: ALLOPURINOL 300 MG TABLET PO SCH (10:00)
[2019-05-26] MEDS ORDERED: LISINOPRIL 10 MG TABLET PO SCH (10:00)
[2019-05-26] MEDS ORDERED: (PENDING PHARMACY ID) (Polyethylene Glycol 3350 [Polyethylene Glycol 3350] 17 GM) PO SCH (10:00)
[2019-05-26 16:30] VITALS: BP 112/55
[2019-05-26] MEDS: ENOXAPARIN SODIUM INJ 40 MG/0.4 ML DISP.SYRIN SUBCUT SCH (17:04)
[2019-05-26] MEDS: LEVOFLOXACIN 500 MG/D5W RTU 500 MG/100 ML RTUPB IV SCH (17:05)
[2019-05-26] MEDS ORDERED: SIMVASTATIN 40 MG TABLET PO SCH ×2 (18:00)
[2019-05-26] MEDS ORDERED: (PENDING PHARMACY ID) (Lurasidone Hcl [Latuda] 40 MG) PO SCH (18:00)
[2019-05-26] MEDS ORDERED: LURASIDONE HCL 40 MG TABLET PO SCH (18:00)
--- NOTE | 2019-05-26 18:29 | PDOC DISCHARGE SUMMARY ---
General - Admit/Disc Date/PCP Admission Date/Primary Care Provider: 05/25/19 17:12 BRIHILARY STILES Discharge Date: 05/26/19 - Discharge Diagnosis (1) Nausea & vomiting Is this a current diagnosis for this admission?: Yes (2) Abdominal pain Is this a current diagnosis for this admission?: Yes (3) Diabetes mellitus type 2 in nonobese Is this a current diagnosis for this admission?: Yes (4) HTN (hypertension) Is this a current diagnosis for this admission?: Yes (5) COPD (chronic obstructive pulmonary disease) Is this a current diagnosis for this admission?: Yes (6) HLD (hyperlipidemia) Is this a current diagnosis for this admission?: Yes (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 Is this a current diagnosis for this admission?: Yes - Additional Information Resuscitation Status: Full Code Home Medications: Clonazepam [Klonopin] 0.5 mg PO Q8HP PRN 12/14/18 Gabapentin [Neurontin 300 mg Capsule] 300 mg PO Q12 12/14/18 Glipizide [Glucotrol] 10 mg PO QAM 12/14/18 Lisinopril [Zestril] 10 mg PO DAILY 12/14/18 Lurasidone HCl [Latuda] 40 mg PO QPM 12/14/18 Metformin HCl [Glucophage] 1,000 mg PO BID 12/14/18 Omeprazole 20 mg PO ACBRKFST 12/14/18 Paroxetine HCl [Paxil] 40 mg PO QAM 12/14/18 Simvastatin [Zocor 40 mg Tablet] 40 mg PO QPM 12/14/18 Trazodone HCl [Desyrel] 150 mg PO QHS 12/14/18 Icosapent Ethyl [Vascepa] 2 gm PO Q12 05/13/19 Acyclovir [Zovirax 200 mg Capsule] 400 mg PO BID 05/19/19 Insulin Lispro [Humalog Kwikpen U-100] 0 unit SQ .ACHS SLIDING SCALE 05/22/19 Polyethylene Glycol 3350 17 gm PO DAILY 05/22/19 Allopurinol [Zyloprim 300 mg Tablet] 300 mg PO DAILY 05/25/19 Insulin Glargine,Hum.rec.anlog [Lantus Insulin 100 Unit/1 ml 10 ml] 55 unit SUBCUT QHS 05/25/19 Sulfamethoxazole/Trimethoprim [Bactrim Ds Tablet] 1 each PO BID 05/25/19 History of Present Illness Patient complains of: Nausea, vomiting, Abdominal pain History of Present Illness: ROBERT BROWNLEE is a 48 year old female known to my practice who presented to the office with complain of persistent episodes of nausea, vomiting and abdominal pain since her last office visit and further evaluation at [facility] ED for same symptoms few days ago. Patient reported feeling dehydrated due to her inability to retain fluid with associated weakness due to poor oral intake. She denied diarrhea or constipation. She denied fever but claimed episodes of chills and breaking out in sweats. She denied dysuria, hematuria, or flank pain. Her initial evaluation in the office did revealed leukocytosis with wbc above 16,000. Her morbidities include Non Hodgkin's lymphoma, DM type 2, HTN, HLD, COPD, GERD, and Depression. She was advised hospitalization of observation status for further evaluation and management. Hospital Course Hospital Course: Patient was initially managed with IV fluid support and antibiotic coverage due to concern for possible intra-abdominal acute infectious process. Although her nausea persist, she was able to tolerate mechanical soft diet. Her vomiting and abdominal pain did improved. Her chest X ray and acute abdominal series evaluation were unremarkable except for moderate fecal content in the colon. She had two bowel movement after administration of Dulcolax suppository in addition to her daily Polyethylene glycol therapy. Her urine and blood cultures were no growth to date. She will be discharged home today on continuation of her oral Bactrim prophylactic therapy. I will follow up on her culture report on outpatient and manage accordingly. She will follow up in the office as instructed upon discharge. Physical Exam Vital Signs: Temp Pulse Resp BP Pulse Ox 98.2 F 65 17 112/55 L 99 05/26/19 14:45 05/26/19 14:45 05/26/19 14:45 05/26/19 14:45 05/26/19 14:45 Intake & Output 05/25/19 05/26/19 05/27/19 06:59 06:59 06:59 Intake Total 540 2080 Output Total 2300 1800 Balance -1760 280 Weight 76.5 kg General appearance: PRESENT: no acute distress Head exam: PRESENT: atraumatic, normocephalic Eye exam: PRESENT: conjunctiva pink. ABSENT: scleral icterus Ear exam: PRESENT: normal external ear exam Mouth exam: PRESENT: moist Teeth exam: PRESENT: poor dentation Respiratory exam: PRESENT: clear to auscultation james Cardiovascular exam: PRESENT: RRR. ABSENT: diastolic murmur, rubs, systolic murmur Vascular exam: ABSENT: pallor GI/Abdominal exam: PRESENT: normal bowel sounds, soft. ABSENT: distended, guarding, mass, organolmegaly, rebound, tenderness Extremities exam: ABSENT: pedal edema Neurological exam: PRESENT: alert, awake, oriented to person, oriented to place, oriented to time, oriented to situation, CN II-XII grossly intact. ABSENT: motor sensory deficit Psychiatric exam: PRESENT: appropriate affect, normal mood. ABSENT: homicidal ideation, suicidal ideation Skin exam: PRESENT: dry, warm Results Laboratory Results: 05/26/19 05:38 05/26/19 05:38 05/25/19 05/25/19 05/25/19 18:56 18:56 20:30 WBC 11.3 H RBC 3.79 Hgb 13.2 Hct 39.1 MCV 103 H MCH 34.8 H MCHC 33.7 RDW 15.9 H Plt Count 257 Seg Neutrophils % 69.1 Lymphocytes % 20.0 Monocytes % 8.4 Eosinophils % 1.5 Basophils % 1.0 Absolute Neutrophils 7.8 Absolute Lymphocytes 2.3 Absolute Monocytes 0.9 Absolute Eosinophils 0.2 Absolute Basophils 0.1 Sodium 134.8 L Potassium 4.1 Chloride 100 Carbon Dioxide 26 Anion Gap 9 BUN 7 Creatinine 0.45 L Est GFR ( Amer) > 60 Est GFR (Non-Af Amer) > 60 Glucose 122 H Calcium 9.6 Total Bilirubin 0.4 AST 13 L ALT 17 Alkaline Phosphatase 103 Total Protein 7.1 Albumin 4.2 Urine Color YELLOW Urine Appearance CLEAR Urine pH 6.0 Ur Specific Ripton 1.011 Urine Protein NEGATIVE Urine Glucose (UA) NEGATIVE Urine Ketones NEGATIVE Urine Blood NEGATIVE Urine Nitrite NEGATIVE Ur Leukocyte Esterase NEGATIVE Urine WBC (Auto) 1 05/26/19 05/26/19 05:38 05:38 WBC 5.7 RBC 3.59 L Hgb 12.5 Hct 37.0 MCV 103 H MCH 34.8 H MCHC 33.8 RDW 15.7 H Plt Count 249 Seg Neutrophils % 55.0 Lymphocytes % 29.8 Monocytes % 11.1 Eosinophils % 2.6 Basophils % 1.5 Absolute Neutrophils 3.2 Absolute Lymphocytes 1.7 Absolute Monocytes 0.6 Absolute Eosinophils 0.1 Absolute Basophils 0.1 Sodium 138.9 Potassium 4.3 Chloride 106 Carbon Dioxide 24 Anion Gap 9 BUN 9 Creatinine 0.47 L Est GFR ( Amer) > 60 Est GFR (Non-Af Amer) > 60 Glucose 122 H Calcium 9.2 Total Bilirubin 0.4 AST 12 L ALT 11 Alkaline Phosphatase 79 Total Protein 6.4 Albumin 3.7 Urine Color Urine Appearance Urine pH Ur Specific Ripton Urine Protein Urine Glucose (UA) Urine Ketones Urine Blood Urine Nitrite Ur Leukocyte Esterase Urine WBC (Auto) Impressions: Abdomen X-Ray 05/25/19 00:00 IMPRESSION: NO RADIOGRAPHIC EVIDENCE FOR ACUTE ABDOMINAL DISEASE. Chest X-Ray 05/25/19 00:00 IMPRESSION: 1. No acute cardiothoracic abnormality. 2. Unchanged left PICC line Qualifiers - * PATIENT BEING DISCHARGED WITH ANY OF THE FOLLOWING DIAGNOSIS: No Acute Heart Failure - Is this a Heart Failure Patient?: No Plan Discharge Plan: D/C home today. Follow up in the office as instructed upon discharge.
[2019-05-26] MEDS ORDERED: INSULIN GLARGINE,HUM.REC.ANLOG 1,000 UNIT/10 ML VIAL SUBCUT SCH (22:00)
== END 2019-05-26 18:56 | disposition home or self-care (01) ==
LOC: 4S 17:12
PROVIDERS: ADMIT Internal Medicine Geriatric Medicine; ATTEND Internal Medicine Geriatric Medicine
DX: R11.2 Nausea with vomiting, unspecified (principal); R10.84 Generalized abdominal pain; J44.9 Chronic obstructive pulmonary disease, unspecified; C85.13 Unspecified B-cell lymphoma, intra-abdominal lymph nodes; E11.9 Type 2 diabetes mellitus without complications; I10 Essential (primary) hypertension; K21.9 Gastro-esophageal reflux disease without esophagitis; E78.5 Hyperlipidemia, unspecified; M19.90 Unspecified osteoarthritis, unspecified site; F32.9 Major depressive disorder, single episode, unspecified; Z79.84 Long term (current) use of oral hypoglycemic drugs; Z79.899 Other long term (current) drug therapy; Z79.4 Long term (current) use of insulin; Z90.49 Acquired absence of other specified parts of digestive tract; F17.200 Nicotine dependence, unspecified, uncomplicated; Z88.8 Allergy status to other drugs, medicaments and biological substances
CPT/HCPCS: 36415 ×2; 87040; 87086; 82962 ×2; 85025 ×2; 80053 ×2; 81001; 74019; 71046; J1956 ×2; J3490 ×16; J1815 ×2; J1650 ×2; J2405 ×2; J7030

== ENCOUNTER 2019-05-27 12:42 | Observation (INO) | payer MEDICAID ==
--- NOTE | 2019-05-27 13:42 | ER Document Report ---
ED Medical Screen (RME) - General Chief Complaint: Nausea/Vomiting Stated Complaint: VOMITING Time Seen by Provider: 05/27/19 13:36 Primary Care Provider: BRI STILES MD [Primary Care Provider] - Follow up as needed Information source: Patient Notes: Patient presents complaining of nausea vomiting and dizziness. Patient states she is vomited 4 times today. Patient was just discharged from the hospital for nausea vomiting and abdominal pain. Patient denies any fever or urinary symptoms. Patient denies any improvement of her symptoms with the use of her hydrocodone or Zofran. I have greeted and performed a rapid initial assessment of this patient. A comprehensive ED assessment and evaluation of the patient, analysis of test results and completion of the medical decision making process will be conducted by additional ED providers. TRAVEL OUTSIDE OF THE [place] IN LAST 30 DAYS: No - Related Data Allergies/Adverse Reactions: liborio Allergy (Severe, Verified 05/27/19 12:54) green pepper Allergy (Severe, Verified 05/27/19 12:54) ketorolac tromethamine [From Toradol] Allergy (Verified 05/27/19 12:54) tramadol [Tramadol] Allergy (Verified 05/27/19 12:54) Past Medical History - Social History Chew tobacco use (# tins/day): No Frequency of alcohol use: None Drug Abuse: None - Past Medical History Cardiac Medical History: Reports: Hx Hypercholesterolemia, Hx Hypertension Pulmonary Medical History: Reports: Hx COPD Comment Only: Hx Asthma - pt denies Endocrine Medical History: Reports: Hx Diabetes Mellitus Type 1, Hx Diabetes Mellitus Type 2 Renal/ Medical History: Denies: Hx Peritoneal Dialysis Malignancy Medical History: Reports: Hx Lymphoma - Non-Hodgkin's GI Medical History: Reports: Hx Gastroesophageal Reflux Disease Musculoskeltal Medical History: Reports Hx Arthritis, Reports Hx Musculoskeletal Trauma Psychiatric Medical History: Reports: Hx Anxiety, Hx Depression Past Surgical History: Reports: Hx Appendectomy, Hx Cholecystectomy, Hx Gynecologic Surgery - x14 D&C - Immunizations Immunizations up to date: No Hx Diphtheria, Pertussis, Tetanus Vaccination: Yes Physical Exam - Vital signs Vitals: Temp Pulse Resp BP Pulse Ox 99.1 F 111 H 16 135/70 H 96 05/27/19 12:59 05/27/19 12:59 05/27/19 12:59 05/27/19 12:59 05/27/19 12:59 - Abdominal Tenderness: Tender - Generalized abdominal tenderness Course - Vital Signs Vital signs: Temp Pulse Resp BP Pulse Ox 99.1 F 111 H 16 135/70 H 96 05/27/19 12:59 05/27/19 12:59 05/27/19 12:59 05/27/19 12:59 05/27/19 12:59 Doctor's Discharge - Discharge Referrals: BRI SITLES MD [Primary Care Provider] - Follow up as needed
[2019-05-27] MEDS ORDERED: NORMAL SALINE 1000 ML 1,000 ML IV ONE (13:44)
[2019-05-27] MEDS ORDERED: ONDANSETRON HCL INJ/PF 4 MG/2 ML SDV IV ONE ×2 (13:44→18:52)
[2019-05-27] MEDS ORDERED: FENTANYL CITRATE INJ/PF 100 MCG/2 ML AMPUL IV ONE (13:44)
[2019-05-27 14:57] LABS: ABSOLUTE BASOPHILS # (AUTO) 0.2 10^3/uL (0.0-0.2); ABSOLUTE EOSINOPHILS # (AUTO) 0.1 10^3/uL (0.0-0.6); ABSOLUTE LYMPHOCYTES (AUTO) 1.7 10^3/uL (0.5-4.7); ABSOLUTE MONOCYTES (AUTO) 1.1 10^3/uL (0.1-1.4); ABSOLUTE NEUT (AUTO) 14.2 10^3/uL (1.7-8.2); EOSINOPHILS % (AUTO) 0.4 % (0-6); HEMATOCRIT 39.1 % (36.0-47.0); HEMOGLOBIN 13.3 g/dL (12.0-15.5); LYMPHOCYTES % (AUTO) 9.6 % (13-45); MEAN CORPUSCULAR HEMOGLOBIN 34.3 pg (27.0-33.4); MEAN CORPUSCULAR HGB CONC 33.9 g/dL (32.0-36.0); MEAN CORPUSCULAR VOLUME 101 fl (80-97); MONOCYTES % (AUTO) 6.1 % (3-13); PLATELET COUNT 273 10^3/uL (150-450); RED BLOOD COUNT 3.86 10^6/uL (3.72-5.28); SEGMENTED NEUTROPHILS % (AUTO) 82.9 % (42-78); TOTAL CELLS COUNTED % (AUTO) 100 %
[2019-05-27 14:58] LABS: WHITE BLOOD COUNT 17.2 10^3/uL (4.0-10.5)
[2019-05-27 15:31] LABS: APPEARANCE,URINE CLEAR; BILIRUBIN,URINE NEGATIVE (NEGATIVE); COLOR,URINE YELLOW; GLUCOSE, URINE NEGATIVE (NEGATIVE); KETONES,URINE NEGATIVE (NEGATIVE); LEUKOCYTE ESTERASE,URINE NEGATIVE (NEGATIVE); NITRITE,URINE NEGATIVE (NEGATIVE); PROTEIN,URINE NEGATIVE (NEGATIVE); URINE SPECIFIC GRAVITY 1.008; UROBILINOGEN,URINE NEGATIVE mg/dL (<2.0)
[2019-05-27 15:58] LABS: VENOUS BLOOD BASE EXCESS -11.6 mmol/L; VENOUS BLOOD HCO3 13.1 mmol/L (20-32); VENOUS BLOOD PCO2 25.8 mmHg (35-63); VENOUS BLOOD PH 7.32 (7.30-7.42)
[2019-05-27 16:21] LABS: ALANINE AMINOTRANSFERASE 12 U/L (9-52); ALBUMIN 1.7 g/dL (3.5-5.0); ALKALINE PHOSPHATASE 32 U/L (38-126); ANION GAP 6 (5-19); ASPARTATE AMINO TRANSFERASE 10 U/L (14-36); BILIRUBIN,DIRECT 0.1 mg/dL (0.0-0.4); BILIRUBIN,TOTAL 0.1 mg/dL (0.2-1.3); BLOOD UREA NITROGEN 5 mg/dL (7-20); CARBON DIOXIDE 12 mmol/L (22-30); CHLORIDE 123 mmol/L (98-107); LIPASE 22.6 U/L (23-300); SODIUM 140.5 mmol/L (137-145); TOTAL PROTEIN 3.3 g/dL (6.3-8.2)
[2019-05-27 16:32] LABS: CALCIUM 4.5 mg/dL (8.4-10.2); GLUCOSE 37 mg/dL (75-110); POTASSIUM 2.3 mmol/L (3.6-5.0)
[2019-05-27] MEDS ORDERED: MORPHINE SULFATE 10 MG/ML INJ IV ONE (18:51)
[2019-05-27] MEDS ORDERED: POTASSIUM CHLORIDE 10 MEQ CAPSULE.ER PO ONE (19:21)
--- NOTE | 2019-05-27 20:07 | ER Document Report ---
ED General - General Chief Complaint: Nausea/Vomiting Stated Complaint: VOMITING Time Seen by Provider: 05/27/19 13:36 Notes: Patient is complaining of vomiting and abdominal pain. She was just admitted at this hospital day before yesterday and stayed for 1 day going home yesterday. She was better yesterday. Now, her symptoms have worsened. She continues to vomits without any relief. Patient's labs show a calcium level of 6.5 which is something she is never heard of before. Potassium was 2.3. Glucose was 45. TRAVEL OUTSIDE OF THE [place] IN LAST 30 DAYS: No - Related Data Allergies/Adverse Reactions: liborio Allergy (Severe, Verified 05/27/19 12:54) green pepper Allergy (Severe, Verified 05/27/19 12:54) ketorolac tromethamine [From Toradol] Allergy (Verified 05/27/19 12:54) tramadol [Tramadol] Allergy (Verified 05/27/19 12:54) Past Medical History - General Information source: Patient - Social History Smoking Status: Current Every Day Smoker Chew tobacco use (# tins/day): No Family History: Reviewed & Not Pertinent Patient has suicidal ideation: No Patient has homicidal ideation: No - Past Medical History Cardiac Medical History: Reports: Hx Hypercholesterolemia, Hx Hypertension Pulmonary Medical History: Reports: Hx COPD Comment Only: Hx Asthma - pt denies Endocrine Medical History: Reports: Hx Diabetes Mellitus Type 1, Hx Diabetes Mellitus Type 2 Renal/ Medical History: Denies: Hx Peritoneal Dialysis Malignancy Medical History: Reports: Hx Lymphoma - Non-Hodgkin's GI Medical History: Reports: Hx Gastroesophageal Reflux Disease Musculoskeletal Medical History: Reports Hx Arthritis, Reports Hx Musculoskeletal Trauma Psychiatric Medical History: Reports: Hx Anxiety, Hx Depression Past Surgical History: Reports: Hx Appendectomy, Hx Cholecystectomy, Hx Gynecologic Surgery - x14 D&C - Immunizations Immunizations up to date: No Hx Diphtheria, Pertussis, Tetanus Vaccination: Yes Review of Systems - Review of Systems Notes: REVIEW OF SYSTEMS: CONSTITUTIONAL : Denies fever. EENT: Denies eye, ear, nose or mouth or throat pain or other symptoms. CARDIOVASCULAR: Denies chest pain. RESPIRATORY: Denies cough, chest congestion, or shortness of breath. GASTROINTESTINAL: Planes of abdominal pain and nausea and vomiting. No diarrhea. GENITOURINARY: Denies difficulty or painful urinating, urinary frequency, blood in urine. MUSCULOSKELETAL: Denies back or neck pain. Denies joint pain or swelling. SKIN: Denies rash or skin lesions. NEUROLOGICAL: Denies LOC or altered mental status. Denies headache. Denies sensory loss or motor deficits. ALL OTHER SYSTEMS REVIEWED AND NEGATIVE. Physical Exam - Vital signs Vitals: Temp Pulse Resp BP Pulse Ox 99.1 F 111 H 16 135/70 H 96 05/27/19 12:59 05/27/19 12:59 05/27/19 12:59 05/27/19 12:59 05/27/19 12:59 Interpretation: Normal Notes: PHYSICAL EXAMINATION: Vital signs are all essentially negative. Appears ill. GENERAL: Well-appearing, in no acute distress. HEAD: Atraumatic, normocephalic. Appears uncomfortable. EYES: Pupils equal round and reactive to light, extraocular movements intact. ENT: oropharynx clear without exudates. Moist mucous membranes. NECK: Normal range of motion, supple. LUNGS: Breath sounds clear and equal bilaterally. HEART: Regular rate and rhythm without murmurs. ABDOMEN: Nauseated. Soft, nontender. No guarding or rebound. No masses. BACK: No tenderness throughout entire back. EXTREMITIES: Normal range of motion without pain. NEUROLOGICAL: Normal speech, normal gait. Normal sensory, motor, and reflex exams. Awake, alert, and oriented x3. Cranial nerves normal. PSYCH: Normal mood, normal affect. SKIN: Warm, dry, no rashes. Course - Vital Signs Vital signs: Temp Pulse Resp BP Pulse Ox 98.4 F 70 15 130/61 H 99 05/28/19 16:00 05/28/19 16:00 05/28/19 16:00 05/28/19 16:00 05/28/19 16:00 - Laboratory Result Diagrams: 05/28/19 09:25 05/28/19 09:25 Laboratory results interpreted by me: 05/27/19 05/27/19 05/27/19 14:25 15:39 15:39 WBC 17.2 H D MCV 101 H MCH 34.3 H RDW 16.0 H Seg Neutrophils % 82.9 H Lymphocytes % 9.6 L Absolute Neutrophils 14.2 H VBG pCO2 25.8 L VBG HCO3 13.1 L Potassium 2.3 L* Chloride 123 H Carbon Dioxide 12 L BUN 5 L Creatinine 0.21 L Glucose 37 L* Calcium 4.5 L* Total Bilirubin 0.1 L AST 10 L Alkaline Phosphatase 32 L Total Protein 3.3 L Albumin 1.7 L Lipase 22.6 L 05/27/19 20:21 Patient has significantly low calcium and potassium and I feel she needs to be replenished as an inpatient. Contacted Dr. Richter, this patient's primary care physician and he agreed to put her in for observation. Patient's been given some calcium gluconate as well as some potassium chloride pills. Discharge - Discharge Clinical Impression: Abdominal pain with vomiting, Hypocalcemia, Hypokalemia Condition: Stable Disposition: ADMITTED OBSERVATION Admitting Provider: Rober Unit Admitted: Telemetry
--- NOTE | 2019-05-27 21:57 | EKG REPORT ---
SEVERITY:- NORMAL ECG - SINUS RHYTHM : Confirmed by: Dwayne Pedersen 27-May-2019 21:56:53
[2019-05-28] MEDS ORDERED: ONDANSETRON HCL INJ/PF 4 MG/2 ML SDV IV PRN (01:05)
[2019-05-28] MEDS: NORMAL SALINE 1000 ML 1,000 ML IV PRN ×2 (01:24→17:08)
[2019-05-28] MEDS ORDERED: (PENDING PHARMACY ID) (Trazodone Hcl [Desyrel] 150 MG) PO PRN (08:11)
[2019-05-28] MEDS ORDERED: DEXTROSE 50%-WATER 25 GM/50 ML DISP.SYRIN IV PRN ×2 (08:13)
[2019-05-28] MEDS ORDERED: GLUCAGON,HUMAN RECOMB 1 MG INJ IM PRN (08:13)
[2019-05-28] MEDS ORDERED: DEXTROSE 40% GEL 15 GM TUBE PO PRN ×2 (08:13)
[2019-05-28] MEDS ORDERED: TRAZODONE HCL 50 MG TABLET PO PRN (08:21)
[2019-05-28] MEDS: METRONIDAZOLE 500 MG/NS RTU 500 MG/100 ML RTUPB IV SCH ×2 (08:36→15:44)
[2019-05-28] MEDS ORDERED: GLIPIZIDE 10 MG TABLET PO SCH (09:00)
[2019-05-28] MEDS ORDERED: LEVOFLOXACIN 500 MG/D5W RTU 500 MG/100 ML RTUPB IV SCH (10:00)
[2019-05-28] MEDS ORDERED: GABAPENTIN 300 MG CAPSULE PO SCH (10:00)
[2019-05-28] MEDS ORDERED: ACYCLOVIR 200 MG CAPSULE PO SCH (10:00)
[2019-05-28] MEDS ORDERED: LISINOPRIL 10 MG TABLET PO SCH (10:00)
[2019-05-28] MEDS ORDERED: ENOXAPARIN SODIUM INJ 40 MG/0.4 ML DISP.SYRIN SUBCUT SCH (10:00)
[2019-05-28] MEDS ORDERED: (PENDING PHARMACY ID) (Icosapent Ethyl [Vascepa] 2 GM) PO SCH (10:00)
[2019-05-28] MEDS ORDERED: PAROXETINE HCL 20 MG TABLET PO SCH (10:00)
[2019-05-28] MEDS ORDERED: POLYETHYLENE GLYCOL 3350 POWDER 17 GM/1 PACKET PO SCH (10:00)
[2019-05-28 10:32] LABS: ABSOLUTE BASOPHILS # (AUTO) 0.1 10^3/uL (0.0-0.2); ABSOLUTE EOSINOPHILS # (AUTO) 0.1 10^3/uL (0.0-0.6); ABSOLUTE LYMPHOCYTES (AUTO) 1.4 10^3/uL (0.5-4.7); ABSOLUTE MONOCYTES (AUTO) 0.5 10^3/uL (0.1-1.4); ABSOLUTE NEUT (AUTO) 3.7 10^3/uL (1.7-8.2); BASOPHILS % (AUTO) 1.4 % (0-2); EOSINOPHILS % (AUTO) 1.7 % (0-6); HEMATOCRIT 38.3 % (36.0-47.0); HEMOGLOBIN 12.9 g/dL (12.0-15.5); LYMPHOCYTES % (AUTO) 23.7 % (13-45); MEAN CORPUSCULAR HEMOGLOBIN 34.6 pg (27.0-33.4); MEAN CORPUSCULAR HGB CONC 33.8 g/dL (32.0-36.0); MEAN CORPUSCULAR VOLUME 103 fl (80-97); MONOCYTES % (AUTO) 9.1 % (3-13); PLATELET COUNT 257 10^3/uL (150-450); RED BLOOD COUNT 3.74 10^6/uL (3.72-5.28); RED CELL DISTRIBUTION WIDTH 15.5 % (11.5-14.0); SEGMENTED NEUTROPHILS % (AUTO) 64.1 % (42-78); TOTAL CELLS COUNTED % (AUTO) 100 %; WHITE BLOOD COUNT 5.7 10^3/uL (4.0-10.5)
[2019-05-28 10:59] LABS: ALANINE AMINOTRANSFERASE 18 U/L (9-52); ALKALINE PHOSPHATASE 85 U/L (38-126); ASPARTATE AMINO TRANSFERASE 23 U/L (14-36); BILIRUBIN,DIRECT 0.3 mg/dL (0.0-0.4); BILIRUBIN,TOTAL 0.4 mg/dL (0.2-1.3); BLOOD UREA NITROGEN 6 mg/dL (7-20); CALCIUM 9.4 mg/dL (8.4-10.2); CHLORIDE 103 mmol/L (98-107); GLUCOSE 137 mg/dL (75-110); SODIUM 135.7 mmol/L (137-145); TOTAL PROTEIN 6.7 g/dL (6.3-8.2)
[2019-05-28 11:09] LABS: ANION GAP 10 (5-19)
[2019-05-28 11:12] LABS: CARBON DIOXIDE 23 mmol/L (22-30); POTASSIUM 4.8 mmol/L (3.6-5.0)
[2019-05-28] MEDS: INSULIN LISPRO 100 UNIT/ML 3 ML VIAL SUBCUT SCH ×2 (11:44→15:44)
--- NOTE | 2019-05-28 13:40 | RADIOLOGY REPORT (SQ) ---
EXAM DESCRIPTION: CT ABD/PELVIS WITH IV ORAL COMPLETED DATE/TIME: 05/28/2019 11:30 am REASON FOR STUDY: Nausea, vomting, Abdominal pain COMPARISON: 05/13/2019 02/11/2019 12/13/2018 TECHNIQUE: CT scan of the abdomen and pelvis performed using helical scanning technique with dynamic intravenous contrast injection. Oral contrast. Images reviewed with lung, soft tissue, and bone win dows. Reconstructed coronal and sagittal MPR images reviewed. Delayed images for evaluation of the ur inary system also acquired. All images stored on PACS. All CT scanners at this facility use dose modulation, iterative reconstruction, and/or weight based d osing when appropriate to reduce radiation dose to as low as reasonably achievable (ALARA). [facility]: Dose Right [facility]: CareDose [facility]: Dose Right [facility]: Teradose 4D [facility]: [employer] CONTRAST TYPE AND DOSE: contrast/concentration: Isovue 350.00 mg/ml; Total Contrast Delivered: 91.0 ml; Total Saline Delivered: 27.0 ml RENAL FUNCTION: BUN 6 creatinine 0.45 RADIATION DOSE: CT Rad equipment meets quality standard of care and radiation dose reduction techniq ues were employed. CTDIvol: 8.7 - 9.9 mGy. DLP: 977 mGy-cm.. LIMITATIONS: None. FINDINGS: LOWER CHEST: No significant findings. No nodules or infiltrates. LIVER: Stable low-density lesion on image 24. No other masses. SPLEEN: Granulomatous calcifications. PANCREAS: No masses. No significant calcifications. No adjacent inflammation or peripancreatic fluid collections. Pancreatic duct not dilated. GALLBLADDER: Surgically absent. ADRENAL GLANDS: No significant masses or asymmetry. RIGHT KIDNEY AND URETER: No solid masses. No significant calcifications. No hydronephrosis or hyd roureter. LEFT KIDNEY AND URETER: No solid masses. No significant calcifications. No hydronephrosis or hydr oureter. AORTA AND VESSELS: No aneurysm. No dissection. Renal arteries, SMA, celiac without stenosis. RETROPERITONEUM: No retroperitoneal adenopathy, hemorrhage or masses. BOWEL AND PERITONEAL CAVITY: Considerable retained stool. No bowel mass. No inflammation. APPENDIX: Surgically absent. PELVIS: No mass. No free fluid. Normal bladder. ABDOMINAL WALL: No masses. No hernias. BONES: No significant or acute findings. OTHER: No other significant finding. IMPRESSION: Stable low-density hepatic lesion. Constipation. No acute finding. TECHNICAL DOCUMENTATION: JOB ID: [id number] Quality ID # [id number]: Final reports with documentation of one or more dose reduction techniques (e.g., Au tomated exposure control, adjustment of the mA and/or kV according to patient size, use of iterative reconstruction technique) 2010 [employer]- All Rights Reserved Reading location - IP/workstation name: [email or web address]
[2019-05-28 17:08] VITALS: BP 130/61
[2019-05-28] MEDS ORDERED: LURASIDONE HCL 40 MG TABLET PO SCH (18:00)
--- NOTE | 2019-05-28 18:21 | PDOC H&P ---
History of Present Illness Admission Date/PCP: 05/27/19 20:52 [facility] Patient complains of: Nausea and vomiting History of Present Illness: ROBERT BROWNLEE is a 48 year old female patient known to my practice who was recently discharged from this hospital following presentation with nausea and vomiting with associated leukocytosis. She was treated with antiemetic, IV fluid support and antibiotic. She was eventually treated for constipation and with resolution of her symptoms discharged home. She returned to the ED with recurrent abdominal pain, nausea and vomiting. There was reported recurrent vomiting without relief despite treatment in the ED. Her laboratory evaluation revealed significant hypocalcemia, hypokalemia and hypoglycemia. Her morbidities include Hypertension, Hypercholesterolemia, COPD, Diabetes Mellitus Type 2, Lymphoma - Non-Hodgkin's, Gastroesophageal Reflux Disease, Osteoarthritis, Mixed Anxiety with Depression. She was advised hospitalization for further evaluation and management. Past Medical History Cardiac Medical History: Reports: Hyperlipidema, Hypertension Pulmonary Medical History: Reports: Chronic Obstructive Pulmonary Disease (COPD) Comment Only: Asthma - pt denies Endocrine Medical History: Reports: Diabetes Mellitus Type 2 Malignancy Medical History: Reports: Lymphoma - Non-Hodgkin's GI Medical History: Reports: Gastroesophageal Reflux Disease Musculoskeltal Medical History: Reports: Arthritis Psychiatric Medical History: Reports: Depression, General Anxiety Disorder Past Surgical History Past Surgical History: Reports: Appendectomy, Cholecystectomy Social History Smoking Status: Current Every Day Smoker Frequency of Alcohol Use: Occasional Drugs: None Hx Prescription Drug Abuse: No - Advance Directive Resuscitation Status: Full Code Family History Family History: Reviewed & Not Pertinent Parental Family History Reviewed: Yes Children Family History Reviewed: Yes Sibling(s) Family History Reviewed.: Yes Medication/Allergy Home Medications: Acyclovir [Zovirax 200 mg Capsule] 200 mg PO BID 05/27/19 Clonazepam [Klonopin 1 mg Tablet] 0.5 mg PO Q8HP PRN 05/27/19 Gabapentin [Neurontin 300 mg Capsule] 300 mg PO Q12 05/27/19 Glipizide [Glucotrol 10 mg Tablet] 10 mg PO QAM 05/27/19 Icosapent Ethyl [Vascepa] 2 gm PO BID 05/27/19 Insulin Lispro [Humalog Kwikpen U-100] 0 units SQ .ACHS SLIDING SCALE 05/27/19 Lisinopril [Prinivil 10 mg Tablet] 10 mg PO QAM 05/27/19 Lurasidone HCl [Latuda 40 mg Tablet] 40 mg PO PCSUPPER 05/27/19 Metformin HCl [Glucophage] 1,000 mg PO BID 05/27/19 Omeprazole 20 mg PO ACBRKFST 05/27/19 Paroxetine HCl [Paxil] 40 mg PO DAILY 05/27/19 Polyethylene Glycol 3350 [Miralax Powder 17 gm/Packet] 17 gm PO DAILY 05/27/19 Simvastatin [Zocor 40 mg Tablet] 40 mg PO QPM 05/27/19 Trazodone HCl [Desyrel] 150 mg PO HSP PRN 05/27/19 Allergies/Adverse Reactions: liborio Allergy (Severe, Verified 05/27/19 12:54) green pepper Allergy (Severe, Verified 05/27/19 12:54) ketorolac tromethamine [From Toradol] Allergy (Verified 05/27/19 12:54) tramadol [Tramadol] Allergy (Verified 05/27/19 12:54) Review of Systems Constitutional: PRESENT: weakness. ABSENT: as per HPI, anorexia, chills, fatigue, fever(s), headache(s), night sweats, weight gain, weight loss, other Eyes: ABSENT: visual disturbances Ears: ABSENT: hearing changes Nose, Mouth, and Throat: ABSENT: as per HPI, headache(s), mouth pain, sore throat, vertigo, other Cardiovascular: ABSENT: chest pain, dyspnea on exertion, edema, orthropnea, palpitations Respiratory: ABSENT: cough, hemoptysis Gastrointestinal: PRESENT: abdominal pain, nausea, vomiting. ABSENT: as per HPI, bloating, coffee ground emesis, constipation, diarrhea, dysphagia, heartburn, hematemesis, hematochezia, melena, other Musculoskeletal: ABSENT: joint swelling Integumentary: ABSENT: rash, wounds Neurological: ABSENT: abnormal gait, abnormal speech, confusion, dizziness, focal weakness, syncope Psychiatric: PRESENT: anxiety, depression Endocrine: ABSENT: cold intolerance, heat intolerance, polydipsia, polyuria Hematologic/Lymphatic: ABSENT: easy bleeding, easy bruising, lymphadenopathy Allergic/Immunologic: ABSENT: seasonal rhinorrhea Physical Exam Vital Signs: Temp Pulse Resp BP Pulse Ox 98.7 F 56 L 16 104/52 L 100 05/27/19 23:55 05/27/19 23:55 05/27/19 23:55 05/27/19 23:55 05/27/19 23:55 Intake & Output 05/27/19 05/28/19 05/29/19 06:59 06:59 06:59 Intake Total 1320 Output Total 0 Balance 1320 Weight 80.1 kg General appearance: PRESENT: no acute distress, well-developed, well-nourished Head exam: PRESENT: atraumatic, normocephalic Eye exam: PRESENT: conjunctiva pink, EOMI, PERRLA. ABSENT: scleral icterus Ear exam: PRESENT: normal external ear exam Mouth exam: PRESENT: moist Neck exam: PRESENT: full ROM. ABSENT: carotid bruit, JVD, lymphadenopathy, thyromegaly Respiratory exam: PRESENT: clear to auscultation james Cardiovascular exam: PRESENT: RRR. ABSENT: diastolic murmur, rubs, systolic murmur Vascular exam: ABSENT: pallor GI/Abdominal exam: PRESENT: guarding - to deep palpation elicited tenderness, normal bowel sounds, tenderness - diffusely to deep palpation. ABSENT: ascites, distended, rebound, soft Rectal exam: PRESENT: deferred Extremities exam: ABSENT: pedal edema Musculoskeletal exam: PRESENT: normal inspection Neurological exam: PRESENT: alert, awake, oriented to person, oriented to place, oriented to time, oriented to situation, CN II-XII grossly intact. ABSENT: motor sensory deficit Psychiatric exam: PRESENT: appropriate affect, normal mood. ABSENT: homicidal ideation, suicidal ideation Skin exam: PRESENT: dry, warm Results Laboratory Results: 05/27/19 14:25 05/27/19 15:39 05/27/19 05/27/19 05/27/19 14:25 14:25 14:25 WBC 17.2 H D RBC 3.86 Hgb 13.3 Hct 39.1 MCV 101 H MCH 34.3 H MCHC 33.9 RDW 16.0 H Plt Count 273 Seg Neutrophils % 82.9 H Lymphocytes % 9.6 L Monocytes % 6.1 Eosinophils % 0.4 Basophils % 1.0 Absolute Neutrophils 14.2 H Absolute Lymphocytes 1.7 Absolute Monocytes 1.1 Absolute Eosinophils 0.1 Absolute Basophils 0.2 VBG pH Cancelled VBG pCO2 Cancelled VBG HCO3 Cancelled VBG Base Excess Cancelled Sodium Cancelled Potassium Cancelled Chloride Cancelled Carbon Dioxide Cancelled Anion Gap Cancelled BUN Cancelled Creatinine Cancelled Est GFR ( Amer) Cancelled Est GFR (Non-Af Amer) Cancelled Glucose Cancelled Calcium Cancelled Total Bilirubin Cancelled AST Cancelled ALT Cancelled Alkaline Phosphatase Cancelled Total Protein Cancelled Albumin Cancelled Lipase Cancelled Urine Color Urine Appearance Urine pH Ur Specific [place] Urine Protein Urine Glucose (UA) Urine Ketones Urine Blood Urine Nitrite Ur Leukocyte Esterase Urine WBC (Auto) Urine RBC (Auto) 05/27/19 05/27/19 05/27/19 15:13 15:39 15:39 WBC RBC Hgb Hct MCV MCH MCHC RDW Plt Count Seg Neutrophils % Lymphocytes % Monocytes % Eosinophils % Basophils % Absolute Neutrophils Absolute Lymphocytes Absolute Monocytes Absolute Eosinophils Absolute Basophils VBG pH 7.32 VBG pCO2 25.8 L VBG HCO3 13.1 L VBG Base Excess -11.6 Sodium 140.5 Potassium 2.3 L* Chloride 123 H Carbon Dioxide 12 L Anion Gap 6 BUN 5 L Creatinine 0.21 L Est GFR ( Amer) > 60 Est GFR (Non-Af Amer) > 60 Glucose 37 L* Calcium 4.5 L* Total Bilirubin 0.1 L AST 10 L ALT 12 Alkaline Phosphatase 32 L Total Protein 3.3 L Albumin 1.7 L Lipase 22.6 L Urine Color YELLOW Urine Appearance CLEAR Urine pH 6.0 Ur Specific [place] 1.008 Urine Protein NEGATIVE Urine Glucose (UA) NEGATIVE Urine Ketones NEGATIVE Urine Blood NEGATIVE Urine Nitrite NEGATIVE Ur Leukocyte Esterase NEGATIVE Urine WBC (Auto) 1 Urine RBC (Auto) 0 Assessment & Plan - Diagnosis (1) Abdominal pain with vomiting Is this a current diagnosis for this admission?: Yes Plan: See admitting attending physician orders for details of care plan. (2) Leukocytosis Qualifiers: Leukocytosis type: unspecified Qualified Code(s): D72.829 - Elevated white blood cell count, unspecified Is this a current diagnosis for this admission?: Yes Plan: See admitting attending physician orders for details of care plan. (3) Hypocalcemia Is this a current diagnosis for this admission?: Yes Plan: See admitting attending physician orders for details of care plan. (4) Hypokalemia Is this a current diagnosis for this admission?: Yes Plan: See admitting attending physician orders for details of care plan. (5) Diabetes mellitus type 2 in nonobese Is this a current diagnosis for this admission?: Yes Plan: See admitting attending physician orders for details of care plan. (6) HTN (hypertension) Qualifiers: Hypertension type: essential hypertension Qualified Code(s): I10 - Essential (primary) hypertension Is this a current diagnosis for this admission?: Yes Plan: See admitting attending physician orders for details of care plan. (7) HLD (hyperlipidemia) Qualifiers: Hyperlipidemia type: unspecified Qualified Code(s): E78.5 - Hyperlipidemia, unspecified Is this a current diagnosis for this admission?: Yes Plan: See admitting attending physician orders for details of care plan. (8) COPD (chronic obstructive pulmonary disease) Qualifiers: Emphysema type: unspecified Is this a current diagnosis for this admission?: Yes Plan: See admitting attending physician orders for details of care plan. 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 - Time Time Spent: 50 to 70 Minutes Medications reviewed and adjusted accordingly: Yes Anticipated discharge: Home Within: Other - Inpatient Certification Based on my medical assessment, after consideration of the patient's comorbidities, presenting symptoms, or acuity I expect that the services needed warrant INPATIENT care.: Yes I certify that my determination is in accordance with my understanding of Medicare's requirements for reasonable and necessary INPATIENT services [42 CFR 412.3e].: Yes Medical Necessity: Significant Comorbidiites Make Outpatient Treatment Too Risky, Need Close Monitoring Due to Risk of Patient Decompensation, Need For IV Fluids, Need for IV Antibiotics, Risk of Complication if Not Cared For in Hospital, Risk of Diagnosis Which Will Require Inpatient Eval/Care/Monitoring Post Hospital Care: 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
[2019-05-29] MEDS ORDERED: PANTOPRAZOLE SODIUM 40 MG TABLET.DR PO SCH (06:00)
--- NOTE | 2019-05-29 16:08 | Left Against Medical Advice ---
Against Medical Advice Admission Date/Time: 05/27/19 20:52 Primary Care Provider: BRI STILES Date of Patient Emigration: 05/28/19 - Diagnosis: (1) Abdominal pain with vomiting Is this a current diagnosis for this admission?: Yes (2) Leukocytosis Is this a current diagnosis for this admission?: Yes (3) Hypocalcemia Is this a current diagnosis for this admission?: Yes (4) Hypokalemia Is this a current diagnosis for this admission?: Yes (5) Diabetes mellitus type 2 in nonobese Is this a current diagnosis for this admission?: Yes (6) HTN (hypertension) Is this a current diagnosis for this admission?: Yes (7) HLD (hyperlipidemia) Is this a current diagnosis for this admission?: Yes (8) COPD (chronic obstructive pulmonary disease) Is this a current diagnosis for this admission?: Yes (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 ROBERT BROWNLEE is a 48 F, who LEFT AGAINST MEDICAL ADVICE. The Patient was admitted on 05/27/19 20:52. She was admitted due to concern for intractable nausea and vomiting with reported abdominal pain. her initial evaluation was remarkable for hyponatremia, hypocalcemia and leukocytosis. In view of her morbidities including Non Hodgkin's Lymphoma there was concern for possible intra-abdominal acute pathologic process as cause o0f her abdominal pain. Her CT scan abdomen and pelvis with oral and IV contrast was devoid of any acute process but revealed increase fecal burden. Patient reported adequate bowel movement with her current regimen of Miralax and refused use of Dulcolax suppository. She signed out against medical advise on the pretest of not receiving pain medication as she demanded. In my view there was no objective indication for use of opiate medication and increase risk of worsening her constipation and clinical condition. Due to her decision and reclined of my medical advise patient has been instructed to seek another medical provider. She will be discharged from my service after 30 days of mailed notice to her address on 05/29/2019. This decision was difficult for me but necessary due to abuse of service and inappropriate resource utilization. I hope she will seek medical care as appropriate in the future.
== END 2019-05-28 20:58 | disposition home or self-care (01) ==
LOC: ER 12:42 → EH 20:52 → 5 22:51
PROVIDERS: ADMIT Internal Medicine Geriatric Medicine; ATTEND Internal Medicine Geriatric Medicine
DX: R10.9 Unspecified abdominal pain (principal); R11.2 Nausea with vomiting, unspecified; Z53.21 Procedure and treatment not carried out due to patient leaving prior to being seen by health care provider; E83.51 Hypocalcemia; E87.6 Hypokalemia; E87.1 Hypo-osmolality and hyponatremia; D72.829 Elevated white blood cell count, unspecified; C85.13 Unspecified B-cell lymphoma, intra-abdominal lymph nodes; E11.9 Type 2 diabetes mellitus without complications; E78.5 Hyperlipidemia, unspecified; I10 Essential (primary) hypertension; J44.9 Chronic obstructive pulmonary disease, unspecified; K21.9 Gastro-esophageal reflux disease without esophagitis; M19.90 Unspecified osteoarthritis, unspecified site; F32.9 Major depressive disorder, single episode, unspecified; F41.1 Generalized anxiety disorder; Z90.49 Acquired absence of other specified parts of digestive tract; F17.200 Nicotine dependence, unspecified, uncomplicated; Z79.84 Long term (current) use of oral hypoglycemic drugs; Z79.899 Other long term (current) drug therapy; Z88.8 Allergy status to other drugs, medicaments and biological substances
CPT/HCPCS: 93005; 36591; 96376; 99285; 96361; 96374; 96375; 36415 ×2; 82962 ×2; 83690; 85025 ×2; 80053 ×2; 81001; 82803; 74177; 93010; J1956; J3010; J1815; J3490 ×5; J2270; J1650; J2405; J7030 ×2; J1642; G0378

== ENCOUNTER 2019-06-04 12:03 | Emergency (ER) | payer MEDICAID ==
[2019-06-04] MEDS ORDERED: ONDANSETRON HCL INJ/PF 4 MG/2 ML SDV IV ONE (12:17)
--- NOTE | 2019-06-04 12:19 | ER Document Report ---
ED Medical Screen (RME) - General Chief Complaint: Weakness Stated Complaint: DIZZINESS, VOMITING Time Seen by Provider: 06/04/19 12:16 Primary Care Provider: BRI STILES MD [Primary Care Provider] - Follow up as needed Mode of Arrival: Wheelchair Information source: Patient Notes: 48-year-old female presents to ED for complaint of abdominal pain nausea vomiti ng diarrhea. She states she has had abdominal pain nausea and vomiting and diarrhea for over a week. She states last she came into the emergency room and was admitted for potassium calcium and dehydration. She states she went home on Saturday and she has not gotten any better since. She states she has been vomiting and having diarrhea every day. She states she is vomited 4 times today and had 4 diarrheal stools today. States she has a history of non- Hodgkin's lymphoma but has been cancer free but is still on chemo. She does smoke a pack a day she states she does not drink or do any drugs. She is alert oriented respirations regular nonlabored. I have greeted and performed a rapid initial assessment of this patient. A comprehensive ED assessment and evaluation of the patient, analysis of test results and completion of medical decision making process will be conducted by an additional ED providers. Dictation of this chart was performed using voice recognition software; therefore, there may be some unintended grammatical errors. TRAVEL OUTSIDE OF THE [place] IN LAST 30 DAYS: No - Related Data Allergies/Adverse Reactions: liborio Allergy (Severe, Verified 06/04/19 12:07) green pepper Allergy (Severe, Verified 06/04/19 12:07) ketorolac tromethamine [From Toradol] Allergy (Verified 06/04/19 12:07) tramadol [Tramadol] Allergy (Verified 06/04/19 12:07) Past Medical History - Past Medical History Cardiac Medical History: Reports: Hx Hypercholesterolemia, Hx Hypertension Pulmonary Medical History: Reports: Hx COPD Comment Only: Hx Asthma - pt denies Endocrine Medical History: Reports: Hx Diabetes Mellitus Type 1, Hx Diabetes Mellitus Type 2 Renal/ Medical History: Denies: Hx Peritoneal Dialysis Malignancy Medical History: Reports: Hx Lymphoma - Non-Hodgkin's GI Medical History: Reports: Hx Gastroesophageal Reflux Disease Musculoskeltal Medical History: Reports Hx Arthritis, Reports Hx Musculoskeletal Trauma Psychiatric Medical History: Reports: Hx Anxiety, Hx Depression Past Surgical History: Reports: Hx Appendectomy, Hx Cholecystectomy, Hx Gynecologic Surgery - x14 D&C - Immunizations Immunizations up to date: No Hx Diphtheria, Pertussis, Tetanus Vaccination: Yes Physical Exam - Vital signs Vitals: Temp Pulse Resp BP Pulse Ox 98.3 F 119 H 18 113/65 97 06/04/19 12:10 06/04/19 12:10 06/04/19 12:10 06/04/19 12:10 06/04/19 12:10 Course - Vital Signs Vital signs: Temp Pulse Resp BP Pulse Ox 98.3 F 119 H 18 113/65 97 06/04/19 12:10 06/04/19 12:10 06/04/19 12:10 06/04/19 12:10 06/04/19 12:10 Doctor's Discharge - Discharge Referrals: BRI STILES MD [Primary Care Provider] - Follow up as needed
[2019-06-04] MEDS ORDERED: MORPHINE SULFATE 10 MG/ML INJ IV ONE ×2 (13:14→15:16)
[2019-06-04] MEDS: NORMAL SALINE 1000 ML 1,000 ML IV PRN ×2 (13:18→13:20)
--- NOTE | 2019-06-04 13:19 | ER Document Report ---
ED General - General Chief Complaint: Weakness Stated Complaint: DIZZINESS, VOMITING Time Seen by Provider: 06/04/19 12:16 Primary Care Provider: BRI STILES MD [Primary Care Provider] - Follow up as needed Mode of Arrival: Wheelchair Notes: 48-year-old female with history of B-cell lymphoma currently in remission but on chemotherapy every other month last chemo in April, next chemo next Saturday presents to the emergency department with chief complaint of nausea, vomiting, diarrhea for over 1 week. She has been in the emergency department multiple times in the past few months and was admitted for hypokalemia, hypocalcemia, and dehydration. She went home last Saturday and has not had any improvement. She has had 4 episodes of vomiting today and 4 diarrheal stools today. She is up to 1 pack/day cigarette smoker but denies alcohol or drug use. She denies fevers or chills, acute shortness of breath or chest pain, denies constipation, denies any severe headache or vision changes, denies dizziness or lightheadedness, denies neck stiffness, denies any urinary symptoms. TRAVEL OUTSIDE OF THE [place] IN LAST 30 DAYS: No - Related Data Allergies/Adverse Reactions: liborio Allergy (Severe, Verified 06/04/19 12:18) green pepper Allergy (Severe, Verified 06/04/19 12:18) ketorolac tromethamine [From Toradol] Allergy (Verified 06/04/19 12:18) tramadol [Tramadol] Allergy (Verified 06/04/19 12:18) Past Medical History - General Information source: Patient - Social History Smoking Status: Current Every Day Smoker Chew tobacco use (# tins/day): No Frequency of alcohol use: None Drug Abuse: None Family History: Reviewed & Not Pertinent Patient has suicidal ideation: No Patient has homicidal ideation: No - Past Medical History Cardiac Medical History: Reports: Hx Hypercholesterolemia, Hx Hypertension Pulmonary Medical History: Reports: Hx COPD Comment Only: Hx Asthma - pt denies Endocrine Medical History: Reports: Hx Diabetes Mellitus Type 1, Hx Diabetes M ellitus Type 2 Renal/ Medical History: Denies: Hx Peritoneal Dialysis Malignancy Medical History: Reports: Hx Lymphoma - Non-Hodgkin's GI Medical History: Reports: Hx Gastroesophageal Reflux Disease Musculoskeletal Medical History: Reports Hx Arthritis, Reports Hx Musculoskeletal Trauma Psychiatric Medical History: Reports: Hx Anxiety, Hx Depression Past Surgical History: Reports: Hx Appendectomy, Hx Cholecystectomy, Hx Gynecologic Surgery - x14 D&C - Immunizations Immunizations up to date: No Hx Diphtheria, Pertussis, Tetanus Vaccination: Yes Review of Systems - Review of Systems Constitutional: See HPI EENT: No symptoms reported Cardiovascular: See HPI Respiratory: See HPI Gastrointestinal: See HPI Genitourinary: See HPI Female Genitourinary: No symptoms reported Musculoskeletal: No symptoms reported Skin: No symptoms reported Hematologic/Lymphatic: No symptoms reported Neurological/Psychological: See HPI Physical Exam - Vital signs Vitals: Temp Pulse Resp BP Pulse Ox 98.3 F 119 H 18 113/65 97 06/04/19 12:10 06/04/19 12:10 06/04/19 12:10 06/04/19 12:10 06/04/19 12:10 - Notes Notes: PHYSICAL EXAMINATION: Reviewed vital signs and charting by RN GENERAL: Alert, interacts well. No acute distress. HEAD: Normocephalic, atraumatic. EYES: Pupils equal and round. Extraocular movements intact. ENT: Oral mucosa moist, tongue midline. NECK: Full range of motion. Trachea midline. LUNGS: Clear to auscultation bilaterally, no wheezes, rales, or rhonchi. No respiratory distress. HEART: Tachycardia at 108, regular. No murmur ABDOMEN: soft, left lower quadrant tenderness to palpation. No distention. Bowel sounds present EXTREMITIES: Moves all 4 extremities spontaneously. No edema, No cyanosis. PSYCH: Normal affect, normal mood. SKIN: Warm, dry, normal turgor. No rashes or lesions noted. Course - Re-evaluation Re-evalutation: 06/04/19 13:19 Patient presents again with diarrhea, nausea, vomiting. Labs have not been drawn yet 06/04/19 15:17 Patient acute abdominal series was negative for any obvious air-fluid levels, negative for pulmonary infiltrate. Patient still complaining of acute right sided lower abdominal pain. I discussed the risks and benefits with the patient because she has had a significant amount of CT scans to include to CTA chest studies in the last 4 months. She says that she does want to move forward with a CT abdomen/pelvis with IV contrast at this time. She does have a leukocytosis with a left shift. She said Zofran IV did not work I will give her Phenergan IM. I will also give her morphine 1 mg IV 1 more time. 06/04/19 16:14 CT abdomen/pelvis with IV contrast complete and negative for any acute intra-abd ominal pathology. I had a very low suspicion for concerning etiology like a pulmonary embolism as patient is not tachypneic and her heart rate has improved with fluids. Wells score 1.5. 06/04/19 16:15 06/04/19 16:[address] Banks. Patient has a benign work-up and he agrees that there is nothing else to do. Abdomen exam is unremarkable. Vital signs have normalized. Plan is to discharge with follow-up with her primary doctor. - Vital Signs Vital signs: Temp Pulse Resp BP Pulse Ox 98.3 F 119 H 18 113/65 97 06/04/19 12:10 06/04/19 12:10 06/04/19 12:10 06/04/19 12:10 06/04/19 12:10 - Laboratory Result Diagrams: 06/04/19 13:21 06/04/19 13:21 Laboratory results interpreted by me: 06/04/19 06/04/19 13:21 13:21 WBC 14.9 H RBC 3.71 L MCV 101 H MCH 34.5 H RDW 15.1 H Absolute Neutrophils 11.4 H Sodium 134.0 L Glucose 118 H Discharge - Discharge Clinical Impression: Abdominal pain Nausea and vomiting Qualifiers: Vomiting type: unspecified Vomiting Intractability: non-intractable Qualified Code(s): R11.2 - Nausea with vomiting, unspecified Condition: Good Disposition: HOME, SELF-CARE Additional Instructions: You have been seen in the Emergency Department (ED) for abdominal pain. Your evaluation did not identify a clear cause of your symptoms but was generally reassuring. Please follow up with your doctor as soon as possible regarding today's emergent visit and the symptoms that are bothering you. Return to the ED if your abdominal pain worsens or fails to improve, you develop bloody vomiting, bloody diarrhea, you are unable to tolerate fluids due to vomiting, fever greater than 101, or other symptoms that concern you. Referrals: BRI STILES MD [Primary Care Provider] - Follow up as needed
[2019-06-04 13:33] LABS: ABSOLUTE EOSINOPHILS # (AUTO) 0.1 10^3/uL (0.0-0.6); ABSOLUTE LYMPHOCYTES (AUTO) 2.1 10^3/uL (0.5-4.7); ABSOLUTE MONOCYTES (AUTO) 1.2 10^3/uL (0.1-1.4); ABSOLUTE NEUT (AUTO) 11.4 10^3/uL (1.7-8.2); BASOPHILS % (AUTO) 0.3 % (0-2); EOSINOPHILS % (AUTO) 0.8 % (0-6); HEMATOCRIT 37.6 % (36.0-47.0); HEMOGLOBIN 12.8 g/dL (12.0-15.5); LYMPHOCYTES % (AUTO) 14.3 % (13-45); MEAN CORPUSCULAR HEMOGLOBIN 34.5 pg (27.0-33.4); MEAN CORPUSCULAR HGB CONC 34.1 g/dL (32.0-36.0); MEAN CORPUSCULAR VOLUME 101 fl (80-97); MONOCYTES % (AUTO) 7.8 % (3-13); PLATELET COUNT 248 10^3/uL (150-450); RED BLOOD COUNT 3.71 10^6/uL (3.72-5.28); RED CELL DISTRIBUTION WIDTH 15.1 % (11.5-14.0); SEGMENTED NEUTROPHILS % (AUTO) 76.8 % (42-78); TOTAL CELLS COUNTED % (AUTO) 100 %; WHITE BLOOD COUNT 14.9 10^3/uL (4.0-10.5)
[2019-06-04 13:58] LABS: ALANINE AMINOTRANSFERASE 23 U/L (9-52); ALKALINE PHOSPHATASE 106 U/L (38-126); ANION GAP 9 (5-19); ASPARTATE AMINO TRANSFERASE 15 U/L (14-36); BILIRUBIN,DIRECT 0.2 mg/dL (0.0-0.4); BILIRUBIN,TOTAL 0.2 mg/dL (0.2-1.3); BLOOD UREA NITROGEN 11 mg/dL (7-20); CALCIUM 9.2 mg/dL (8.4-10.2); CARBON DIOXIDE 26 mmol/L (22-30); CHLORIDE 99 mmol/L (98-107); GLUCOSE 118 mg/dL (75-110); LIPASE 76.7 U/L (23-300); POTASSIUM 4.3 mmol/L (3.6-5.0); TOTAL PROTEIN 6.6 g/dL (6.3-8.2)
--- NOTE | 2019-06-04 14:13 | RADIOLOGY REPORT (SQ) ---
EXAM DESCRIPTION: ACUTE ABDOMEN SERIES COMPLETED DATE/TIME: 06/04/2019 2:05 pm REASON FOR STUDY: abd pain COMPARISON: 05/25/2019 NUMBER OF VIEWS: Three views. TECHNIQUE: Frontal chest, supine abdomen and upright/decubitus abdomen radiographic images acquired. LIMITATIONS: None. FINDINGS: CHEST: Lungs clear of infiltrates. FREE AIR: None. No abnormal gas collections. BOWEL GAS PATTERN: Nonobstructive pattern. No dilated loops or air fluid levels. CALCIFICATIONS: Granulomatous calcifications in the spleen. HARDWARE: None in the abdomen. SOFT TISSUES: No gross mass or suggestion of organomegaly. BONES: No acute fracture. No worrisome bone lesions. OTHER: No other significant finding. IMPRESSION: NO RADIOGRAPHIC EVIDENCE FOR ACUTE ABDOMINAL DISEASE. TECHNICAL DOCUMENTATION: JOB ID: [id number] [employer]- All Rights Reserved Reading location - IP/workstation name: [email or web address]
[2019-06-04 14:32] LABS: APPEARANCE,URINE CLEAR; BILIRUBIN,URINE NEGATIVE (NEGATIVE); COLOR,URINE YELLOW; GLUCOSE, URINE NEGATIVE (NEGATIVE); KETONES,URINE NEGATIVE (NEGATIVE); LEUKOCYTE ESTERASE,URINE NEGATIVE (NEGATIVE); NITRITE,URINE NEGATIVE (NEGATIVE); PROTEIN,URINE NEGATIVE (NEGATIVE); URINE SPECIFIC GRAVITY 1.006; UROBILINOGEN,URINE NEGATIVE mg/dL (<2.0)
[2019-06-04] MEDS ORDERED: PROMETHAZINE HCL INJ 50 MG/1 ML VIAL IM PRN (15:18)
--- NOTE | 2019-06-04 16:05 | RADIOLOGY REPORT (SQ) ---
EXAM DESCRIPTION: CT ABD/PELVIS WITH IV ONLY COMPLETED DATE/TIME: 06/04/2019 3:44 pm REASON FOR STUDY: RLQ pain COMPARISON: PET-CT 12/28/2018 CT abdomen and pelvis 03/07/2017, 01/15/2019, 05/13/2019 TECHNIQUE: CT scan of the abdomen and pelvis performed using helical scanning technique with dynamic intravenous contrast injection. No oral contrast. Images reviewed with lung, soft tissue, and bone windows. Reconstructed coronal and sagittal MPR images reviewed. Delayed images for evaluation of the urinary system also acquired. All images stored on PACS. All CT scanners at this facility use dose modulation, iterative reconstruction, and/or weight based d osing when appropriate to reduce radiation dose to as low as reasonably achievable (ALARA). [facility]: Dose Right [facility]: CareDose [facility]: Dose Right [facility]: Teradose 4D [facility]: [employer] CONTRAST TYPE AND DOSE: 80 mL of IV Omnipaque 350- low osmolar. RENAL FUNCTION: Creatinine 0.56 RADIATION DOSE: CT Rad equipment meets quality standard of care and radiation dose reduction techniq ues were employed. CTDIvol: 12.8 - 15.8 mGy. DLP: 1546 mGy-cm.. LIMITATIONS: None. FINDINGS: LOWER CHEST: No significant findings. No nodules or infiltrates. LIVER: Normal size. Stable 2 cm liver nodule along the left lobe liver gallbladder fossa region. Is unchanged over the series of exams and was non metabolic on PET-CT. No dilated ducts. SPLEEN: Normal size. No focal lesions. Multiple calcified granulomas PANCREAS: No masses. No significant calcifications. No adjacent inflammation or peripancreatic fluid collections. Pancreatic duct not dilated. GALLBLADDER: Surgically absent ADRENAL GLANDS: No significant masses or asymmetry. RIGHT KIDNEY AND URETER: No solid masses. No significant calcifications. No hydronephrosis or hyd roureter. LEFT KIDNEY AND URETER: No solid masses. No significant calcifications. No hydronephrosis or hydr oureter. AORTA AND VESSELS: No aneurysm. No dissection. Renal arteries, SMA, celiac without stenosis. RETROPERITONEUM: No retroperitoneal adenopathy, hemorrhage or masses. BOWEL AND PERITONEAL CAVITY: No masses or inflammatory changes. No free fluid or peritoneal masses. No CT evidence of bowel obstruction or of free intraperitoneal air or fluid. APPENDIX: Surgically absent PELVIS: No mass. No free fluid. Normal bladder. Normal size female pelvic organs ABDOMINAL WALL: No masses. No hernias. BONES: No significant or acute findings. OTHER: No other significant finding. IMPRESSION: NO SIGNIFICANT OR ACUTE FINDING IN THE ABDOMEN OR PELVIS ON CT SCAN WITH IV CONTRAST. TECHNICAL DOCUMENTATION: JOB ID: [id number] Quality ID # [id number]: Final reports with documentation of one or more dose reduction techniques (e.g., Au tomated exposure control, adjustment of the mA and/or kV according to patient size, use of iterative reconstruction technique) 2010 [employer]- All Rights Reserved Reading location - IP/workstation name: [email or web address]
[2019-06-04 17:46] VITALS: BP 120/62
== END 2019-06-04 17:46 | disposition home or self-care (01) ==
LOC: ER 12:03
DX: R53.1 Weakness (principal); R11.2 Nausea with vomiting, unspecified; R10.9 Unspecified abdominal pain; R19.7 Diarrhea, unspecified; C85.10 Unspecified B-cell lymphoma, unspecified site; F17.200 Nicotine dependence, unspecified, uncomplicated; E78.00 Pure hypercholesterolemia, unspecified; I10 Essential (primary) hypertension; E11.9 Type 2 diabetes mellitus without complications; Z79.899 Other long term (current) drug therapy; Z90.49 Acquired absence of other specified parts of digestive tract; Z88.6 Allergy status to analgesic agent
CPT/HCPCS: 36591; 96376; 99284; 96361; 96374; 96375; 36415; 83690; 85025; 80053; 81001; 74022; 74177; J2270; J2405; J7030; J1642

== ENCOUNTER 2019-08-01 16:57 | Emergency (ER) | payer MEDICAID ==
--- NOTE | 2019-08-01 17:18 | ER Document Report ---
ED Medical Screen (RME) - General Chief Complaint: Dizziness Stated Complaint: DIZZY Time Seen by Provider: 08/01/19 17:10 Mode of Arrival: Wheelchair Information source: Patient Notes: Patient presents complaining of dizziness and right-sided abdominal pain for the past week. Patient states that she had chemotherapy 3 weeks ago and states that typically this makes her feel weak afterwards. Patient does complain of nausea. No vomiting. No fever. Patient states that she previously had non-Hodgkin's lymphoma but she is currently in remission although she continues to receive chemotherapy. I have greeted and performed a rapid initial assessment of this patient. A comprehensive ED assessment and evaluation of the patient, analysis of test results and completion of the medical decision making process will be conducted by additional ED providers. TRAVEL OUTSIDE OF THE [place] IN LAST 30 DAYS: No - Related Data Allergies/Adverse Reactions: liborio Allergy (Severe, Verified 08/01/19 16:59) green pepper Allergy (Severe, Verified 08/01/19 16:59) ketorolac tromethamine [From Toradol] Allergy (Verified 08/01/19 16:59) tramadol [Tramadol] Allergy (Verified 08/01/19 16:59) Past Medical History - Past Medical History Cardiac Medical History: Reports: Hx Hypercholesterolemia, Hx Hypertension Pulmonary Medical History: Reports: Hx COPD Comment Only: Hx Asthma - pt denies Endocrine Medical History: Reports: Hx Diabetes Mellitus Type 1, Hx Diabetes Mellitus Type 2 Renal/ Medical History: Denies: Hx Peritoneal Dialysis Malignancy Medical History: Reports: Hx Lymphoma - Non-Hodgkin's GI Medical History: Reports: Hx Gastroesophageal Reflux Disease Musculoskeltal Medical History: Reports Hx Arthritis, Reports Hx Musculoskeletal Trauma Psychiatric Medical History: Reports: Hx Anxiety, Hx Depression Past Surgical History: Reports: Hx Appendectomy, Hx Cholecystectomy, Hx Gynecologic Surgery - x14 D&C - Immunizations Immunizations up to date: No Hx Diphtheria, Pertussis, Tetanus Vaccination: Yes Physical Exam - Vital signs Vitals: Temp Pulse Resp BP Pulse Ox 98.7 F 103 H 16 135/68 H 98 08/01/19 17:11 08/01/19 17:11 08/01/19 17:11 08/01/19 17:11 08/01/19 17:11 - Abdominal Tenderness: Tender - Right sided abdominal tenderness Course - Vital Signs Vital signs: Temp Pulse Resp BP Pulse Ox 98.7 F 103 H 16 135/68 H 98 08/01/19 17:11 08/01/19 17:11 08/01/19 17:11 08/01/19 17:11 08/01/19 17:11
[2019-08-01 18:51] LABS: APPEARANCE,URINE CLEAR; BILIRUBIN,URINE NEGATIVE (NEGATIVE); COLOR,URINE STRAW; GLUCOSE, URINE NEGATIVE (NEGATIVE); KETONES,URINE NEGATIVE (NEGATIVE); LEUKOCYTE ESTERASE,URINE NEGATIVE (NEGATIVE); NITRITE,URINE NEGATIVE (NEGATIVE); PROTEIN,URINE NEGATIVE (NEGATIVE); URINE SPECIFIC GRAVITY 1.003; UROBILINOGEN,URINE NEGATIVE mg/dL (<2.0)
--- NOTE | 2019-08-01 18:53 | RADIOLOGY REPORT (SQ) ---
EXAM DESCRIPTION: ACUTE ABDOMEN SERIES COMPLETED DATE/TIME: 08/01/2019 6:39 pm REASON FOR STUDY: r side abd pain, dizzy COMPARISON: 06/04/2019 NUMBER OF VIEWS: Three views. TECHNIQUE: Frontal chest, supine abdomen and upright/decubitus abdomen radiographic images acquired. LIMITATIONS: None. FINDINGS: CHEST: Lungs clear of infiltrates. FREE AIR: None. No abnormal gas collections. BOWEL GAS PATTERN: Nonobstructive pattern. No dilated loops or air fluid levels. SOFT TISSUES: No gross mass or suggestion of organomegaly. BONES: No acute fracture. No worrisome bone lesions. OTHER: No other significant finding. CALCIFICATIONS: Similar splenic calcifications. SOFT TISSUES: No gross mass or suggestion of organomegaly. HARDWARE: Cholecystectomy clips. Left-sided PICC line. IMPRESSION: NO RADIOGRAPHIC EVIDENCE FOR ACUTE ABDOMINAL DISEASE. TECHNICAL DOCUMENTATION: JOB ID: [id number] [place]-72 2010 [employer]- All Rights Reserved Reading location - IP/workstation name: [email or web address]
[2019-08-01 20:00] LABS: ABSOLUTE BASOPHILS # (AUTO) 0.1 10^3/uL (0.0-0.2); ABSOLUTE EOSINOPHILS # (AUTO) 0.2 10^3/uL (0.0-0.6); ABSOLUTE LYMPHOCYTES (AUTO) 2.3 10^3/uL (0.5-4.7); ABSOLUTE MONOCYTES (AUTO) 1.3 10^3/uL (0.1-1.4); BASOPHILS % (AUTO) 0.7 % (0-2); EOSINOPHILS % (AUTO) 1.2 % (0-6); HEMATOCRIT 38.3 % (36.0-47.0); HEMOGLOBIN 12.8 g/dL (12.0-15.5); LYMPHOCYTES % (AUTO) 15.3 % (13-45); MEAN CORPUSCULAR HEMOGLOBIN 31.7 pg (27.0-33.4); MEAN CORPUSCULAR HGB CONC 33.3 g/dL (32.0-36.0); MEAN CORPUSCULAR VOLUME 95 fl (80-97); MONOCYTES % (AUTO) 8.6 % (3-13); PLATELET COUNT 245 10^3/uL (150-450); RED BLOOD COUNT 4.03 10^6/uL (3.72-5.28); SEGMENTED NEUTROPHILS % (AUTO) 74.2 % (42-78); TOTAL CELLS COUNTED % (AUTO) 100 %; WHITE BLOOD COUNT 14.9 10^3/uL (4.0-10.5)
[2019-08-01 20:26] LABS: ALBUMIN 4.2 g/dL (3.5-5.0); ALKALINE PHOSPHATASE 105 U/L (38-126); ANION GAP 10 (5-19); ASPARTATE AMINO TRANSFERASE 19 U/L (14-36); BILIRUBIN,DIRECT 0.2 mg/dL (0.0-0.4); BILIRUBIN,TOTAL 0.2 mg/dL (0.2-1.3); BLOOD UREA NITROGEN 9 mg/dL (7-20); CALCIUM 9.9 mg/dL (8.4-10.2); CARBON DIOXIDE 26 mmol/L (22-30); CHLORIDE 99 mmol/L (98-107); GLUCOSE 179 mg/dL (75-110); POTASSIUM 4.1 mmol/L (3.6-5.0); TOTAL PROTEIN 6.6 g/dL (6.3-8.2)
[2019-08-01] MEDS ORDERED: NORMAL SALINE 1000 ML 1,000 ML IV ONE (20:48)
[2019-08-01] MEDS ORDERED: ONDANSETRON HCL INJ/PF 4 MG/2 ML SDV IV ONE (20:48)
[2019-08-01] MEDS ORDERED: FENTANYL CITRATE INJ/PF 100 MCG/2 ML AMPUL IV ONE ×2 (20:49→23:19)
--- NOTE | 2019-08-01 21:03 | EKG REPORT ---
SEVERITY:- NORMAL ECG - SINUS RHYTHM POOR R WAVE PROGRESSION -V5, ? LEAD PLACEMENT VS OLD ANTERIOR NH, CLINICAL CORRELATION NEEDED. : Confirmed by: Jian Agee MD 01-Aug-2019 21:02:47
[2019-08-01] MEDS ORDERED: PROMETHAZINE HCL INJ 25 MG/1 ML VIAL IV ONE (23:19)
--- NOTE | 2019-08-01 23:28 | RADIOLOGY REPORT (SQ) ---
CT ABDOMEN PELVIS WITH IV CONTRAST EXAM DATE: 08/01/2019 8:49 PM CDT HISTORY: Right-sided abdominal pain. COMPARISON: 06/04/2019 TECHNIQUE: CT scan of the abdomen and pelvis was performed with IV contrast. This exam was performed according to our departmental dose-optimization program, which includes automated exposure control, adjustment of the mA and/or kV according to patient size and/or use of iterative reconstruction technique. FINDINGS: The lung bases are clear. No pleural or pericardial effusions. There has been a prior cholecystectomy. Multiple calcified granulomas in the liver and spleen. There is a 2 cm hypodensity in the liver, nonspecific. The pancreas, adrenal glands, and kidneys are unremarkable. The pelvic organs are grossly unremarkable. There has been a prior appendectomy. No small bowel obstruction or acute diverticulitis. Query mild enteritis of a few jejunal bowel loops. No intraperitoneal adenopathy, free fluid, or free air is seen. The aorta is mildly atherosclerotic. No acute bony findings are identified. No body wall hernia. IMPRESSION: Query mild enteritis of a few jejunal bowel loops.
[2019-08-01] MEDS ORDERED: DICYCLOMINE HCL 20 MG TABLET PO ONE (23:34)
--- NOTE | 2019-08-02 00:36 | ER Document Report ---
ED General - General Chief Complaint: Dizziness Stated Complaint: DIZZY Time Seen by Provider: 08/01/19 17:10 Mode of Arrival: Wheelchair Notes: Patient is a 48-year-old female with history of non-Hodgkin's lymphoma in remission on rituximab every other month, diabetes presents to the emergency department for nausea/vomiting and abdominal pain. Patient states that her abdominal pain is in the bilateral lower quadrants and intermittently in the right upper quadrant. history of appendectomy and cholecystectomy. Patient's states that every time she gets the rituximab treatment she gets this abdominal pain and nausea. She was seen in this emergency department two days ago for the same symptoms and had no imaging at that time. Patient denies fevers or chills, denies confusion, denies mental status changes, denies stiff neck, denies sore throat, denies recent illness or rhinorrhea, denies acute shortness of breath or chest pain, states she has vomited over 3 times today as well as 2 episodes of diarrhea. Patient's denying any blood in either vomit or stool. Denies any urinary symptoms, denies abnormal vaginal discharge. Patient states since visit 2 days ago she has not felt any better. Patient denies following up with primary care provider or oncologist. TRAVEL OUTSIDE OF THE [place] IN LAST 30 DAYS: No - Related Data Allergies/Adverse Reactions: liborio Allergy (Severe, Verified 08/01/19 16:59) green pepper Allergy (Severe, Verified 08/01/19 16:59) ketorolac tromethamine [From Toradol] Allergy (Verified 08/01/19 16:59) tramadol [Tramadol] Allergy (Verified 08/01/19 16:59) Past Medical History - General Information source: Patient - Social History Smoking Status: Current Every Day Smoker Family History: Reviewed & Not Pertinent Patient has suicidal ideation: No Patient has homicidal ideation: No - Past Medical History Cardiac Medical History: Reports: Hx Hypercholesterolemia, Hx Hypertension Pulmonary Medical History: Reports: Hx COPD Comment Only: Hx Asthma - pt denies Endocrine Medical History: Reports: Hx Diabetes Mellitus Type 1, Hx Diabetes Mellitus Type 2 Renal/ Medical History: Denies: Hx Peritoneal Dialysis Malignancy Medical History: Reports: Hx Lymphoma - Non-Hodgkin's GI Medical History: Reports: Hx Gastroesophageal Reflux Disease Musculoskeletal Medical History: Reports Hx Arthritis, Reports Hx Musculoskeletal Trauma Psychiatric Medical History: Reports: Hx Anxiety, Hx Depression Past Surgical History: Reports: Hx Appendectomy, Hx Cholecystectomy, Hx Gynecologic Surgery - x14 D&C - Immunizations Immunizations up to date: No Hx Diphtheria, Pertussis, Tetanus Vaccination: Yes Review of Systems - Review of Systems Constitutional: denies: Fever EENT: No symptoms reported Cardiovascular: No symptoms reported Respiratory: No symptoms reported Gastrointestinal: See HPI Genitourinary: No symptoms reported Female Genitourinary: No symptoms reported Musculoskeletal: No symptoms reported Skin: No symptoms reported Hematologic/Lymphatic: No symptoms reported Neurological/Psychological: No symptoms reported Physical Exam - Vital signs Vitals: Temp Pulse Resp BP Pulse Ox 98.7 F 103 H 16 135/68 H 98 08/01/19 17:11 08/01/19 17:11 08/01/19 17:11 08/01/19 17:11 08/01/19 17:11 - Notes Notes: GENERAL: Alert, interacts well. No acute distress. HEAD: Normocephalic, atraumatic. EYES: Pupils equal, round, and reactive to light. Extraocular movements intact. ENT: Oral mucosa moist, tongue midline. NECK: Full range of motion. Supple. Trachea midline. LUNGS: Clear to auscultation bilaterally, no wheezes, rales, or rhonchi. No respiratory distress. HEART: Regular rate and rhythm. No murmur ABDOMEN: Soft, generalized tenderness noted right and left lower quadrants. Non-distended. Bowel sounds present in all 4 quadrants. EXTREMITIES: Moves all 4 extremities spontaneously. No edema, normal radial and dorsalis pedis pulses bilaterally. No cyanosis. BACK: no cervical, thoracic, lumbar midline tenderness. No saddle anesthesia, normal distal neurovascular exam. No CVA tenderness noted bilaterally. NEUROLOGICAL: Alert and oriented x3. Normal speech. cranial nerves II through XII grossly intact PSYCH: Normal affect, normal mood. SKIN: Warm, dry, normal turgor. No rashes or lesions noted. Course - Re-evaluation Re-evalutation: Laboratory 08/01/19 08/01/19 08/01/19 18:29 19:40 19:40 WBC 14.9 H RBC 4.03 Hgb 12.8 Hct 38.3 MCV 95 MCH 31.7 MCHC 33.3 RDW 15.0 H Plt Count 245 Lymph % (Auto) 15.3 [place] % (Auto) 8.6 Eos % (Auto) 1.2 Baso % (Auto) 0.7 Absolute Neuts (auto) 11.0 H Absolute Lymphs (auto) 2.3 Absolute Monos (auto) 1.3 Absolute Eos (auto) 0.2 Absolute Basos (auto) 0.1 Seg Neutrophils % 74.2 Sodium 135.2 L Potassium 4.1 Chloride 99 Carbon Dioxide 26 Anion Gap 10 BUN 9 Creatinine 0.46 L Est GFR ( Amer) > 60 Est GFR (MDRD) Non-Af > 60 Glucose 179 H Calcium 9.9 Total Bilirubin 0.2 Direct Bilirubin 0.2 Neonat Total Bilirubin Not Reportable Neonat Direct Bilirubin Not Reportable Neonat Indirect Bili Not Reportable AST 19 ALT 19 Alkaline Phosphatase 105 Troponin I Total Protein 6.6 Albumin 4.2 Lipase 36.7 Urine Color STRAW Urine Appearance CLEAR Urine pH 6.0 Ur Specific [place] 1.003 Urine Protein NEGATIVE Urine Glucose (UA) NEGATIVE Urine Ketones NEGATIVE Urine Blood NEGATIVE Urine Nitrite NEGATIVE Urine Bilirubin NEGATIVE Urine Urobilinogen NEGATIVE Ur Leukocyte Esterase NEGATIVE Urine WBC (Auto) 7 Urine RBC (Auto) 0 Urine Bacteria (Auto) TRACE Squamous Epi Cells Auto 1 Urine Mucus (Auto) RARE Urine Ascorbic Acid NEGATIVE 08/01/19 19:40 WBC RBC Hgb Hct MCV MCH MCHC RDW Plt Count Lymph % (Auto) [place] % (Auto) Eos % (Auto) Baso % (Auto) Absolute Neuts (auto) Absolute Lymphs (auto) Absolute Monos (auto) Absolute Eos (auto) Absolute Basos (auto) Seg Neutrophils % Sodium Potassium Chloride Carbon Dioxide Anion Gap BUN Creatinine Est GFR ( Amer) Est GFR (MDRD) Non-Af Glucose Calcium Total Bilirubin Direct Bilirubin Neonat Total Bilirubin Neonat Direct Bilirubin Neonat Indirect Bili AST ALT Alkaline Phosphatase Troponin I < 0.012 Total Protein Albumin Lipase Urine Color Urine Appearance Urine pH Ur Specific [place] Urine Protein Urine Glucose (UA) Urine Ketones Urine Blood Urine Nitrite Urine Bilirubin Urine Urobilinogen Ur Leukocyte Esterase Urine WBC (Auto) Urine RBC (Auto) Urine Bacteria (Auto) Squamous Epi Cells Auto Urine Mucus (Auto) Urine Ascorbic Acid Acute Abdomen Series 08/01/19 17:16 IMPRESSION: NO RADIOGRAPHIC EVIDENCE FOR ACUTE ABDOMINAL DISEASE. Abdomen/Pelvis CT 08/01/19 20:49 IMPRESSION: Query mild enteritis of a few jejunal bowel loops. Patient was seen at this facility 2 days ago for similar complaints. No imaging was done at that time. Based on patient's complaints and generalized lower abdominal pain CT ordered at this time. Patient was initially given Zofran for generalized nausea. Patient voices at the Zofran has not helped and she is requesting Phenergan at this time. Patient also complains of continued generalized abdominal pain despite narcotic pain medication. CT shows mild enteritis. Bentyl given to the patient. Discussed with patient at length need to follow-up with oncology and primary care provider. After Phenergan and morphine patient states she feels a lot better. Patient stable for discharge. At this time will discharge with return precautions and follow-up recommendations. Verbal discharge instructions given a the bedside and opportunity for questions given. Medication warnings reviewed. Patient is in agreement with this plan and has verbalized understanding of return precautions and the need for primary care follow-up in the next 24-72 hours. This medical record was dictated with voice recognizing software. There may be grammatical, syntax errors that are unintended. - Vital Signs Vital signs: Temp Pulse Resp BP Pulse Ox 98.7 F 79 19 112/61 92 08/01/19 17:11 08/01/19 19:44 08/02/19 01:01 08/02/19 01:00 08/02/19 01:01 - Laboratory Result Diagrams: 08/01/19 19:40 08/01/19 19:40 Laboratory results interpreted by me: 08/01/19 08/01/19 19:40 19:40 WBC 14.9 H RDW 15.0 H Absolute Neuts (auto) 11.0 H Sodium 135.2 L Creatinine 0.46 L Glucose 179 H Discharge - Discharge Clinical Impression: Enteritis, Nausea vomiting and diarrhea Condition: Stable Disposition: HOME, SELF-CARE Instructions: Antinausea Medication ([facility]), Diarrhea, Nonspecific ([facility]), Intravenous (IV) Fluids ([facility]), Vomiting ([facility]) Additional Instructions: As we discussed you have been seen and treated in the emergency department for your generalized abdominal pain. There are no signs of surgical emergency on your CT. Does show signs of inflammation likely due to the diarrhea and vomiting that you have had. Please use nausea medication as prescribed. Please also stay well-hydrated. Follow-up with your primary care provider and oncologist in the next 24 to 48 hours. Return to the emergency department for any concerns. Prescriptions: Dicyclomine HCl [Bentyl 20 mg Tablet] 20 mg PO QID #40 tablet Promethazine HCl [Phenergan 25 mg Tablet] 1 tab PO Q6H PRN #10 tablet PRN Reason:
[2019-08-02 01:31] VITALS: BP 112/61
== END 2019-08-02 01:51 | disposition home or self-care (01) ==
LOC: ER 16:57
DX: E11.65 Type 2 diabetes mellitus with hyperglycemia (principal); R10.30 Lower abdominal pain, unspecified; R10.11 Right upper quadrant pain; R11.2 Nausea with vomiting, unspecified; R53.1 Weakness; Z85.72 Personal history of non-Hodgkin lymphomas; Z79.899 Other long term (current) drug therapy; F17.200 Nicotine dependence, unspecified, uncomplicated; I10 Essential (primary) hypertension; J44.9 Chronic obstructive pulmonary disease, unspecified
CPT/HCPCS: 93005; 96376; 99284; 96361; 96374; 96375; 36415; 83690; 85025; 80053; 81001; 84484; 74022; 74177; 93010; J3490; J3010; J2550; J2405; J7030; J1642

== ENCOUNTER 2019-08-08 15:11 | Emergency (ER) | payer MEDICAID ==
[2019-08-08 15:16] VITALS: BP 126/86
[2019-08-08] MEDS ORDERED: PROMETHAZINE HCL INJ 50 MG/1 ML VIAL IM ONE (17:29)
[2019-08-08] MEDS ORDERED: NORMAL SALINE 1000 ML 1,000 ML IV ONE (17:29)
--- NOTE | 2019-08-08 17:32 | ER Document Report ---
ED Medical Screen (RME) - General Chief Complaint: Nausea/Vomiting/Diarrhea Stated Complaint: WEAKNESS/DIZZINESS Time Seen by Provider: 08/08/19 17:18 Notes: 48-year-old female with history of non-Hodgkin's lymphoma in remission on rituximab every other month, diabetes presents to the emergency department for dizziness and lightheadedness, nausea/vomiting x 2, diarrhea 3 times, and abdominal pain for the last several days. Patient has chronic abdominal pain and was seen here recently and diagnosed via CT with a an enteritis. Denies fevers or chills, denies chest pain or acute shortness of breath. Patient is a smoker. EXAM: Well-appearing and nontoxic, regular rate cardiac rhythm, manual pulse 90 bpm palpated at the radial pulse, mild inspiratory wheezing in all jim. I have greeted and performed a rapid initial assessment of this patient. A comprehensive ED assessment and evaluation of the patient, analysis of test results and completion of medical decision making process will be conducted by an additional ED providers. TRAVEL OUTSIDE OF THE [place] IN LAST 30 DAYS: No - Related Data Allergies/Adverse Reactions: liborio Allergy (Severe, Verified 08/01/19 16:59) green pepper Allergy (Severe, Verified 08/01/19 16:59) ketorolac tromethamine [From Toradol] Allergy (Verified 08/01/19 16:59) tramadol [Tramadol] Allergy (Verified 08/01/19 16:59) Past Medical History - Social History Chew tobacco use (# tins/day): No Frequency of alcohol use: None Drug Abuse: None - Past Medical History Cardiac Medical History: Reports: Hx Hypercholesterolemia, Hx Hypertension Pulmonary Medical History: Reports: Hx COPD Comment Only: Hx Asthma - pt denies Endocrine Medical History: Reports: Hx Diabetes Mellitus Type 1, Hx Diabetes Mellitus Type 2 Renal/ Medical History: Denies: Hx Peritoneal Dialysis Malignancy Medical History: Reports: Hx Lymphoma - Non-Hodgkin's GI Medical History: Reports: Hx Gastroesophageal Reflux Disease Musculoskeltal Medical History: Reports Hx Arthritis, Reports Hx Musculoskeletal Trauma Psychiatric Medical History: Reports: Hx Anxiety, Hx Depression Past Surgical History: Reports: Hx Appendectomy, Hx Cholecystectomy, Hx Gynecologic Surgery - x14 D&C - Immunizations Immunizations up to date: No Hx Diphtheria, Pertussis, Tetanus Vaccination: Yes Physical Exam - Vital signs Vitals: Temp Pulse Resp BP Pulse Ox 99.0 F 116 H 18 126/86 H 94 08/08/19 15:16 08/08/19 15:16 08/08/19 15:16 08/08/19 15:16 08/08/19 15:16 Course - Vital Signs Vital signs: Temp Pulse Resp BP Pulse Ox 99.0 F 116 H 18 126/86 H 94 08/08/19 15:16 08/08/19 15:16 08/08/19 15:16 08/08/19 15:16 08/08/19 15:16
[2019-08-08] MEDS ORDERED: PROMETHAZINE HCL INJ 25 MG/1 ML VIAL ONE (17:41)
[2019-08-08 18:25] LABS: APPEARANCE,URINE SLIGHTLY-CLOUDY; BILIRUBIN,URINE NEGATIVE (NEGATIVE); COLOR,URINE YELLOW; GLUCOSE, URINE 50 mg/dL (NEGATIVE); KETONES,URINE NEGATIVE (NEGATIVE); LEUKOCYTE ESTERASE,URINE MODERATE (NEGATIVE); NITRITE,URINE NEGATIVE (NEGATIVE); PROTEIN,URINE NEGATIVE (NEGATIVE); URINE SPECIFIC GRAVITY 1.012; UROBILINOGEN,URINE NEGATIVE mg/dL (<2.0)
--- NOTE | 2019-08-09 18:36 | EKG REPORT ---
SEVERITY:- NORMAL ECG - SINUS RHYTHM : Confirmed by: Dwayne Pedersen 09-Aug-2019 18:36:01
== END 2019-08-08 20:18 | disposition left against medical advice (07) ==
LOC: ER 15:11
DX: R11.2 Nausea with vomiting, unspecified (principal); R19.7 Diarrhea, unspecified; R42 Dizziness and giddiness; C85.90 Non-Hodgkin lymphoma, unspecified, unspecified site; Z79.899 Other long term (current) drug therapy; I10 Essential (primary) hypertension; J44.9 Chronic obstructive pulmonary disease, unspecified; E11.9 Type 2 diabetes mellitus without complications; R10.9 Unspecified abdominal pain; G89.29 Other chronic pain; Z91.018 Allergy to other foods; Z88.5 Allergy status to narcotic agent; Z88.8 Allergy status to other drugs, medicaments and biological substances; Z90.49 Acquired absence of other specified parts of digestive tract; Z53.20 Procedure and treatment not carried out because of patient's decision for unspecified reasons
CPT/HCPCS: 93005; 81001; 93010; J2550; 96374; 99284

== ENCOUNTER 2019-08-19 15:45 | Emergency (ER) | payer MEDICAID ==
[2019-08-19] MEDS ORDERED: ONDANSETRON HCL INJ/PF 4 MG/2 ML SDV IV ONE (16:37)
[2019-08-19] MEDS ORDERED: MORPHINE SULFATE 10 MG/ML INJ IV ONE ×2 (16:37→19:11)
[2019-08-19] MEDS ORDERED: NORMAL SALINE 1000 ML 1,000 ML IV ONE (16:38)
--- NOTE | 2019-08-19 16:39 | ER Document Report ---
ED Medical Screen (RME) - General Chief Complaint: General Weakness Stated Complaint: WEAKNESS Time Seen by Provider: 08/19/19 16:27 TRAVEL OUTSIDE OF THE [place] IN LAST 30 DAYS: No - HPI Notes: 08/19/19 16:38 48-year-old female to the emergency department with complaints of weakness, lightheadedness, nausea, vomiting, right upper quadrant abdominal pain is progressively becoming worse for the past 4 weeks. She states that she has a history of non-Hodgkin's lymphoma and was "in remission" but has been taking oral chemotherapy for the past month. She states that when she started to take the chemotherapy she began to feel worse. She admits to night sweats and subjective fevers but denies any measured. She states that she saw her primary care physician today and was told to come to the emergency department for further evaluation. I performed a brief medical screening exam on patient and have placed initial orders and will have her followed and further managed by main side provider. - Related Data Allergies/Adverse Reactions: liborio Allergy (Severe, Verified 08/01/19 16:59) green pepper Allergy (Severe, Verified 08/01/19 16:59) ketorolac tromethamine [From Toradol] Allergy (Verified 08/01/19 16:59) tramadol [Tramadol] Allergy (Verified 08/01/19 16:59) Past Medical History - Social History Chew tobacco use (# tins/day): No Frequency of alcohol use: None Drug Abuse: None - Past Medical History Cardiac Medical History: Reports: Hx Hypercholesterolemia, Hx Hypertension Pulmonary Medical History: Reports: Hx COPD Comment Only: Hx Asthma - pt denies Endocrine Medical History: Reports: Hx Diabetes Mellitus Type 1, Hx Diabetes Mellitus Type 2 Renal/ Medical History: Denies: Hx Peritoneal Dialysis Malignancy Medical History: Reports: Hx Lymphoma - Non-Hodgkin's GI Medical History: Reports: Hx Gastroesophageal Reflux Disease Musculoskeltal Medical History: Reports Hx Arthritis, Reports Hx Musculoskeletal Trauma Psychiatric Medical History: Reports: Hx Anxiety, Hx Depression Past Surgical History: Reports: Hx Appendectomy, Hx Cholecystectomy, Hx Gynecologic Surgery - x14 D&C - Immunizations Immunizations up to date: No Hx Diphtheria, Pertussis, Tetanus Vaccination: Yes Physical Exam - Vital signs Vitals: Temp Pulse Resp BP Pulse Ox 99.5 F 109 H 20 115/80 96 08/19/19 16:03 08/19/19 16:03 08/19/19 16:03 08/19/19 16:03 08/19/19 16:03 Course - Vital Signs Vital signs: Temp Pulse Resp BP Pulse Ox 99.5 F 109 H 20 115/80 96 08/19/19 16:03 08/19/19 16:03 08/19/19 16:03 08/19/19 16:03 08/19/19 16:03
--- NOTE | 2019-08-19 17:35 | RADIOLOGY REPORT (SQ) ---
EXAM DESCRIPTION: CHEST SINGLE VIEW COMPLETED DATE/TIME: 08/19/2019 5:07 pm REASON FOR STUDY: weakness COMPARISON: 05/25/2019 EXAM PARAMETERS: NUMBER OF VIEWS: One view. TECHNIQUE: Single frontal radiographic view of the chest acquired. RADIATION DOSE: NA LIMITATIONS: None. FINDINGS: LUNGS AND PLEURA: No opacities, masses or pneumothorax. No pleural effusion. MEDIASTINUM AND HILAR STRUCTURES: No masses. Contour normal. HEART AND VASCULAR STRUCTURES: Heart normal in size. Normal vasculature. BONES: No acute findings. HARDWARE: None in the chest. OTHER: No other significant finding. IMPRESSION: NO ACUTE RADIOGRAPHIC FINDING IN THE CHEST. TECHNICAL DOCUMENTATION: JOB ID: [id number] [employer]- All Rights Reserved Reading location - IP/workstation name: [email or web address]
[2019-08-19] MEDS ORDERED: PROMETHAZINE HCL INJ 25 MG/1 ML VIAL IV ONE (18:06)
--- NOTE | 2019-08-19 18:27 | EKG REPORT ---
SEVERITY:- BORDERLINE ECG - SINUS RHYTHM PROBABLE LEFT ATRIAL ABNORMALITY : Confirmed by: Jian Agee MD 19-Aug-2019 18:26:16
[2019-08-19 18:28] LABS: ABSOLUTE BASOPHILS # (AUTO) 0.1 10^3/uL (0.0-0.2); ABSOLUTE EOSINOPHILS # (AUTO) 0.1 10^3/uL (0.0-0.6); ABSOLUTE LYMPHOCYTES (AUTO) 2.5 10^3/uL (0.5-4.7); EOSINOPHILS % (AUTO) 0.6 % (0-6); MEAN CORPUSCULAR VOLUME 93 fl (80-97); TOTAL CELLS COUNTED % (AUTO) 100 %
[2019-08-19 18:30] LABS: ALBUMIN 4.1 g/dL (3.5-5.0); ALKALINE PHOSPHATASE 109 U/L (38-126); ANION GAP 11 (5-19); ASPARTATE AMINO TRANSFERASE 15 U/L (14-36); BILIRUBIN,DIRECT 0.1 mg/dL (0.0-0.4); BILIRUBIN,TOTAL 0.2 mg/dL (0.2-1.3); BLOOD UREA NITROGEN 11 mg/dL (7-20); CALCIUM 9.5 mg/dL (8.4-10.2); CARBON DIOXIDE 25 mmol/L (22-30); CHLORIDE 98 mmol/L (98-107); GLUCOSE 153 mg/dL (75-110); POTASSIUM 3.8 mmol/L (3.6-5.0); TOTAL PROTEIN 6.7 g/dL (6.3-8.2)
[2019-08-19 18:37] LABS: ABSOLUTE MONOCYTES (AUTO) 1.2 10^3/uL (0.1-1.4); ABSOLUTE NEUT (AUTO) 15.5 10^3/uL (1.7-8.2); BASOPHILS % (AUTO) 0.6 % (0-2); HEMATOCRIT 38.1 % (36.0-47.0); HEMOGLOBIN 12.7 g/dL (12.0-15.5); LYMPHOCYTES % (AUTO) 12.8 % (13-45); MEAN CORPUSCULAR HGB CONC 33.4 g/dL (32.0-36.0); MONOCYTES % (AUTO) 6.2 % (3-13); PLATELET COUNT 274 10^3/uL (150-450); RED BLOOD COUNT 4.11 10^6/uL (3.72-5.28); RED CELL DISTRIBUTION WIDTH 15.4 % (11.5-14.0); SEGMENTED NEUTROPHILS % (AUTO) 79.8 % (42-78); WHITE BLOOD COUNT 19.5 10^3/uL (4.0-10.5)
[2019-08-19] MEDS ORDERED: IPRATROPIUM/ALBUTEROL 0.5-2.5 MG/3 ML AMPUL NEB ONE ×2 (18:50→19:48)
--- NOTE | 2019-08-19 18:53 | ER Document Report ---
ED General - General Chief Complaint: General Weakness Stated Complaint: WEAKNESS Time Seen by Provider: 08/19/19 16:27 Primary Care Provider: TERRANCE MONTES MD [Primary Care Provider] - Follow up in 3-5 days Notes: Patient is a 48-year-old female who presents to the emergency department with a chief complaint of weakness and abdominal pain. She states that her weakness started about a week ago. She also has had a cough for the past week. She was seen today by her primary care provider, Dr. Montes. She felt fine and then went home. When she got home she felt "wobbly." The pain in her abdomen is in her right upper quadrant. She states that it comes and goes. Patient is a current everyday smoker. She has a past medical history of non-Hodgkin's lymphoma, gout, GERD, diabetes mellitus, hypertension, and anxiety. She states that she is in "remission" and ever since she received chemotherapy, she has not felt the same. She received chemotherapy a while back. TRAVEL OUTSIDE OF THE [place] IN LAST 30 DAYS: No - Related Data Allergies/Adverse Reactions: liborio Allergy (Severe, Verified 08/19/19 19:47) green pepper Allergy (Severe, Verified 08/19/19 19:47) ketorolac tromethamine [From Toradol] Allergy (Verified 08/19/19 19:47) tramadol [Tramadol] Allergy (Verified 08/19/19 19:47) Past Medical History - Social History Smoking Status: Never Smoker Chew tobacco use (# tins/day): No Frequency of alcohol use: None Drug Abuse: None Family History: Reviewed & Not Pertinent Patient has suicidal ideation: No Patient has homicidal ideation: No - Past Medical History Cardiac Medical History: Reports: Hx Hypercholesterolemia, Hx Hypertension Pulmonary Medical History: Reports: Hx COPD Comment Only: Hx Asthma - pt denies Endocrine Medical History: Reports: Hx Diabetes Mellitus Type 1, Hx Diabetes Mellitus Type 2 Renal/ Medical History: Denies: Hx Peritoneal Dialysis Malignancy Medical History: Reports: Hx Lymphoma - Non-Hodgkin's GI Medical History: Reports: Hx Gastroesophageal Reflux Disease Musculoskeletal Medical History: Reports Hx Arthritis, Reports Hx Musculoskeletal Trauma Psychiatric Medical History: Reports: Hx Anxiety, Hx Depression Past Surgical History: Reports: Hx Appendectomy, Hx Cholecystectomy, Hx Gynecologic Surgery - x14 D&C - Immunizations Immunizations up to date: No Hx Diphtheria, Pertussis, Tetanus Vaccination: Yes Review of Systems - Review of Systems Notes: REVIEW OF SYSTEMS: CONSTITUTIONAL : Denies recent illness. Denies recent unintentional weight loss. Denies fever, chills, or sweats. EENT: Denies eye, ear, throat, or mouth pain, discharge, or symptoms. Denies nasal or sinus congestion. CARDIOVASCULAR: Denies chest pain. RESPIRATORY: Denies shortness of breath, cough, congestion, difficulty breathing, or wheezing. GASTROINTESTINAL: See HPI. GENITOURINARY: Denies difficulty urinating, burning, blood in urine, urgency or frequency. MUSCULOSKELETAL: Denies neck and back pain. Denies joint pain or swelling. SKIN: Denies rash, itchiness, or lesions HEMATOLOGIC : Denies easy bruising or bleeding. LYMPHATIC: Denies swollen, painful, enlarged glands. NEUROLOGICAL: See HPI. PSYCHIATRIC: Denies stress, anxiety, alteration in sleep patterns, or depression. All other systems reviewed and negative. Physical Exam - Vital signs Vitals: Temp Pulse Resp BP Pulse Ox 99.5 F 109 H 20 115/80 96 08/19/19 16:03 08/19/19 16:03 08/19/19 16:03 08/19/19 16:03 08/19/19 16:03 - Notes Notes: PHYSICAL EXAMINATION: GENERAL: Appears ill, mild distress. HEAD: Normocephalic, atraumatic. EYES: PERRL, conjunctiva normal, all extraocular movements intact, sclera nonicteric ENT: Dry mucous membranes. NECK: Supple, no noticeable swelling, redness, rash. Normal range of motion. LUNGS: Equal breath sounds bilaterally and clear to auscultation. No rales or rhonchi. Expiratory wheezes noted right lung field. CARDIOVASCULAR: S1-S2, regular rate, regular rhythm. Radial pulses 2+, normal. ABDOMEN: Normoactive bowel sounds. Soft, nontender, no guarding, no rebound tenderness, and no masses palpated. EXTREMITIES: Normal strength and range of motion, no pitting or edema. No cyanosis. NEUROLOGICAL: Moves all extremities upon command. Strength 5/5 in all extremities. PSYCH: Normal mood, normal affect. SKIN: Very warm, dry. No rash, lesions, ulcerations noted. Normal skin turgor. Course - Re-evaluation Re-evalutation: 08/19/19 18:57 Patient is mildly hyponatremic with a sodium of 133. No renal failure noted. All other chemistries are unremarkable. Lipase is normal. Patient has a leukocytosis of 19,500. No anemia noted. Chest x-ray is unremarkable. A DuoNeb treatment has been ordered for her expiratory wheezes. Awaiting CT of the abdomen and pelvis, along with urinalysis. 08/19/19 19:[address] of the abdomen/pelvis shows a hepatic mass. This was previously reviewed on her CT scan at the end of July. According to back. Patient's ur inalysis is unremarkable. Patient still has expiratory wheezes noted in her right lung lobe. Another DuoNeb will be ordered. 08/19/19 20:15 The patient's lung sounds are now clear in all lobes. I highly recommended that the patient follow-up with her new oncologist in regards to this visit. Foll ow-up precautions were given. Verbal discharge instructions were given to the patient. They verbalized understanding. They are stable for discharge. - Vital Signs Vital signs: Temp Pulse Resp BP Pulse Ox 99.5 F 93 12 96/63 L 93 08/19/19 16:03 08/19/19 21:37 08/19/19 21:37 08/19/19 21:37 08/19/19 21:37 - Laboratory Result Diagrams: 08/19/19 17:54 08/19/19 17:54 Laboratory results interpreted by me: 08/19/19 08/19/19 17:54 17:54 WBC 19.5 H RDW 15.4 H Lymph % (Auto) 12.8 L Absolute Neuts (auto) 15.5 H Seg Neutrophils % 79.8 H Sodium 133.7 L Creatinine 0.49 L Glucose 153 H Magnesium 1.5 L Discharge - Discharge Clinical Impression: Wheezing Abdominal pain Qualifiers: Abdominal location: right upper quadrant Qualified Code(s): R10.11 - Right upper quadrant pain Condition: Stable Disposition: HOME, SELF-CARE Instructions: Abdominal Pain ([facility]) Additional Instructions: You have been seen in the Emergency Department (ED) for abdominal pain. Your evaluation did not identify a clear cause of your symptoms but was generally reassuring. The mass that was in your liver is stable. Please follow-up with your new oncologist in regards to this visit. Please follow up with your doctor as soon as possible regarding today's emergent visit and the symptoms that are bothering you. Return to the ED if your abdominal pain worsens or fails to improve, you develop bloody vomiting, bloody diarrhea, you are unable to tolerate fluids due to vomiting, fever greater than 101, or other symptoms that concern you. You were wheezy here in the emergency department and received breathing treatments. You are being started on steroids. Take as prescribed. Make sure you check your sugar regularly and make sure you give yourself your regular scheduled medications. Please stop smoking. You can cut back to 1 cigarette a week to help you quit. Prescriptions: Prednisone [Deltasone 20 mg Tablet] 3 tab PO DAILY 5 Days #15 tablet Forms: Smoking Cessation Education Referrals: TERRANCE MONTES MD [Primary Care Provider] - Follow up in 3-5 days
[2019-08-19 19:11] LABS: APPEARANCE,URINE CLEAR; BILIRUBIN,URINE NEGATIVE (NEGATIVE); COLOR,URINE STRAW; GLUCOSE, URINE NEGATIVE (NEGATIVE); KETONES,URINE NEGATIVE (NEGATIVE); LEUKOCYTE ESTERASE,URINE NEGATIVE (NEGATIVE); NITRITE,URINE NEGATIVE (NEGATIVE); PROTEIN,URINE NEGATIVE (NEGATIVE); URINE SPECIFIC GRAVITY 1.005; UROBILINOGEN,URINE NEGATIVE mg/dL (<2.0)
--- NOTE | 2019-08-19 19:23 | RADIOLOGY REPORT (SQ) ---
EXAM DESCRIPTION: CT ABD/PELVIS WITH IV ONLY COMPLETED DATE/TIME: 08/19/2019 7:04 pm REASON FOR STUDY: fall, rib fx, RUQ and side pain COMPARISON: None. TECHNIQUE: CT scan of the abdomen and pelvis performed using helical scanning technique with dynamic intravenous contrast injection. No oral contrast. Images reviewed with lung, soft tissue, and bone windows. Reconstructed coronal and sagittal MPR images reviewed. Delayed images for evaluation of the urinary system also acquired. All images stored on PACS. All CT scanners at this facility use dose modulation, iterative reconstruction, and/or weight based d osing when appropriate to reduce radiation dose to as low as reasonably achievable (ALARA). [facility]: Dose Right [facility]: CareDose [facility]: Dose Right [facility]: Teradose 4D [facility]: [employer] CONTRAST TYPE AND DOSE: contrast/concentration: Isovue 350.00 mg/ml; Total Contrast Delivered: 80.0 ml; Total Saline Delivered: 56.0 ml RENAL FUNCTION: GFR > 60. RADIATION DOSE: CT Rad equipment meets quality standard of care and radiation dose reduction techniq ues were employed. CTDIvol: 8.9 - 12.5 mGy. DLP: 1262 mGy-cm.. LIMITATIONS: None. FINDINGS: LOWER CHEST: No significant findings. No nodules or infiltrates. LIVER: There is a persistent low-density lesion adjacent to the gallbladder fossa. This is nonspecif ic in unchanged. SPLEEN: Calcified granulomata. PANCREAS: No masses. No significant calcifications. No adjacent inflammation or peripancreatic fluid collections. Pancreatic duct not dilated. GALLBLADDER: Surgically absent. ADRENAL GLANDS: No significant masses or asymmetry. RIGHT KIDNEY AND URETER: No solid masses. No significant calcifications. No hydronephrosis or hyd roureter. LEFT KIDNEY AND URETER: No solid masses. No significant calcifications. No hydronephrosis or hydr oureter. AORTA AND VESSELS: No aneurysm. No dissection. Renal arteries, SMA, celiac without stenosis. RETROPERITONEUM: No retroperitoneal adenopathy, hemorrhage or masses. BOWEL AND PERITONEAL CAVITY: No masses or inflammatory changes. No free fluid or peritoneal masses. APPENDIX: Surgically absent. PELVIS: No mass. No free fluid. Normal bladder. ABDOMINAL WALL: No masses. No hernias. BONES: No significant or acute findings. OTHER: No other significant finding. IMPRESSION: There is a persistent low-density lesion in the liver which is nonspecific. This could represent a primary liver mass or a metastatic lesion. No acute process. COMMENT: Recommend ultrasound for further evaluation. TECHNICAL DOCUMENTATION: JOB ID: [id number] Quality ID # [id number]: Final reports with documentation of one or more dose reduction techniques (e.g., Au tomated exposure control, adjustment of the mA and/or kV according to patient size, use of iterative reconstruction technique) 2010 [employer]- All Rights Reserved Reading location - IP/workstation name: [email or web address]
[2019-08-19] MEDS ORDERED: METOCLOPRAMIDE HCL INJ/PF 10 MG/2 ML SDV IV ONE (19:38)
[2019-08-19 21:38] VITALS: BP 96/63
== END 2019-08-19 21:45 | disposition home or self-care (01) ==
LOC: ER 15:45
DX: R10.11 Right upper quadrant pain (principal); R06.2 Wheezing; R53.1 Weakness; R10.9 Unspecified abdominal pain; R05 Cough; E87.1 Hypo-osmolality and hyponatremia; F17.200 Nicotine dependence, unspecified, uncomplicated; I10 Essential (primary) hypertension; J44.9 Chronic obstructive pulmonary disease, unspecified; E11.9 Type 2 diabetes mellitus without complications
CPT/HCPCS: 93005; 36415; 87040; 83690; 83735; 85025; 80053; 81001; 84484; 83605; 71045; 74177; 93010; J2765; J2270; J2550; J7030; J1642; J7620; 87086

== ENCOUNTER → 2019-08-25 | Outpatient (CLI) | payer MEDICAID ==
[2019-08-25 08:29] LABS: ABSOLUTE BASOPHILS # (AUTO) 0.1 10^3/uL (0.0-0.2); ABSOLUTE EOSINOPHILS # (AUTO) 0.1 10^3/uL (0.0-0.6); ABSOLUTE LYMPHOCYTES (AUTO) 1.4 10^3/uL (0.5-4.7); ABSOLUTE MONOCYTES (AUTO) 0.6 10^3/uL (0.1-1.4); ABSOLUTE NEUT (AUTO) 6.3 10^3/uL (1.7-8.2); BASOPHILS % (AUTO) 1.2 % (0-2); HEMOGLOBIN 13.4 g/dL (12.0-15.5); LYMPHOCYTES % (AUTO) 16.2 % (13-45); MEAN CORPUSCULAR HEMOGLOBIN 31.4 pg (27.0-33.4); MEAN CORPUSCULAR HGB CONC 33.5 g/dL (32.0-36.0); MEAN CORPUSCULAR VOLUME 94 fl (80-97); MONOCYTES % (AUTO) 7.2 % (3-13); PLATELET COUNT 267 10^3/uL (150-450); RED BLOOD COUNT 4.27 10^6/uL (3.72-5.28); RED CELL DISTRIBUTION WIDTH 14.9 % (11.5-14.0); SEGMENTED NEUTROPHILS % (AUTO) 74.4 % (42-78); TOTAL CELLS COUNTED % (AUTO) 100 %; WHITE BLOOD COUNT 8.4 10^3/uL (4.0-10.5)
--- NOTE | 2019-08-25 08:54 | RADIOLOGY REPORT (SQ) ---
EXAM DESCRIPTION: CHEST PA/LATERAL COMPLETED DATE/TIME: 08/25/2019 8:12 am REASON FOR STUDY: WHEEZING COMPARISON: PA view of the chest from 08/19/2019. EXAM PARAMETERS: NUMBER OF VIEWS: two views TECHNIQUE: Digital Frontal and Lateral radiographic views of the chest acquired. RADIATION DOSE: NA LIMITATIONS: none FINDINGS: LUNGS AND PLEURA: No consolidation, pleural effusion or pneumothorax. MEDIASTINUM AND HILAR STRUCTURES: No mediastinal hilar contour abnormality. HEART AND VASCULAR STRUCTURES: The cardiac silhouette and pulmonary vasculature are within normal li mits. BONES: No acute findings. HARDWARE: The tip of the left upper extremity PICC projects within the SVC. OTHER: No other finding. IMPRESSION: No acute cardiopulmonary process. TECHNICAL DOCUMENTATION: JOB ID: [id number] [employer]- All Rights Reserved Reading location - IP/workstation name: [email or web address]
[2019-08-25 09:08] LABS: ALBUMIN 4.5 g/dL (3.5-5.0); ALKALINE PHOSPHATASE 119 U/L (38-126); ANION GAP 14 (5-19); ASPARTATE AMINO TRANSFERASE 17 U/L (14-36); BILIRUBIN,DIRECT 0.2 mg/dL (0.0-0.4); BILIRUBIN,TOTAL 0.5 mg/dL (0.2-1.3); BLOOD UREA NITROGEN 12 mg/dL (7-20); CALCIUM 9.8 mg/dL (8.4-10.2); CARBON DIOXIDE 24 mmol/L (22-30); CHLORIDE 95 mmol/L (98-107); CHOLESTEROL 171.93 mg/dL (0-200); POTASSIUM 5.3 mmol/L (3.6-5.0); TOTAL PROTEIN 7.2 g/dL (6.3-8.2); TRIGLYCERIDES 211 mg/dL (<150); URIC ACID 3.4 mg/dL (2.5-7.5)
[2019-08-25 09:19] LABS: DIRECT LDL 125 mg/dL (<100)
[2019-08-25 09:23] LABS: VLDL CHOLESTEROL 42.2 mg/dL (10-31)
[2019-08-25 09:28] LABS: GLUCOSE 436 mg/dL (75-110)
[2019-08-26 14:37] LABS: CREATININE URINE 20.6 mg/dL (Not Estab.); MICROALBUMIN URINE 15.2 ug/mL (Not Estab.)
== END ==
LOC: OD 07:45
PROVIDERS: ATTEND Family Medicine Geriatric Medicine
DX: E11.9 Type 2 diabetes mellitus without complications (principal); I10 Essential (primary) hypertension; R06.2 Wheezing; C85.90 Non-Hodgkin lymphoma, unspecified, unspecified site; E78.5 Hyperlipidemia, unspecified; E83.52 Hypercalcemia; E66.9 Obesity, unspecified; Z79.899 Other long term (current) drug therapy
CPT/HCPCS: 36415; 71046; 80053; 80061; 82043; 82570; 83036; 84443; 84550; 84681; 85025

== ENCOUNTER 2019-08-26 12:09 | Emergency (ER) | payer MEDICAID ==
[2019-08-26] MEDS ORDERED: ONDANSETRON 4 MG TAB.RAPDIS PO ONE (12:41)
--- NOTE | 2019-08-26 12:44 | ER Document Report ---
ED Medical Screen (RME) - General Chief Complaint: Palpitations Stated Complaint: PELVIC PAIN/FAST HEART BEAT/DIZZINESS Time Seen by Provider: 08/26/19 12:39 Primary Care Provider: TERRANCE VIZCAINO MD [Primary Care Provider] - Follow up as needed Mode of Arrival: Ambulatory Information source: Patient Notes: This 48-year-old female with history of non-Hodgkin's lymphoma which is in remission presents the emergency department with plaints of dizziness palpitations nausea and right groin pain that started this morning. Last chemo was in July. Reports she has not felt well since. Denies pain with void denies vaginal discharge. I have greeted and performed a rapid initial assessment of this patient. A comprehensive ED assessment and evaluation of the patient, analysis of test results and completion of the medical decision making process will be conducted by additional ED providers. Dictation of this chart was performed using voice recognition software; therefore, there may be some unintended grammatical errors. TRAVEL OUTSIDE OF THE [place] IN LAST 30 DAYS: No - Related Data Allergies/Adverse Reactions: liborio Allergy (Severe, Verified 08/26/19 12:36) green pepper Allergy (Severe, Verified 08/26/19 12:36) ketorolac tromethamine [From Toradol] Allergy (Verified 08/26/19 12:36) tramadol [Tramadol] Allergy (Verified 08/26/19 12:36) Past Medical History - Social History Chew tobacco use (# tins/day): No Frequency of alcohol use: None Drug Abuse: None - Past Medical History Cardiac Medical History: Reports: Hx Hypercholesterolemia, Hx Hypertension Pulmonary Medical History: Reports: Hx COPD Comment Only: Hx Asthma - pt denies Endocrine Medical History: Reports: Hx Diabetes Mellitus Type 1, Hx Diabetes Mellitus Type 2 Renal/ Medical History: Denies: Hx Peritoneal Dialysis Malignancy Medical History: Reports: Hx Lymphoma - Non-Hodgkin's GI Medical History: Reports: Hx Gastroesophageal Reflux Disease Musculoskeltal Medical History: Reports Hx Arthritis, Reports Hx Musculoskeletal Trauma Psychiatric Medical History: Reports: Hx Anxiety, Hx Depression Past Surgical History: Reports: Hx Appendectomy, Hx Cholecystectomy, Hx Gynecologic Surgery - x14 D&C - Immunizations Immunizations up to date: No Hx Diphtheria, Pertussis, Tetanus Vaccination: Yes Physical Exam - Vital signs Vitals: Temp Pulse BP Pulse Ox 98.4 F 132 H 124/66 93 08/26/19 12:33 08/26/19 12:33 08/26/19 12:33 08/26/19 12:33 Course - Vital Signs Vital signs: Temp Pulse Resp BP Pulse Ox 98.4 F 132 H 124/66 93 08/26/19 12:33 08/26/19 12:33 08/26/19 12:33 08/26/19 12:33 Doctor's Discharge - Discharge Referrals: TERRANCE VIZCAINO MD [Primary Care Provider] - Follow up as needed
[2019-08-26 13:18] LABS: APPEARANCE,URINE SLIGHTLY-CLOUDY; BILIRUBIN,URINE NEGATIVE (NEGATIVE); COLOR,URINE YELLOW; GLUCOSE, URINE >=500 mg/dL (NEGATIVE); KETONES,URINE TRACE mg/dL (NEGATIVE); LEUKOCYTE ESTERASE,URINE SMALL (NEGATIVE); NITRITE,URINE NEGATIVE (NEGATIVE); PROTEIN,URINE NEGATIVE (NEGATIVE); URINE SPECIFIC GRAVITY 1.008; UROBILINOGEN,URINE NEGATIVE mg/dL (<2.0)
[2019-08-26] MEDS ORDERED: NORMAL SALINE 1000 ML 1,000 ML IV ONE (14:09)
--- NOTE | 2019-08-26 14:11 | ER Document Report ---
ED General - General Chief Complaint: Palpitations Stated Complaint: PELVIC PAIN/FAST HEART BEAT/DIZZINESS Time Seen by Provider: 08/26/19 12:39 Primary Care Provider: TERRANCE VIZCAINO MD [Primary Care Provider] - Follow up as needed Mode of Arrival: Ambulatory TRAVEL OUTSIDE OF THE [place] IN LAST 30 DAYS: No - Related Data Allergies/Adverse Reactions: liborio Allergy (Severe, Verified 08/26/19 12:36) green pepper Allergy (Severe, Verified 08/26/19 12:36) ketorolac tromethamine [From Toradol] Allergy (Verified 08/26/19 12:36) tramadol [Tramadol] Allergy (Verified 08/26/19 12:36) Past Medical History - General Information source: Patient - Social History Smoking Status: Current Every Day Smoker Chew tobacco use (# tins/day): No Frequency of alcohol use: None Drug Abuse: None Family History: Reviewed & Not Pertinent Patient has suicidal ideation: No Patient has homicidal ideation: No - Past Medical History Cardiac Medical History: Reports: Hx Hypercholesterolemia, Hx Hypertension Pulmonary Medical History: Reports: Hx COPD Comment Only: Hx Asthma - pt denies Endocrine Medical History: Reports: Hx Diabetes Mellitus Type 1, Hx Diabetes Mellitus Type 2 Renal/ Medical History: Denies: Hx Peritoneal Dialysis Malignancy Medical History: Reports: Hx Lymphoma - Non-Hodgkin's GI Medical History: Reports: Hx Gastroesophageal Reflux Disease Musculoskeletal Medical History: Reports Hx Arthritis, Reports Hx Musculoskeletal Trauma Psychiatric Medical History: Reports: Hx Anxiety, Hx Depression Past Surgical History: Reports: Hx Appendectomy, Hx Cholecystectomy, Hx Gynecologic Surgery - x14 D&C - Immunizations Immunizations up to date: No Hx Diphtheria, Pertussis, Tetanus Vaccination: Yes Physical Exam - Vital signs Vitals: Temp Pulse BP Pulse Ox 98.4 F 132 H 124/66 93 08/26/19 12:33 08/26/19 12:33 08/26/19 12:33 08/26/19 12:33 Course - Re-evaluation Re-evalutation: 08/26/19 14:10 EKG shows a heart of 121, sinus tachycardia, poor R wave progression, no ST elevation or depression. Inverted T waves in aVL - Vital Signs Vital signs: Temp Pulse Resp BP Pulse Ox 98.4 F 132 H 124/66 95 08/26/19 12:33 08/26/19 12:33 08/26/19 12:33 08/26/19 14:01 - Laboratory Result Diagrams: 08/26/19 13:51 08/26/19 13:51 Laboratory results interpreted by me: 08/26/19 13:00 Urine Glucose (UA) >=500 H Urine Ketones TRACE H Ur Leukocyte Esterase SMALL H Discharge - Discharge Referrals: TERRANCE VIZCAINO MD [Primary Care Provider] - Follow up as needed
[2019-08-26 14:19] LABS: ABSOLUTE BASOPHILS # (AUTO) 0.1 10^3/uL (0.0-0.2); ABSOLUTE EOSINOPHILS # (AUTO) 0.1 10^3/uL (0.0-0.6); ABSOLUTE LYMPHOCYTES (AUTO) 1.9 10^3/uL (0.5-4.7); ABSOLUTE MONOCYTES (AUTO) 1.1 10^3/uL (0.1-1.4); ABSOLUTE NEUT (AUTO) 9.6 10^3/uL (1.7-8.2); BASOPHILS % (AUTO) 0.7 % (0-2); EOSINOPHILS % (AUTO) 0.6 % (0-6); HEMATOCRIT 39.2 % (36.0-47.0); HEMOGLOBIN 13.1 g/dL (12.0-15.5); LYMPHOCYTES % (AUTO) 14.8 % (13-45); MEAN CORPUSCULAR HGB CONC 33.4 g/dL (32.0-36.0); MEAN CORPUSCULAR VOLUME 93 fl (80-97); MONOCYTES % (AUTO) 8.4 % (3-13); PLATELET COUNT 245 10^3/uL (150-450); RED BLOOD COUNT 4.24 10^6/uL (3.72-5.28); RED CELL DISTRIBUTION WIDTH 15.1 % (11.5-14.0); SEGMENTED NEUTROPHILS % (AUTO) 75.5 % (42-78); TOTAL CELLS COUNTED % (AUTO) 100 %; WHITE BLOOD COUNT 12.8 10^3/uL (4.0-10.5)
[2019-08-26] MEDS ORDERED: MORPHINE SULFATE 10 MG/ML INJ IV ONE ×2 (14:21→16:26)
--- NOTE | 2019-08-26 14:25 | ER Document Report ---
ED Cardiac - General Chief Complaint: Palpitations Stated Complaint: PELVIC PAIN/FAST HEART BEAT/DIZZINESS Time Seen by Provider: 08/26/19 12:39 Primary Care Provider: TERRANCE VIZCAINO MD [Primary Care Provider] - Follow up as needed Mode of Arrival: Ambulatory Information source: Patient Notes: HPI: 48-year-old female with non-Hodgkin's lymphoma, being treated every 2 months with chemotherapy, who presents today with what she states is a chronic problem with new onset of right lower quadrant pain. She states the chronic problem with some intermittent nonbloody diarrhea, feeling lightheaded, with some palpitations. She denies any chest pain, fevers, or shortness of breath. However she started to develop some constant nonradiating lower abdominal right lower quadrant pain. No fevers, dysuria, with 2 bouts of nonbloody diarrhea today. No calf pain, leg swelling, recent trips or travel. She states she has seen her primary care physician and oncologist since last December about the intermittent palpitations, lightheadedness, and diarrhea. She states they have not been able to tell her reason for her symptoms. She states when she was initially diagnosed with lymphoma, she had a mass to her right lower quadrant and adrenal glands. ROS: See HPI All other review of systems reviewed and otherwise negative Reviewed vital signs and nursing note as charted by RN. PHYSICAL EXAM: CONSTITUTIONAL: Alert and oriented and responds appropriately to questions. Well-appearing; well-nourished HEAD: Normocephalic; atraumatic ENT: Normal nose; no rhinorrhea; moist mucous membranes; pharynx without lesions noted NECK: Supple without meningismus; non-tender; no carotid bruit; no cervical lymphadenopathy, no masses CARD: Tachycardic currently at 105 without cardiac murmurs; symmetric distal pulses RESP: Normal chest excursion without splinting or tachypnea; breath sounds clear and equal bilaterally; no wheezes, no rhonchi, no rales ABD/GI: Normal bowel sounds; non-distended; soft, mild tenderness to the right lower quadrant without rebound or guarding. No abdominal bruits or palpable masses BACK: The back appears normal and is non-tender to palpation EXT: Normal ROM in all joints; non-tender to palpation; no edema SKIN: No acute lesions noted NEURO: CN 2-12 intact; 5/5 bilateral upper and lower extremity strength with sensation intact to light touch PSYCH: The patient's mood and manner are appropriate. Grooming and personal hy giene are appropriate. TRAVEL OUTSIDE OF THE [place] IN LAST 30 DAYS: No - Related Data Allergies/Adverse Reactions: liborio Allergy (Severe, Verified 08/26/19 12:36) green pepper Allergy (Severe, Verified 08/26/19 12:36) ketorolac tromethamine [From Toradol] Allergy (Verified 08/26/19 12:36) tramadol [Tramadol] Allergy (Verified 08/26/19 12:36) Past Medical History - General Information source: Patient - Social History Smoking Status: Current Every Day Smoker Chew tobacco use (# tins/day): No Frequency of alcohol use: None Drug Abuse: None Family History: Reviewed & Not Pertinent Patient has suicidal ideation: No Patient has homicidal ideation: No - Past Medical History Cardiac Medical History: Reports: Hx Hypercholesterolemia, Hx Hypertension Pulmonary Medical History: Reports: Hx COPD Comment Only: Hx Asthma - pt denies Endocrine Medical History: Reports: Hx Diabetes Mellitus Type 1, Hx Diabetes Mellitus Type 2 Renal/ Medical History: Denies: Hx Peritoneal Dialysis Malignancy Medical History: Reports: Hx Lymphoma - Non-Hodgkin's GI Medical History: Reports: Hx Gastroesophageal Reflux Disease Musculoskeletal Medical History: Reports Hx Arthritis, Reports Hx M usculoskeletal Trauma Psychiatric Medical History: Reports: Hx Anxiety, Hx Depression Past Surgical History: Reports: Hx Appendectomy, Hx Cholecystectomy, Hx Gynecologic Surgery - x14 D&C - Immunizations Immunizations up to date: No Hx Diphtheria, Pertussis, Tetanus Vaccination: Yes Physical Exam - Vital signs Vitals: Temp Pulse BP Pulse Ox 98.4 F 132 H 124/66 93 08/26/19 12:33 08/26/19 12:33 08/26/19 12:33 08/26/19 12:33 Course - Re-evaluation Re-evalutation: 08/26/19 14:10 EKG shows a heart of 121, sinus tachycardia, poor R wave progression, no ST elevation or depression. Inverted T waves in aVL 08/26/19 14:25 Given the above history and physical, we will obtain basic labs, abdominal labs, urine analysis, cardiac labs, and a d-dimer. I will provide pain meds and fluids. I would like to assess whether or not I am going to do a CT scan of the abdomen and pelvis alone or add a CT chest given the tachycardia and lightheadedness in a cancer patient. 08/26/19 16:[address] imaging as recorded. Negative d-dimer. X-ray of the chest is unremarkable. Heart rate is currently 94. Patient's pain is improved. We have provided Rocephin and send a urine culture. Liver lesion on CT shows unchanged. No other obvious pathology present. Given the above history and physical, repeat vital signs, we will discharge the patient home with strict return precautions, Keflex as an antibiotic, short course of pain medications, and follow-up with the patient primary care physician. Patient and family are comfortable with this plan. - Vital Signs Vital signs: Temp Pulse Resp BP Pulse Ox 98.4 F 132 H 124/66 95 08/26/19 12:33 08/26/19 12:33 08/26/19 12:33 08/26/19 14:01 - Laboratory Result Diagrams: 08/26/19 13:51 08/26/19 13:51 Laboratory results interpreted by me: 08/26/19 08/26/19 08/26/19 13:00 13:51 13:51 WBC 12.8 H RDW 15.1 H Absolute Neuts (auto) 9.6 H Sodium 132.2 L Chloride 96 L Glucose 196 H Urine Glucose (UA) >=500 H Urine Ketones TRACE H Ur Leukocyte Esterase SMALL H Discharge - Discharge Clinical Impression: Right lower quadrant abdominal pain, Lightheadedness UTI (urinary tract infection) Qualifiers: Urinary tract infection type: site unspecified Hematuria presence: without hematuria Qualified Code(s): N39.0 - Urinary tract infection, site not specified Condition: Good Disposition: HOME, SELF-CARE Additional Instructions: Come back immediately for any return of pain, worsening pain, change in location or quality of pain, fevers, vomiting, shortness of breath, calf pain or leg swelling, or any other acute problems. Please take the antibiotics as prescribed and follow-up with the urine culture and the primary care physician as discussed. Prescriptions: Cephalexin Monohydrate [Keflex 500 mg Capsule] 500 mg PO Q6H 7 Days #28 capsule Hydrocodone/Acetaminophen [Bath 5-325 Tablet] 1 each PO Q6 #10 tablet Referrals: TERRANCE VIZCAINO MD [Primary Care Provider] - Follow up as needed
[2019-08-26 14:31] LABS: ALBUMIN 4.3 g/dL (3.5-5.0); ALKALINE PHOSPHATASE 106 U/L (38-126); ANION GAP 12 (5-19); ASPARTATE AMINO TRANSFERASE 19 U/L (14-36); BILIRUBIN,DIRECT 0.2 mg/dL (0.0-0.4); BILIRUBIN,TOTAL 0.3 mg/dL (0.2-1.3); BLOOD UREA NITROGEN 11 mg/dL (7-20); CALCIUM 9.5 mg/dL (8.4-10.2); CARBON DIOXIDE 24 mmol/L (22-30); CHLORIDE 96 mmol/L (98-107); CREATINE KINASE 64 U/L (30-135); GLUCOSE 196 mg/dL (75-110); POTASSIUM 4.2 mmol/L (3.6-5.0)
[2019-08-26] MEDS ORDERED: CEFTRIAXONE 1 GM/D5W RTU 1 GM/50 ML RTUPB IV ONE (14:49)
--- NOTE | 2019-08-26 15:49 | RADIOLOGY REPORT (SQ) ---
EXAM DESCRIPTION: CHEST 2 VIEWS COMPLETED DATE/TIME: 08/26/2019 3:40 pm REASON FOR STUDY: PALPITATIONS COMPARISON: 08/25/2019. EXAM PARAMETERS: NUMBER OF VIEWS: two views TECHNIQUE: Digital Frontal and Lateral radiographic views of the chest acquired. RADIATION DOSE: NA LIMITATIONS: none FINDINGS: LUNGS AND PLEURA: No opacities, masses or pneumothorax. No pleural effusion. MEDIASTINUM AND HILAR STRUCTURES: No masses or contour abnormalities. HEART AND VASCULAR STRUCTURES: Heart normal size. No evidence for failure. BONES: No acute findings. HARDWARE: None in the chest. OTHER: No other significant finding. IMPRESSION: NO ACUTE RADIOGRAPHIC FINDING IN THE CHEST. TECHNICAL DOCUMENTATION: JOB ID: [id number] [employer].- All Rights Reserved Reading location - IP/workstation name: [email or web address]
--- NOTE | 2019-08-26 16:42 | RADIOLOGY REPORT (SQ) ---
EXAM DESCRIPTION: CT ABD/PELVIS WITH IV ONLY COMPLETED DATE/TIME: 08/26/2019 3:46 pm REASON FOR STUDY: 6; RLQ pain - h/o hodkins COMPARISON: 08/19/2019, 01/15/2019, and 03/07/2017. TECHNIQUE: CT scan of the abdomen and pelvis performed using helical scanning technique with dynamic intravenous contrast injection. No oral contrast. Images reviewed with lung, soft tissue, and bone windows. Reconstructed coronal and sagittal MPR images reviewed. Delayed images for evaluation of the urinary system also acquired. All images stored on PACS. All CT scanners at this facility use dose modulation, iterative reconstruction, and/or weight based d osing when appropriate to reduce radiation dose to as low as reasonably achievable (ALARA). [facility]: Dose Right [facility]: CareDose [facility]: Dose Right [facility]: Teradose 4D [facility]: [employer] CONTRAST TYPE AND DOSE: contrast/concentration: Isovue 350.00 mg/ml; Total Contrast Delivered: 100.0 ml; Total Saline Delivered: 72.0 ml RENAL FUNCTION: BUN 11 creatinine 0.6. RADIATION DOSE: CT Rad equipment meets quality standard of care and radiation dose reduction techniq ues were employed. CTDIvol: 10.3 - 14.3 mGy. DLP: 1485 mGy-cm.. LIMITATIONS: None. FINDINGS: LOWER CHEST: No significant findings. No nodules or infiltrates. LIVER: Normal size. Stable round low-attenuation lesion near the gallbladder fossa, unchanged. No d ilated ducts. SPLEEN: Normal size. No focal lesions. PANCREAS: No masses. No significant calcifications. No adjacent inflammation or peripancreatic fluid collections. Pancreatic duct not dilated. GALLBLADDER: Gallstones. No inflammatory changes to suggest cholecystitis. ADRENAL GLANDS: No significant masses or asymmetry. RIGHT KIDNEY AND URETER: No solid masses. No significant calcifications. No hydronephrosis or hyd roureter. LEFT KIDNEY AND URETER: No solid masses. No significant calcifications. No hydronephrosis or hydr oureter. AORTA AND VESSELS: No aneurysm. No dissection. Renal arteries, SMA, celiac without stenosis. RETROPERITONEUM: No retroperitoneal adenopathy, hemorrhage or masses. BOWEL AND PERITONEAL CAVITY: No masses or inflammatory changes. No free fluid or peritoneal masses. APPENDIX: Surgically absent. PELVIS: No mass. No free fluid. Normal bladder. ABDOMINAL WALL: No masses. No hernias. BONES: No significant or acute findings. OTHER: No other significant finding. IMPRESSION: LOW-ATTENUATION LESION IN THE LIVER WHICH HAS REMAINED UNCHANGED SINCE MARCH 2017. NO O THER SIGNIFICANT OR ACUTE FINDING IN THE ABDOMEN OR PELVIS ON CT SCAN WITH IV CONTRAST. TECHNICAL DOCUMENTATION: JOB ID: [id number] Quality ID # [id number]: Final reports with documentation of one or more dose reduction techniques (e.g., Au tomated exposure control, adjustment of the mA and/or kV according to patient size, use of iterative reconstruction technique) 2010 [employer]- All Rights Reserved Reading location - IP/workstation name: [email or web address]
[2019-08-26 17:15] VITALS: BP 105/64
--- NOTE | 2019-08-27 09:07 | EKG REPORT ---
SEVERITY:- OTHERWISE NORMAL ECG - SINUS TACHYCARDIA BORDERLINE LEFT AXIS DEVIATION : Confirmed by: Dwayne Pedersen 27-Aug-2019 09:06:37
== END 2019-08-26 17:11 | disposition home or self-care (01) ==
LOC: ER 12:09
DX: N39.0 Urinary tract infection, site not specified (principal); R10.31 Right lower quadrant pain; R42 Dizziness and giddiness; R00.2 Palpitations; R10.2 Pelvic and perineal pain; C85.90 Non-Hodgkin lymphoma, unspecified, unspecified site; R19.7 Diarrhea, unspecified; Z79.899 Other long term (current) drug therapy; F17.200 Nicotine dependence, unspecified, uncomplicated; I10 Essential (primary) hypertension; J44.9 Chronic obstructive pulmonary disease, unspecified; E11.9 Type 2 diabetes mellitus without complications
CPT/HCPCS: 93005; 96376; 99285; 96375; 96365; 36415; 82550; 85025; 80053; 81001; 84484; 85379; 71046; 74177; 93010; S0119; J2270; J7030; J0696; J1642

== ENCOUNTER 2019-10-26 16:45 | Emergency (ER) | payer MEDICAID ==
--- NOTE | 2019-10-26 17:09 | ER Document Report ---
ED Medical Screen (RME) - General Chief Complaint: Abdominal Pain Stated Complaint: ABDOMINAL PAIN Time Seen by Provider: 10/26/19 17:04 Primary Care Provider: TERRANCE VIZCAINO MD [Primary Care Provider] - Follow up as needed Mode of Arrival: Ambulatory Information source: Patient Notes: 49-year-old female presented to ED for complaint of left upper and lower and ri ght lower abdominal pain for the last 2 hours. She states she has been nauseated no vomiting with no diarrhea. She states she did have a bowel movement this morning. She states she did have cancer to her adrenal gland and her last chemo treatment was in July. She states she is also had a history of diverticulitis many years ago. She states her last colonoscopy was last year. She is alert oriented respirations regular nonlabored speaking in full sentences. I have greeted and performed a rapid initial assessment of this patient. A comprehensive ED assessment and evaluation of the patient, analysis of test results and completion of medical decision making process will be conducted by an additional ED providers. TRAVEL OUTSIDE OF THE [place] IN LAST 30 DAYS: No - Related Data Allergies/Adverse Reactions: liborio Allergy (Severe, Verified 08/26/19 12:36) green pepper Allergy (Severe, Verified 08/26/19 12:36) ketorolac tromethamine [From Toradol] Allergy (Verified 08/26/19 12:36) tramadol [Tramadol] Allergy (Verified 08/26/19 12:36) Past Medical History - Past Medical History Cardiac Medical History: Reports: Hx Hypercholesterolemia, Hx Hypertension Pulmonary Medical History: Reports: Hx COPD Comment Only: Hx Asthma - pt denies Endocrine Medical History: Reports: Hx Diabetes Mellitus Type 1, Hx Diabetes Mellitus Type 2 Renal/ Medical History: Denies: Hx Peritoneal Dialysis Malignancy Medical History: Reports: Hx Lymphoma - Non-Hodgkin's GI Medical History: Reports: Hx Gastroesophageal Reflux Disease Musculoskeltal Medical History: Reports Hx Arthritis, Reports Hx Musculoskeletal Trauma Psychiatric Medical History: Reports: Hx Anxiety, Hx Depression Past Surgical History: Reports: Hx Appendectomy, Hx Cholecystectomy, Hx Gynecologic Surgery - x14 D&C - Immunizations Immunizations up to date: No Hx Diphtheria, Pertussis, Tetanus Vaccination: Yes Physical Exam - Vital signs Vitals: Temp Pulse Resp BP Pulse Ox 98.1 F 115 H 20 147/73 H 96 10/26/19 16:51 10/26/19 16:51 10/26/19 16:51 10/26/19 16:51 10/26/19 16:51 Course - Vital Signs Vital signs: Temp Pulse Resp BP Pulse Ox 98.1 F 115 H 20 147/73 H 96 10/26/19 16:51 10/26/19 16:51 10/26/19 16:51 10/26/19 16:51 10/26/19 16:51 Doctor's Discharge - Discharge Referrals: TERRANCE VIZCAINO MD [Primary Care Provider] - Follow up as needed
[2019-10-26 17:40] LABS: APPEARANCE,URINE CLEAR; BILIRUBIN,URINE NEGATIVE (NEGATIVE); COLOR,URINE STRAW; GLUCOSE, URINE 50 mg/dL (NEGATIVE); KETONES,URINE NEGATIVE (NEGATIVE); PROTEIN,URINE NEGATIVE (NEGATIVE); URINE SPECIFIC GRAVITY 1.004; UROBILINOGEN,URINE NEGATIVE mg/dL (<2.0)
[2019-10-26 17:43] LABS: ABSOLUTE BASOPHILS # (AUTO) 0.1 10^3/uL (0.0-0.2); ABSOLUTE EOSINOPHILS # (AUTO) 0.2 10^3/uL (0.0-0.6); ABSOLUTE LYMPHOCYTES (AUTO) 2.7 10^3/uL (0.5-4.7); ABSOLUTE MONOCYTES (AUTO) 1.2 10^3/uL (0.1-1.4); ABSOLUTE NEUT (AUTO) 11.5 10^3/uL (1.7-8.2); BASOPHILS % (AUTO) 0.6 % (0-2); HEMATOCRIT 42.7 % (36.0-47.0); HEMOGLOBIN 14.3 g/dL (12.0-15.5); LYMPHOCYTES % (AUTO) 17.2 % (13-45); MEAN CORPUSCULAR HEMOGLOBIN 30.9 pg (27.0-33.4); MEAN CORPUSCULAR HGB CONC 33.6 g/dL (32.0-36.0); MEAN CORPUSCULAR VOLUME 92 fl (80-97); MONOCYTES % (AUTO) 7.9 % (3-13); PLATELET COUNT 260 10^3/uL (150-450); RED BLOOD COUNT 4.65 10^6/uL (3.72-5.28); RED CELL DISTRIBUTION WIDTH 15.7 % (11.5-14.0); SEGMENTED NEUTROPHILS % (AUTO) 73.3 % (42-78); TOTAL CELLS COUNTED % (AUTO) 100 %; WHITE BLOOD COUNT 15.7 10^3/uL (4.0-10.5)
[2019-10-26 17:58] LABS: ALBUMIN 4.5 g/dL (3.5-5.0); ALKALINE PHOSPHATASE 118 U/L (38-126); ANION GAP 12 (5-19); ASPARTATE AMINO TRANSFERASE 20 U/L (14-36); BILIRUBIN,DIRECT 0.1 mg/dL (0.0-0.4); BILIRUBIN,TOTAL 0.4 mg/dL (0.2-1.3); BLOOD UREA NITROGEN 10 mg/dL (7-20); CALCIUM 10.1 mg/dL (8.4-10.2); CARBON DIOXIDE 28 mmol/L (22-30); CHLORIDE 98 mmol/L (98-107); GLUCOSE 216 mg/dL (75-110); POTASSIUM 4.6 mmol/L (3.6-5.0); TOTAL PROTEIN 7.3 g/dL (6.3-8.2)
[2019-10-26] MEDS ORDERED: METOCLOPRAMIDE HCL INJ/PF 10 MG/2 ML SDV IV ONE (20:33)
[2019-10-26] MEDS ORDERED: MORPHINE SULFATE 10 MG/ML INJ IV ONE (20:33)
[2019-10-26] MEDS ORDERED: NORMAL SALINE 1000 ML 1,000 ML IV ONE (20:33)
[2019-10-26] MEDS ORDERED: DIPHENHYDRAMINE HCL 50 MG/ML VIAL IV ONE (20:33)
--- NOTE | 2019-10-26 20:36 | ER Document Report ---
ED General - General Chief Complaint: Abdominal Pain Stated Complaint: ABDOMINAL PAIN Time Seen by Provider: 10/26/19 17:04 Primary Care Provider: TERRANCE VIZCAINO MD [Primary Care Provider] - Follow up as needed Mode of Arrival: Ambulatory Notes: 49-year-old female with history non-Hodgkin's lymphoma who is currently in remission presents the emergency department complaining of abdominal pain for the past 3 hours. States it is right lower quadrant, left upper quadrant left lower quadrant, sharp and stabbing in nature and constant. Is associated with nausea and dry mouth. Does not feel similar to prior episodes of diverticulitis. Feels similar to when she was diagnosed with non-Hodgkin's lymphoma. Last chemotherapy was in July, she was old she was in remission in May. Recently patient has been having chills at night but denies any fevers or diarrhea. Had a bowel movement this morning. TRAVEL OUTSIDE OF THE [place] IN LAST 30 DAYS: No - Related Data Allergies/Adverse Reactions: liborio Allergy (Severe, Verified 08/26/19 12:36) green pepper Allergy (Severe, Verified 08/26/19 12:36) ketorolac tromethamine [From Toradol] Allergy (Verified 08/26/19 12:36) tramadol [Tramadol] Allergy (Verified 08/26/19 12:36) Past Medical History - General Information source: Patient - Social History Smoking Status: Current Every Day Smoker Family History: Reviewed & Not Pertinent Patient has suicidal ideation: No Patient has homicidal ideation: No - Past Medical History Cardiac Medical History: Reports: Hx Hypercholesterolemia, Hx Hypertension Pulmonary Medical History: Reports: Hx COPD Comment Only: Hx Asthma - pt denies Endocrine Medical History: Reports: Hx Diabetes Mellitus Type 1, Hx Diabetes Mellitus Type 2 Renal/ Medical History: Denies: Hx Peritoneal Dialysis Malignancy Medical History: Reports: Hx Lymphoma - Non-Hodgkin's GI Medical History: Reports: Hx Gastroesophageal Reflux Disease Musculoskeletal Medical History: Reports Hx Arthritis, Reports Hx Musculoskeletal Trauma Psychiatric Medical History: Reports: Hx Anxiety, Hx Depression Past Surgical History: Reports: Hx Appendectomy, Hx Cholecystectomy, Hx Gynecologic Surgery - x14 D&C - Immunizations Immunizations up to date: No Hx Diphtheria, Pertussis, Tetanus Vaccination: Yes Review of Systems - Review of Systems Constitutional: See HPI, Chills Gastrointestinal: See HPI -: Yes All other systems reviewed and negative Physical Exam - Vital signs Vitals: Temp Pulse Resp BP Pulse Ox 98.1 F 115 H 20 147/73 H 96 10/26/19 16:51 10/26/19 16:51 10/26/19 16:51 10/26/19 16:51 10/26/19 16:51 Interpretation: Tachycardic - Notes Notes: GENERAL: Alert, interacts well. No acute distress but does appear mildly uncomfortable. HEAD: Normocephalic, atraumatic EYES: Pupils equal, round and reactive to light, extraocular movements intact. ENT: Oral mucosa moist, tongue midline. NECK: Full range of motion, supple, trachea midline. LUNGS: Clear to auscultation bilaterally, no wheezes, rales or rhonchi, no respiratory distress. HEART: Regular rate and rhythm, no murmurs, gallops, rubs. ABDOMEN: Soft, bilateral lower abdominal tenderness palpation, moderate left upper quadrant tenderness to palpation, small amount of guarding, no rigidity, no rebounding, nondistended, bowel sounds present in all 4 quadrants. EXTREMITIES: Moves all 4 extremities spontaneously, no edema, radial and dorsalis pedis pulses 2/4 bilaterally. No cyanosis. NEUROLOGICAL: Alert and oriented x3, normal speech. PSYCH: Normal mood, normal affect. SKIN: Warm, Dry, normal turgor, no rashes or lesions noted. Course - Re-evaluation Re-evalutation: 10/26/19 23:01 CBC shows leukocytosis of 15.7 otherwise unremarkable, CMP shows elevated glucose at 216, this is nonfasting, urinalysis unremarkable, no signs of blood or infection. CT scan of the abdomen pelvis was ordered given the fact that this feels the same as when her lymphoma was prior diagnosed and the tenderness on examination, CAT scan does not show any acute process, there is an ovoid low- attenuation lesion near the gallbladder fossa which is stable otherwise unremarkable. At present I have no specific cause for the patient's abdominal pain or nausea. Patient will be treated with Phenergan and Reglan for nausea at home. Encouraged to follow-up with her primary care physician and her oncologist as an outpatient if she has continuing pain, return to the emergency department if she has uncontrollable vomiting. - Vital Signs Vital signs: Temp Pulse Resp BP Pulse Ox 98.2 F 86 16 108/59 L 96 10/26/19 20:16 10/26/19 20:16 10/26/19 20:16 10/26/19 20:16 10/26/19 20:16 - Laboratory Result Diagrams: 10/26/19 17:20 10/26/19 17:20 Laboratory results interpreted by me: 10/26/19 10/26/19 10/26/19 17:20 17:20 17:20 WBC 15.7 H RDW 15.7 H Absolute Neuts (auto) 11.5 H Creatinine 0.44 L Glucose 216 H Urine Glucose (UA) 50 H Discharge - Discharge Clinical Impression: Abdominal pain with vomiting, Diabetes mellitus type 2 in nonobese Abdominal pain Qualifiers: Abdominal location: generalized Qualified Code(s): R10.84 - Generalized abdo boogie pain Condition: Stable Disposition: HOME, SELF-CARE Additional Instructions: Today your CAT scan did not show any sign that your lymphoma has returned. It also did not show any signs of diverticulitis or other other acute intra- abdominal infection. I am discharging you with antinausea medications in the form of Reglan which should be taken with Benadryl 1 to 2 capsules by mouth available [id number] as well as Phenergan which does not have to be taken with anything else. Do not take the Phenergan and the Reglan at the same time. Please return for fevers, uncontrollable vomiting or severe abdominal pain. Otherwise please follow-up with your primary care physician and your oncologist as an outpatient. Prescriptions: Metoclopramide HCl [Reglan 10 mg Tablet] 1 - 2 tab PO Q6HP PRN #25 tablet PRN Reason: Promethazine HCl [Phenergan 25 mg Tablet] 1 - 2 tab PO Q6H PRN #15 tablet PRN Reason: Referrals: TERRANCE VIZCAINO MD [Primary Care Provider] - Follow up as needed
--- NOTE | 2019-10-26 22:11 | RADIOLOGY REPORT (SQ) ---
EXAM DESCRIPTION: CT ABDOMEN PELVIS WITH IV CONTRAST COMPLETED DATE/TME: 10/26/2019 20:33 CLINICAL HISTORY: 49 years Female RLQ, LLQ, LUQ pain, h/o tics and lymphoma COMPARISON: 08/26/2019 TECHNIQUE: Contiguous axial images obtained through the abdomen and pelvis following IV contrast. Reformatted images obtained. This exam was performed according to our department optimization program which includes automated exposure control, adjustment of the mA and/or kv according to patient size and/or use of iterative reconstruction technique. FINDINGS: Fatty infiltration of the liver. As previously noted there is an ovoid low-attenuation the lesion near the gallbladder fossa which is stable. The spleen and pancreas appear unremarkable. No adrenal masses. The kidneys appear unremarkable. No hydronephrosis. The gallbladder is absent. No aneurysmal dilatation of the aorta. No bowel obstruction. The appendix is nonvisualized.. No significant free fluid noted. IMPRESSION: No evidence of acute process Stable low-attenuation lesion in the liver at the level of the gallbladder fossa Absent gallbladder
[2019-10-26] MEDS ORDERED: HYDROCODONE/ACETAMINOPHEN 5-325 MG TABLET PO ONE (22:59)
[2019-10-26 23:45] VITALS: BP 109/54
== END 2019-10-26 23:49 | disposition home or self-care (01) ==
LOC: ER 16:45
DX: R10.84 Generalized abdominal pain (principal); R11.2 Nausea with vomiting, unspecified; E11.9 Type 2 diabetes mellitus without complications; R68.2 Dry mouth, unspecified; R68.83 Chills (without fever); K76.9 Liver disease, unspecified; F17.200 Nicotine dependence, unspecified, uncomplicated; I10 Essential (primary) hypertension; J44.9 Chronic obstructive pulmonary disease, unspecified; Z90.49 Acquired absence of other specified parts of digestive tract; D72.829 Elevated white blood cell count, unspecified; Z87.19 Personal history of other diseases of the digestive system; Z85.72 Personal history of non-Hodgkin lymphomas; Z92.21 Personal history of antineoplastic chemotherapy; Z91.018 Allergy to other foods; Z88.8 Allergy status to other drugs, medicaments and biological substances; Z88.6 Allergy status to analgesic agent
CPT/HCPCS: 99284; 96361; 96374; 96375; 36415; 85025; 80053; 81001; 74177; J1200; J2765; J2270; J7030

== ENCOUNTER 2019-12-23 15:44 | Emergency (ER) | payer MEDICAID ==
--- NOTE | 2019-12-23 15:52 | ER Document Report ---
ED Medical Screen (RME) - General Chief Complaint: Dizziness Stated Complaint: DIZZINESS,ABDOMINAL PAIN Time Seen by Provider: 12/23/19 15:47 Primary Care Provider: TERRANCE VIZCAINO MD [Primary Care Provider] - Follow up as needed Mode of Arrival: Wheelchair Information source: Patient Notes: 49-year-old female presented to ED for complaint of dizziness, her head feels "weird ", and she has abdominal pain. She states she fell in the bathtub 2 Satdays ago. She is alert oriented respirations regular unlabored speaking in full sentences. She complains of right abdominal pain with nausea no vomiting she denies diarrhea. She states there is no other symptoms. I have greeted and performed a rapid initial assessment of this patient. A comprehensive ED assessment and evaluation of the patient, analysis of test results and completion of medical decision making process will be conducted by an additional ED providers. TRAVEL OUTSIDE OF THE [place] IN LAST 30 DAYS: No - Related Data Allergies/Adverse Reactions: liborio Allergy (Severe, Verified 08/26/19 12:36) green pepper Allergy (Severe, Verified 08/26/19 12:36) ketorolac tromethamine [From Toradol] Allergy (Verified 08/26/19 12:36) tramadol [Tramadol] Allergy (Verified 08/26/19 12:36) Past Medical History - Social History Cigarette use (# per day): Yes - Pack per day Frequency of alcohol use: None Drug Abuse: None - Any drugs marijuana Lives with: Family - to live alone with family - Past Medical History Cardiac Medical History: Reports: Hx Hypercholesterolemia, Hx Hypertension Pulmonary Medical History: Reports: Hx COPD, Hx Pneumonia Endocrine Medical History: Reports: Hx Diabetes Mellitus Type 2 Malignancy Medical History: Reports: Hx Lymphoma - Non-Hodgkin's GI Medical History: Reports: Hx Gastroesophageal Reflux Disease Musculoskeltal Medical History: Reports Hx Arthritis, Reports Hx Musculoskeletal Trauma Psychiatric Medical History: Reports: Hx Anxiety, Hx Depression Traumatic Medical History: Reports: None Infectious Medical History: Reports: None Past Surgical History: Reports: Hx Appendectomy, Hx Cholecystectomy, Hx Gynecologic Surgery - x14 D&C - Immunizations Immunizations up to date: No Hx Diphtheria, Pertussis, Tetanus Vaccination: Yes Doctor's Discharge - Discharge Referrals: TERRANCE VIZCAINO MD [Primary Care Provider] - Follow up as needed
[2019-12-23] MEDS ORDERED: ONDANSETRON HCL INJ/PF 4 MG/2 ML SDV IV ONE (15:53)
[2019-12-23] MEDS ORDERED: NORMAL SALINE 1000 ML 1,000 ML IV ONE (15:53)
--- NOTE | 2019-12-23 16:45 | RADIOLOGY REPORT (SQ) ---
EXAM DESCRIPTION: ACUTE ABDOMEN SERIES COMPLETED DATE/TIME: 12/23/2019 4:28 pm REASON FOR STUDY: abdominal pair right COMPARISON: 08/01/2019 NUMBER OF VIEWS: Three views. TECHNIQUE: Frontal chest, supine abdomen and upright/decubitus abdomen radiographic images acquired. LIMITATIONS: None. FINDINGS: CHEST: Lungs clear of infiltrates. FREE AIR: None. No abnormal gas collections. BOWEL GAS PATTERN: Nonobstructive pattern. No dilated loops or air fluid levels. Moderate amount of stool throughout the colon. CALCIFICATIONS: No suspicious calcifications. HARDWARE: There are clips in the right upper quadrant consistent with prior cholecystectomy. SOFT TISSUES: No gross mass or suggestion of organomegaly. BONES: No acute fracture. No worrisome bone lesions. OTHER: No other significant finding. IMPRESSION: Moderate constipation. No obstruction. TECHNICAL DOCUMENTATION: JOB ID: [id number] [email or web address]- All Rights Reserved Reading location - IP/workstation name: [email or web address]
[2019-12-23 17:15] LABS: ABSOLUTE BASOPHILS # (AUTO) 0.1 10^3/uL (0.0-0.2); ABSOLUTE EOSINOPHILS # (AUTO) 0.1 10^3/uL (0.0-0.6); ABSOLUTE LYMPHOCYTES (AUTO) 2.4 10^3/uL (0.5-4.7); ABSOLUTE MONOCYTES (AUTO) 0.9 10^3/uL (0.1-1.4); ABSOLUTE NEUT (AUTO) 7.9 10^3/uL (1.7-8.2); BASOPHILS % (AUTO) 1.1 % (0-2); HEMATOCRIT 42.7 % (36.0-47.0); HEMOGLOBIN 14.9 g/dL (12.0-15.5); LYMPHOCYTES % (AUTO) 21.2 % (13-45); MEAN CORPUSCULAR HEMOGLOBIN 32.9 pg (27.0-33.4); MEAN CORPUSCULAR HGB CONC 34.9 g/dL (32.0-36.0); MEAN CORPUSCULAR VOLUME 94 fl (80-97); MONOCYTES % (AUTO) 8.1 % (3-13); PLATELET COUNT 186 10^3/uL (150-450); RED BLOOD COUNT 4.53 10^6/uL (3.72-5.28); RED CELL DISTRIBUTION WIDTH 17.2 % (11.5-14.0); SEGMENTED NEUTROPHILS % (AUTO) 68.6 % (42-78); TOTAL CELLS COUNTED % (AUTO) 100 %; WHITE BLOOD COUNT 11.6 10^3/uL (4.0-10.5)
[2019-12-23] MEDS ORDERED: MORPHINE SULFATE 10 MG/ML INJ IV ONE ×2 (17:43→19:10)
[2019-12-23] MEDS ORDERED: PROMETHAZINE HCL INJ 25 MG/1 ML VIAL IV ONE (17:43)
[2019-12-23 17:53] LABS: APPEARANCE,URINE CLEAR; BILIRUBIN,URINE NEGATIVE (NEGATIVE); COLOR,URINE YELLOW; GLUCOSE, URINE NEGATIVE (NEGATIVE); KETONES,URINE TRACE mg/dL (NEGATIVE); PROTEIN,URINE NEGATIVE (NEGATIVE); URINE SPECIFIC GRAVITY 1.009; UROBILINOGEN,URINE NEGATIVE mg/dL (<2.0)
[2019-12-23 18:20] LABS: ALBUMIN 4.3 g/dL (3.5-5.0); ALKALINE PHOSPHATASE 118 U/L (38-126); ANION GAP 12 (5-19); ASPARTATE AMINO TRANSFERASE 20 U/L (14-36); BILIRUBIN,DIRECT 0.3 mg/dL (0.0-0.4); BILIRUBIN,TOTAL 0.6 mg/dL (0.2-1.3); BLOOD UREA NITROGEN 11 mg/dL (7-20); CALCIUM 9.8 mg/dL (8.4-10.2); CARBON DIOXIDE 25 mmol/L (22-30); CHLORIDE 98 mmol/L (98-107); GLUCOSE 145 mg/dL (75-110); TOTAL PROTEIN 7.2 g/dL (6.3-8.2)
--- NOTE | 2019-12-23 19:06 | RADIOLOGY REPORT (SQ) ---
EXAM DESCRIPTION: CT ABD/PELVIS WITH IV ONLY COMPLETED DATE/TIME: 12/23/2019 6:46 pm REASON FOR STUDY: RIGHT LOWER ABD COMPARISON: 10/26/2019 TECHNIQUE: CT scan of the abdomen and pelvis performed using helical scanning technique with dynamic intravenous contrast injection. No oral contrast. Images reviewed with lung, soft tissue, and bone windows. Reconstructed coronal and sagittal MPR images reviewed. Delayed images for evaluation of the urinary system also acquired. All images stored on PACS. All CT scanners at this facility use dose modulation, iterative reconstruction, and/or weight based d osing when appropriate to reduce radiation dose to as low as reasonably achievable (ALARA). [facility]: Dose Right [facility]: CareDose [facility]: Dose Right [facility]: Teradose 4D [facility]: SugarCRM CONTRAST TYPE AND DOSE: contrast/concentration: Isovue 350.00 mg/ml; Total Contrast Delivered: 94.0 ml; Total Saline Delivered: 59.8 ml RENAL FUNCTION: BUN 11 creatinine 0.42 RADIATION DOSE: CT Rad equipment meets quality standard of care and radiation dose reduction techniq ues were employed. CTDIvol: 11.6 - 15.5 mGy. DLP: 1518 mGy-cm.. LIMITATIONS: None. FINDINGS: LOWER CHEST: No significant findings. No nodules or infiltrates. LIVER: Normal size. No masses. No dilated ducts. SPLEEN: Diffuse granulomatous calcifications. PANCREAS: No masses. No significant calcifications. No adjacent inflammation or peripancreatic fluid collections. Pancreatic duct not dilated. GALLBLADDER: Surgically absent. ADRENAL GLANDS: No significant masses or asymmetry. RIGHT KIDNEY AND URETER: No solid masses. No significant calcifications. No hydronephrosis or hyd roureter. LEFT KIDNEY AND URETER: No solid masses. No significant calcifications. No hydronephrosis or hydr oureter. AORTA AND VESSELS: No aneurysm. No dissection. Renal arteries, SMA, celiac without stenosis. RETROPERITONEUM: No retroperitoneal adenopathy, hemorrhage or masses. BOWEL AND PERITONEAL CAVITY: Considerable retained stool. No obvious bowel mass. APPENDIX: Surgically absent. PELVIS: No mass. No free fluid. Normal bladder. ABDOMINAL WALL: No masses. No hernias. BONES: No significant or acute findings. OTHER: No other significant finding. IMPRESSION: Constipation. No other significant findings in the abdomen or pelvis. TECHNICAL DOCUMENTATION: JOB ID: [id number] Quality ID # [id number]: Final reports with documentation of one or more dose reduction techniques (e.g., Au tomated exposure control, adjustment of the mA and/or kV according to patient size, use of iterative reconstruction technique) 2010 [employer]- All Rights Reserved Reading location - IP/workstation name: [email or web address]
--- NOTE | 2019-12-23 19:55 | ER Document Report ---
ED Dizziness/Weakness - General Chief Complaint: Dizziness Stated Complaint: DIZZINESS,ABDOMINAL PAIN Time Seen by Provider: 12/23/19 15:47 Primary Care Provider: TERRANCE VIZCAINO MD [Primary Care Provider] - Follow up as needed Mode of Arrival: Wheelchair Information source: Patient TRAVEL OUTSIDE OF THE [place] IN LAST 30 DAYS: No - HPI Notes: Patient presents today with right lower quadrant abdominal pain. She states she has had this for approximately 2 days. She states it feels similar to when she had an adrenal tumor 1 year ago. She states this pain came on suddenly and has been constant. Nothing makes it better or worse. It does not radiate. It is moderate to severe in intensity. And it is sharp. She denies any problems with urination or bowel movements. She is had some nausea but no vomiting. She is had a slightly decreased appetite. No fevers. - Related Data Allergies/Adverse Reactions: liborio Allergy (Severe, Verified 08/26/19 12:36) green pepper Allergy (Severe, Verified 08/26/19 12:36) ketorolac tromethamine [From Toradol] Allergy (Verified 08/26/19 12:36) tramadol [Tramadol] Allergy (Verified 08/26/19 12:36) Past Medical History - General Information source: Patient - Social History Smoking Status: Current Every Day Smoker Cigarette use (# per day): Yes - Pack per day Chew tobacco use (# tins/day): No Frequency of alcohol use: None Drug Abuse: None - Any drugs marijuana Lives with: Family - to live alone with family Family History: Reviewed & Not Pertinent Patient has suicidal ideation: No Patient has homicidal ideation: No - Past Medical History Cardiac Medical History: Reports: Hx Hypercholesterolemia, Hx Hypertension Pulmonary Medical History: Reports: Hx COPD, Hx Pneumonia Endocrine Medical History: Reports: Hx Diabetes Mellitus Type 2 Malignancy Medical History: Reports: Hx Lymphoma - Non-Hodgkin's GI Medical History: Reports: Hx Gastroesophageal Reflux Disease Musculoskeletal Medical History: Reports Hx Arthritis, Reports Hx Musculoskeletal Trauma Psychiatric Medical History: Reports: Hx Anxiety, Hx Depression Traumatic Medical History: Reports: None Infectious Medical History: Reports: None Past Surgical History: Reports: Hx Appendectomy, Hx Cholecystectomy, Hx Gynecologic Surgery - x14 D&C - Immunizations Immunizations up to date: No Hx Diphtheria, Pertussis, Tetanus Vaccination: Yes Review of Systems - Review of Systems Constitutional: denies: Chills, Fever Cardiovascular: denies: Chest pain, Palpitations Respiratory: denies: Cough, Short of breath -: Yes All other systems reviewed and negative Physical Exam - Vital signs Vitals: Temp Pulse Resp BP Pulse Ox 98.4 F 97 16 121/70 95 12/23/19 15:44 12/23/19 15:44 12/23/19 15:44 12/23/19 15:44 12/23/19 15:44 Interpretation: Normal - General General appearance: Appears well, Alert - HEENT Head: Normocephalic, Atraumatic Eyes: Normal Pupils: PERRL - Respiratory Respiratory status: No respiratory distress Chest status: Nontender Breath sounds: Normal Chest palpation: Normal - Cardiovascular Rhythm: Regular Heart sounds: Normal auscultation Murmur: No - Abdominal Inspection: Normal Distension: No distension Bowel sounds: Normal Tenderness: Tender - Mild right lower quadrant tenderness palpation no surgical abdominal signs. Organomegaly: No organomegaly - Back Back: Normal, Nontender - Extremities General upper extremity: Normal inspection, Nontender, Normal color, Normal ROM, Normal temperature General lower extremity: Normal inspection, Nontender, Normal color, Normal ROM, Normal temperature, Normal weight bearing. No: Luiz's sign - Neurological Neuro grossly intact: Yes Cognition: Normal Orientation: AAOx4 [place] Coma Scale Eye Opening: Spontaneous [place] Coma Scale Verbal: Oriented [place] Coma Scale Motor: Obeys Commands Christian Coma Scale Total: 15 Speech: Normal Motor strength normal: LUE, RUE, LLE, RLE Sensory: Normal - Psychological Associated symptoms: Normal affect, Normal mood - Skin Skin Temperature: Warm Skin Moisture: Dry Skin Color: Normal Course - Re-evaluation Re-evalutation: 12/23/19 19:51 Patient presents with right lower quadrant abdominal pain. Patient has no evidence of appendicitis or other intra-abdominal process. She is constipated. I did discuss the case with the patient's oncologist. At this time patient does have MiraLAX at home and states she would prefer to use that for her constipation. I will discharge patient home with pain medication and have her follow-up with oncology. - Vital Signs Vital signs: Temp Pulse Resp BP Pulse Ox 98.2 F 72 16 110/72 100 12/23/19 19:35 12/23/19 19:35 12/23/19 19:35 12/23/19 19:35 12/23/19 19:35 - Laboratory Result Diagrams: 12/23/19 16:45 12/23/19 16:45 Laboratory results interpreted by me: 12/23/19 12/23/19 12/23/19 16:45 16:45 17:36 WBC 11.6 H RDW 17.2 H Sodium 134.9 L Creatinine 0.42 L Glucose 145 H Urine Ketones TRACE H Leukocyte Esterase Rfl SMALL H - Diagnostic Test Radiology reviewed: Image reviewed, Reports reviewed Discharge - Discharge Clinical Impression: Constipation Qualifiers: Constipation type: unspecified constipation type Qualified Code(s): K59.00 - Constipation, unspecified Condition: Stable Disposition: HOME, SELF-CARE Additional Instructions: Please follow-up with your primary care doctor as soon as possible. Prescriptions: Hydrocodone/Acetaminophen [[place] 5-325 mg Tablet] 1 tab PO Q6 PRN 3 Days #9 tablet PRN Reason: Ondansetron [Zofran Odt 4 mg Tablet] 1 - 2 tab PO Q4H PRN #15 tab.rapdis PRN Reason: For Nausea/Vomiting Referrals: TERRANCE VIZCAINO MD [Primary Care Provider] - Follow up in 3-5 days
[2019-12-23 20:52] VITALS: BP 109/60
== END 2019-12-23 20:50 | disposition home or self-care (01) ==
LOC: ER 15:44
DX: K59.00 Constipation, unspecified (principal); R10.31 Right lower quadrant pain; R10.813 Right lower quadrant abdominal tenderness; R11.0 Nausea; R63.0 Anorexia; I10 Essential (primary) hypertension; E11.9 Type 2 diabetes mellitus without complications; J44.9 Chronic obstructive pulmonary disease, unspecified; F17.210 Nicotine dependence, cigarettes, uncomplicated; Z85.72 Personal history of non-Hodgkin lymphomas; Z91.018 Allergy to other foods; Z88.8 Allergy status to other drugs, medicaments and biological substances; Z88.6 Allergy status to analgesic agent
CPT/HCPCS: 36591; 96376; 99284; 96361; 96374; 96375; 36415; 83690; 87086; 85025; 80053; 81001; 74022; 74177; J2270; J2550; J2405; J7030; J1642

== ENCOUNTER 2020-01-02 09:53 | Emergency (ER) | payer MEDICAID ==
[2020-01-02] MEDS ORDERED: ONDANSETRON HCL INJ/PF 4 MG/2 ML SDV IV ONE (10:10)
[2020-01-02] MEDS ORDERED: NORMAL SALINE 1000 ML 1,000 ML IV ONE (10:10)
--- NOTE | 2020-01-02 10:12 | ER Document Report ---
ED Medical Screen (RME) - General Chief Complaint: Abdominal Pain Stated Complaint: ABDOMINAL PAIN,DIZZINESS,NAUSEA Time Seen by Provider: 01/02/20 10:06 Primary Care Provider: TERRANCE VIZCAINO MD [Primary Care Provider] - Follow up as needed TRAVEL OUTSIDE OF THE [place] IN LAST 30 DAYS: No - HPI Notes: 01/02/20 10:10 49-year-old female to the emergency department with complaints of upper abdominal pain that began 2 days ago with associated nausea vomiting and diarrhea. She states that she has been using at home Zofran but has not been working. She reports 2 episodes of diarrhea. She denies any fevers or chills. She denies any recent sick contact. She states that she also has been having dizziness. Dizziness started this week. She states that when she gets up she f eels like her head is spinning but she feels like she is going to pass out. She did not pass out this week. She states that 3 weeks ago she fell in the bathroom and hit her head. She states at that time she did pass out but she did not seek medical attention. She denies any other complaints or focal neurological deficits. I performed a brief medical screening exam on the patient determined that she will need further evaluation by main side provider. I placed initial orders to help expedite her care. - Related Data Allergies/Adverse Reactions: liborio Allergy (Severe, Verified 01/02/20 10:05) green pepper Allergy (Severe, Verified 01/02/20 10:05) ketorolac tromethamine [From Toradol] Allergy (Verified 01/02/20 10:05) tramadol [Tramadol] Allergy (Verified 01/02/20 10:05) Past Medical History - Social History Chew tobacco use (# tins/day): No Frequency of alcohol use: None Drug Abuse: None - Past Medical History Cardiac Medical History: Reports: Hx Hypercholesterolemia, Hx Hypertension Pulmonary Medical History: Reports: Hx COPD, Hx Pneumonia Endocrine Medical History: Reports: Hx Diabetes Mellitus Type 2 Malignancy Medical History: Reports: Hx Lymphoma - Non-Hodgkin's GI Medical History: Reports: Hx Gastroesophageal Reflux Disease Musculoskeltal Medical History: Reports Hx Arthritis, Reports Hx Musculoskeletal Trauma Psychiatric Medical History: Reports: Hx Anxiety, Hx Depression Past Surgical History: Reports: Hx Appendectomy, Hx Cholecystectomy, Hx Gynecologic Surgery - x14 D&C - Immunizations Immunizations up to date: No Hx Diphtheria, Pertussis, Tetanus Vaccination: Yes Physical Exam - Vital signs Vitals: Temp Pulse Resp BP Pulse Ox 98.5 F 118 H 16 135/68 H 99 01/02/20 09:57 01/02/20 09:57 01/02/20 09:57 01/02/20 09:57 01/02/20 09:57 Course - Vital Signs Vital signs: Temp Pulse Resp BP Pulse Ox 98.5 F 118 H 16 135/68 H 99 01/02/20 09:57 01/02/20 09:57 01/02/20 09:57 01/02/20 09:57 01/02/20 09:57 Doctor's Discharge - Discharge Referrals: TERRANCE VIZCAINO MD [Primary Care Provider] - Follow up as needed
[2020-01-02] MEDS ORDERED: MORPHINE SULFATE 10 MG/ML INJ IV ONE ×4 (10:17→18:09)
[2020-01-02 10:58] LABS: ABSOLUTE BASOPHILS # (AUTO) 0.1 10^3/uL (0.0-0.2); ABSOLUTE EOSINOPHILS # (AUTO) 0.1 10^3/uL (0.0-0.6); ABSOLUTE LYMPHOCYTES (AUTO) 1.9 10^3/uL (0.5-4.7); ABSOLUTE MONOCYTES (AUTO) 0.7 10^3/uL (0.1-1.4); ABSOLUTE NEUT (AUTO) 7.3 10^3/uL (1.7-8.2); BASOPHILS % (AUTO) 0.8 % (0-2); EOSINOPHILS % (AUTO) 0.8 % (0-6); HEMATOCRIT 44.8 % (36.0-47.0); HEMOGLOBIN 15.7 g/dL (12.0-15.5); LYMPHOCYTES % (AUTO) 18.9 % (13-45); MEAN CORPUSCULAR HEMOGLOBIN 33.4 pg (27.0-33.4); MEAN CORPUSCULAR VOLUME 96 fl (80-97); MONOCYTES % (AUTO) 7.4 % (3-13); PLATELET COUNT 210 10^3/uL (150-450); RED BLOOD COUNT 4.69 10^6/uL (3.72-5.28); RED CELL DISTRIBUTION WIDTH 16.5 % (11.5-14.0); SEGMENTED NEUTROPHILS % (AUTO) 72.1 % (42-78); TOTAL CELLS COUNTED % (AUTO) 100 %; WHITE BLOOD COUNT 10.1 10^3/uL (4.0-10.5)
[2020-01-02 11:05] LABS: APPEARANCE,URINE CLEAR; BILIRUBIN,URINE NEGATIVE (NEGATIVE); COLOR,URINE YELLOW; GLUCOSE, URINE >=500 mg/dL (NEGATIVE); KETONES,URINE TRACE mg/dL (NEGATIVE); PROTEIN,URINE NEGATIVE (NEGATIVE); URINE SPECIFIC GRAVITY 1.014; UROBILINOGEN,URINE NEGATIVE mg/dL (<2.0)
[2020-01-02 11:14] LABS: ALBUMIN 4.8 g/dL (3.5-5.0); ALKALINE PHOSPHATASE 130 U/L (38-126); ANION GAP 16 (5-19); ASPARTATE AMINO TRANSFERASE 21 U/L (14-36); BILIRUBIN,TOTAL 0.4 mg/dL (0.2-1.3); BLOOD UREA NITROGEN 9 mg/dL (7-20); CALCIUM 9.9 mg/dL (8.4-10.2); CARBON DIOXIDE 23 mmol/L (22-30); CHLORIDE 96 mmol/L (98-107); GLUCOSE 319 mg/dL (75-110); POTASSIUM 4.3 mmol/L (3.6-5.0); TOTAL PROTEIN 7.6 g/dL (6.3-8.2)
[2020-01-02] MEDS ORDERED: HYDROMORPHONE HCL INJ/PF 2 MG/ML AMPULE IV ONE (15:57)
[2020-01-02] MEDS ORDERED: PROMETHAZINE HCL INJ 25 MG/1 ML VIAL IV ONE ×2 (15:58→18:09)
--- NOTE | 2020-01-02 16:06 | ER Document Report ---
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 She was just seen here on 23 December for similar symptoms. She has history of diabetes hyperkalemia non-Hodgkin's lymphoma in remission and last chemo was July 2019. Patient reports when she has diverticulitis the pains feel just like she has now. She denies any fever chills but does admit to diarrhea that is loose and brown not yellow or green in color. She denies any skin lesions or travel to foreign countries or exposure to sick people. She has not eaten any food from any exotic restaurants and she denies any fresh vegetables. TRAVEL OUTSIDE OF THE [place] IN LAST 30 DAYS: No - HPI Onset: Other - 3 days prior Onset/Duration: Sudden, Persistent Quality of pain: Achy Severity: Severe Pain Level: 5 Associated symptoms: Nausea, Other - She was able to eat supper last night around 1700 and also drank some milk this morning but had nausea afterwards Exacerbated by: Movement, Food Relieved by: Denies Similar symptoms previously: Yes - Patient reports her left upper quadrant abdominal pain is different Recently seen / treated by doctor: Yes - Related Data Allergies/Adverse Reactions: liborio Allergy (Severe, Verified 01/02/20 10:05) green pepper Allergy (Severe, Verified 01/02/20 10:05) ketorolac tromethamine [From Toradol] Allergy (Verified 01/02/20 10:05) tramadol [Tramadol] Allergy (Verified 01/02/20 10:05) Past Medical History - General Information source: Patient, Relative - Social History Smoking Status: Former Smoker Cigarette use (# per day): No Chew tobacco use (# tins/day): No Smoking Education Provided: No Frequency of alcohol use: None Drug Abuse: None Lives with: Family Family History: Reviewed & Not Pertinent Patient has suicidal ideation: No Patient has homicidal ideation: No - Past Medical History Cardiac Medical History: Reports: Hx Hypercholesterolemia, Hx Hypertension Pulmonary Medical History: Reports: Hx COPD, Hx Pneumonia Endocrine Medical History: Reports: Hx Diabetes Mellitus Type 2 Malignancy Medical History: Reports: Hx Lymphoma - Non-Hodgkin's GI Medical History: Reports: Hx Gastroesophageal Reflux Disease Musculoskeletal Medical History: Reports Hx Arthritis, Reports Hx Musculoskeletal Trauma Psychiatric Medical History: Reports: Hx Anxiety, Hx Depression Past Surgical History: Reports: Hx Appendectomy, Hx Cholecystectomy, Hx Gynecologic Surgery - x14 D&C - Immunizations Immunizations up to date: No Hx Diphtheria, Pertussis, Tetanus Vaccination: Yes Review of Systems - Review of Systems Constitutional: See HPI, Malaise, Weakness EENT: No symptoms reported Cardiovascular: No symptoms reported Respiratory: No symptoms reported Gastrointestinal: See HPI, Abdominal pain, Diarrhea, Nausea Genitourinary: No symptoms reported Female Genitourinary: No symptoms reported Musculoskeletal: No symptoms reported Skin: No symptoms reported Hematologic/Lymphatic: No symptoms reported Neurological/Psychological: No symptoms reported Physical Exam - Vital signs Vitals: Temp Pulse Resp BP Pulse Ox 98.5 F 118 H 16 135/68 H 99 01/02/20 09:57 01/02/20 09:57 01/02/20 09:57 01/02/20 09:57 01/02/20 09:57 Interpretation: Normal - General General appearance: Alert In distress: Mild - HEENT Head: Normocephalic Eyes: Normal Conjunctiva: Normal Cornea: Normal Extraocular movements intact: Yes Eyelashes: Normal Pupils: PERRL Nasal: Normal Mouth/Lips: Normal Mucous membranes: Normal Pharynx: Normal Neck: Normal - Respiratory Respiratory status: No respiratory distress Chest status: Nontender Breath sounds: Normal Chest palpation: Normal - Cardiovascular Rhythm: Tachycardia Murmur: No Friction rub: No Saadia's crunch: No - Abdominal Inspection: Normal Distension: No distension Bowel sounds: Hyperactive Tenderness: Tender - Left upper quadrant abdominal pain on palpation Organomegaly: No organomegaly - Genitourinary External exam: Normal - Back Back: Normal - Extremities General upper extremity: Normal inspection General lower extremity: Normal inspection - Neurological Neuro grossly intact: Yes Cognition: Normal Orientation: AAOx4 [place] Coma Scale Eye Opening: Spontaneous [place] Coma Scale Verbal: Oriented Christian Coma Scale Motor: Obeys Commands [place] Coma Scale Total: 15 Speech: Normal Cranial nerves: Normal Cerebellar coordination: Normal Motor strength normal: LUE, RUE, LLE, RLE - Psychological Associated symptoms: Normal affect - Skin Skin Temperature: Warm Skin Moisture: Dry Course - Vital Signs Vital signs: Temp Pulse Resp BP Pulse Ox 98.4 F 118 H 18 126/65 H 96 01/02/20 11:18 01/02/20 09:57 01/02/20 11:18 01/02/20 11:18 01/02/20 11:18 - Laboratory Result Diagrams: 01/02/20 10:34 01/02/20 10:34 Laboratory results interpreted by me: 01/02/20 01/02/20 01/02/20 10:34 10:34 10:34 Hgb 15.7 H RDW 16.5 H Sodium 134.9 L Chloride 96 L Creatinine 0.41 L Glucose 319 H Alkaline Phosphatase 130 H Urine Glucose (UA) >=500 H Urine Ketones TRACE H - Diagnostic Test Radiology reviewed: Reports reviewed Critical Care Note - Critical Care Note Total time excluding time spent on procedures (mins): 90 Comments: Advised the laboratory and x-ray CT findings with patient and appear to understand that these were negative; I suspect that her symptoms are from gastritis or PUD. She denies using any vitamin C alcohol popcorn or citrus drinks recently. Discharge - Discharge Clinical Impression: Abdominal pain with vomiting, PUD (peptic ulcer disease) Abdominal pain Qualifiers: Abdominal location: left upper quadrant Qualified Code(s): R10.12 - Left upper quadrant pain Condition: Good Disposition: HOME, SELF-CARE Instructions: Prilosec (Acid Pump Inhibitor) (OM) Additional Instructions: follow up with personal doctor this week return to ER for severe symptoms of abdominal pain; take medicines as directed; encourage fluids and avoid any vitamin C popcorn citrus drinks or alcohol drinks; may want to take [id number] Prilosec as well. Take 1 tablet daily. Prescriptions: Sucralfate [Carafate 1 gm Tablet] 1 gm PO ACHS #30 tablet Famotidine [Pepcid 20 mg Tablet] 20 mg PO DAILY #12 tablet Referrals: TERRANCE VIZCAINO MD [Primary Care Provider] - Follow up as needed
[2020-01-02] MEDS: NORMAL SALINE 1000 ML 1,000 ML IV PRN ×2 (16:12→16:13)
--- NOTE | 2020-01-02 18:09 | RADIOLOGY REPORT (SQ) ---
EXAM DESCRIPTION: CT ABD/PELVIS WITH IV ONLY COMPLETED DATE/TIME: 01/02/2020 5:48 pm REASON FOR STUDY: belly pain COMPARISON: 12/23/2019 and 10/26/2019. TECHNIQUE: CT scan of the abdomen and pelvis performed using helical scanning technique with dynamic intravenous contrast injection. No oral contrast. Images reviewed with lung, soft tissue, and bone windows. Reconstructed coronal and sagittal MPR images reviewed. Delayed images for evaluation of the urinary system also acquired. All images stored on PACS. All CT scanners at this facility use dose modulation, iterative reconstruction, and/or weight based d osing when appropriate to reduce radiation dose to as low as reasonably achievable (ALARA). [facility]: Dose Right [facility]: CareDose [facility]: Dose Right [facility]: Teradose 4D [facility]: Qualiall CONTRAST TYPE AND DOSE: contrast/concentration: Isovue 350.00 mg/ml; Total Contrast Delivered: 69.0 ml; Total Saline Delivered: 69.0 ml RENAL FUNCTION: BUN 9 creatinine 1.41. RADIATION DOSE: CT Rad equipment meets quality standard of care and radiation dose reduction techniq ues were employed. CTDIvol: 10.0 - 13.8 mGy. DLP: 1413 mGy-cm.. LIMITATIONS: None. FINDINGS: LOWER CHEST: No significant findings. No nodules or infiltrates. LIVER: Normal size. Diffuse fatty infiltration. A few punctate calcifications. No masses. No dila courtney ducts. SPLEEN: Normal size. Numerous calcified granulomas. No focal lesions. PANCREAS: No masses. No significant calcifications. No adjacent inflammation or peripancreatic fluid collections. Pancreatic duct not dilated. GALLBLADDER: Surgically absent. ADRENAL GLANDS: No significant masses or asymmetry. RIGHT KIDNEY AND URETER: No solid masses. No significant calcifications. No hydronephrosis or hyd roureter. LEFT KIDNEY AND URETER: No solid masses. No significant calcifications. No hydronephrosis or hydr oureter. AORTA AND VESSELS: No aneurysm. No dissection. Renal arteries, SMA, celiac without stenosis. RETROPERITONEUM: No retroperitoneal adenopathy, hemorrhage or masses. BOWEL AND PERITONEAL CAVITY: No masses or inflammatory changes. No free fluid or peritoneal masses. APPENDIX: Surgically absent. PELVIS: No mass. No free fluid. Normal bladder. ABDOMINAL WALL: No masses. No hernias. BONES: No significant or acute findings. OTHER: No other significant finding. IMPRESSION: CHRONIC CHANGES ABOVE. NO SIGNIFICANT OR ACUTE FINDING IN THE ABDOMEN OR PELVIS ON C T SCAN WITH IV CONTRAST. TECHNICAL DOCUMENTATION: JOB ID: [id number] Quality ID # [id number]: Final reports with documentation of one or more dose reduction techniques (e.g., Au tomated exposure control, adjustment of the mA and/or kV according to patient size, use of iterative reconstruction technique) 2010 [employer]- All Rights Reserved Reading location - IP/workstation name: [email or web address]
[2020-01-02] MEDS ORDERED: FAMOTIDINE INJ/PF 20 MG/2 ML SDV IV ONE (19:14)
[2020-01-02] MEDS ORDERED: HEPARIN SOD (PORCINE) 1,000 UNIT/ML 1 ML VIAL IV ONE (19:58)
[2020-01-02 20:43] VITALS: BP 111/60
--- NOTE | 2020-01-02 23:22 | EKG REPORT ---
SEVERITY:- BORDERLINE ECG - SINUS RHYTHM PROBABLE LEFT ATRIAL ABNORMALITY : Confirmed by: Dwayne Pedersen 02-Jan-2020 23:21:40
== END 2020-01-02 20:45 | disposition home or self-care (01) ==
LOC: ER 09:53
DX: K27.9 Peptic ulcer, site unspecified, unspecified as acute or chronic, without hemorrhage or perforation (principal); R10.12 Left upper quadrant pain; R19.7 Diarrhea, unspecified; R11.2 Nausea with vomiting, unspecified; R53.1 Weakness; R53.81 Other malaise; E11.9 Type 2 diabetes mellitus without complications; I10 Essential (primary) hypertension; Z85.72 Personal history of non-Hodgkin lymphomas; Z92.21 Personal history of antineoplastic chemotherapy; Z91.018 Allergy to other foods; Z88.8 Allergy status to other drugs, medicaments and biological substances; Z88.6 Allergy status to analgesic agent; Z87.891 Personal history of nicotine dependence
CPT/HCPCS: 93005; 96376; 99284; 96361; 96374; 96375; 36415; 83690; 85025; 80053; 81001; 84484; 74177; 93010; J2270; J2550; J2405; J7030; S0028; J1642

== ENCOUNTER 2020-01-21 11:23 | Emergency (ER) | payer MEDICAID ==
--- NOTE | 2020-01-21 12:05 | ER Document Report ---
ED Medical Screen (RME) - General Chief Complaint: Abdominal Pain Stated Complaint: ABDOMINAL PAIN Time Seen by Provider: 01/21/20 12:04 Primary Care Provider: TERRANCE VIZCAINO MD [Primary Care Provider] - Follow up as needed TRAVEL OUTSIDE OF THE [place] IN LAST 30 DAYS: No - HPI Notes: 01/21/20 12:09 49-year-old female with past medical history of non-Hodgkin's lymphoma to the [facility] with complaints of persistent upper abdominal pain that has been ongoing for over 2 weeks. She was seen here last on January 02 for the same complaint. She states that she saw her primary care physician who referred her to see her GI specialist Dr. Hayden. She has an appointment with him on February 03. She states that she thinks she may have an ulcer. She has been trying to drink milk and eat a bland diet. She does have nausea and vomiting as well as diarrhea with her symptoms. She denies any blood in her vomit or diarrhea. She states that she has been able to eat big [place] and milk this morning but is feeling pain and nausea. Denies any fevers or chills. Performed a brief medical screening exam on the patient determined that she will need further evaluation and management by main side provider. I placed initial orders to help expedite her care. - Related Data Allergies/Adverse Reactions: liborio Allergy (Severe, Verified 01/02/20 10:05) green pepper Allergy (Severe, Verified 01/02/20 10:05) ketorolac tromethamine [From Toradol] Allergy (Verified 01/02/20 10:05) tramadol [Tramadol] Allergy (Verified 01/02/20 10:05) Past Medical History - Past Medical History Cardiac Medical History: Reports: Hx Hypercholesterolemia, Hx Hypertension Pulmonary Medical History: Reports: Hx COPD, Hx Pneumonia Endocrine Medical History: Reports: Hx Diabetes Mellitus Type 2 Malignancy Medical History: Reports: Hx Lymphoma - Non-Hodgkin's GI Medical History: Reports: Hx Gastroesophageal Reflux Disease Musculoskeltal Medical History: Reports Hx Arthritis, Reports Hx Musculoskeletal Trauma Psychiatric Medical History: Reports: Hx Anxiety, Hx Depression Past Surgical History: Reports: Hx Appendectomy, Hx Cholecystectomy, Hx Gynecologic Surgery - x14 D&C - Immunizations Immunizations up to date: No Hx Diphtheria, Pertussis, Tetanus Vaccination: Yes Physical Exam - Vital signs Vitals: Temp Pulse Resp BP Pulse Ox 98.5 F 104 H 18 110/63 100 01/21/20 12:03 01/21/20 12:03 01/21/20 12:03 01/21/20 12:03 01/21/20 12:03 Course - Vital Signs Vital signs: Temp Pulse Resp BP Pulse Ox 98.5 F 104 H 18 110/63 100 01/21/20 12:03 01/21/20 12:03 01/21/20 12:03 01/21/20 12:03 01/21/20 12:03 Doctor's Discharge - Discharge Referrals: TERRANCE VIZCAINO MD [Primary Care Provider] - Follow up as needed
[2020-01-21] MEDS ORDERED: ONDANSETRON HCL INJ/PF 4 MG/2 ML SDV IV ONE (12:08)
[2020-01-21] MEDS ORDERED: NORMAL SALINE 1000 ML 1,000 ML IV ONE (12:08)
[2020-01-21] MEDS ORDERED: MORPHINE SULFATE 10 MG/ML INJ IV ONE ×2 (12:51→15:31)
[2020-01-21 14:24] LABS: ABSOLUTE BASOPHILS # (AUTO) 0.1 10^3/uL (0.0-0.2); ABSOLUTE EOSINOPHILS # (AUTO) 0.1 10^3/uL (0.0-0.6); ABSOLUTE LYMPHOCYTES (AUTO) 2.1 10^3/uL (0.5-4.7); ABSOLUTE NEUT (AUTO) 7.3 10^3/uL (1.7-8.2); BASOPHILS % (AUTO) 1.2 % (0-2); EOSINOPHILS % (AUTO) 1.2 % (0-6); HEMATOCRIT 41.2 % (36.0-47.0); HEMOGLOBIN 14.2 g/dL (12.0-15.5); LYMPHOCYTES % (AUTO) 19.9 % (13-45); MEAN CORPUSCULAR HEMOGLOBIN 33.8 pg (27.0-33.4); MEAN CORPUSCULAR HGB CONC 34.5 g/dL (32.0-36.0); MEAN CORPUSCULAR VOLUME 98 fl (80-97); PLATELET COUNT 187 10^3/uL (150-450); RED CELL DISTRIBUTION WIDTH 15.2 % (11.5-14.0); SEGMENTED NEUTROPHILS % (AUTO) 68.7 % (42-78); TOTAL CELLS COUNTED % (AUTO) 100 %; WHITE BLOOD COUNT 10.7 10^3/uL (4.0-10.5)
[2020-01-21 14:46] LABS: ALBUMIN 3.7 g/dL (3.5-5.0); ALKALINE PHOSPHATASE 105 U/L (38-126); ANION GAP 10 (5-19); ASPARTATE AMINO TRANSFERASE 14 U/L (14-36); BILIRUBIN,DIRECT 0.2 mg/dL (0.0-0.4); BILIRUBIN,TOTAL 0.3 mg/dL (0.2-1.3); BLOOD UREA NITROGEN 10 mg/dL (7-20); CALCIUM 9.1 mg/dL (8.4-10.2); CARBON DIOXIDE 25 mmol/L (22-30); CHLORIDE 100 mmol/L (98-107); POTASSIUM 4.3 mmol/L (3.6-5.0); TOTAL PROTEIN 6.5 g/dL (6.3-8.2)
--- NOTE | 2020-01-21 14:48 | ER Document Report ---
ED GI/ - General Chief Complaint: Abdominal Pain Stated Complaint: ABDOMINAL PAIN Time Seen by Provider: 01/21/20 12:44 Primary Care Provider: TERRANCE VIZCAINO MD [Primary Care Provider] - Follow up tomorrow BRITTANY NARAYANAN MD [ACTIVE STAFF] - Follow up as needed Mode of Arrival: Ambulatory Information source: Patient Notes: Patient presents complaining of abdominal pain for over the past year. Patient states that the pain seemed to have worsened since the past 2 weeks. Patient states she did see her primary doctor about this problem 2 days ago and was told to follow-up with her GI doctor. Patient attempted to get an appointment with her GI doctor but does not have an appointment until January. Patient states that she was seen for this complaint earlier this month and nothing was found. Patient is anxious because she feels as though this is how her symptoms presented before she got diagnosed with non-Hodgkin's lymphoma. Patient reports nausea and diarrhea x2 episodes today. Patient denies any fever chills or urinary symptoms. Patient complains of diffuse abdominal tenderness. TRAVEL OUTSIDE OF THE [place] IN LAST 30 DAYS: No - HPI Patient complains to provider of: Abdominal pain, Diarrhea. No: Vomiting Onset: Other - 1 year, worse over 2 weeks Timing/Duration: Worse Quality of pain: Sharp Pain Level: 5 Vaginal bleeding (Compared to normal period): None Associated symptoms: Diarrhea, Nausea. denies: Dysuria, Fever, Urinary hesit yulia, Urinary frequency, Urinary retention, Urinary urgency, Vaginal discharge, Vomiting Exacerbated by: Denies Relieved by: Denies Similar symptoms previously: Yes Recently seen / treated by doctor: Yes - Related Data Allergies/Adverse Reactions: liborio Allergy (Severe, Verified 01/02/20 10:05) green pepper Allergy (Severe, Verified 01/02/20 10:05) ketorolac tromethamine [From Toradol] Allergy (Verified 01/02/20 10:05) tramadol [Tramadol] Allergy (Verified 01/02/20 10:05) Past Medical History - General Information source: Patient - Social History Smoking Status: Current Every Day Smoker Frequency of alcohol use: None Drug Abuse: None Occupation: None Lives with: Family Family History: Reviewed & Not Pertinent Patient has suicidal ideation: No Patient has homicidal ideation: No - Past Medical History Cardiac Medical History: Reports: Hx Hypercholesterolemia, Hx Hypertension Pulmonary Medical History: Reports: Hx COPD, Hx Pneumonia Endocrine Medical History: Reports: Hx Diabetes Mellitus Type 2 Malignancy Medical History: Reports: Hx Lymphoma - Non-Hodgkin's GI Medical History: Reports: Hx Gastroesophageal Reflux Disease Musculoskeletal Medical History: Reports Hx Arthritis, Reports Hx Musculoskeletal Trauma Psychiatric Medical History: Reports: Hx Anxiety, Hx Depression Past Surgical History: Reports: Hx Appendectomy, Hx Cholecystectomy, Hx Gynecologic Surgery - x14 D&C - Immunizations Immunizations up to date: No Hx Diphtheria, Pertussis, Tetanus Vaccination: Yes Review of Systems - Review of Systems Constitutional: No symptoms reported. denies: Chills, Fever, Recent illness EENT: No symptoms reported Cardiovascular: No symptoms reported. denies: Chest pain Respiratory: No symptoms reported. denies: Cough, Short of breath Gastrointestinal: Abdominal pain, Diarrhea, Nausea. denies: Vomiting, Poor appetite Genitourinary: No symptoms reported. denies: Dysuria, Flank pain Female Genitourinary: No symptoms reported Musculoskeletal: No symptoms reported. denies: Back pain Skin: No symptoms reported Hematologic/Lymphatic: No symptoms reported Neurological/Psychological: No symptoms reported Physical Exam - Vital signs Vitals: Temp Pulse Resp BP Pulse Ox 98.5 F 104 H 18 110/63 100 01/21/20 12:03 01/21/20 12:03 01/21/20 12:03 01/21/20 12:03 01/21/20 12:03 - General General appearance: Appears well, Alert In distress: None - HEENT Head: Normocephalic, Atraumatic Eyes: Normal Conjunctiva: Normal Nasal: Normal Mouth/Lips: Normal Mucous membranes: Normal Neck: Normal, Supple. No: Lymphadenopathy - Respiratory Respiratory status: No respiratory distress Chest status: Nontender Breath sounds: Normal. No: Rales, Rhonchi, Stridor, Wheezing Chest palpation: Normal - Cardiovascular Rhythm: Regular Heart sounds: S1 appreciated, S2 appreciated Murmur: No - Abdominal Inspection: Obese Distension: No distension Bowel sounds: Normal Tenderness: Tender - Diffuse abdominal tenderness Organomegaly: No organomegaly - Back Back: Normal, Nontender. No: CVA tenderness - Extremities General upper extremity: Normal inspection, Nontender, Normal ROM General lower extremity: Normal inspection, Nontender, Normal ROM - Neurological Neuro grossly intact: Yes Cognition: Normal [place] Coma Scale Eye Opening: Spontaneous [place] Coma Scale Verbal: Oriented [place] Coma Scale Motor: Obeys Commands [place] Coma Scale Total: 15 - Psychological Associated symptoms: Normal affect, Normal mood - Skin Skin Temperature: Warm Skin Moisture: Dry Skin Color: Normal Course - Re-evaluation Re-evalutation: 01/21/20 16:54 Patient with diffuse abdominal tenderness that she states has been there greater than the past year. Patient became concerned because she was worried that this is how her cancer presented when she first got diagnosed with non-Hodgkin's lymphoma. Patient states that she has had worsening symptoms over the past [address] mckeon who did evaluate this patient earlier this month for the same complaint. Does not recommend re-CT imaging of the abdomen at this time. Agrees with plan for outpatient follow-up with GI doctor. Does recommend better control of her diabetes as this could be leading to some gastroparesis symptoms. Also recommends treating patient's constipation symptoms and limiting narcotic use. Patient presents with abdominal pain withou t signs of peritonitis or other life-threatening or serious etiology. Patient appears stable for discharge and has been instructed to return immediately if the symptoms worsen in any way. - Vital Signs Vital signs: Temp Pulse Resp BP Pulse Ox 97.9 F 71 16 114/58 L 100 01/21/20 17:16 01/21/20 17:16 01/21/20 17:16 01/21/20 17:16 01/21/20 17:16 - Laboratory Result Diagrams: 01/21/20 13:58 01/21/20 13:58 Laboratory results interpreted by me: 01/21/20 01/21/20 01/21/20 13:58 13:58 15:50 WBC 10.7 H MCV 98 H MCH 33.8 H RDW 15.2 H Sodium 135.3 L Creatinine 0.32 L Glucose 413 H* Urine Glucose (UA) >=500 H Ur Leukocyte Esterase TRACE H 01/21/20 16:54 Labs- Entire Visit 01/21/20 01/21/20 01/21/20 13:58 13:58 15:50 WBC 10.7 H RBC 4.20 Hgb 14.2 Hct 41.2 MCV 98 H MCH 33.8 H MCHC 34.5 RDW 15.2 H Plt Count 187 Lymph % (Auto) 19.9 [place] % (Auto) 9.0 Eos % (Auto) 1.2 Baso % (Auto) 1.2 Absolute Neuts (auto) 7.3 Absolute Lymphs (auto) 2.1 Absolute Monos (auto) 1.0 Absolute Eos (auto) 0.1 Absolute Basos (auto) 0.1 Seg Neutrophils % 68.7 Sodium 135.3 L Potassium 4.3 Chloride 100 Carbon Dioxide 25 Anion Gap 10 BUN 10 Creatinine 0.32 L Est GFR ( Amer) > 60 Est GFR (MDRD) Non-Af > 60 Glucose 413 H* Calcium 9.1 Total Bilirubin 0.3 Direct Bilirubin 0.2 Neonat Total Bilirubin Not Reportable Neonat Direct Bilirubin Not Reportable Neonat Indirect Bili Not Reportable AST 14 ALT 16 Alkaline Phosphatase 105 Total Protein 6.5 Albumin 3.7 Lipase 31.7 Urine Color YELLOW Urine Appearance SLIGHTLY-CLOUDY Urine pH 6.0 Ur Specific [place] 1.021 Urine Protein NEGATIVE Urine Glucose (UA) >=500 H Urine Ketones NEGATIVE Urine Blood NEGATIVE Urine Nitrite NEGATIVE Urine Bilirubin NEGATIVE Urine Urobilinogen NEGATIVE Ur Leukocyte Esterase TRACE H Urine WBC (Auto) 13 Urine RBC (Auto) 2 Urine Bacteria (Auto) TRACE Squamous Epi Cells Auto 3 Urine Ascorbic Acid NEGATIVE - Diagnostic Test Radiology reviewed: Image reviewed, Reports reviewed Discharge - Discharge Clinical Impression: Hyperglycemia Abdominal pain Qualifiers: Abdominal location: unspecified location Qualified Code(s): R10.9 - Unspecified abdominal pain UTI (urinary tract infection) Qualifiers: Urinary tract infection type: site unspecified Hematuria presence: without hematuria Qualified Code(s): N39.0 - Urinary tract infection, site not specified Constipation Qualifiers: Constipation type: unspecified constipation type Qualified Code(s): K59.00 - Constipation, unspecified Condition: Stable Disposition: HOME, SELF-CARE Instructions: Abdominal Pain ([facility]), Cephalexin ([facility]), Constipation ([facility]), Urinary Tract Infection ([facility]) Additional Instructions: Return immediately for any new or worsening symptoms Followup with your primary care provider, call tomorrow to make a followup appointment Eat a diabetic diet and keep closer control of your blood sugar. 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 Take MiraLAX [id number] as directed to help with constipation symptoms Prescriptions: Cephalexin Monohydrate [Keflex 500 mg Capsule] 500 mg PO BID 5 Days #10 capsule Ondansetron [Zofran Odt 4 mg Tablet] 1 tab PO Q6H PRN #10 tab.rapdis PRN Reason: Referrals: TERRANCE VIZCAINO MD [Primary Care Provider] - Follow up tomorrow BRITTANY NARAYANAN MD [ACTIVE STAFF] - Follow up as needed
[2020-01-21 14:54] LABS: GLUCOSE 413 mg/dL (75-110)
[2020-01-21] MEDS ORDERED: INSULIN REG, HUMAN 100 UNIT/ML 3 ML VIAL (PYX) SUBCUT ONE (14:58)
--- NOTE | 2020-01-21 15:52 | RADIOLOGY REPORT (SQ) ---
EXAM DESCRIPTION: ACUTE ABDOMEN SERIES COMPLETED DATE/TIME: 01/21/2020 3:18 pm REASON FOR STUDY: abd pain COMPARISON: 12/23/2019 NUMBER OF VIEWS: Three views. TECHNIQUE: Frontal chest, supine abdomen and upright/decubitus abdomen radiographic images acquired. LIMITATIONS: None. FINDINGS: CHEST: Lungs clear of infiltrates. FREE AIR: None. No abnormal gas collections. BOWEL GAS PATTERN: Gas and fecal material from the cecum to the rectum. No dilated loops. CALCIFICATIONS: No suspicious calcifications. HARDWARE: None in the abdomen. SOFT TISSUES: No gross mass or suggestion of organomegaly. BONES: No acute fracture. No worrisome bone lesions. OTHER: No other significant finding. IMPRESSION: Moderate fecal retention. TECHNICAL DOCUMENTATION: JOB ID: [id number] 2010 [email or web address]- All Rights Reserved Reading location - IP/workstation name: [email or web address]
[2020-01-21 16:46] LABS: APPEARANCE,URINE SLIGHTLY-CLOUDY; BILIRUBIN,URINE NEGATIVE (NEGATIVE); COLOR,URINE YELLOW; GLUCOSE, URINE >=500 mg/dL (NEGATIVE); KETONES,URINE NEGATIVE (NEGATIVE); LEUKOCYTE ESTERASE,URINE TRACE (NEGATIVE); NITRITE,URINE NEGATIVE (NEGATIVE); PROTEIN,URINE NEGATIVE (NEGATIVE); URINE SPECIFIC GRAVITY 1.021; UROBILINOGEN,URINE NEGATIVE mg/dL (<2.0)
[2020-01-21] MEDS ORDERED: MAGNESIUM CITRATE 296 ML BOTTLE PO ONE (16:53)
[2020-01-21 17:17] VITALS: BP 114/58
== END 2020-01-21 17:28 | disposition home or self-care (01) ==
LOC: ER 11:23
DX: N39.0 Urinary tract infection, site not specified (principal); K59.00 Constipation, unspecified; E11.65 Type 2 diabetes mellitus with hyperglycemia; R10.9 Unspecified abdominal pain; R19.7 Diarrhea, unspecified; R11.0 Nausea; E78.00 Pure hypercholesterolemia, unspecified; I10 Essential (primary) hypertension; Z90.49 Acquired absence of other specified parts of digestive tract
CPT/HCPCS: 36415; 83690; 85025; 80053; 81001; 74022; J3490; J2270; J1815; J2405; J7030; J1642; 87086

== ENCOUNTER 2020-07-22 14:02 | Emergency (ER) | payer MEDICAID ==
[2020-07-22] MEDS ORDERED: MORPHINE SULFATE 10 MG/ML INJ IV ONE ×2 (14:41→21:00)
[2020-07-22] MEDS ORDERED: RINGERS SOLUTION,LACTATED 1,000 ML IV ONE (14:42)
--- NOTE | 2020-07-22 14:44 | ER Document Report ---
ED Medical Screen (RME) - General Chief Complaint: Abdominal Pain Stated Complaint: ABDOMINAL PAIN Time Seen by Provider: 07/22/20 14:35 Primary Care Provider: TERRANCE VIZCAINO MD [Primary Care Provider] - Follow up as needed Mode of Arrival: Wheelchair Information source: Patient Notes: HPI; 49-year-old female past medical history significant for non-Hodgkin's lymph julianna in remission also diabetes, hypertension, hyperlipidemia presents emergency room complaining of right lower quadrant pain that radiates to her middle abdomen that started yesterday. Describes it as constant and sharp. Complains of nausea with vomiting. Was given Zofran by EMS. PE: Alert and oriented x3. Lungs: Clear to auscultation without rales, rhonchi, wheezes. Heart: Regular rate rhythm without murmurs, rubs, gallops. Unable to do abdominal exam in triage. I have greeted and performed a rapid initial assessment of this patient. A comprehensive ED assessment and evaluation of the patient, analysis of test results and completion of the medical decision making process will be conducted by additional ED providers. I have specifically instructed the patient or family members with the patient to immediately return to any nursing staff should anything change in the patient's condition or with their chief complaint. TRAVEL OUTSIDE OF THE [place] IN LAST 30 DAYS: No - Related Data Allergies/Adverse Reactions: liborio Allergy (Severe, Verified 01/02/20 10:05) green pepper Allergy (Severe, Verified 01/02/20 10:05) ketorolac tromethamine [From Toradol] Allergy (Verified 01/02/20 10:05) tramadol [Tramadol] Allergy (Verified 01/02/20 10:05) Past Medical History - Past Medical History Cardiac Medical History: Reports: Hx Hypercholesterolemia, Hx Hypertension Pulmonary Medical History: Reports: Hx COPD, Hx Pneumonia Endocrine Medical History: Reports: Hx Diabetes Mellitus Type 2 Malignancy Medical History: Reports: Hx Lymphoma - Non-Hodgkin's GI Medical History: Reports: Hx Gastroesophageal Reflux Disease Musculoskeltal Medical History: Reports Hx Arthritis, Reports Hx Musculoskeletal Trauma Psychiatric Medical History: Reports: Hx Anxiety, Hx Depression Past Surgical History: Reports: Hx Appendectomy, Hx Cholecystectomy, Hx Gynecologic Surgery - x14 D&C - Immunizations Immunizations up to date: No Hx Diphtheria, Pertussis, Tetanus Vaccination: Yes Physical Exam - Vital signs Vitals: Temp Pulse Resp BP Pulse Ox 98.7 F 89 16 109/60 96 07/22/20 14:11 07/22/20 14:11 07/22/20 14:11 07/22/20 14:11 07/22/20 14:11 Course - Vital Signs Vital signs: Temp Pulse Resp BP Pulse Ox 98.7 F 89 16 109/60 96 07/22/20 14:11 07/22/20 14:11 07/22/20 14:11 07/22/20 14:11 07/22/20 14:11 Doctor's Discharge - Discharge Referrals: TERRANCE VIZCAINO MD [Primary Care Provider] - Follow up as needed
[2020-07-22 15:07] LABS: ABSOLUTE BASOPHILS # (AUTO) 0.1 10^3/uL (0.0-0.2); ABSOLUTE EOSINOPHILS # (AUTO) 0.1 10^3/uL (0.0-0.6); ABSOLUTE LYMPHOCYTES (AUTO) 2.3 10^3/uL (0.5-4.7); ABSOLUTE MONOCYTES (AUTO) 0.6 10^3/uL (0.1-1.4); BASOPHILS % (AUTO) 1.3 % (0-2); EOSINOPHILS % (AUTO) 0.9 % (0-6); HEMATOCRIT 45.5 % (36.0-47.0); HEMOGLOBIN 16.1 g/dL (12.0-15.5); LYMPHOCYTES % (AUTO) 25.3 % (13-45); MEAN CORPUSCULAR HEMOGLOBIN 34.2 pg (27.0-33.4); MEAN CORPUSCULAR HGB CONC 35.3 g/dL (32.0-36.0); MEAN CORPUSCULAR VOLUME 97 fl (80-97); MONOCYTES % (AUTO) 6.9 % (3-13); PLATELET COUNT 197 10^3/uL (150-450); RED CELL DISTRIBUTION WIDTH 13.3 % (11.5-14.0); SEGMENTED NEUTROPHILS % (AUTO) 65.6 % (42-78); TOTAL CELLS COUNTED % (AUTO) 100 %; WHITE BLOOD COUNT 9.1 10^3/uL (4.0-10.5)
[2020-07-22 15:29] LABS: ALBUMIN 4.4 g/dL (3.5-5.0); ALKALINE PHOSPHATASE 99 U/L (38-126); ANION GAP 12 (5-19); ASPARTATE AMINO TRANSFERASE 20 U/L (14-36); BILIRUBIN,DIRECT 0.1 mg/dL (0.0-0.4); BILIRUBIN,TOTAL 0.6 mg/dL (0.2-1.3); BLOOD UREA NITROGEN 13 mg/dL (7-20); CALCIUM 9.6 mg/dL (8.4-10.2); CARBON DIOXIDE 24 mmol/L (22-30); CHLORIDE 96 mmol/L (98-107); GLUCOSE 266 mg/dL (75-110); POTASSIUM 4.9 mmol/L (3.6-5.0); TOTAL PROTEIN 7.3 g/dL (6.3-8.2)
--- NOTE | 2020-07-22 17:02 | RADIOLOGY REPORT (SQ) ---
EXAM DESCRIPTION: CT ABD/PELVIS WITH IV ONLY IMAGES COMPLETED DATE/TIME: 07/22/2020 4:44 pm REASON FOR STUDY: abdominal pain COMPARISON: 01/02/2020 TECHNIQUE: CT scan of the abdomen and pelvis performed using helical scanning technique with dynamic intravenous contrast injection. No oral contrast. Images reviewed with lung, soft tissue, and bone windows. Reconstructed coronal and sagittal MPR images reviewed. Delayed images for evaluation of the urinary system also acquired. All images stored on PACS. All CT scanners at this facility use dose modulation, iterative reconstruction, and/or weight based d osing when appropriate to reduce radiation dose to as low as reasonably achievable (ALARA). [facility]: Dose Right [facility]: CareDose [facility]: Dose Right [facility]: Teradose 4D [facility]: [employer] CONTRAST TYPE AND DOSE: contrast/concentration: Isovue 350.00 mmol/ml; Total Contrast Delivered: 89. 0 ml; Total Saline Delivered: 70.0 ml RENAL FUNCTION: BUN 13 creatinine 0.4 RADIATION DOSE: CT Rad equipment meets quality standard of care and radiation dose reduction techniq ues were employed. CTDIvol: 6.6 - 9.2 mGy. DLP: 840 mGy-cm.. LIMITATIONS: None. FINDINGS: LOWER CHEST: No significant findings. No nodules or infiltrates. LIVER: Scattered tiny granulomatous calcifications. SPLEEN: Numerous calcified granulomas. PANCREAS: No masses. No significant calcifications. No adjacent inflammation or peripancreatic fluid collections. Pancreatic duct not dilated. GALLBLADDER: Surgically absent. ADRENAL GLANDS: No significant masses or asymmetry. RIGHT KIDNEY AND URETER: No solid masses. No significant calcifications. No hydronephrosis or hyd roureter. LEFT KIDNEY AND URETER: No solid masses. No significant calcifications. No hydronephrosis or hydr oureter. AORTA AND VESSELS: No aneurysm. No dissection. Renal arteries, SMA, celiac without stenosis. RETROPERITONEUM: No retroperitoneal adenopathy, hemorrhage or masses. BOWEL AND PERITONEAL CAVITY: No masses or inflammatory changes. No free fluid or peritoneal masses. APPENDIX: Surgically absent. PELVIS: No mass. No free fluid. Normal bladder. ABDOMINAL WALL: No masses. No hernias. BONES: No significant or acute findings. OTHER: No other significant finding. IMPRESSION: Prior granulomatous disease. No acute findings in the abdomen or pelvis. TECHNICAL DOCUMENTATION: JOB ID: [id number] Quality ID # [id number]: Final reports with documentation of one or more dose reduction techniques (e.g., Au tomated exposure control, adjustment of the mA and/or kV according to patient size, use of iterative reconstruction technique) 2010 [employer]- All Rights Reserved Reading location - IP/workstation name: [email or web address]
[2020-07-22 18:18] VITALS: BP 102/60
== END 2020-07-22 21:10 | disposition left against medical advice (07) ==
LOC: ER 14:02
DX: R10.31 Right lower quadrant pain (principal); R11.2 Nausea with vomiting, unspecified; E11.9 Type 2 diabetes mellitus without complications; Z53.20 Procedure and treatment not carried out because of patient's decision for unspecified reasons; I10 Essential (primary) hypertension; J44.9 Chronic obstructive pulmonary disease, unspecified; Z85.72 Personal history of non-Hodgkin lymphomas; Z87.19 Personal history of other diseases of the digestive system; Z90.49 Acquired absence of other specified parts of digestive tract; Z91.018 Allergy to other foods; Z88.8 Allergy status to other drugs, medicaments and biological substances; Z88.6 Allergy status to analgesic agent
CPT/HCPCS: 36415; 74177; 80053; 85025; 99281; 99285

== ENCOUNTER 2020-07-22 23:56 | Emergency (ER) | payer MEDICAID ==
[2020-07-23 00:54] VITALS: BP 97/59
[2020-07-23] MEDS ORDERED: ONDANSETRON 4 MG TAB.RAPDIS PO ONE (01:54)
== END 2020-07-23 03:57 | disposition left against medical advice (07) ==
LOC: ER 23:56
DX: Z53.21 Procedure and treatment not carried out due to patient leaving prior to being seen by health care provider (principal)
CPT/HCPCS: S0119

== ENCOUNTER 2020-07-26 15:29 | Emergency (ER) | payer MEDICAID ==
[2020-07-26] MEDS ORDERED: NORMAL SALINE 1000 ML 1,000 ML IV ONE (16:22)
[2020-07-26] MEDS ORDERED: ONDANSETRON 4 MG TAB.RAPDIS PO ONE (16:22)
--- NOTE | 2020-07-26 16:23 | ER Document Report ---
ED Medical Screen (RME) - General Chief Complaint: Lower Abdominal Pain Stated Complaint: ABDOMINAL PAIN Time Seen by Provider: 07/26/20 16:14 Primary Care Provider: TERRANCE VIZCAINO MD [Primary Care Provider] - Follow up as needed Mode of Arrival: Wheelchair Information source: Patient Notes: 49-year-old female presented to ED for complaint of nausea and lower abdominal pain both sides since Saturday. She states today she started having some pain with urination. She does have a history of smoking a pack a day does not drink or do any illicit drugs. She has had an appendectomy and a cholecystectomy. She did have a colonoscopy about 3 years ago and had polyps that were precancerous. She also has a history of diabetes high blood pressure high cholesterol. She is alert oriented respirations regular nonlabored speaking in full sentences. I have greeted and performed a rapid initial assessment of this patient. A comprehensive ED assessment and evaluation of the patient, analysis of test results and completion of medical decision making process will be conducted by an additional ED providers. TRAVEL OUTSIDE OF THE [place] IN LAST 30 DAYS: No - Related Data Allergies/Adverse Reactions: liborio Allergy (Severe, Verified 07/26/20 16:14) green pepper Allergy (Severe, Verified 07/26/20 16:14) ketorolac tromethamine [From Toradol] Allergy (Verified 07/26/20 16:14) tramadol [Tramadol] Allergy (Verified 07/26/20 16:14) Home Medications: htn. dm2. cholesterol Past Medical History - Social History Chew tobacco use (# tins/day): No Frequency of alcohol use: None Drug Abuse: None - Past Medical History Cardiac Medical History: Reports: Hx Hypercholesterolemia, Hx Hypertension Pulmonary Medical History: Reports: Hx COPD, Hx Pneumonia Endocrine Medical History: Reports: Hx Diabetes Mellitus Type 2 Malignancy Medical History: Reports: Hx Lymphoma - Non-Hodgkin's GI Medical History: Reports: Hx Gastroesophageal Reflux Disease Musculoskeltal Medical History: Reports Hx Arthritis, Reports Hx Musculoskeletal Trauma Psychiatric Medical History: Reports: Hx Anxiety, Hx Depression Past Surgical History: Reports: Hx Appendectomy, Hx Cholecystectomy, Hx Gynecologic Surgery - x14 D&C - Immunizations Immunizations up to date: No Hx Diphtheria, Pertussis, Tetanus Vaccination: Yes Physical Exam - Vital signs Vitals: Temp Pulse Resp BP Pulse Ox 98.9 F 90 18 107/66 96 08/25/20 15:59 07/26/20 15:59 07/26/20 15:59 07/26/20 15:59 07/26/20 15:59 Course - Vital Signs Vital signs: Temp Pulse Resp BP Pulse Ox 98.9 F 90 18 107/66 96 07/26/20 16:14 07/26/20 15:59 07/26/20 15:59 07/26/20 15:59 07/26/20 15:59 Doctor's Discharge - Discharge Referrals: TERRANCE VIZCAINO MD [Primary Care Provider] - Follow up as needed
[2020-07-26 17:30] LABS: ABSOLUTE BASOPHILS # (AUTO) 0.1 10^3/uL (0.0-0.2); ABSOLUTE EOSINOPHILS # (AUTO) 0.1 10^3/uL (0.0-0.6); ABSOLUTE LYMPHOCYTES (AUTO) 2.5 10^3/uL (0.5-4.7); ABSOLUTE MONOCYTES (AUTO) 0.7 10^3/uL (0.1-1.4); ABSOLUTE NEUT (AUTO) 7.7 10^3/uL (1.7-8.2); HEMATOCRIT 46.4 % (36.0-47.0); HEMOGLOBIN 15.9 g/dL (12.0-15.5); LYMPHOCYTES % (AUTO) 22.3 % (13-45); MEAN CORPUSCULAR HEMOGLOBIN 33.3 pg (27.0-33.4); MEAN CORPUSCULAR HGB CONC 34.3 g/dL (32.0-36.0); MEAN CORPUSCULAR VOLUME 97 fl (80-97); MONOCYTES % (AUTO) 6.3 % (3-13); PLATELET COUNT 210 10^3/uL (150-450); RED BLOOD COUNT 4.78 10^6/uL (3.72-5.28); RED CELL DISTRIBUTION WIDTH 13.2 % (11.5-14.0); SEGMENTED NEUTROPHILS % (AUTO) 69.4 % (42-78); TOTAL CELLS COUNTED % (AUTO) 100 %
[2020-07-26 17:36] LABS: APPEARANCE,URINE CLEAR; BILIRUBIN,URINE NEGATIVE (NEGATIVE); COLOR,URINE YELLOW; GLUCOSE, URINE >=500 mg/dL (NEGATIVE); KETONES,URINE NEGATIVE (NEGATIVE); LEUKOCYTE ESTERASE,URINE TRACE (NEGATIVE); NITRITE,URINE NEGATIVE (NEGATIVE); PROTEIN,URINE NEGATIVE (NEGATIVE); URINE SPECIFIC GRAVITY 1.012; UROBILINOGEN,URINE NEGATIVE mg/dL (<2.0)
[2020-07-26 17:38] LABS: ALBUMIN 4.6 g/dL (3.5-5.0); ALKALINE PHOSPHATASE 105 U/L (38-126); ANION GAP 9 (5-19); ASPARTATE AMINO TRANSFERASE 21 U/L (14-36); BILIRUBIN,DIRECT 0.3 mg/dL (0.0-0.4); BILIRUBIN,TOTAL 0.7 mg/dL (0.2-1.3); BLOOD UREA NITROGEN 9 mg/dL (7-20); CALCIUM 9.7 mg/dL (8.4-10.2); CARBON DIOXIDE 27 mmol/L (22-30); CHLORIDE 94 mmol/L (98-107); CREATINE KINASE 46 U/L (30-135); GLUCOSE 227 mg/dL (75-110); POTASSIUM 4.1 mmol/L (3.6-5.0); TOTAL PROTEIN 7.4 g/dL (6.3-8.2)
--- NOTE | 2020-07-26 19:29 | ER Document Report ---
Entered by MALLIKA DIXON SCRIBE 07/26/201928 Acting as scribe for:JOHNATHON GRAY, DO ED GI/ - General Chief Complaint: Lower Abdominal Pain Stated Complaint: ABDOMINAL PAIN Time Seen by Provider: 07/26/20 16:14 Primary Care Provider: TERRANCE VIZCAINO MD [Primary Care Provider] - Follow up as needed Mode of Arrival: Wheelchair Information source: Patient Notes: This 49 year old female patient s/p cholecystectomy and appendectomy presents to the emergency department today with complaints of nausea for the last 4 days with associated right mid abdominal pain. Patient began having dysuria today. Patient had a normal bowel movement today. Patient has not vomited. TRAVEL OUTSIDE OF THE [place] IN LAST 30 DAYS: No - Related Data Allergies/Adverse Reactions: liborio Allergy (Severe, Verified 07/26/20 16:14) green pepper Allergy (Severe, Verified 07/26/20 16:14) ketorolac tromethamine [From Toradol] Allergy (Verified 07/26/20 16:14) tramadol [Tramadol] Allergy (Verified 07/26/20 16:14) Home Medications: htn. dm2. cholesterol Past Medical History - General Information source: Patient - Social History Smoking Status: Current Every Day Smoker Cigarette use (# per day): Yes Chew tobacco use (# tins/day): No Frequency of alcohol use: None Drug Abuse: None Lives with: Family Family History: Reviewed & Not Pertinent Patient has homicidal ideation: No - Past Medical History Cardiac Medical History: Reports: Hx Hypercholesterolemia, Hx Hypertension Pulmonary Medical History: Reports: Hx COPD, Hx Pneumonia Endocrine Medical History: Reports: Hx Diabetes Mellitus Type 2 Malignancy Medical History: Reports: Hx Lymphoma - Non-Hodgkin's GI Medical History: Reports: Hx Gastroesophageal Reflux Disease Musculoskeletal Medical History: Reports Hx Arthritis, Reports Hx Musculoskeletal Trauma Psychiatric Medical History: Reports: Hx Anxiety, Hx Depression Past Surgical History: Reports: Hx Appendectomy, Hx Cholecystectomy, Hx Gynecol ogic Surgery - x14 D&C - Immunizations Immunizations up to date: No Hx Diphtheria, Pertussis, Tetanus Vaccination: Yes Review of Systems - Review of Systems Constitutional: No symptoms reported EENT: No symptoms reported Cardiovascular: No symptoms reported Respiratory: No symptoms reported Gastrointestinal: See HPI, Abdominal pain, Nausea. denies: Diarrhea, Vomiting Genitourinary: See HPI, Dysuria Female Genitourinary: No symptoms reported Musculoskeletal: No symptoms reported Skin: No symptoms reported Hematologic/Lymphatic: No symptoms reported Neurological/Psychological: No symptoms reported -: Yes All other systems reviewed and negative Physical Exam - Vital signs Vitals: Temp Pulse Resp BP Pulse Ox 98.9 F 90 18 107/66 96 07/26/20 15:59 07/26/20 15:59 07/26/20 15:59 07/26/20 15:59 07/26/20 15:59 - Notes Notes: Physical Exam: General: Alert, smells heavily of tobacco smoke. HEENT: Normocephalic. Atraumatic. PERRL. Extraocular movements intact. Oropharynx clear. Neck: Supple. Non-tender. Respiratory: No respiratory distress. Clear and equal breath sounds bilaterally. Cardiovascular: Regular rate and rhythm. Abdominal: Obese, mild periumbilical and RLQ tenderness to palpation. No distension. Normal Bowel Sounds. Back: No gross abnormalities. Extremities: Moves all four extremities. Upper extremities: Normal inspection. Normal ROM. Lower extremities: Normal inspection. No edema. Normal ROM. Neurological: Normal cognition. AAOx4. Normal speech. Psychological: Normal affect. Normal Mood. Skin: Warm. Dry. Normal color. Course - Re-evaluation Re-evalutation: 07/26/20 22:38 MDM 49 year old female with mid abdominal pain a bit to the right for [address] here the other day is reviewed. She is s/p distant choly and appy. Nl BM today. Discussed follow up and diet modification and she expressed understanding. - Vital Signs Vital signs: Temp Pulse Resp BP Pulse Ox 98.9 F 71 18 100/60 98 07/26/20 16:14 07/26/20 20:36 07/26/20 15:59 07/26/20 20:36 07/26/20 20:36 - Laboratory Result Diagrams: 07/26/20 16:52 07/26/20 16:52 Laboratory results interpreted by me: 07/26/20 07/26/20 07/26/20 16:52 16:52 16:52 WBC 11.0 H Hgb 15.9 H Sodium 129.8 L Chloride 94 L Creatinine 0.43 L Glucose 227 H Urine Glucose (UA) >=500 H Ur Leukocyte Esterase TRACE H - Diagnostic Test Radiology reviewed: Reports reviewed Discharge - Discharge Clinical Impression: Abdominal pain Qualifiers: Abdominal location: right lower quadrant Qualified Code(s): R10.31 - Right lower quadrant pain Condition: Stable Disposition: HOME, SELF-CARE Instructions: Abdominal Pain ([facility]), Antinausea Medication ([facility]), Antispasmodics ([facility]) Additional Instructions: Clear liquids diet as discussed. Take your medicine as directed. Please return here for increased pain, fever, other problems or other concerns. Your medicine was sent to [facility] in [place]. Prescriptions: Dicyclomine HCl [Bentyl 10 mg Capsule] 1 cap PO TID #15 cap Ondansetron [Zofran Odt 4 mg Tablet] 1 - 2 tab PO Q4H PRN #15 tab.rapdis PRN Reason: For Nausea/Vomiting Referrals: TERRANCE VIZCAINO MD [Primary Care Provider] - Follow up as needed I personally performed the services described in the documentation, reviewed and edited the documentation which was dictated to the scribe in my presence, and it accurately records my words and actions.
[2020-07-26] MEDS ORDERED: FENTANYL CITRATE INJ/PF 100 MCG/2 ML AMPUL IV ONE (19:41)
[2020-07-26] MEDS ORDERED: DIPHENHYDRAMINE HCL 50 MG/ML VIAL IV ONE (19:42)
[2020-07-26] MEDS ORDERED: METOCLOPRAMIDE HCL INJ/PF 10 MG/2 ML SDV IV ONE (19:42)
--- NOTE | 2020-07-26 21:42 | RADIOLOGY REPORT (SQ) ---
EXAM DESCRIPTION: XR ABDOMEN SUPINE AND ERECT WITH CHEST (ABD ACUTE SERIES) COMPLETED DATE/TME: 07/26/2020 19:49 CLINICAL HISTORY: 49 years, Female, abd pain COMPARISON: Prior CT dated 07/22/2020; plain radiographs dated 01/21/2020 NUMBER OF VIEWS: 3 TECHNIQUE: 3 frontal radiographs were obtained LIMITATIONS: None. FINDINGS: Left-sided PICC tip is located within the SVC. Cardiac and mediastinal contours are stable. Lungs are clear. No pleural effusion or pneumothorax. Gas and a moderate amount of stool are noted throughout the large bowel. Minimal, if any small bowel gas is noted, limiting the evaluation of its caliber. Multilevel lumbar spondylosis is evident. There is also mild bilateral hip joint osteoarthrosis. No evidence of subdiaphragmatic free air. IMPRESSION: No acute disease within the chest. Indeterminate bowel gas pattern. Moderate colonic stool load. copyright 2010 [employer]- All Rights Reserved
[2020-07-26 23:03] VITALS: BP 94/61
== END 2020-07-26 23:00 | disposition home or self-care (01) ==
LOC: ER 15:29
DX: R10.31 Right lower quadrant pain (principal); R10.815 Periumbilic abdominal tenderness; R10.813 Right lower quadrant abdominal tenderness; R11.0 Nausea; R30.0 Dysuria; E78.00 Pure hypercholesterolemia, unspecified; E11.9 Type 2 diabetes mellitus without complications; I10 Essential (primary) hypertension; J44.9 Chronic obstructive pulmonary disease, unspecified; F17.210 Nicotine dependence, cigarettes, uncomplicated; Z79.899 Other long term (current) drug therapy; Z85.72 Personal history of non-Hodgkin lymphomas; Z87.19 Personal history of other diseases of the digestive system; Z90.49 Acquired absence of other specified parts of digestive tract; Z91.018 Allergy to other foods; Z88.8 Allergy status to other drugs, medicaments and biological substances; Z88.6 Allergy status to analgesic agent
CPT/HCPCS: 99284; 96361; 96374; 96375; 36415; 82550; 83605; 83690; 85025; 80053; 81001; 74022; J1200; S0119; J3010; J2765; J7030

== ENCOUNTER → 2020-08-04 | Outpatient (CLI) | payer MEDICAID ==
[2020-08-04 08:17] LABS: ABSOLUTE BASOPHILS # (AUTO) 0.1 10^3/uL (0.0-0.2); ABSOLUTE EOSINOPHILS # (AUTO) 0.1 10^3/uL (0.0-0.6); ABSOLUTE MONOCYTES (AUTO) 0.6 10^3/uL (0.1-1.4); ABSOLUTE NEUT (AUTO) 4.3 10^3/uL (1.7-8.2); BASOPHILS % (AUTO) 1.2 % (0-2); EOSINOPHILS % (AUTO) 1.4 % (0-6); HEMATOCRIT 46.5 % (36.0-47.0); HEMOGLOBIN 16.3 g/dL (12.0-15.5); LYMPHOCYTES % (AUTO) 28.4 % (13-45); MEAN CORPUSCULAR VOLUME 97 fl (80-97); MONOCYTES % (AUTO) 8.8 % (3-13); PLATELET COUNT 200 10^3/uL (150-450); RED BLOOD COUNT 4.78 10^6/uL (3.72-5.28); SEGMENTED NEUTROPHILS % (AUTO) 60.2 % (42-78); TOTAL CELLS COUNTED % (AUTO) 100 %; WHITE BLOOD COUNT 7.1 10^3/uL (4.0-10.5)
[2020-08-04 08:28] LABS: ALBUMIN 4.5 g/dL (3.5-5.0); ALKALINE PHOSPHATASE 140 U/L (38-126); ANION GAP 12 (5-19); ASPARTATE AMINO TRANSFERASE 17 U/L (14-36); BILIRUBIN,DIRECT 0.3 mg/dL (0.0-0.4); BILIRUBIN,TOTAL 0.8 mg/dL (0.2-1.3); BLOOD UREA NITROGEN 13 mg/dL (7-20); CALCIUM 9.8 mg/dL (8.4-10.2); CARBON DIOXIDE 28 mmol/L (22-30); CHLORIDE 97 mmol/L (98-107); CHOLESTEROL 142.78 mg/dL (0-200); GLUCOSE 343 mg/dL (75-110); POTASSIUM 5.2 mmol/L (3.6-5.0); TOTAL PROTEIN 7.2 g/dL (6.3-8.2); TRIGLYCERIDES 187 mg/dL (<150)
[2020-08-04 08:38] LABS: DIRECT LDL 88 mg/dL (<100)
[2020-08-04 08:39] LABS: VLDL CHOLESTEROL 37.4 mg/dL (10-31)
[2020-08-05 18:22] LABS: CREATININE URINE 23.5 mg/dL (Not Estab.); MICROALBUMIN URINE 13.1 ug/mL (Not Estab.)
== END ==
LOC: OD 07:03
PROVIDERS: ATTEND Family Medicine Geriatric Medicine
DX: E11.21 Type 2 diabetes mellitus with diabetic nephropathy (principal); I10 Essential (primary) hypertension; E78.5 Hyperlipidemia, unspecified; Z79.899 Other long term (current) drug therapy
CPT/HCPCS: 36415; 80053; 80061; 82043; 82570; 83036; 85025

== ENCOUNTER 2020-08-15 13:02 | Emergency (ER) | payer MEDICAID ==
--- NOTE | 2020-08-15 13:47 | ER Document Report ---
ED Medical Screen (RME) - General Chief Complaint: Lower Abdominal Pain Stated Complaint: ABDOMINAL PAIN Time Seen by Provider: 08/15/20 13:34 Primary Care Provider: TERRANCE VIZCAINO MD [Primary Care Provider] - Follow up as needed Notes: Patient is a 49-year-old female who with a history of type 2 diabetes who presents emergency department with a chief complaint of abdominal pain. Patient reports she was seen here a few weeks ago and diagnosed with IBS. Patient reports she was given Bentyl and Zofran which did not help with her pain. 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 Patient reports her pain is getting worse. Patient reports that every time she attempts to eat she vomits. Patient reports her last bowel movement was this morning and loose. Patient reports sometimes she does have some incontinence with this. Denies blood in stool. TRAVEL OUTSIDE OF THE [place] IN LAST 30 DAYS: No - Related Data Allergies/Adverse Reactions: liborio Allergy (Severe, Verified 08/15/20 13:09) green pepper Allergy (Severe, Verified 08/15/20 13:09) ketorolac tromethamine [From Toradol] Allergy (Verified 08/15/20 13:09) tramadol [Tramadol] Allergy (Verified 08/15/20 13:09) Past Medical History - Past Medical History Cardiac Medical History: Reports: Hx Hypercholesterolemia, Hx Hypertension Pulmonary Medical History: Reports: Hx COPD, Hx Pneumonia Endocrine Medical History: Reports: Hx Diabetes Mellitus Type 2 Malignancy Medical History: Reports: Hx Lymphoma - Non-Hodgkin's GI Medical History: Reports: Hx Gastroesophageal Reflux Disease Musculoskeltal Medical History: Reports Hx Arthritis, Reports Hx Musculoskeletal Trauma Psychiatric Medical History: Reports: Hx Anxiety, Hx Depression Past Surgical History: Reports: Hx Appendectomy, Hx Cholecystectomy, Hx Gynecologic Surgery - x14 D&C - Immunizations Immunizations up to date: No Hx Diphtheria, Pertussis, Tetanus Vaccination: Yes Physical Exam - Vital signs Vitals: Temp Pulse Resp BP Pulse Ox 98.8 F 100 16 115/65 97 08/15/20 13:21 08/15/20 13:21 08/15/20 13:21 08/15/20 13:21 08/15/20 13:21 - Abdominal Inspection: Normal Distension: No distension Bowel sounds: Normal Tenderness: Tender Course - Re-evaluation Re-evalutation: 08/15/20 13:46 Patient states last time she was here she had a CT which was negative. I will initiate basic labs as well as a urinalysis. Will obtain an abdominal x-ray patient does report a history of constipation and having small loose stools. I have greeted and performed a rapid initial assessment of this patient. A comprehensive ED assessment and evaluation of the patient, analysis of test results and completion of the medical decision making process will be conducted by additional ED providers. - Vital Signs Vital signs: Temp Pulse Resp BP Pulse Ox 98.8 F 100 16 115/65 97 08/15/20 13:21 08/15/20 13:21 08/15/20 13:21 08/15/20 13:21 08/15/20 13:21 Doctor's Discharge - Discharge Referrals: TERRANCE VIZCAINO MD [Primary Care Provider] - Follow up as needed
[2020-08-15 14:27] LABS: ABSOLUTE BASOPHILS # (AUTO) 0.1 10^3/uL (0.0-0.2); ABSOLUTE EOSINOPHILS # (AUTO) 0.1 10^3/uL (0.0-0.6); ABSOLUTE LYMPHOCYTES (AUTO) 2.5 10^3/uL (0.5-4.7); ABSOLUTE MONOCYTES (AUTO) 0.7 10^3/uL (0.1-1.4); ABSOLUTE NEUT (AUTO) 7.3 10^3/uL (1.7-8.2); BASOPHILS % (AUTO) 0.9 % (0-2); EOSINOPHILS % (AUTO) 0.5 % (0-6); HEMATOCRIT 45.2 % (36.0-47.0); HEMOGLOBIN 16.1 g/dL (12.0-15.5); LYMPHOCYTES % (AUTO) 23.3 % (13-45); MEAN CORPUSCULAR HEMOGLOBIN 34.2 pg (27.0-33.4); MEAN CORPUSCULAR HGB CONC 35.6 g/dL (32.0-36.0); MEAN CORPUSCULAR VOLUME 96 fl (80-97); MONOCYTES % (AUTO) 6.5 % (3-13); PLATELET COUNT 227 10^3/uL (150-450); RED BLOOD COUNT 4.71 10^6/uL (3.72-5.28); RED CELL DISTRIBUTION WIDTH 13.1 % (11.5-14.0); SEGMENTED NEUTROPHILS % (AUTO) 68.8 % (42-78); TOTAL CELLS COUNTED % (AUTO) 100 %; WHITE BLOOD COUNT 10.6 10^3/uL (4.0-10.5)
[2020-08-15 14:51] LABS: ALBUMIN 4.4 g/dL (3.5-5.0); ALKALINE PHOSPHATASE 92 U/L (38-126); ANION GAP 12 (5-19); ASPARTATE AMINO TRANSFERASE 21 U/L (14-36); BILIRUBIN,DIRECT 0.2 mg/dL (0.0-0.4); BILIRUBIN,TOTAL 0.5 mg/dL (0.2-1.3); BLOOD UREA NITROGEN 11 mg/dL (7-20); CALCIUM 9.7 mg/dL (8.4-10.2); CARBON DIOXIDE 22 mmol/L (22-30); CHLORIDE 92 mmol/L (98-107); GLUCOSE 93 mg/dL (75-110); POTASSIUM 4.8 mmol/L (3.6-5.0); TOTAL PROTEIN 6.9 g/dL (6.3-8.2)
--- NOTE | 2020-08-15 14:51 | RADIOLOGY REPORT (SQ) ---
EXAM DESCRIPTION: ACUTE ABDOMEN SERIES IMAGES COMPLETED DATE/TIME: 08/15/2020 2:17 pm REASON FOR STUDY: Constipation COMPARISON: 07/22/2020 NUMBER OF VIEWS: Three views. TECHNIQUE: Frontal chest, supine abdomen and upright/decubitus abdomen radiographic images acquired. LIMITATIONS: None. FINDINGS: CHEST: Lungs clear of infiltrates. FREE AIR: None. No abnormal gas collections. BOWEL GAS PATTERN: No definite pathologically dilated loops of bowel. Gas containing bowel loops wit hin the left hemiabdomen, likely redundant colonic loops. Moderate formed stool throughout the colon . CALCIFICATIONS: Innumerable splenic calcifications, stable. HARDWARE: Prior cholecystectomy. SOFT TISSUES: No gross mass or suggestion of organomegaly. BONES: No acute fracture. No worrisome bone lesions. OTHER: No other significant finding. IMPRESSION: Moderate formed stool throughout the colon. No definite evidence of intestinal obstruct ion or other acute intra-abdominal/pelvic process. Evidence of prior granulomatous disease. TECHNICAL DOCUMENTATION: JOB ID: [id number] 2010 [employer]- All Rights Reserved Reading location - IP/workstation name: [email or web address]
[2020-08-15] MEDS ORDERED: NORMAL SALINE 1000 ML 1,000 ML IV ONE ×2 (15:46→18:45)
[2020-08-15] MEDS ORDERED: MORPHINE SULFATE 10 MG/ML INJ IV PRN (17:41)
[2020-08-15] MEDS ORDERED: ONDANSETRON HCL INJ/PF 4 MG/2 ML SDV IV ONE (17:41)
--- NOTE | 2020-08-15 17:48 | ER Document Report ---
ED General - General TRAVEL OUTSIDE OF THE [place] IN LAST 30 DAYS: No <SHERIE LIRA - Last Filed: 08/15/20 22:23> <CINDY ANNE - Last Filed: 08/15/20 22:38> - General Chief Complaint: Lower Abdominal Pain Stated Complaint: ABDOMINAL PAIN Time Seen by Provider: 08/15/20 13:34 Primary Care Provider: TERRANCE VIZCAINO MD [Primary Care Provider] - Follow up as needed Notes: 49-year-old female with past medical history of non-Hodgkin's lymphoma, diabet es, hypertension, hyperlipidemia, cholecysectomy and appendectomy presenting today with worsening abdominal pain that started approximately 1 month ago. She was seen in the ER approximately 1 month ago where she was diagnosed with IBS. Since then she has been unable to see her primary care provider and has been unable to establish care with a GI doctor. Her abdominal pain is now become sharp and stabbing. Is nauseated. No vomiting. She denies any diarrhea but she does have very hard, small stools. She denies any straining to use the bathroom or having any blood in her stools. After her last ER visit she did take MiraLAX for 2 days when she noticed she was able to have a bowel movement. No fevers or chills. She has not taken anything for her pain. Has been unable to keep fluids down today. Has an appointment with her oncologist tomorrow for follow up for remission for non-hodgins lymphoma. No alcohol use. (SHERIE LIRA) - Related Data Allergies/Adverse Reactions: liborio Allergy (Severe, Verified 08/15/20 13:09) green pepper Allergy (Severe, Verified 08/15/20 13:09) ketorolac tromethamine [From Toradol] Allergy (Verified 08/15/20 13:09) tramadol [Tramadol] Allergy (Verified 08/15/20 13:09) Past Medical History - Social History Smoking Status: Smoker,Current Status Unk Family History: Reviewed & Not Pertinent Patient has homicidal ideation: No - Past Medical History Cardiac Medical History: Reports: Hx Hypercholesterolemia, Hx Hypertension Pulmonary Medical History: Reports: Hx COPD, Hx Pneumonia Endocrine Medical History: Reports: Hx Diabetes Mellitus Type 2 Malignancy Medical History: Reports: Hx Lymphoma - Non-Hodgkin's GI Medical History: Reports: Hx Gastroesophageal Reflux Disease Musculoskeletal Medical History: Reports Hx Arthritis, Reports Hx Musculoskeletal Trauma Psychiatric Medical History: Reports: Hx Anxiety, Hx Depression Past Surgical History: Reports: Hx Appendectomy, Hx Cholecystectomy, Hx Gynecologic Surgery - x14 D&C - Immunizations Immunizations up to date: No Hx Diphtheria, Pertussis, Tetanus Vaccination: Yes <SHERIE LIRA - Last Filed: 08/15/20 22:23> Review of Systems - Review of Systems Constitutional: No symptoms reported EENT: No symptoms reported Cardiovascular: No symptoms reported Respiratory: No symptoms reported Gastrointestinal: See HPI Genitourinary: No symptoms reported Female Genitourinary: No symptoms reported Musculoskeletal: No symptoms reported Skin: No symptoms reported Hematologic/Lymphatic: No symptoms reported Neurological/Psychological: No symptoms reported <SHERIE LIRA - Last Filed: 08/15/20 22:23> Physical Exam - Vital signs Interpretation: Normal <SHERIE LIRA - Last Filed: 08/15/20 22:23> - Vital signs Vitals: Temp Pulse Resp BP Pulse Ox 98.8 F 100 16 115/65 97 08/15/20 13:21 08/15/20 13:21 08/15/20 13:21 08/15/20 13:21 08/15/20 13:21 - Notes Notes: Adult General: GENERAL: Alert, interacts well. No acute distress HEAD: Normocephalic, atraumatic EYES: Pupils equal, round and reactive to light. Extraocular movements intact. ENT: Oral mucosa dry tongue midline. Oropharynx unremarkable. Airway patent. Nares patent. NECK: Full range of motion. Supple. Trachea midline. No lymphadenopathy. LUNGS: Clear to auscultation bilaterally, no wheezes, rales, or rhonchi. No respiratory distress. Nontender chest wall. HEART: Regular rate and rhythm. No murmurs, rubs or gallops. ABDOMEN: Soft, diffuse mild tenderness R > L. Nondistended. (-) Bickmore sign. Bowel sounds present in all 4 quadrants. No rebound, guarding or masses. GENITOURINARY: Deferred EXTREMITIES: Moves all 4 extremities spontaneously. No edema, normal radial and dorsal pedis pulses bilaterally. No cyanosis. BACK: Moves all extremities with full range of motion. NEUROLOGICAL: Alert and oriented x3. Normal speech. Strength 5/ 5 in all extremities. PSYCH: Normal affect, normal mood. SKIN: Warm, dry, normal turgor. No rashes or lesions noted. (SHERIE LIRA) Course - Laboratory Result Diagrams: 08/15/20 14:10 08/15/20 14:10 <SHERIE LIRA - Last Filed: 08/15/20 22:23> - Laboratory Result Diagrams: 08/15/20 14:10 08/15/20 14:10 <CINDY ANNE - Last Filed: 08/15/20 22:38> - Re-evaluation Re-evalutation: 08/15/20 17:46 Initial labs ordered by triage provider show hyponatremia. Acute abdominal series shows moderate formed stools through out the colon, no obstruction, and splenic calcification 08/15/20 20:23 CT scan shows moderate stool collection, unchanged hepatic lesion and findings suggestive of a mild ileius. I discussed these findings with the patient and that she is hyponatremic. She has been receiving IV fluids for the hyponatremia. Informs this provider that the morphine did not provide pain relief. Additional pain meds ordered. I also ordered an enema to treat the constipation. She is no longer nauseated. I discussed with the patient that if she is discharged, I recommend she drink fluids po which are high in sodium to help correct her hyponatremia and to have follow up with her primary care and if her symptoms worsen or she develops new symptoms to return to the emergency department. Patient was turned over to to Cindy Anne [employer] who will reevalute patients pain after her enema to determine if this decreases her pain and if patient is able to be discharged. (SHERIE LIRA) 08/15/20 20:30 Assumed care of patient from LUIS A Webster. Patient continues to complain of pain. Enema and meds were ordered but has of yet not been given. 08/15/20 22:36 Patient is now resting comfortably pain-free on exam. Nonsurgical abdomen. Patient states she had a large bowel movement after receiving the enema. Long discussion with patient about the need to be on a clear liquid diet for 48 hours. She is to call her primary care physician in the morning for follow-up appointment. Patient was given strict return to the emergency room guidelines. Return for any new or worsening symptoms. All questions were answered. Patient verbalized understanding and agrees with plan of care. (CINDY ANNE) - Vital Signs Vital signs: Temp Pulse Resp BP Pulse Ox 97.7 F 67 18 105/59 L 100 08/15/20 19:07 08/15/20 19:07 08/15/20 19:07 08/15/20 19:07 08/15/20 19:07 - Laboratory Laboratory results interpreted by me: 08/15/20 08/15/20 08/15/20 14:10 14:10 18:25 WBC 10.6 H Hgb 16.1 H MCH 34.2 H Sodium 125.7 L Chloride 92 L Creatinine 0.42 L Urine Blood SMALL H Ur Leukocyte Esterase LARGE H Discharge <SHERIE LIRA - Last Filed: 08/15/20 22:23> <CINDY ANNE - Last Filed: 08/15/20 22:38> - Discharge Clinical Impression: Hyponatremia, Ileus, unspecified, Hepatic lesion Constipation Qualifiers: Constipation type: unspecified constipation type Qualified Code(s): K59.00 - Constipation, unspecified Abdominal pain Qualifiers: Abdominal location: unspecified location Qualified Code(s): R10.9 - Unspecified abdominal pain Condition: Stable Disposition: HOME, SELF-CARE Instructions: Abdominal Pain ([facility]), Hyponatremia ([facility]) Additional Instructions: Your labs show hyponatremia. I recommend that you drink fluids high in sodium. Clear liquid diet for the next 48 hours. Call your primary care physician in the morning for follow-up appointment. Drink gatorade and pedialyte. If you are unable to keep fluids down, please return to the emergency department. Your CT scan shows an ileus. An ileus can lead to a obstruction in your bowel tract. I recommend fluids for 24-72 hours to help improve this. Referrals: TERRANCE VIZCAINO MD [Primary Care Provider] - Follow up tomorrow (Call in the morning for an outpatient follow-up appointment.)
[2020-08-15 18:51] LABS: APPEARANCE,URINE CLEAR; BILIRUBIN,URINE NEGATIVE (NEGATIVE); COLOR,URINE STRAW; GLUCOSE, URINE NEGATIVE (NEGATIVE); KETONES,URINE NEGATIVE (NEGATIVE); LEUKOCYTE ESTERASE,URINE LARGE (NEGATIVE); NITRITE,URINE NEGATIVE (NEGATIVE); PROTEIN,URINE NEGATIVE (NEGATIVE); URINE SPECIFIC GRAVITY 1.004; UROBILINOGEN,URINE NEGATIVE mg/dL (<2.0)
--- NOTE | 2020-08-15 19:48 | RADIOLOGY REPORT (SQ) ---
EXAM DESCRIPTION: [facility]: CT ABDOMEN PELVIS WITH IV CONTRAST CLINICAL HISTORY: 49 years Female; worsening abdominal pain; TECHNIQUE: CT of the abdomen and pelvis using intravenous contrast. All CT scans at this facility use dose modulation, iterative reconstruction, and/or weight based dosing when appropriate to reduce radiation dose to as low as reasonably achievable. COMPARISON: 07/22/2020, 08/01/2019, 06/13/2017 FINDINGS: Abdomen: Stomach: No significant distention or surrounding edema. Liver: 1.7 cm slightly hypoenhancing lesion adjacent to the gallbladder fossa is again noted, unchanged since 2017. No ductal distention. No new lesions. Gallbladder: Surgically absent Pancreas:Within normal limits Spleen: Multiple calcified granulomata as on prior exams. Right kidney:No hydronephrosis. No focal lesion. Left kidney:No hydronephrosis. No focal lesion. Adrenal glands:Within normal limits Vascular structures: Scattered aortic and branch calcifications. No aortic aneurysm or dissection. Pelvis: Small bowel: Nondistended. There are a few scattered distal air-fluid levels. No acute mesenteric edema. Appendix:Within normal limits Colon: Moderate fecal retention, but no significant distention or acute pericolonic edema. No free intraperitoneal fluid or air. Bones: No acute bone findings. Bladder: Unremarkable. Uterus is unremarkable. No adnexal enlargement. IMPRESSION: 1. Colonic fecal retention with a few scattered air-fluid levels in the small bowel, but no small bowel distention. This suggests a mild ileus. 2. No bowel perforation or abscess. 3. Stable 1.7 cm hepatic lesion, unchanged since 06/13/2017 and likely benign. 4. Previous cholecystectomy 5. Atherosclerosis
[2020-08-15] MEDS ORDERED: MINERAL OIL 30 ML UDCUP PR ONE (20:05)
[2020-08-15] MEDS ORDERED: NORMAL SALINE 500 ML IV ONE (20:25)
[2020-08-15] MEDS ORDERED: FENTANYL CITRATE INJ/PF 100 MCG/2 ML AMPUL IV PRN (20:28)
[2020-08-15 23:57] VITALS: BP 85/51
== END 2020-08-16 00:08 | disposition home or self-care (01) ==
LOC: ER 13:02
DX: K59.00 Constipation, unspecified (principal); K56.7 Ileus, unspecified; E87.1 Hypo-osmolality and hyponatremia; K76.9 Liver disease, unspecified; I10 Essential (primary) hypertension; I70.90 Unspecified atherosclerosis; R11.0 Nausea; J44.9 Chronic obstructive pulmonary disease, unspecified; E11.9 Type 2 diabetes mellitus without complications; Z85.72 Personal history of non-Hodgkin lymphomas; Z90.49 Acquired absence of other specified parts of digestive tract; Z88.6 Allergy status to analgesic agent
CPT/HCPCS: 99285; 96361; 96374; 96375; 36415; 83690; 85025; 80053; 81001; 74022; 74177; J3010; J3490; J2270; J2405; J7030; J7040

== ENCOUNTER 2020-08-16 12:06 | Emergency (ER) | payer MEDICAID ==
[2020-08-16] MEDS ORDERED: ONDANSETRON 4 MG TAB.RAPDIS PO ONE (12:30)
--- NOTE | 2020-08-16 12:33 | ER Document Report ---
ED Medical Screen (RME) - General Chief Complaint: Nausea/Vomiting Stated Complaint: VOMITING,ABDOMINAL PAIN Time Seen by Provider: 08/16/20 12:19 Primary Care Provider: TERRANCE VIZCAINO MD [Primary Care Provider] - Follow up as needed TRAVEL OUTSIDE OF THE [place] IN LAST 30 DAYS: No - HPI Notes: 08/16/20 12:30 49-year-old female with a history of non-Hodgkin's lymphoma, diabetes, hypertension, hyperlipidemia presents to the emergency room for worsening abdominal pain and vomiting this morning. Patient was seen in the emergency room yesterday, had noted serum sodium of 125. She was advised to follow clear fluids and sodium rich liquids. Patient stated she was advised to return to the emergency room if she had any worsening symptoms which she does and she did vomit this morning after drinking coffee. Patient does not have a GI doctor in the area. She reports she is having some midline pain and right lower quadrant pain which was there yesterday and the pain is constant. Reports she was given an enema last night and did have a small bowel movement, no melena. She is passing flatus. CT abdomen pelvis that was done yesterday did show a mild ileus. Patient denies any chest pain, shortness of breath, fevers or chills. Has not tried any [id number] medications. I have greeted and performed a rapid initial assessment of this patient. A comprehensive ED assessment and evaluation of the patient, analysis of test results and completion of the medical decision making process will be conducted by additional ED providers. PHYSICAL EXAMINATION: GENERAL: Well-appearing, well-nourished and in mild distress CV: s1, s2 regular LUNGS: No respiratory distress abd: generalized abd pain, no cva tenderness appreciated. Musculoskeletal: Normal range of motion NEUROLOGICAL: Normal speech, normal gait. SKIN: Warm, Dry, normal turgor, no rashes or lesions noted. 08/16/20 12:32 - Related Data Allergies/Adverse Reactions: liborio Allergy (Severe, Verified 08/16/20 12:18) green pepper Allergy (Severe, Verified 08/16/20 12:18) ketorolac tromethamine [From Toradol] Allergy (Verified 08/16/20 12:18) tramadol [Tramadol] Allergy (Verified 08/16/20 12:18) Home Medications: metformin. lisinopril. paroxetine. clonazpam. trazodone. glipizide. lantis. gabapentin. omprazole. vascepa. humalog. atorvastatin Past Medical History - Social History Chew tobacco use (# tins/day): No Frequency of alcohol use: None Drug Abuse: None - Past Medical History Cardiac Medical History: Reports: Hx Hypercholesterolemia, Hx Hypertension Pulmonary Medical History: Reports: Hx COPD, Hx Pneumonia Endocrine Medical History: Reports: Hx Diabetes Mellitus Type 2 Malignancy Medical History: Reports: Hx Lymphoma - Non-Hodgkin's GI Medical History: Reports: Hx Gastroesophageal Reflux Disease Musculoskeltal Medical History: Reports Hx Arthritis, Reports Hx Musculoskeletal Trauma Psychiatric Medical History: Reports: Hx Anxiety, Hx Depression Past Surgical History: Reports: Hx Appendectomy, Hx Cholecystectomy, Hx Gynecologic Surgery - x14 D&C - Immunizations Immunizations up to date: No Hx Diphtheria, Pertussis, Tetanus Vaccination: Yes Physical Exam - Vital signs Vitals: Temp Pulse Resp BP Pulse Ox 98.8 F 80 16 117/66 98 08/16/20 12:16 08/16/20 12:16 08/16/20 12:16 08/16/20 12:16 08/16/20 12:16 Course - Vital Signs Vital signs: Temp Pulse Resp BP Pulse Ox 98.8 F 80 16 117/66 98 08/16/20 12:18 08/16/20 12:16 08/16/20 12:16 08/16/20 12:16 08/16/20 12:16 Doctor's Discharge - Discharge Referrals: TERRANCE VIZCAINO MD [Primary Care Provider] - Follow up as needed
[2020-08-16 13:08] LABS: ABSOLUTE BASOPHILS # (AUTO) 0.1 10^3/uL (0.0-0.2); ABSOLUTE EOSINOPHILS # (AUTO) 0.1 10^3/uL (0.0-0.6); ABSOLUTE LYMPHOCYTES (AUTO) 1.8 10^3/uL (0.5-4.7); ABSOLUTE MONOCYTES (AUTO) 0.5 10^3/uL (0.1-1.4); ABSOLUTE NEUT (AUTO) 5.1 10^3/uL (1.7-8.2); BASOPHILS % (AUTO) 1.1 % (0-2); EOSINOPHILS % (AUTO) 0.8 % (0-6); HEMOGLOBIN 15.6 g/dL (12.0-15.5); LYMPHOCYTES % (AUTO) 23.9 % (13-45); MEAN CORPUSCULAR HEMOGLOBIN 34.2 pg (27.0-33.4); MEAN CORPUSCULAR HGB CONC 35.4 g/dL (32.0-36.0); MEAN CORPUSCULAR VOLUME 97 fl (80-97); MONOCYTES % (AUTO) 6.5 % (3-13); PLATELET COUNT 233 10^3/uL (150-450); RED BLOOD COUNT 4.55 10^6/uL (3.72-5.28); SEGMENTED NEUTROPHILS % (AUTO) 67.7 % (42-78); TOTAL CELLS COUNTED % (AUTO) 100 %; WHITE BLOOD COUNT 7.6 10^3/uL (4.0-10.5)
[2020-08-16 13:22] LABS: ALBUMIN 4.2 g/dL (3.5-5.0); ALKALINE PHOSPHATASE 87 U/L (38-126); ANION GAP 10 (5-19); ASPARTATE AMINO TRANSFERASE 27 U/L (14-36); BILIRUBIN,DIRECT 0.2 mg/dL (0.0-0.4); BILIRUBIN,TOTAL 0.6 mg/dL (0.2-1.3); BLOOD UREA NITROGEN 8 mg/dL (7-20); CALCIUM 9.5 mg/dL (8.4-10.2); CARBON DIOXIDE 26 mmol/L (22-30); CHLORIDE 97 mmol/L (98-107); GLUCOSE 101 mg/dL (75-110); POTASSIUM 4.5 mmol/L (3.6-5.0); TOTAL PROTEIN 6.5 g/dL (6.3-8.2)
[2020-08-16] MEDS ORDERED: NORMAL SALINE 1000 ML 1,000 ML IV ONE (13:27)
[2020-08-16] MEDS ORDERED: CEFTRIAXONE INJ 1000 MG VIAL IV ONE (13:28)
[2020-08-16] MEDS ORDERED: MINERAL OIL 30 ML UDCUP PR ONE (13:28)
--- NOTE | 2020-08-16 13:38 | ER Document Report ---
ED General - General Chief Complaint: Nausea/Vomiting Stated Complaint: VOMITING,ABDOMINAL PAIN Time Seen by Provider: 08/16/20 12:19 Primary Care Provider: TERRANCE VIZCAINO MD [Primary Care Provider] - Follow up as needed TRAVEL OUTSIDE OF THE [place] IN LAST 30 DAYS: No - HPI Notes: Chief complaint: Chronic abdominal pain, constipation, nausea, vomiting and bilateral low back pain History of present illness: 49-year-old female followed by Dr. Smith with longstanding history of chronic abdominal pain, irritable bowel syndrome and constipation who is taking opiates chronically for pain seen here within the last 24 hours for work-up for acute exacerbation of all of her symptoms. She had a negative CT with the exception of a large amount of retained stool within the last 24 hours. Says she is taking MiraLAX at home with no benefit. She says she was given a tap water enema here last night with minimal results. She is not eaten any food today. She says she tried to drink some coffee and vomited. She complains of generalized weakness. I reviewed all of her notes from last night in detail. Also went back through all of her old medical records. The symptoms have been longstanding over several years. We note she is previously been admitted to the medical floor for similar symptoms and on at least one occasion signed herself out AMA because the provider refused to give her IV narcotics. She was subsequently dismissed from that practice. I note the patient had some pyuria on her urine specimen last night. This was apparently cultured but she was not given any antibiotics. She denies any fever or chills. She denies dysuria. She does complain of worsening of bilateral flank pain which is been present for some time. - Related Data Allergies/Adverse Reactions: liborio Allergy (Severe, Verified 08/16/20 12:18) green pepper Allergy (Severe, Verified 08/16/20 12:18) ketorolac tromethamine [From Toradol] Allergy (Verified 08/16/20 12:18) tramadol [Tramadol] Allergy (Verified 08/16/20 12:18) Home Medications: metformin. lisinopril. paroxetine. clonazpam. trazodone. glipizide. lantis. gabapentin. omprazole. vascepa. humalog. atorvastatin Past Medical History - General Information source: Patient, Friend, [facility] Records - Social History Smoking Status: Current Every Day Smoker Chew tobacco use (# tins/day): No Frequency of alcohol use: None Drug Abuse: None Family History: Reviewed & Not Pertinent Patient has homicidal ideation: No - Past Medical History Cardiac Medical History: Reports: Hx Hypercholesterolemia, Hx Hypertension Pulmonary Medical History: Reports: Hx COPD, Hx Pneumonia Endocrine Medical History: Reports: Hx Diabetes Mellitus Type 2 Malignancy Medical History: Reports: Hx Lymphoma - Non-Hodgkin's GI Medical History: Reports: Hx Gastroesophageal Reflux Disease Musculoskeletal Medical History: Reports Hx Arthritis, Reports Hx Musculoskeletal Trauma Psychiatric Medical History: Reports: Hx Anxiety, Hx Depression Past Surgical History: Reports: Hx Appendectomy, Hx Cholecystectomy, Hx Gynecologic Surgery - x14 D&C - Immunizations Immunizations up to date: No Hx Diphtheria, Pertussis, Tetanus Vaccination: Yes Review of Systems - Review of Systems Notes: Constitutional: Negative for fever. HENT: Negative for sore throat. Eyes: Negative for visual changes. Cardiovascular: Negative for chest pain. Respiratory: Negative for shortness of breath. Gastrointestinal: As per HPI. Genitourinary: Negative for dysuria. Musculoskeletal: As per HPI Skin: Negative for rash. Neurological: Negative for headaches, weakness or numbness. 10 point ROS negative except as marked above and in HPI. Physical Exam - Vital signs Vitals: Temp Pulse Resp BP Pulse Ox 98.8 F 80 16 117/66 98 08/16/20 12:16 08/16/20 12:16 08/16/20 12:16 08/16/20 12:16 08/16/20 12:16 - Notes Notes: GENERAL: Female patient approximately stated age appearing in no acute distress. Strong odor of stale tobacco present. SKIN: Good turgor no rashes. HEAD: Normocephalic atraumatic. EYES: PERRLA. EOMI. Conjunctivae and sclerae clear. EARS: CANALS AND TMS CLEAR. NOSE: CLEAR. MOUTH: Moist mucosa. Good dentition. No stridor or edema. No drooling. NECK: Supple. No masses or thyromegaly. No adenopathy. Carotids 2+ without bruits. No JVD. BACK: Prominent dorsal kyphosis. Symmetrical without tenderness. CHEST: Respirations unlabored. Scattered rhonchi bilaterally clearing with cough. HEART: Regular rhythm. No murmur gallop or rub. ABDOMEN: Soft without masses, organomegaly. Mild tenderness left upper and lower quadrant without rebound. Bowel sounds normally active. No bruits. GENITALIA: Deferred. EXTREMITIES: No edema. No calf tenderness. Cap refill less than 1.5 seconds. Dorsalis pedis and posterior tibial pulses 3+ and symmetrical. NEUROLOGICAL: GCS 15. Alert and oriented x3. Fluent speech. Cranial nerves II through XII intact. Sensorimotor and cerebellar normal. Normal tone. PSYCHIATRIC: Flat affect. Course - Re-evaluation Re-evalutation: 08/16/20 16:12 Patient returns in under 24 hours with ongoing constipation and abdominal pain and back pain. She had a negative CT of abdomen/pelvis yesterday other than constipation. She got an enema last night with minimal results. We repeated an enema with warm tap water and mineral oil with good results. The patient had 3-4 large bowel movements. She feels somewhat better. Also I noted that she had some pyuria identified on the previous urinalysis from last night. Urine is been cultured and I went ahead and gave her a dose of IV Rocephin while she was here. I will send her out on some oral Keflex. Shortly has MiraLAX and has be en instructed to continue using this and increase oral fluids. 08/16/20 16:18 Findings, clinical impression and plan of treatment have been discussed with patient/family. Understanding of current findings and recommendations has been acknowledged by them and there is agreement regarding disposition and follow-up. - Vital Signs Vital signs: Temp Pulse Resp BP Pulse Ox 98.8 F 80 16 117/66 98 08/16/20 12:18 08/16/20 12:16 08/16/20 12:16 08/16/20 12:16 08/16/20 12:16 - Laboratory Result Diagrams: 08/16/20 12:40 08/16/20 12:40 Laboratory results interpreted by me: 08/16/20 08/16/20 12:40 12:40 Hgb 15.6 H MCH 34.2 H Sodium 132.8 L Chloride 97 L Creatinine 0.41 L Lipase 14.8 L Discharge - Discharge Clinical Impression: Constipation, Chronic abdominal pain, Irritable bowel syndrome, Urinary tract infection Condition: Stable Disposition: HOME, SELF-CARE Additional Instructions: Constipation Constipation is a common problem. It is especially likely as you get older. Constipation is a common cause of abdominal pain, but sometimes causes no symptoms at all. Causes of constipation include certain medications, dehydration, diets, inactivity, and low-fiber intake. Rarely, it can be a symptom of underlying disease. The physician has evaluated you for this. Avoid constipation by eating a diet high in fiber, fruits, and vegetables. Drink plenty of liquids. Get regular exercise. If possible, avoid constipating medicines like narcotic pain medication. Some vitamin tablets can cause constipation. Stool softeners may be needed for difficult cases. An exce llent stool softener is Konsyl which is available at [employer], [employer]. Just add a teaspoon to a glass of pineapple or orange juice daily or twice a day if needed. Laxatives are useful for occasional constipation. You should use them only when necessary. Too-frequent use can make your bowels dependent on them. Some over the counter laxatives available without prescription are: Milk of Magnesia, 1-2 tablespoons twice a day Dulcolax, 5 mg pill or 10 mg suppository. Citrate of Magnesia, 4-5 ounces a day for a day or two For acute constipation, Fleet's Enemas and Dulcolax suppositories are helpful. Chronic, supervisor long goods use of laxatives or enemas is not a good idea. Your bowel may become dependant on them. You do not need to have a bowel movement every day. Many people do fine with a bowel movement every three or four days. You should call your doctor or return for re-evaluation if you pass blood in the stool, or if you develop fever or increasing abdominal pain. Continue MiraLAX. Return here as needed for new or worsening symptoms. Follow-up with your primary care physician within the next 1 week. Prescriptions: Cephalexin Monohydrate [Keflex 500 mg Capsule] 500 mg PO Q6H 10 Days #40 capsule Referrals: TERRANCE VIZCAINO MD [Primary Care Provider] - Follow up as needed
[2020-08-16 16:33] LABS: APPEARANCE,URINE CLEAR; BILIRUBIN,URINE NEGATIVE (NEGATIVE); COLOR,URINE YELLOW; GLUCOSE, URINE NEGATIVE (NEGATIVE); KETONES,URINE NEGATIVE (NEGATIVE); PROTEIN,URINE NEGATIVE (NEGATIVE); URINE SPECIFIC GRAVITY 1.006; UROBILINOGEN,URINE NEGATIVE mg/dL (<2.0)
[2020-08-16 16:48] LABS: URINE AMPHETAMINES SCREEN NEGATIVE; URINE BARBITURATES SCREEN NEGATIVE; URINE BENZODIAZEPINES SCREEN NEGATIVE; URINE COCAINE SCREEN NEGATIVE; URINE MARIJUANA (THC) SCREEN NEGATIVE; URINE METHADONE SCREEN NEGATIVE; URINE PHENCYCLIDINE SCREEN NEGATIVE
[2020-08-16 17:09] VITALS: BP 125/78
== END 2020-08-16 17:09 | disposition home or self-care (01) ==
LOC: ER 12:06
DX: K58.1 Irritable bowel syndrome with constipation (principal); N39.0 Urinary tract infection, site not specified; R53.1 Weakness; R10.9 Unspecified abdominal pain; G89.29 Other chronic pain; R10.812 Left upper quadrant abdominal tenderness; R10.814 Left lower quadrant abdominal tenderness; M54.9 Dorsalgia, unspecified; M40.209 Unspecified kyphosis, site unspecified; J44.9 Chronic obstructive pulmonary disease, unspecified; E78.00 Pure hypercholesterolemia, unspecified; I10 Essential (primary) hypertension; F17.200 Nicotine dependence, unspecified, uncomplicated; E11.9 Type 2 diabetes mellitus without complications; K21.9 Gastro-esophageal reflux disease without esophagitis; F32.9 Major depressive disorder, single episode, unspecified; F41.9 Anxiety disorder, unspecified; Z79.891 Long term (current) use of opiate analgesic; Z79.4 Long term (current) use of insulin; Z85.72 Personal history of non-Hodgkin lymphomas; Z91.018 Allergy to other foods
CPT/HCPCS: 99284; 96365; 36415; 87086; 82962; 83690; 85025; 80053; 81001; 80307; S0119; J3490; J0696; J7030

== ENCOUNTER 2020-08-29 13:38 | Emergency (ER) | payer MEDICAID ==
--- NOTE | 2020-08-29 14:35 | ER Document Report ---
ED Medical Screen (RME) - General Chief Complaint: Passed Out Prior to Arrival Stated Complaint: SYNCOPAL EPISODE Time Seen by Provider: 08/29/20 14:20 Primary Care Provider: TERRANCE VIZCAINO MD [Primary Care Provider] - Follow up as needed TRAVEL OUTSIDE OF THE [place] IN LAST 30 DAYS: No - HPI Notes: 08/29/20 14:34 49-year-old female with past medical history of diabetes, lymphoma in remission to the emergency department with complaints of a syncopal episode just prior to arrival. She is states she was walking into her kitchen when she just passed out. She denies any sort of prodrome. She states when she awoke she had a headache on the left side of her head. She states she is also felt nauseated. Her significant other then called the medics. They gave her Zofran in route. She denies any fevers, chills, chest pain, abdominal pain. She states that she has been having episodes of syncope for several weeks now. She states that her primary care physician thinks she is having low blood sugar. However, when the medics picked her up they measured a blood sugar of 123. I performed a brief medical screening exam on the patient determined that the patient needs further evaluation and management by main side provider. I have placed initial orders to help expedite care. - Related Data Allergies/Adverse Reactions: liborio Allergy (Severe, Verified 08/16/20 12:18) green pepper Allergy (Severe, Verified 08/16/20 12:18) ketorolac tromethamine [From Toradol] Allergy (Verified 08/16/20 12:18) tramadol [Tramadol] Allergy (Verified 08/16/20 12:18) Past Medical History - Past Medical History Cardiac Medical History: Reports: Hx Hypercholesterolemia, Hx Hypertension Pulmonary Medical History: Reports: Hx COPD, Hx Pneumonia Endocrine Medical History: Reports: Hx Diabetes Mellitus Type 2 Malignancy Medical History: Reports: Hx Lymphoma - Non-Hodgkin's GI Medical History: Reports: Hx Gastroesophageal Reflux Disease Musculoskeltal Medical History: Reports Hx Arthritis, Reports Hx Musculoskeletal Trauma Psychiatric Medical History: Reports: Hx Anxiety, Hx Depression Past Surgical History: Reports: Hx Appendectomy, Hx Cholecystectomy, Hx Gynecologic Surgery - x14 D&C - Immunizations Immunizations up to date: No Hx Diphtheria, Pertussis, Tetanus Vaccination: Yes Physical Exam - Vital signs Vitals: Temp Pulse Resp BP Pulse Ox 98.5 F 108 H 20 124/70 96 08/29/20 13:55 08/29/20 13:55 08/29/20 13:55 08/29/20 13:55 08/29/20 13:55 Course - Vital Signs Vital signs: Temp Pulse Resp BP Pulse Ox 98.5 F 108 H 20 124/70 96 08/29/20 13:55 08/29/20 13:55 08/29/20 13:55 08/29/20 13:55 08/29/20 13:55 Doctor's Discharge - Discharge Referrals: TERRANCE VIZCAINO MD [Primary Care Provider] - Follow up as needed
--- NOTE | 2020-08-29 16:17 | RADIOLOGY REPORT (SQ) ---
EXAM DESCRIPTION: CHEST SINGLE VIEW IMAGES COMPLETED DATE/TIME: 08/29/2020 4:00 pm REASON FOR STUDY: syncope COMPARISON: PA and lateral views of the chest from 08/26/2019. EXAM PARAMETERS: NUMBER OF VIEWS: One view. TECHNIQUE: An AP view of the chest was obtained. RADIATION DOSE: NA LIMITATIONS: None. FINDINGS: LUNGS AND PLEURA: No consolidation, pleural effusion or pneumothorax. MEDIASTINUM AND HILAR STRUCTURES: No mediastinal or hilar contour abnormality. HEART AND VASCULAR STRUCTURES: The cardiac silhouette and pulmonary vasculature are within normal yarbrough its. BONES: No acute findings. HARDWARE: The tip of the left upper extremity PICC projects within the SVC. OTHER: No other finding. IMPRESSION: No acute cardiopulmonary process. TECHNICAL DOCUMENTATION: JOB ID: [id number] 2010 [employer]- All Rights Reserved Reading location - IP/workstation name: [email or web address]
[2020-08-29] MEDS ORDERED: ONDANSETRON HCL INJ/PF 4 MG/2 ML SDV IV ONE (16:20)
[2020-08-29] MEDS ORDERED: ONDANSETRON 4 MG TAB.RAPDIS PO ONE (16:27)
[2020-08-29] MEDS ORDERED: ACETAMINOPHEN 325 MG TABLET PO ONE (16:28)
--- NOTE | 2020-08-29 16:30 | RADIOLOGY REPORT (SQ) ---
EXAM DESCRIPTION: CT HEAD WITHOUT IMAGES COMPLETED DATE/TIME: 08/29/2020 4:18 pm REASON FOR STUDY: syncope COMPARISON: None. TECHNIQUE: Axial images acquired through the brain without intravenous contrast. Images reviewed wi th bone, brain and subdural windows. Additional sagittal and coronal reconstructions were generated. Images stored on PACS. All CT scanners at this facility use dose modulation, iterative reconstruction, and/or weight based d osing when appropriate to reduce radiation dose to as low as reasonably achievable (ALARA). [facility]: Dose Right [facility]: CareDose [facility]: Dose Right [facility]: Teradose 4D [facility]: [employer] RADIATION DOSE: CT Rad equipment meets quality standard of care and radiation dose reduction techniq ues were employed. CTDIvol: 53.2 mGy. DLP: 991 mGy-cm. mGy. LIMITATIONS: None. FINDINGS: VENTRICLES: Normal size and contour. CEREBRUM: Mild frontal cortical atrophy. No masses. No hemorrhage. No midline shift. No evidence for acute infarction. Normal smith/white matter differentiation. No areas of low density in the white matter. CEREBELLUM: No masses. No hemorrhage. No alteration of density. No evidence for acute infarction. EXTRAAXIAL SPACES: No fluid collections. No masses. ORBITS AND GLOBE: No intra- or extraconal masses. Normal contour of globe without masses. CALVARIUM: No fracture. PARANASAL SINUSES: No fluid or mucosal thickening. SOFT TISSUES: No mass or hematoma. OTHER: No other significant finding. IMPRESSION: Mild frontal cortical atrophy with no acute findings in the brain. EVIDENCE OF ACUTE STROKE: NO. COMMENT: Quality ID # [id number]: Final reports with documentation of one or more dose reduction techniques (e.g., Automated exposure control, adjustment of the mA and/or kV according to patient size, use of iterative reconstruction technique) TECHNICAL DOCUMENTATION: JOB ID: [id number] 2010 [employer]- All Rights Reserved Reading location - IP/workstation name: [email or web address]
[2020-08-29 16:38] LABS: ABSOLUTE BASOPHILS # (AUTO) 0.1 10^3/uL (0.0-0.2); ABSOLUTE EOSINOPHILS # (AUTO) 0.1 10^3/uL (0.0-0.6); ABSOLUTE LYMPHOCYTES (AUTO) 2.8 10^3/uL (0.5-4.7); ABSOLUTE MONOCYTES (AUTO) 0.7 10^3/uL (0.1-1.4); ABSOLUTE NEUT (AUTO) 7.8 10^3/uL (1.7-8.2); EOSINOPHILS % (AUTO) 0.9 % (0-6); HEMATOCRIT 43.7 % (36.0-47.0); HEMOGLOBIN 15.2 g/dL (12.0-15.5); LYMPHOCYTES % (AUTO) 24.2 % (13-45); MEAN CORPUSCULAR HEMOGLOBIN 33.4 pg (27.0-33.4); MEAN CORPUSCULAR HGB CONC 34.9 g/dL (32.0-36.0); MEAN CORPUSCULAR VOLUME 96 fl (80-97); MONOCYTES % (AUTO) 6.4 % (3-13); PLATELET COUNT 225 10^3/uL (150-450); RED BLOOD COUNT 4.55 10^6/uL (3.72-5.28); RED CELL DISTRIBUTION WIDTH 13.1 % (11.5-14.0); SEGMENTED NEUTROPHILS % (AUTO) 67.5 % (42-78); TOTAL CELLS COUNTED % (AUTO) 100 %; WHITE BLOOD COUNT 11.6 10^3/uL (4.0-10.5)
[2020-08-29 16:50] LABS: INTERNATIONAL RATION (INR) 0.93; PARTIAL THROMBOPLASTIN TIME 30.2 SEC (23.5-35.8); PROTHROMBIN TIME 12.7 SEC (11.4-15.4)
[2020-08-29 17:23] LABS: ALBUMIN 4.4 g/dL (3.5-5.0); ALKALINE PHOSPHATASE 109 U/L (38-126); ANION GAP 12 (5-19); ASPARTATE AMINO TRANSFERASE 22 U/L (14-36); BILIRUBIN,DIRECT 0.3 mg/dL (0.0-0.4); BILIRUBIN,TOTAL 0.8 mg/dL (0.2-1.3); BLOOD UREA NITROGEN 14 mg/dL (7-20); CALCIUM 9.4 mg/dL (8.4-10.2); CARBON DIOXIDE 22 mmol/L (22-30); CHLORIDE 95 mmol/L (98-107); GLUCOSE 126 mg/dL (75-110); POTASSIUM 4.4 mmol/L (3.6-5.0); TOTAL PROTEIN 7.4 g/dL (6.3-8.2)
--- NOTE | 2020-08-29 17:50 | EKG REPORT ---
SEVERITY:- OTHERWISE NORMAL ECG - SINUS RHYTHM POOR R WAVE PROGRESSION ANT. PRECORDIAL LEADS. : Confirmed by: Jian Agee MD 29-Aug-2020 17:49:35
--- NOTE | 2020-08-29 18:43 | ER Document Report ---
ED General - General Chief Complaint: Syncope Stated Complaint: SYNCOPAL EPISODE Time Seen by Provider: 08/29/20 14:20 Primary Care Provider: TERRANCE VIZCAINO MD [Primary Care Provider] - Follow up as needed Mode of Arrival: Ambulatory Information source: Patient Notes: 49-year-old female coming in today with chief complaint of syncopal episode. Around lunchtime patient states she was in her kitchen and she woke up on the floor. Had left-sided head pain and suspect she hit her head as she was passing out. Also bumped her left hip. She is however ambulatory. Patient states she has had syncope in the past. Was told she had low sodium. She states that she has asked her physician to go see a neurologist about this and some intermittent episodes of dizziness she has been having. Patient denies having any palpitations or chest pain or shortness of breath prior to blacking out. TRAVEL OUTSIDE OF THE [place] IN LAST 30 DAYS: No - Related Data Allergies/Adverse Reactions: liborio Allergy (Severe, Verified 08/29/20 18:09) green pepper Allergy (Severe, Verified 08/29/20 18:09) ketorolac tromethamine [From Toradol] Allergy (Verified 08/29/20 18:09) tramadol [Tramadol] Allergy (Verified 08/29/20 18:09) Past Medical History - Social History Smoking Status: Current Every Day Smoker Frequency of alcohol use: None Drug Abuse: None Family History: Reviewed & Not Pertinent - Past Medical History Cardiac Medical History: Reports: Hx Hypercholesterolemia, Hx Hypertension Pulmonary Medical History: Reports: Hx COPD, Hx Pneumonia Endocrine Medical History: Reports: Hx Diabetes Mellitus Type 2 Malignancy Medical History: Reports: Hx Lymphoma - Non-Hodgkin's GI Medical History: Reports: Hx Gastroesophageal Reflux Disease Musculoskeletal Medical History: Reports Hx Arthritis, Reports Hx Musculoskeletal Trauma Psychiatric Medical History: Reports: Hx Anxiety, Hx Depression Past Surgical History: Reports: Hx Appendectomy, Hx Cholecystectomy, Hx Gynecologic Surgery - x14 D&C - Immunizations Immunizations up to date: No Hx Diphtheria, Pertussis, Tetanus Vaccination: Yes Review of Systems - Review of Systems Notes: Constitutional: No fevers. No chills. EENT: No eye redness. No eye pain. No ear pain. No sore throat. Cardiovascular: No chest pain. No palpitations. Respiratory: No cough. No shortness of breath. No respiratory distress. Gastrointestinal: No abdominal pain. No nausea, vomiting, or diarrhea. Genitourinary: Atraumatic. No lesions. No pain. No discharge. Musculoskeletal: Atraumatic. No swelling. No deformities. Skin: No rash or lesions. Lymphatic: No swollen lymph nodes. Neurologic: No headache. Positive syncope Psychiatric: No suicidal or homicidal ideation. Physical Exam - Vital signs Vitals: Temp Pulse Resp BP Pulse Ox 98.5 F 108 H 20 124/70 96 08/29/20 13:55 08/29/20 13:55 08/29/20 13:55 08/29/20 13:55 08/29/20 13:55 - Notes Notes: General: Well-developed, well-nourished. In no acute distress. Non-toxic appe aring. Cardiac: Well-perfused. Regular rate and rhythm. No murmurs, rubs, or gallops. Pulmonary: No respiratory distress. No cyanosis. Bilateral lung fiels are clear to auscultation. Abdominal: Non-distended. Non-rigid. Bowels sounds are present in all four quadrants. No guarding or rebound. HEENT: Tenderness palpation of the left parieto-occipital scalp. No lacerations or abrasions. No bony step-offs.. Conjunctivae not reddened. No tearing. PERRL. EOMI. Orbits atraumatic. No periorbital swelling or erythema. Oropharynx is without erythema, swelling, or exudates. Neck: Supple. No adenopathy. No meningismus. Dermatologic: Warm with good turgor. No rash. Atraumatic. Chest: Atraumatic. No chest wall tenderness to palpation. Musculoskeletal: Moves all extremities well. No range of motion deficits. no muscular or joint tenderness. No paraspinal muscle tenderness. no midline spinal tenderness or step-off. Genitourinary: Examination deferred Neurologic: No gross neurologic deficits. Awake alert and oriented. Psychiatric: Normal mood. Course - Re-evaluation Re-evalutation: 08/29/20 18:41 Psych patient would definitely benefit from some outpatient neurologic testing. On today's visit, she has slightly low sodium and chloride. Will replete with 1 L normal saline. Patient requesting something for her head pain and nausea. 08/29/20 19:28 Patient will get 1 L normal saline to replete her sodium and chloride. Rest of her evaluation is normal. Indicated she needs to see a neurologist. She needs to be also seen by her primary care provider. We will give her a take-home pack of [place] for her head pain. Needs to follow-up with her primary care doctor in 1 to 2 days. - Vital Signs Vital signs: Temp Pulse Resp BP Pulse Ox 98.1 F 78 18 100/62 96 08/29/20 17:06 08/29/20 17:06 08/29/20 17:06 08/29/20 17:06 08/29/20 17:06 - Laboratory Result Diagrams: 08/29/20 15:41 08/29/20 15:41 Laboratory results interpreted by me: 08/29/20 08/29/20 15:41 15:41 WBC 11.6 H Sodium 128.5 L Chloride 95 L Creatinine 0.43 L Glucose 126 H - EKG Interpretation by Me EKG shows normal: Sinus rhythm Rate: Normal Rhythm: NSR Discharge - Discharge Clinical Impression: Hyponatremia Syncope Qualifiers: Syncope type: unspecified Qualified Code(s): R55 - Syncope and collapse Head injury Qualifiers: Encounter type: initial encounter Qualified Code(s): S09.90XA - Unspecified injury of head, initial encounter Condition: Good Disposition: HOME, SELF-CARE Instructions: Syncopal Episode ([facility]), Head Injury Precautions ([facility]), Hyponatremia ([facility]) Additional Instructions: Take pain medication given to you in the emergency department only as needed for severe pain not otherwise relieved with Tylenol. Please see your physician in the next 1 to 2 days. You may need to be referred to a neurologist. If you get significantly worse or pass out again before you see your doctor, you may return to the emergency room to be reevaluated. Referrals: TERRANCE VIZCAINO MD [Primary Care Provider] - Follow up tomorrow
[2020-08-29] MEDS ORDERED: MORPHINE SULFATE 10 MG/ML INJ IV ONE (18:44)
[2020-08-29] MEDS ORDERED: METOCLOPRAMIDE HCL INJ/PF 10 MG/2 ML SDV IV ONE (18:44)
[2020-08-29] MEDS ORDERED: NORMAL SALINE 1000 ML 1,000 ML IV ONE (18:45)
[2020-08-29] MEDS ORDERED: HYDROCODONE/ACETAMINOPHEN 5-325 MG (6 TAB/ER DISP) PO PRN (19:30)
[2020-08-29] MEDS ORDERED: ONDANSETRON ODT 4 MG TAB (6 TAB/ER DISP) PO PRN (19:32)
[2020-08-29 20:14] VITALS: BP 116/62
== END 2020-08-29 20:14 | disposition home or self-care (01) ==
LOC: ER 13:38
DX: R55 Syncope and collapse (principal); S09.90XA Unspecified injury of head, initial encounter; W19.XXXA Unspecified fall, initial encounter; Y92.000 Kitchen of unspecified non-institutional (private) residence as the place of occurrence of the external cause; R42 Dizziness and giddiness; R11.0 Nausea; E87.1 Hypo-osmolality and hyponatremia; G31.9 Degenerative disease of nervous system, unspecified; I10 Essential (primary) hypertension; E11.9 Type 2 diabetes mellitus without complications; J44.9 Chronic obstructive pulmonary disease, unspecified; F17.200 Nicotine dependence, unspecified, uncomplicated; Z85.72 Personal history of non-Hodgkin lymphomas; Z91.018 Allergy to other foods; Z88.8 Allergy status to other drugs, medicaments and biological substances; Z88.6 Allergy status to analgesic agent
CPT/HCPCS: 93005; 99285; 96361; 96374; 96375; 36415; 83735; 85025; 85610; 85730; 80053; 84484; 71045; 70450; 93010; J3490; S0119; J2765; J2270; J7030

== ENCOUNTER 2020-09-18 12:48 | Emergency (ER) | payer MEDICAID ==
--- NOTE | 2020-09-18 13:05 | ER Document Report ---
ED Medical Screen (RME) - General Chief Complaint: Syncope Stated Complaint: FALL/BACK, SHOULDER PAIN Time Seen by Provider: 09/18/20 12:56 Primary Care Provider: TERRANCE VIZCAINO MD [Primary Care Provider] - Follow up as needed Mode of Arrival: Wheelchair Information source: Patient Notes: 49-year-old female presented to ED for syncopal episode. She states she had syncopal episode Saturday she remembers falling then she had another similar episode Saturday and then another one today. She states her head was spinning and she felt like she would have also she grabbed a chair will fast. She states she is fallen a couple weeks ago also. She does have a past medical history of high blood pressure high cholesterol diabetes depression. She also is off of chemo now for non-Hodgkin's lymphoma. She does smoke a pack a day does not drink or use any drugs. Patient is alert oriented respirations regular nonlabored speaking in full sentences at this time. I have greeted and performed a rapid initial assessment of this patient. A comprehensive ED assessment and evaluation of the patient, analysis of test results and completion of medical decision making process will be conducted by an additional ED providers. TRAVEL OUTSIDE OF THE [place] IN LAST 30 DAYS: No - Related Data Allergies/Adverse Reactions: liborio Allergy (Severe, Verified 09/18/20 12:57) green pepper Allergy (Severe, Verified 09/18/20 12:57) ketorolac tromethamine [From Toradol] Allergy (Verified 09/18/20 12:57) tramadol [Tramadol] Allergy (Verified 09/18/20 12:57) Past Medical History - Social History Chew tobacco use (# tins/day): Yes Drug Abuse: None - Past Medical History Cardiac Medical History: Reports: Hx Hypercholesterolemia, Hx Hypertension Pulmonary Medical History: Reports: Hx COPD, Hx Pneumonia Endocrine Medical History: Reports: Hx Diabetes Mellitus Type 2 Malignancy Medical History: Reports: Hx Lymphoma - Non-Hodgkin's GI Medical History: Reports: Hx Gastroesophageal Reflux Disease Musculoskeltal Medical History: Reports Hx Arthritis, Reports Hx Musculoskeletal Trauma Psychiatric Medical History: Reports: Hx Anxiety, Hx Depression Past Surgical History: Reports: Hx Appendectomy, Hx Cholecystectomy, Hx Gynecologic Surgery - x14 D&C - Immunizations Immunizations up to date: No Hx Diphtheria, Pertussis, Tetanus Vaccination: Yes Physical Exam - Vital signs Vitals: Temp Pulse Resp BP Pulse Ox 98.4 F 98 18 120/67 96 09/18/20 13:00 09/18/20 13:00 09/18/20 13:00 09/18/20 13:00 09/18/20 13:00 Course - Vital Signs Vital signs: Temp Pulse Resp BP Pulse Ox 98.4 F 98 18 120/67 96 09/18/20 13:00 09/18/20 13:00 09/18/20 13:00 09/18/20 13:00 09/18/20 13:00 Doctor's Discharge - Discharge Referrals: TERRANCE VIZCAINO MD [Primary Care Provider] - Follow up as needed
--- NOTE | 2020-09-18 14:04 | RADIOLOGY REPORT (SQ) ---
EXAM DESCRIPTION: CHEST 2 VIEWS IMAGES COMPLETED DATE/TIME: 09/18/2020 1:51 pm REASON FOR STUDY: syncope COMPARISON: 08/29/2020 EXAM PARAMETERS: NUMBER OF VIEWS: two views TECHNIQUE: Digital Frontal and Lateral radiographic views of the chest acquired. RADIATION DOSE: NA LIMITATIONS: none FINDINGS: LUNGS AND PLEURA: No opacities, masses or pneumothorax. No pleural effusion. MEDIASTINUM AND HILAR STRUCTURES: No masses or contour abnormalities. HEART AND VASCULAR STRUCTURES: Heart normal size. No evidence for failure. BONES: No acute findings. HARDWARE: Left upper extremity PICC terminates in the region of the cavoatrial junction. OTHER: No other significant finding. IMPRESSION: No evidence of acute cardiopulmonary abnormality. Left upper extremity PICC without gina dence of complication. TECHNICAL DOCUMENTATION: JOB ID: [id number] 2010 [employer] All Rights Reserved Reading location - IP/workstation name: [email or web address]
--- NOTE | 2020-09-18 14:05 | RADIOLOGY REPORT (SQ) ---
EXAM DESCRIPTION: SHOULDER RIGHT 2 OR MORE VIEWS IMAGES COMPLETED DATE/TIME: 09/18/2020 1:51 pm REASON FOR STUDY: fall right shoulder pain COMPARISON: None. NUMBER OF VIEWS: Three views. TECHNIQUE: Internal rotation, external rotation, and Y view images acquired of the right shoulder. LIMITATIONS: None. FINDINGS: MINERALIZATION: Normal. BONES: No acute fracture. No worrisome bone lesions. JOINTS: No dislocation. VISUALIZED LUNGS AND RIBS: No pneumothorax. No rib fracture. SOFT TISSUES: No radiopaque foreign body. OTHER: No other significant finding. IMPRESSION: No evidence of acute osseous injury. TECHNICAL DOCUMENTATION: JOB ID: [id number] 2010 [employer]- All Rights Reserved Reading location - IP/workstation name: [email or web address]
[2020-09-18 14:19] LABS: ABSOLUTE BASOPHILS # (AUTO) 0.1 10^3/uL (0.0-0.2); ABSOLUTE EOSINOPHILS # (AUTO) 0.1 10^3/uL (0.0-0.6); ABSOLUTE LYMPHOCYTES (AUTO) 2.6 10^3/uL (0.5-4.7); ABSOLUTE MONOCYTES (AUTO) 0.8 10^3/uL (0.1-1.4); ABSOLUTE NEUT (AUTO) 7.1 10^3/uL (1.7-8.2); EOSINOPHILS % (AUTO) 0.8 % (0-6); HEMATOCRIT 41.6 % (36.0-47.0); HEMOGLOBIN 15.1 g/dL (12.0-15.5); LYMPHOCYTES % (AUTO) 24.5 % (13-45); MEAN CORPUSCULAR HEMOGLOBIN 34.5 pg (27.0-33.4); MEAN CORPUSCULAR HGB CONC 36.3 g/dL (32.0-36.0); MEAN CORPUSCULAR VOLUME 95 fl (80-97); MONOCYTES % (AUTO) 7.7 % (3-13); PLATELET COUNT 195 10^3/uL (150-450); RED BLOOD COUNT 4.38 10^6/uL (3.72-5.28); RED CELL DISTRIBUTION WIDTH 13.2 % (11.5-14.0); TOTAL CELLS COUNTED % (AUTO) 100 %; WHITE BLOOD COUNT 10.8 10^3/uL (4.0-10.5)
[2020-09-18 14:37] LABS: ALBUMIN 4.4 g/dL (3.5-5.0); ALKALINE PHOSPHATASE 107 U/L (38-126); ANION GAP 12 (5-19); ASPARTATE AMINO TRANSFERASE 24 U/L (14-36); BILIRUBIN,DIRECT 0.3 mg/dL (0.0-0.4); BILIRUBIN,TOTAL 0.8 mg/dL (0.2-1.3); BLOOD UREA NITROGEN 11 mg/dL (7-20); CALCIUM 9.7 mg/dL (8.4-10.2); CARBON DIOXIDE 22 mmol/L (22-30); CHLORIDE 93 mmol/L (98-107); CREATINE KINASE 47 U/L (30-135); GLUCOSE 205 mg/dL (75-110); POTASSIUM 4.8 mmol/L (3.6-5.0); TOTAL PROTEIN 6.9 g/dL (6.3-8.2)
[2020-09-18] MEDS ORDERED: HYDROMORPHONE HCL INJ/PF 2 MG/ML AMPULE IV ONE ×2 (14:45→15:52)
[2020-09-18] MEDS ORDERED: NORMAL SALINE 1000 ML 1,000 ML IV ONE (14:46)
--- NOTE | 2020-09-18 15:30 | RADIOLOGY REPORT (SQ) ---
EXAM DESCRIPTION: CT HEAD WITHOUT IMAGES COMPLETED DATE/TIME: 09/18/2020 3:19 pm REASON FOR STUDY: syncope COMPARISON: 08/29/2020 TECHNIQUE: Axial images acquired through the brain without intravenous contrast. Images reviewed wi th bone, brain and subdural windows. Additional sagittal and coronal reconstructions were generated. Images stored on PACS. All CT scanners at this facility use dose modulation, iterative reconstruction, and/or weight based d osing when appropriate to reduce radiation dose to as low as reasonably achievable (ALARA). [facility]: Dose Right [facility]: CareDose [facility]: Dose Right [facility]: Teradose 4D [facility]: [employer] RADIATION DOSE: CT Rad equipment meets quality standard of care and radiation dose reduction techniq ues were employed. CTDIvol: 53.2 mGy. DLP: 991 mGy-cm. mGy. LIMITATIONS: None. FINDINGS: VENTRICLES: Normal size and contour. CEREBRUM: No masses. No hemorrhage. No midline shift. No evidence for acute infarction. Normal gra y/white matter differentiation. No areas of low density in the white matter. CEREBELLUM: No masses. No hemorrhage. No alteration of density. No evidence for acute infarction. EXTRAAXIAL SPACES: Re- demonstration of mild prominence of the frontal extra-axial spaces, suggesting a degree of atrophy ORBITS AND GLOBE: No intra- or extraconal masses. Normal contour of globe without masses. CALVARIUM: No fracture. PARANASAL SINUSES: No fluid or mucosal thickening. SOFT TISSUES: No mass or hematoma. OTHER: No other significant finding. IMPRESSION: Stable CT appearance of the brain. No acute intracranial abnormality. EVIDENCE OF ACUTE STROKE: NO. COMMENT: Quality ID # [id number]: Final reports with documentation of one or more dose reduction techniques (e.g., Automated exposure control, adjustment of the mA and/or kV according to patient size, use of iterative reconstruction technique) TECHNICAL DOCUMENTATION: JOB ID: [id number] 2010 [employer]- All Rights Reserved Reading location - IP/workstation name: [email or web address]
[2020-09-18 16:20] LABS: APPEARANCE,URINE CLOUDY; BILIRUBIN,URINE NEGATIVE (NEGATIVE); COLOR,URINE YELLOW; GLUCOSE, URINE 50 mg/dL (NEGATIVE); KETONES,URINE NEGATIVE (NEGATIVE); LEUKOCYTE ESTERASE,URINE LARGE (NEGATIVE); NITRITE,URINE NEGATIVE (NEGATIVE); PROTEIN,URINE 30 mg/dL (NEGATIVE); URINE SPECIFIC GRAVITY 1.018; UROBILINOGEN,URINE NEGATIVE mg/dL (<2.0)
[2020-09-18 16:36] LABS: URINE AMPHETAMINES SCREEN NEGATIVE; URINE BARBITURATES SCREEN NEGATIVE; URINE BENZODIAZEPINES SCREEN NEGATIVE; URINE COCAINE SCREEN NEGATIVE; URINE MARIJUANA (THC) SCREEN NEGATIVE; URINE METHADONE SCREEN NEGATIVE; URINE PHENCYCLIDINE SCREEN NEGATIVE
--- NOTE | 2020-09-18 18:03 | ER Document Report ---
ED General - General Chief Complaint: Syncope Stated Complaint: SYNCOPE Time Seen by Provider: 09/18/20 12:56 Primary Care Provider: TERRANCE VIZCAINO MD [Primary Care Provider] - Follow up as needed Mode of Arrival: Wheelchair Notes: 49-year-old woman presenting to the emergency department with a history of syncopal episodes. She states that she had an episode on 09/16/2020 which she awoke on the kitchen floor, unsure of how long she had been on the floor. She denies injury which might of occurred during the fall. She presents to the emergency department hoping to get some answers as to why this keeps happening. Presently she is alert and responsive and has no focal neurologic findings. TRAVEL OUTSIDE OF THE [place] IN LAST 30 DAYS: No - Related Data Allergies/Adverse Reactions: liborio Allergy (Severe, Verified 09/18/20 12:57) green pepper Allergy (Severe, Verified 09/18/20 12:57) ketorolac tromethamine [From Toradol] Allergy (Verified 09/18/20 12:57) tramadol [Tramadol] Allergy (Verified 09/18/20 12:57) Past Medical History - General Information source: Patient - Social History Smoking Status: Current Every Day Smoker Chew tobacco use (# tins/day): Yes Drug Abuse: None Family History: Reviewed & Not Pertinent Patient has homicidal ideation: No - Past Medical History Cardiac Medical History: Reports: Hx Hypercholesterolemia, Hx Hypertension Pulmonary Medical History: Reports: Hx COPD, Hx Pneumonia Endocrine Medical History: Reports: Hx Diabetes Mellitus Type 2 Malignancy Medical History: Reports: Hx Lymphoma - Non-Hodgkin's GI Medical History: Reports: Hx Gastroesophageal Reflux Disease Musculoskeletal Medical History: Reports Hx Arthritis, Reports Hx Musculoskeletal Trauma Psychiatric Medical History: Reports: Hx Anxiety, Hx Depression Past Surgical History: Reports: Hx Appendectomy, Hx Cholecystectomy, Hx Gynecologic Surgery - x14 D&C - Immunizations Immunizations up to date: No Hx Diphtheria, Pertussis, Tetanus Vaccination: Yes Review of Systems - Review of Systems Notes: Constitutional: Negative for fever. HENT: Negative for sore throat. Eyes: Negative for visual changes. Cardiovascular: Negative for chest pain. Respiratory: Negative for shortness of breath. Gastrointestinal: Negative for abdominal pain, vomiting or diarrhea. Genitourinary: Negative for dysuria. Musculoskeletal: Negative for back pain. Skin: Negative for rash. Neurological: See HPI 10 point ROS negative except as marked above and in HPI. Physical Exam - Vital signs Vitals: Temp Pulse Resp BP Pulse Ox 98.4 F 98 18 120/67 96 09/18/20 13:00 09/18/20 13:00 09/18/20 13:00 09/18/20 13:00 09/18/20 13:00 - Notes Notes: PHYSICAL EXAMINATION: Physical Exam: General: Well-nourished well-developed 49-year-old female in no acute distress HEENT: NC/AT, pupils equal round and reactive to light, MM moist,nares clear, oropharynx clear, airway patent Neck: supple, no adenopathy, no masses. Good range of motion Lungs: clear, no wheezing, no rales no rhonchi CVS: Regular rate and rhythm no murmur gallop or rub Abdomen: Soft, active, nontender, no masses, no hepatosplenomegaly Ext: Good range of motion, no deformity, no crepitus Neuro: Alert and responsive, moving all 4 extremities on command, cranial nerves intact, no focal findings Skin: Intact no open lesions, no rash Course - Re-evaluation Re-evalutation: 09/18/20 18:10 I reviewed the x-rays and also laboratory data. The patient does have findings suggestive of urinary tract infection a sodium which is 127. Will review that finding with the patient she will be started on antibiotics for the infection and I will ask her to liberalize her salt intake over the next few days before she follows up with her primary care doctor. Will be discharged home with Keflex and follow-up with your primary MD. - Vital Signs Vital signs: Temp Pulse Resp BP Pulse Ox 98.4 F 98 18 120/67 96 09/18/20 13:00 09/18/20 13:00 09/18/20 13:00 09/18/20 13:00 09/18/20 13:00 - Laboratory Result Diagrams: 09/18/20 14:02 09/18/20 14:02 Laboratory results interpreted by me: 09/18/20 09/18/20 09/18/20 14:02 14:02 16:05 WBC 10.8 H MCH 34.5 H MCHC 36.3 H Sodium 127.0 L Chloride 93 L Creatinine 0.33 L Glucose 205 H Urine Protein 30 H Urine Glucose (UA) 50 H Urine Blood SMALL H Ur Leukocyte Esterase LARGE H 09/18/20 18:03 I have reviewed laboratory data and used this information for the treatment decisions regarding the patient. - Diagnostic Test Radiology reviewed: Image reviewed, Reports reviewed Radiology results interpreted by me: 09/18/20 18:05 Chest X-Ray 09/18/20 13:07 IMPRESSION: No evidence of acute cardiopulmonary abnormality. Left upper extremity PICC without evidence of complication. Shoulder X-Ray 09/18/20 13:07 IMPRESSION: No evidence of acute osseous injury. Head CT 09/18/20 14:44 IMPRESSION: Stable CT appearance of the brain. No acute intracranial abnormality. EVIDENCE OF ACUTE STROKE: NO. - EKG Interpretation by Me Rate: Normal - EKG interpreted by Dr. Thompson: Normal sinus rhythm, rate 86, IL interval 156 ms, QT interval 376 msl, left axis deviation,no acute ST or T wave abnormalities, no ischemic findings, compared to EKG dated 08/29/2020 there are no significant interval changes. Discharge - Discharge Clinical Impression: Hyponatremia, Diabetes mellitus type 2 in nonobese Syncopal episodes Qualifiers: Syncope type: unspecified Qualified Code(s): R55 - Syncope and collapse Urinary tract infection Qualifiers: Urinary tract infection type: site unspecified Hematuria presence: without hematuria Qualified Code(s): N39.0 - Urinary tract infection, site not specified Condition: Good Disposition: HOME, SELF-CARE Instructions: Cephalexin ([facility]), Urinary Tract Infection ([facility]) Additional Instructions: You were seen and the emergency department today with a history of syncopal episodes in the past. The CT scan and work-up were negative for obvious causes of passing out. We are recommending that you follow-up with a neurologist for further evaluation possible seizure as an etiology given a negative cardiac evaluation. Also found to have a urinary tract infection and a prescription for antibiotics has been written. Please liberalize your salt intake as her sodium was found to be low. We are asking that you follow-up with your primary care doctor for follow-up of the UTI and a repeat sodium. If you are having increasing difficulties or other concerns you may return to the emergency department for further evaluation and treatment HOME CARE INSTRUCTIONS & INFORMATION: Thank you for choosing us for your medical needs. We hope you're satisfied with the care you received. After you leave, you must properly care for your problem and, at the same time, observe its progress. Any condition can change. Some illnesses can change rapidly over hours or days. If your condition worsens, return to the Emergency Department or see your physician promptly. ABOUT YOUR X-RAYS AND EKG'S: If you had an EKG or X-rays taken, they have been read by the Emergency Physician. The X-rays and EKG's will also be read by a Radiologist or Senior Designer within 24 hours. If discrepancies are noted, you will be notified by telephone. Please be certain the ED has a correct telephone number & address where you can be reached. Also, realize that some fractures or abnormalities do not show up on initial X-rays. If your symptoms continue, see your physician. ABOUT YOUR LABORATORY TEST: If you had laboratory tests, the results have been reviewed by the Emergency Physician. Some test results (for example cultures) may not be available for several days. You will be contacted if any test result shows you need additional treatment. Please be certain the ED has a correct telephone number and address where you can be reached. ABOUT YOUR MEDICATIONS: You will receive instructions on how to take your medicine on the prescription label you receive. Additional information may be p rovided by the Pharmacy. If you have questions afterwards, call the ED for clarification or further instructions. Some prescribed medications may cause drowsiness. Do not perform tasks such as driving a car or operating machinery without consulting your Pharmacist. If you feel you need a refill of pain medication, your condition will need re-evaluation. Please do not call for a refill of any medication. ABOUT YOUR SIGNATURE: Signature of this document acknowledges to followin. Understanding that you received emergency treatment and that you may be released before al medical problems are known or treated. Please be certain the ED has a correct phone number & address where you can be reached. 2. Acknowledgement that you will arrange for follow-up care as recommended. 3. Authorization for the Emergency Physician to provide information to your follow-up Physician in order to maximize your care. AT ANY TIME, IF YOUR SYMPTOMS CHANGE SIGNIFICANTLY OR WORSEN OR YOU DEVELOP NEW SYMPTOMS, RETURN TO THE EMERGENCY DEPARTMENT IMMEDIATELY FOR RE-EVALUATION. OUR GOAL IS TO PROVIDE EXCELLENT MEDICAL CARE! WE HOPE THAT WE HAVE MET YOUR EXPECTATIONS DURING YOUR EMERGENCY DEPARTMENT VISIT AND THAT YOU FEEL YOU HAVE RECEIVED EXCELLENT CARE! Prescriptions: Cephalexin Monohydrate [Keflex 500 mg Capsule] 500 mg PO Q8 7 Days #21 capsule Referrals: TERRANCE VIZCAINO MD [Primary Care Provider] - Follow up as needed
[2020-09-18 18:37] VITALS: BP 120/63
--- NOTE | 2020-09-19 00:19 | EKG REPORT ---
SEVERITY:- NORMAL ECG - SINUS RHYTHM : Confirmed by: Dwayne Pedersen 19-Sep-2020 00:19:09
== END 2020-09-18 18:43 | disposition home or self-care (01) ==
LOC: ER 12:48
DX: E87.1 Hypo-osmolality and hyponatremia (principal); E11.9 Type 2 diabetes mellitus without complications; R55 Syncope and collapse; N39.0 Urinary tract infection, site not specified; F17.200 Nicotine dependence, unspecified, uncomplicated; E78.00 Pure hypercholesterolemia, unspecified; I10 Essential (primary) hypertension; J44.9 Chronic obstructive pulmonary disease, unspecified; Z85.72 Personal history of non-Hodgkin lymphomas
CPT/HCPCS: 93005; 96376; 99285; 96361; 96374; 36415; 87086; 82550; 85025; 80053; 81001; 84484; 80307; 71046; 73030; 70450; 93010; J1170; J7030

== ENCOUNTER → 2020-12-16 | Outpatient (CLI) | payer MEDICAID ==
--- NOTE | 2020-12-16 14:52 | RADIOLOGY REPORT (SQ) ---
EXAM DESCRIPTION: VENOUS UNILATERAL UPPER IMAGES COMPLETED DATE/TIME: 12/16/2020 2:33 pm REASON FOR STUDY: LUE PAIN M79.622 PAIN IN LEFT UPPER ARM R22.32 LOCALIZED SWELLING, MASS AND LUMP , LEFT UPPER LIMB COMPARISON: None. TECHNIQUE: Dynamic and static smith scale and color images acquired of the left arm venous system. Se lected spectral images acquired with additional compression and augmentation maneuvers. The contralat eral subclavian vein and internal jugular vein were also imaged. Images stored on PACS. LIMITATIONS: None. FINDINGS: INTERNAL JUGULAR VEIN: Normal phasicity, compression, augmentation. No visualized echogeni c material on smith scale. No defects on color images. Comparison opposite side normal. SUBCLAVIAN VEIN: Normal compression, augmentation. No visualized echogenic material on smith scale. No defects on color images. AXILLARY VEIN: Normal compression, augmentation. No visualized echogenic material on smith scale. No d efects on color images. BRACHIAL VEIN: Normal compression, augmentation. No visualized echogenic material on smith scale. No d efects on color images. BASILIC VEIN: Normal compression, augmentation. No visualized echogenic material on smith scale. No de fects on color images. CEPHALIC VEIN: Normal compression, augmentation. No visualized echogenic material on smith scale. No d efects on color images. OTHER: No other significant finding. CONTRALATERAL SUBCLAVIAN VEIN AND INTERNAL JUGULAR VEIN: Normal phasicity, compression and augmentation. No visualized echogenic material on smith scale. No de fects on color images. IMPRESSION: NO EVIDENCE DVT OR SVT LEFT ARM. TECHNICAL DOCUMENTATION: JOB ID: [id number] 2010 [employer]- All Rights Reserved Reading location - IP/workstation name: [email or web address]
== END ==
LOC: SP 12:00
PROVIDERS: ATTEND Internal Medicine
DX: M79.622 Pain in left upper arm (principal); R22.32 Localized swelling, mass and lump, left upper limb
CPT/HCPCS: 93971